=== PATIENT | female | born 1965 | race Caucasian/White ===

== ENCOUNTER 2017-04-11 18:50 | Emergency (ER) | payer MEDICARE, OTHER ==
[2017-04-11 18:59] VITALS: RESP 20
[2017-04-11] MEDS ORDERED: RX INFO: IV CONTRAST WAS GIVEN 1 EACH MISC MISCELLANE PRN (19:27)
[2017-04-11] MEDS ORDERED: SODIUM CHLORIDE 0.9% 1,000 ML IV STA ×2 (19:27)
[2017-04-11] MEDS ORDERED: KETOROLAC 30 MG/ML 1 ML VIAL IVP STA (19:27)
--- NOTE | 2017-04-11 19:35 | ED ---
Abdominal Pain HPI - General Chief Complaint: Abdominal Pain Stated Complaint: Abdominal pain Time Seen by Provider: 04/11/17 19:05 Source: family (Sister) Mode of arrival: wheelchair Limitations: physical limitation - History of Present Illness Initial Comments: Patient brought in by sister for abdominal pain and constipation. Patient has a history of Down syndrome. History is provided by sister. Sr. states patient has-been complaining of abdominal pain over the past 5 days. States she's had decreased oral intake, usually stops eating early stating that her stomach hurts. Sister states she given patient laxative pills, however patient has only had 2 bowel movements in the past 5 days. States patient normally has a bowel movement immediately after eating, has bowel movements daily. Patient points to the right side of her abdomen when asked where it hurts. Sr. denies patient has any history of abdominal surgeries. Denies any vomiting, fevers, chills, blood in stools. Sister notes patient's urination seems to be only small amounts at a time. MD Complaint: abdominal pain - Related Data Home Medications Medication Instructions Recorded Confirmed ALPRAZolam [ALPRAZolam] 0.25 mg PO TID 08/13/14 04/11/17 Cholecalciferol [Vitamin D3] 1,000 unit PO W/SUPPER 08/13/14 04/11/17 Cyanocobalamin [Vitamin B-12] 1,000 mcg PO DAILY 08/13/14 04/11/17 Levothyroxine Sodium [Synthroid] 25 mcg PO QAM 08/13/14 04/11/17 OLANZapine [Olanzapine] 5 mg PO HS 08/13/14 04/11/17 Omeprazole [Omeprazole] 20 mg PO QAM 08/13/14 04/11/17 metFORMIN HCL [Metformin HCl ER] 500 mg PO W/SUPPER 08/13/14 04/11/17 DULoxetine HCL [Cymbalta] 30 mg PO DAILY 08/20/15 04/11/17 DULoxetine HCL [Cymbalta] 60 mg PO DAILY 08/20/15 04/11/17 Nortrel-28 1 tab PO DAILY 04/11/17 04/11/17 Previous Rx's Medication Instructions Recorded Cephalexin [Keflex] 500 mg PO Q12HR 3 Days #6 cap 04/11/17 Docusate [Colace] 100 mg PO BID #30 capsule 04/11/17 Polyethylene Glycol 3350 [Miralax] 17 gm PO TID PRN #119 gm 04/11/17 Allergies Allergy/AdvReac Type Severity Reaction Status Date / Time No Known Allergies Allergy Verified 04/11/17 20:06 Review of Systems ROS Statement: Those systems with pertinent positive or pertinent negative responses have been documented in the HPI. ROS Other: All systems not noted in ROS Statement are negative. Constitutional: Denies: fever, chills, weakness, weight change ENT: Denies: throat pain, congestion Respiratory: Denies: cough Cardiovascular: Denies: chest pain Endocrine: Denies: fatigue Gastrointestinal: Reports: abdominal pain, constipation. Denies: nausea, vomiting, diarrhea, hematemesis, melena, hematochezia Genitourinary: Reports: frequency Musculoskeletal: Denies: back pain Skin: Denies: rash Neurological: Denies: headache Past Medical History Past Medical History: Diabetes Mellitus, Eye Disorder, Pneumonia, Sleep Apnea/ CPAP/BIPAP, Thyroid Disorder Additional Past Medical History / Comment(s): Down Syndrome, enlarged heart, wears O2 during night-2 liters nasal canula, left foot deformity History of Any Multi-Drug Resistant Organisms: None Reported Additional Past Surgical History / Comment(s): nasal surgery, wilberto cataract surgery Past Anesthesia/Blood Transfusion Reactions: No Reported Reaction Past Psychological History: Anxiety, Schizophrenia Smoking Status: Never smoker Past Alcohol Use History: None Reported Past Drug Use History: None Reported - Past Family History Father Family Medical History: Cancer Mother Additional Family Medical History / Comment(s): lung fibrosis Brother(s) Additional Family Medical History / Comment(s): lung fibrosis General Exam - General Exam Comments Initial Comments: Laying in bed. No acute distress. Calm, pleasant. Smiling. Does not appear in pain. Well-appearing. Limitations: physical limitation General appearance: alert, in no apparent distress Head exam: Present: atraumatic Eye exam: Present: PERRL, EOMI ENT exam: Present: normal exam, normal oropharynx, mucous membranes moist Neck exam: Present: normal inspection. Absent: tenderness Respiratory exam: Present: normal lung sounds bilaterally. Absent: respiratory distress, wheezes, rales Cardiovascular Exam: Present: regular rate, normal rhythm GI/Abdominal exam: Present: soft. Absent: distended, tenderness, guarding, rebound, rigid, hernia (No hernias or tenderness appreciated. Obese.) Extremities exam: Present: normal inspection Neurological exam: Present: alert, oriented X3 Psychiatric exam: Present: normal affect, normal mood Skin exam: Present: warm, dry, intact, normal color. Absent: rash Course Vital Signs 04/11/17 18:57 Temperature 98.2 F Pulse Rate 78 Respiratory 20 Rate Blood Pressure 145/90 O2 Sat by Pulse 99 Oximetry Medical Decision Making - Medical Decision Making IV fluids, Toradol ordered. We'll get computed tomography scan of the abdomen is patient points to right lower quadrant of her pain. No significant abnormalities on blood work. UA shows questionable infection, we'll give prescription Keflex. CT abdomen shows no acute process. Patient's sister updated without results. Sister feels comfortable taking patient home and monitoring symptoms at home. Agrees to follow [facility] physician one to 2 days. We'll trial of Colace and MiraLAX at home for possible constipation. Return to ER for new or worsening symptoms including increased abdominal pain, fevers, not tolerating oral intake. Sister understands and agrees. Was comfortable being discharged home. Patient's abdomen remains nontender. - Lab Data Result diagrams: 04/11/17 20:17 04/11/17 20:17 Lab Results 04/11/17 04/11/17 04/11/17 Range/Units 19:39 19:39 20:17 WBC 4.8 (3.8-10.6) k/uL RBC 4.01 (3.80-5.40) m/uL Hgb 13.8 (11.4-16.0) gm/dL Hct 40.8 (34.0-46.0) % MCV 101.6 H (80.0-100.0) fL MCH 34.4 (25.0-35.0) pg MCHC 33.8 (31.0-37.0) g/dL RDW 13.1 (11.5-15.5) % Plt Count 447 (150-450) k/uL Neutrophils % 63 % Lymphocytes % 28 % Monocytes % 7 % Eosinophils % 0 % Basophils % 1 % Neutrophils # 3.0 (1.3-7.7) k/uL Lymphocytes # 1.3 (1.0-4.8) k/uL Monocytes # 0.3 (0-1.0) k/uL Eosinophils # 0.0 (0-0.7) k/uL Basophils # 0.1 (0-0.2) k/uL Macrocytosis Slight Sodium (137-145) mmol/L Potassium (3.5-5.1) mmol/L Chloride (98-107) mmol/L Carbon Dioxide (22-30) mmol/L Anion Gap mmol/L BUN (7-17) mg/dL Creatinine (0.52-1.04) mg/dL Est GFR (MDRD) Af Amer (>60 ml/min/1.73 sqM) Est GFR (MDRD) Non-Af (>60 ml/min/1.73 sqM) Glucose (74-99) mg/dL Calcium (8.4-10.2) mg/dL Total Bilirubin (0.2-1.3) mg/dL AST (14-36) U/L ALT (9-52) U/L Alkaline Phosphatase (38-126) U/L Total Protein (6.3-8.2) g/dL Albumin (3.5-5.0) g/dL Lipase (23-300) U/L Urine Color Yellow Urine Appearance Cloudy H (Clear) Urine pH 5.5 (5.0-8.0) Ur Specific [place] 1.017 (1.001-1.035) Urine Protein Trace H (Negative) Urine Glucose (UA) Negative (Negative) Urine Ketones 1+ H (Negative) Urine Blood Negative (Negative) Urine Nitrite Negative (Negative) Urine Bilirubin Negative (Negative) Urine Urobilinogen <2.0 (<2.0) mg/dL Ur Leukocyte Esterase Moderate H (Negative) Urine RBC 1 (0-5) /hpf Urine WBC 8 H (0-5) /hpf Ur Squamous Epith Cells 3 (0-4) /hpf Hyaline Casts 14 H (0-2) /lpf Urine Mucus Few H (None) /hpf Urine HCG, Qual Not Detected (Not Detectd) 04/11/17 Range/Units 20:17 WBC (3.8-10.6) k/uL RBC (3.80-5.40) m/uL Hgb (11.4-16.0) gm/dL Hct (34.0-46.0) % MCV (80.0-100.0) fL MCH (25.0-35.0) pg MCHC (31.0-37.0) g/dL RDW (11.5-15.5) % Plt Count (150-450) k/uL Neutrophils % % Lymphocytes % % Monocytes % % Eosinophils % % Basophils % % Neutrophils # (1.3-7.7) k/uL Lymphocytes # (1.0-4.8) k/uL Monocytes # (0-1.0) k/uL Eosinophils # (0-0.7) k/uL Basophils # (0-0.2) k/uL Macrocytosis Sodium 140 (137-145) mmol/L Potassium 4.7 (3.5-5.1) mmol/L Chloride 103 (98-107) mmol/L Carbon Dioxide 26 (22-30) mmol/L Anion Gap 11 mmol/L BUN 12 (7-17) mg/dL Creatinine 1.00 (0.52-1.04) mg/dL Est GFR (MDRD) Af Amer >60 (>60 ml/min/1.73 sqM) Est GFR (MDRD) Non-Af 58 (>60 ml/min/1.73 sqM) Glucose 91 (74-99) mg/dL Calcium 9.1 (8.4-10.2) mg/dL Total Bilirubin 0.5 (0.2-1.3) mg/dL AST 42 H (14-36) U/L ALT 49 (9-52) U/L Alkaline Phosphatase 68 (38-126) U/L Total Protein 7.1 (6.3-8.2) g/dL Albumin 3.6 (3.5-5.0) g/dL Lipase 41 (23-300) U/L Urine Color Urine Appearance (Clear) Urine pH (5.0-8.0) Ur Specific [place] (1.001-1.035) Urine Protein (Negative) Urine Glucose (UA) (Negative) Urine Ketones (Negative) Urine Blood (Negative) Urine Nitrite (Negative) Urine Bilirubin (Negative) Urine Urobilinogen (<2.0) mg/dL Ur Leukocyte Esterase (Negative) Urine RBC (0-5) /hpf Urine WBC (0-5) /hpf Ur Squamous Epith Cells (0-4) /hpf Hyaline Casts (0-2) /lpf Urine Mucus (None) /hpf Urine HCG, Qual (Not Detectd) Disposition Clinical Impression: Abdominal pain, Constipation Disposition: HOME SELF-CARE Condition: Good Instructions: Constipation (ED), Abdominal Pain (ED) Additional Instructions: Follow-up primary care physician one to 2 days for reevaluation. Return to ER for new or worsening symptoms. Prescriptions: Cephalexin [Keflex] 500 mg PO Q12HR 3 Days #6 cap Docusate [Colace] 100 mg PO BID #30 capsule Polyethylene Glycol 3350 [Miralax] 17 gm PO TID PRN #119 gm PRN Reason: Constipation Referrals: Luis Antonio Lantigua DO [Primary Care Provider] - 1-2 days
[2017-04-11 19:59] LABS: Appearance,Urine Cloudy (Clear); Bilirubin,Urine Negative (Negative); Blood,Urine Negative (Negative); Color,Urine Yellow; Glucose,Urine (UA) Negative (Negative); Hyaline Casts,Urine 14 /lpf (0-2); Ketones,Urine 1+ (Negative); Leukocyte Esterase,Urine Moderate (Negative); Mucus,Urine Few /hpf; Nitrite,Urine Negative (Negative); PH, Urine 5.5 (5.0-8.0); Protein,Urine Trace (Negative); RBC,Urine 1 /hpf (0-5); Specific Gravity,Urine 1.017 (1.001-1.035); Squamous Epithelial Cell,Urine 3 /hpf (0-4); Urobilinogen,Urine <2.0 mg/dL (<2.0); WBC,Urine 8 /hpf (0-5)
[2017-04-11 20:34] LABS: Basophils # (A) 0.1 k/uL (0-0.2); Basophils % (A) 1 %; Eosinophils % (A) 0 %; HCT 40.8 % (34.0-46.0); HGB 13.8 gm/dL (11.4-16.0); Lymphocytes # (A) 1.3 k/uL (1.0-4.8); Lymphocytes % (A) 28 %; MCH 34.4 pg (25.0-35.0); MCHC 33.8 g/dL (31.0-37.0); MCV 101.6 fL (80.0-100.0); Macrocytosis Slight; Mean Platelet Volume 7.4; Monocytes # (A) 0.3 k/uL (0-1.0); Monocytes % (A) 7 %; Neutrophils % (A) 63 %; Platelet Count 447 k/uL (150-450); RBC 4.01 m/uL (3.80-5.40); RDW 13.1 % (11.5-15.5); WBC 4.8 k/uL (3.8-10.6)
[2017-04-11 20:46] LABS: ALT 49 U/L (9-52); AST 42 U/L (14-36); Albumin 3.6 g/dL (3.5-5.0); Alkaline Phosphatase 68 U/L (38-126); Anion Gap 11 mmol/L; Blood Urea Nitrogen 12 mg/dL (7-17); Calcium 9.1 mg/dL (8.4-10.2); Carbon Dioxide 26 mmol/L (22-30); Chloride 103 mmol/L (98-107); Glucose 91 mg/dL (74-99); Lipase 41 U/L (23-300); Potassium 4.7 mmol/L (3.5-5.1); Sodium 140 mmol/L (137-145); Total Bilirubin 0.5 mg/dL (0.2-1.3); Total Protein 7.1 g/dL (6.3-8.2)
--- NOTE | 2017-04-11 22:19 | CT ---
EXAMINATION TYPE: CT abdomen pelvis w con DATE OF EXAM: 04/11/2017 COMPARISON: NONE INDICATION: Lt side abd pain DLP: 1508.90 mGycm, Automated exposure control for dose reduction was used. CONTRAST: 80 mL of Visipaque 320. Study performed without Oral Contrast TECHNIQUE: Axial images were obtained from above the diaphragm to the pubic rami in the axial plane a t 5 mm thick sections. Reconstructed images are reviewed on the computer in the coronal plane. FINDINGS: Limited CT sections are obtained the lung bases. Minimal streak opacity may be at the lung bases.. CT ABDOMEN: Liver: Normal Spleen: Normal Pancreas: Atrophic. Adrenal glands: The adrenal glands are normal. Gallbladder: Normal Kidneys: No masses are evident. No hydronephrosis is present. No cysts are present. Delayed images were obtained through the kidneys, which remain unremarkable. Aorta: Vascular calcification is within the aorta. Inferior vena cava: Normal. CT PELVIS: Loops of bowel within the abdomen and pelvis are normal. There are loops of bowel which are incom pletely distended or lack oral contrast limiting their evaluation. Appendix: Not identified. No suspicious inflammatory changes or dilated tubular structures are eviden t. Urinary bladder: Wall thickening is not excluded. This may be related to incomplete distention. Genitourinary structures: Uterus and adnexa are normal. Osseous structures: No suspicious lytic or sclerotic lesions. Spondylolysis of L5 appears to be prese nt. There is a grade 1 spondylolisthesis of L5 anterior on S1. Sclerosis at the L1-L2 disc space. IMPRESSIONS: 1. No acute changes evident. 2. No dilated loops of bowel suggest bowel obstruction.
[2017-04-11 22:37] VITALS: BP 152/89; PULSE 88; TEMP 98.5
== END 2017-04-11 22:42 | disposition home or self-care (01) ==
LOC: EC 18:50
DX: K59.00 Constipation, unspecified (principal); R10.9 Unspecified abdominal pain; Q90.9 Down syndrome, unspecified; E11.9 Type 2 diabetes mellitus without complications; G47.30 Sleep apnea, unspecified; E07.9 Disorder of thyroid, unspecified; F41.9 Anxiety disorder, unspecified; F20.9 Schizophrenia, unspecified; Z99.89 Dependence on other enabling machines and devices; Z79.84 Long term (current) use of oral hypoglycemic drugs; Z79.899 Other long term (current) drug therapy
CPT/HCPCS: 36415; 80053; 83690; 85025; 81001; 81025; 74177; 99284; 96374; 96361 ×2; Q9967; J1885

== ENCOUNTER 2017-05-18 15:58 | Emergency (ER) | payer MEDICARE, OTHER ==
[2017-05-18] MEDS ORDERED: SODIUM CHLORIDE 0.9% 500 ML IV STA (17:09)
[2017-05-18] MEDS ORDERED: RX INFO: IV CONTRAST WAS GIVEN 1 EACH MISC MISCELLANE PRN (17:09)
[2017-05-18] MEDS ORDERED: SODIUM CHLORIDE 0.9% 1,000 ML IV STA ×2 (17:09)
[2017-05-18] MEDS ORDERED: SENNOSIDES-DOCUSATE SODIUM 1 EACH TAB PO STA (17:09)
[2017-05-18] MEDS ORDERED: MORPHINE SULFATE 4 MG/ML SYRINGE IV STA (17:09)
--- NOTE | 2017-05-18 17:14 | ED ---
General Adult HPI - General Chief complaint: Abdominal Pain Stated complaint: Abd Pain, NVD Time Seen by Provider: 05/18/17 16:44 Source: patient, family, RN notes reviewed, old records reviewed Mode of arrival: wheelchair Limitations: altered mental status, physical limitation - History of Present Illness Initial comments: This is a 52-year-old female to the ER for evaluation today. She presents today for evaluation of abdominal pain. Patient is a poor historian secondary to mental condition. Patient states this feels like she still has to continuously go to the bathroom. This is an ongoing process for this patient for 3 months. She has had both ER outpatient evaluation. Patient's been taking MiraLAX with normal bowel movements, soft. Still feels like whenever she eats or any other issue she still has a going to the bathroom. She has no fevers, patient does complain of specific abdominal pain - Related Data Home Medications Medication Instructions Recorded Confirmed ALPRAZolam [ALPRAZolam] 0.25 mg PO TID 08/13/14 05/18/17 Cholecalciferol [Vitamin D3] 1,000 unit PO AC-SUPPER 08/13/14 05/18/17 Cyanocobalamin [Vitamin B-12] 1,000 mcg PO DAILY 08/13/14 05/18/17 Levothyroxine Sodium [Synthroid] 25 mcg PO QAM 08/13/14 05/18/17 OLANZapine [Olanzapine] 5 mg PO HS 08/13/14 05/18/17 Omeprazole [Omeprazole] 20 mg PO QAM 08/13/14 05/18/17 metFORMIN HCL [Metformin HCl ER] 500 mg PO AC-SUPPER 08/13/14 05/18/17 DULoxetine HCL [Cymbalta] 30 mg PO DAILY 08/20/15 05/18/17 DULoxetine HCL [Cymbalta] 60 mg PO DAILY 08/20/15 05/18/17 Nortrel-28 1 tab PO DAILY 04/11/17 05/18/17 Allergies Allergy/AdvReac Type Severity Reaction Status Date / Time No Known Allergies Allergy Verified 05/18/17 16:55 Review of Systems ROS Statement: Those systems with pertinent positive or pertinent negative responses have been documented in the HPI. ROS Other: All systems not noted in ROS Statement are negative. Past Medical History Past Medical History: Diabetes Mellitus, Eye Disorder, Pneumonia, Sleep Apnea/ CPAP/BIPAP, Thyroid Disorder Additional Past Medical History / Comment(s): Down Syndrome, enlarged heart, wears O2 during night-2 liters nasal canula, left foot deformity History of Any Multi-Drug Resistant Organisms: None Reported Additional Past Surgical History / Comment(s): nasal surgery, wilberto cataract surgery Past Anesthesia/Blood Transfusion Reactions: No Reported Reaction Past Psychological History: Anxiety, Schizophrenia Smoking Status: Never smoker Past Alcohol Use History: None Reported Past Drug Use History: None Reported - Past Family History Father Family Medical History: Cancer Mother Additional Family Medical History / Comment(s): lung fibrosis Brother(s) Additional Family Medical History / Comment(s): lung fibrosis General Exam Limitations: altered mental status, physical limitation General appearance: alert, in no apparent distress, obese Head exam: Present: atraumatic, normocephalic, normal inspection Eye exam: Present: normal appearance, PERRL, EOMI. Absent: scleral icterus, conjunctival injection, periorbital swelling ENT exam: Present: normal exam, mucous membranes moist Neck exam: Present: normal inspection. Absent: tenderness, meningismus, lymphadenopathy Respiratory exam: Present: normal lung sounds bilaterally. Absent: respiratory distress, wheezes, rales, rhonchi, stridor Cardiovascular Exam: Present: regular rate, normal rhythm, normal heart sounds. Absent: systolic murmur, diastolic murmur, rubs, gallop, clicks GI/Abdominal exam: Present: soft, normal bowel sounds. Absent: distended, tenderness, guarding, rebound, rigid Extremities exam: Present: normal inspection, full ROM, normal capillary refill. Absent: tenderness, pedal edema, joint swelling, calf tenderness Back exam: Present: normal inspection Neurological exam: Present: alert, oriented X3, CN II-XII intact Psychiatric exam: Present: normal affect, normal mood Skin exam: Present: warm, dry, intact, normal color. Absent: rash Course Vital Signs 05/18/17 05/18/17 05/18/17 16:33 19:08 21:12 Temperature 98.3 F 97.2 F L Pulse Rate 94 85 88 Respiratory 20 16 18 Rate Blood Pressure 145/87 136/79 157/65 O2 Sat by Pulse 99 90 L 96 Oximetry - Reevaluation(s) Reevaluation #1: Patient has good successful bowel movement after enema Noted wandering cecum and CT, spoke with Dr. Talamantes who will see in the office on Medical Decision Making - Medical Decision Making 52 female the ER for evaluation of abdominal pain, feelings of needing to go to the bathroom. Patient has wandering cecum successful bowel movement here in the ER with follow-up with Dr. Bradshaw regarding CT findings - Lab Data Result diagrams: 05/18/17 17:31 05/18/17 17:31 Lab Results 05/18/17 05/18/17 05/18/17 Range/Units 17:31 17:31 17:31 WBC 5.3 (3.8-10.6) k/uL RBC 4.61 (3.80-5.40) m/uL Hgb 15.5 (11.4-16.0) gm/dL Hct 45.7 (34.0-46.0) % MCV 99.1 (80.0-100.0) fL MCH 33.5 (25.0-35.0) pg MCHC 33.8 (31.0-37.0) g/dL RDW 13.2 (11.5-15.5) % Plt Count 433 (150-450) k/uL Neutrophils % 50 % Lymphocytes % 35 % Monocytes % 10 % Eosinophils % 2 % Basophils % 2 % Neutrophils # 2.7 (1.3-7.7) k/uL Lymphocytes # 1.8 (1.0-4.8) k/uL Monocytes # 0.5 (0-1.0) k/uL Eosinophils # 0.1 (0-0.7) k/uL Basophils # 0.1 (0-0.2) k/uL Sodium 141 (137-145) mmol/L Potassium 4.5 (3.5-5.1) mmol/L Chloride 103 (98-107) mmol/L Carbon Dioxide 29 (22-30) mmol/L Anion Gap 9 mmol/L BUN 13 (7-17) mg/dL Creatinine 1.00 (0.52-1.04) mg/dL Est GFR (CKD-EPI)AfAm 76 (>60 ml/min/1.73 sqM) Est GFR (CKD-EPI)NonAf 66 (>60 ml/min/1.73 sqM) Glucose 120 H (74-99) mg/dL Plasma Lactic Acid José Miguel 1.2 (0.7-2.0) mmol/L Calcium 9.8 (8.4-10.2) mg/dL Phosphorus 4.6 H (2.5-4.5) mg/dL Magnesium 2.1 (1.6-2.3) mg/dL Total Bilirubin 0.5 (0.2-1.3) mg/dL AST 45 H (14-36) U/L ALT 58 H (9-52) U/L Alkaline Phosphatase 97 (38-126) U/L Total Protein 7.8 (6.3-8.2) g/dL Albumin 4.0 (3.5-5.0) g/dL Amylase 43 (30-110) U/L Lipase 46 (23-300) U/L Urine Color Urine Appearance (Clear) Urine pH (5.0-8.0) Ur Specific [place] (1.001-1.035) Urine Protein (Negative) Urine Glucose (UA) (Negative) Urine Ketones (Negative) Urine Blood (Negative) Urine Nitrite (Negative) Urine Bilirubin (Negative) Urine Urobilinogen (<2.0) mg/dL Ur Leukocyte Esterase (Negative) Urine RBC (0-5) /hpf Urine WBC (0-5) /hpf Urine WBC Clumps (None) /hpf Ur Squamous Epith Cells (0-4) /hpf Amorphous Sediment (None) /hpf Urine Bacteria (None) /hpf Hyaline Casts (0-2) /lpf Urine Mucus (None) /hpf 05/18/18 Range/Units 18:50 WBC (3.8-10.6) k/uL RBC (3.80-5.40) m/uL Hgb (11.4-16.0) gm/dL Hct (34.0-46.0) % MCV (80.0-100.0) fL MCH (25.0-35.0) pg MCHC (31.0-37.0) g/dL RDW (11.5-15.5) % Plt Count (150-450) k/uL Neutrophils % % Lymphocytes % % Monocytes % % Eosinophils % % Basophils % % Neutrophils # (1.3-7.7) k/uL Lymphocytes # (1.0-4.8) k/uL Monocytes # (0-1.0) k/uL Eosinophils # (0-0.7) k/uL Basophils # (0-0.2) k/uL Sodium (137-145) mmol/L Potassium (3.5-5.1) mmol/L Chloride (98-107) mmol/L Carbon Dioxide (22-30) mmol/L Anion Gap mmol/L BUN (7-17) mg/dL Creatinine (0.52-1.04) mg/dL Est GFR (CKD-EPI)AfAm (>60 ml/min/1.73 sqM) Est GFR (CKD-EPI)NonAf (>60 ml/min/1.73 sqM) Glucose (74-99) mg/dL Plasma Lactic Acid José Miguel (0.7-2.0) mmol/L Calcium (8.4-10.2) mg/dL Phosphorus (2.5-4.5) mg/dL Magnesium (1.6-2.3) mg/dL Total Bilirubin (0.2-1.3) mg/dL AST (14-36) U/L ALT (9-52) U/L Alkaline Phosphatase (38-126) U/L Total Protein (6.3-8.2) g/dL Albumin (3.5-5.0) g/dL Amylase (30-110) U/L Lipase (23-300) U/L Urine Color Yellow Urine Appearance Cloudy H (Clear) Urine pH 5.0 (5.0-8.0) Ur Specific [place] 1.022 (1.001-1.035) Urine Protein Trace H (Negative) Urine Glucose (UA) Negative (Negative) Urine Ketones Negative (Negative) Urine Blood Negative (Negative) Urine Nitrite Negative (Negative) Urine Bilirubin Negative (Negative) Urine Urobilinogen <2.0 (<2.0) mg/dL Ur Leukocyte Esterase Small H (Negative) Urine RBC 2 (0-5) /hpf Urine WBC 19 H (0-5) /hpf Urine WBC Clumps Rare H (None) /hpf Ur Squamous Epith Cells 2 (0-4) /hpf Amorphous Sediment Occasional H (None) /hpf Urine Bacteria Occasional H (None) /hpf Hyaline Casts 2 (0-2) /lpf Urine Mucus Moderate H (None) /hpf - Radiology Data Radiology results: report reviewed (CT abdomen pelvis shows wandering cecum), image reviewed Disposition Clinical Impression: Constipation, Abdominal pain Disposition: HOME SELF-CARE Condition: Good Instructions: Abdominal Pain (ED) Referrals: Leobardo Lewis MD [STAFF PHYSICIAN] - 1-2 days
[2017-05-18] MEDS ORDERED: MORPHINE SULFATE/PF 10MG/10ML VL ONE (17:20)
[2017-05-18] MEDS ORDERED: MORPHINE SULFATE/PF 10MG/10ML VL IVP STA (17:31)
[2017-05-18 17:51] LABS: Basophils # (A) 0.1 k/uL (0-0.2); Basophils % (A) 2 %; Eosinophils # (A) 0.1 k/uL (0-0.7); Eosinophils % (A) 2 %; HCT 45.7 % (34.0-46.0); HGB 15.5 gm/dL (11.4-16.0); Lymphocytes # (A) 1.8 k/uL (1.0-4.8); Lymphocytes % (A) 35 %; MCH 33.5 pg (25.0-35.0); MCHC 33.8 g/dL (31.0-37.0); MCV 99.1 fL (80.0-100.0); Mean Platelet Volume 7.6; Monocytes # (A) 0.5 k/uL (0-1.0); Monocytes % (A) 10 %; Neutrophils # (A) 2.7 k/uL (1.3-7.7); Neutrophils % (A) 50 %; Platelet Count 433 k/uL (150-450); RBC 4.61 m/uL (3.80-5.40); RDW 13.2 % (11.5-15.5); WBC 5.3 k/uL (3.8-10.6)
[2017-05-18 17:58] LABS: Calcium 9.8 mg/dL (8.4-10.2); Magnesium 2.1 mg/dL (1.6-2.3); Phosphorus 4.6 mg/dL (2.5-4.5); Potassium 4.5 mmol/L (3.5-5.1); Total Bilirubin 0.5 mg/dL (0.2-1.3); Total Protein 7.8 g/dL (6.3-8.2)
[2017-05-18] MEDS ORDERED: LORazepam 2 MG/ML INJ IV STA (18:28)
[2017-05-18] MEDS ORDERED: diphenhydrAMINE 50 MG/ML 1 ML VIAL IVP STA (18:28)
[2017-05-18 19:02] LABS: Amorphous Sediment,Urine Occasional /hpf; Appearance,Urine Cloudy (Clear); Bacteria,Urine Occasional /hpf; Bilirubin,Urine Negative (Negative); Blood,Urine Negative (Negative); Color,Urine Yellow; Glucose,Urine (UA) Negative (Negative); Hyaline Casts,Urine 2 /lpf (0-2); Ketones,Urine Negative (Negative); Leukocyte Esterase,Urine Small (Negative); Mucus,Urine Moderate /hpf; Nitrite,Urine Negative (Negative); Protein,Urine Trace (Negative); RBC,Urine 2 /hpf (0-5); Specific Gravity,Urine 1.022 (1.001-1.035); Squamous Epithelial Cell,Urine 2 /hpf (0-4); Urobilinogen,Urine <2.0 mg/dL (<2.0); WBC,Urine 19 /hpf (0-5)
[2017-05-18] MEDS ORDERED: cefTRIAXone IN SWFI 1,000 MG/10 ML SYRINGE IVP STA (19:06)
--- NOTE | 2017-05-18 19:12 | US ---
EXAMINATION TYPE: US pelvic complete DATE OF EXAM: 05/18/2017 COMPARISON: NONE CLINICAL HISTORY: Pain. Pain TECHNIQUE: Transabdominal (TA). Transabdominal sonographic images of uterus were acquired. Unable t o perform transvaginal exam to see ovaries due to patients condition. Patient has never had a pap sme ar and has Downs syndrome. EXAM MEASUREMENTS: Uterus: 7.9 x 2.1 x 3.5 cm Endometrial Stripe: 0.3 cm 1. Uterus: Anteverted wnl 2. Endometrium: wnl 3. Right Ovary: Obscured by overlying bowel gas 4. Left Ovary: Obscured by overlying bowel gas 5. Bilateral Adnexa: wnl 6. Posterior cul-de-sac: wnl IMPRESSION: Unremarkable uterus and endometrial thickness given the limitations of transabdominal exa m only and lack of urinary bladder fullness. Ovaries are obscured by bowel gas.
--- NOTE | 2017-05-18 20:12 | CT ---
EXAMINATION TYPE: CT abdomen pelvis w con DATE OF EXAM: 05/18/2017 HISTORY: Generalized pain with vomiting CT DLP: 1644mGycm Automated Exposure Control for Dose Reduction was Utilized. CONTRAST: CT scan of the abdomen and pelvis is performed with IV Contrast, patient injected with 100 mL of Isov ue 300. COMPARISON: None. FINDINGS: The patient's arms creates spray artifact and partially obscure visualization of the upper abdomen. LUNG BASES: Multifocal airspace disease is seen within the lung bases posteriorly and dependently and also within the right middle lobe.. This likely relates to multifocal atelectasis LIVER/GB: The gallbladder is elongated although there is no evidence of common bile duct dilation or right upper quadrant fat stranding. Pericholecystic fluid on CT. Liver is unremarkable in enhancement . PANCREAS: Pancreatic atrophy is moderate. No ductal dilatation. SPLEEN: Spleen is small in size but otherwise unremarkable. ADRENALS: No nodularity. KIDNEYS: No significant abnormality is seen. BOWEL: Although there is no bowel dilatation the cecum is now displaced into the midline anterior abd omen on series 3 image 62 and was previously seen within the right hemipelvis. The right hemicolon is also midline and left para midline. This is unchanged from the prior exam of 04/11/2017. UTERUS/ADNEXA: No gross abnormality seen. LYMPH NODES: No greater than 1cm abdominal or pelvic lymph nodes are appreciated. OSSEOUS STRUCTURES: Grade 1 anterolisthesis of L5 on S1 is again seen with multilevel moderate to sev ere degenerative changes of the lumbar spine. OTHER: There is diffuse thickening of the urinary bladder although it is incompletely distended.. IMPRESSION: 1. Abnormally located cecum and right hemicolon, differing in position from the recent CT of 8. Swirling of vessels is also seen within the left midline abdomen. There is no proximal obstruction to confirm internal hernia although internal hernia should be considered. Other considerations are f or wandering cecum. No secondary evidence of bowel ischemia is seen. 2. Diffuse urinary bladder wall thickening although there is incomplete distention. Correlate with ur inalysis for cystitis.
[2017-05-18 21:15] VITALS: BP 157/65; PULSE 88; RESP 18; TEMP 97.2
== END 2017-05-18 21:30 | disposition home or self-care (01) ==
LOC: EC 15:58
DX: K59.00 Constipation, unspecified (principal); R10.9 Unspecified abdominal pain; E11.9 Type 2 diabetes mellitus without complications; E07.9 Disorder of thyroid, unspecified; G47.30 Sleep apnea, unspecified; Z99.89 Dependence on other enabling machines and devices; F41.9 Anxiety disorder, unspecified; Z79.84 Long term (current) use of oral hypoglycemic drugs; Z79.899 Other long term (current) drug therapy; Z79.3 Long term (current) use of hormonal contraceptives
CPT/HCPCS: 36415; 80053; 82150; 83605; 83690; 83735; 84100; 85025; 81001; 87086; 76856; 74177; 99284; 96374; 96375 ×3; 96361 ×3; J2060; J1200; J0696; Q9967; J2270

== ENCOUNTER → 2017-05-26 | Outpatient (CLI) | payer MEDICARE, OTHER ==
--- NOTE | 2017-05-26 23:17 | NM ---
EXAMINATION TYPE: NM hepatobiliary w EF DATE OF EXAM: 05/26/2017 COMPARISON: NONE HISTORY: Abdominal pain TECHNIQUE: After the intravenous administration of 5.2 mCi Tc 99m Mebrofenin hepatobiliary scintigrap hy is performed. Immediate images post injection. FINDINGS: At 1 hour tracer is mostly in the gallbladder. There is also smaller amount tracer in the small bowel . Tracer mostly cleared from the liver after 1 hour. Dynamic images were not obtained. The poststimulation images show gallbladder ejection fraction of 91%. IMPRESSION: Normal hepatobiliary scan with normal gallbladder ejection fraction.
== END | disposition home or self-care (01) ==
LOC: RADNMMAIN 14:22
PROVIDERS: ATTEND Family Medicine
DX: R10.9 Unspecified abdominal pain (principal)
CPT/HCPCS: 78226; A9537

== ENCOUNTER 2017-05-28 08:04 | Day surgery (SDC) | payer MEDICARE, OTHER ==
[2017-05-24 15:14] VITALS: BMI 40.6
[~2017-05-28 08:04] MED LIST: LACTATED RINGERS 1,000 ML IV SCH
[2017-05-28 08:32] VITALS: RESP 16; TEMP 98.3
[2017-05-28 08:45] LABS: Glucose,Whole Blood 134 mg/dL (75-99)
[2017-05-28] MEDS ORDERED: PROPOFOL 10 MG/ML 20 ML VIAL IV ONE (09:26)
--- NOTE | 2017-05-28 09:54 | P.GSHP ---
History of Present Illness H&P Date: 05/28/17 Chief Complaint: GERD, screening colonoscopy This a 52-year-old female for from Dr. Lantigua. Patient presents today for EGD and screening colonoscopy. Past Medical History Past Medical History: Diabetes Mellitus, Pneumonia, Sleep Apnea/CPAP/BIPAP, Thyroid Disorder Additional Past Medical History / Comment(s): current tx UTI and having abd pain ,Down Syndrome, enlarged heart, wears O2 during night-2 liters nasal canula, left foot deformity History of Any Multi-Drug Resistant Organisms: None Reported Additional Past Surgical History / Comment(s): nasal surgery, wilberto cataract surgery,growth removed left ankle Past Anesthesia/Blood Transfusion Reactions: No Reported Reaction Smoking Status: Never smoker - Past Family History Father Family Medical History: Cancer Additional Family Medical History / Comment(s): skin Mother Additional Family Medical History / Comment(s): pulmonary fibrosis Brother(s) Additional Family Medical History / Comment(s): lung fibrosis Medications and Allergies Home Medications Medication Instructions Recorded Confirmed Type ALPRAZolam [ALPRAZolam] 0.25 mg PO TID 08/13/14 05/24/17 History Cholecalciferol [Vitamin D3] 1,000 unit PO AC-SUPPER 08/13/14 05/24/17 History Cyanocobalamin [Vitamin B-12] 1,000 mcg PO DAILY 08/13/14 05/24/17 History Levothyroxine Sodium [Synthroid] 25 mcg PO QAM 08/13/14 05/24/17 History OLANZapine [Olanzapine] 7.5 mg PO HS 08/13/14 05/24/17 History Omeprazole [Omeprazole] 20 mg PO QAM 08/13/14 05/24/17 History metFORMIN HCL [Metformin HCl ER] 500 mg PO AC-SUPPER 08/13/14 05/28/17 History DULoxetine HCL [Cymbalta] 30 mg PO QAM 08/20/15 05/24/17 History DULoxetine HCL [Cymbalta] 60 mg PO QAM 08/20/15 05/24/17 History Carboxymethylcellulose Sodium 1 drop LEFT EYE HS 05/24/17 05/24/17 History [Refresh Tears] Carboxymethylcellulose Sodium 1 drop RIGHT EYE 1200,2100 05/24/17 05/24/17 History [Refresh Tears] Nitrofurantoin Monohyd/M-Cryst 100 mg PO Q12HR 05/24/17 05/28/17 History [Macrobid] Olopatadine HCl [Pazeo] 1 drop BOTH EYES QAM 05/24/17 05/24/17 History Sodium Chloride 5% Ophth Soln 1 drops LEFT EYE 1200 05/24/17 05/24/17 History [Nga 128] Allergies Allergy/AdvReac Type Severity Reaction Status Date / Time latex Allergy sensitive Verified 05/28/17 08:56 skin Surgical - Exam Vital Signs Temp Pulse Resp BP Pulse Ox 98.3 F 99 16 134/88 94 L 05/28/17 08:30 05/28/17 08:30 05/28/17 08:30 05/28/17 08:30 05/28/17 08:30 - General well developed, no distress - Eyes PERRL - ENT normal pinna - Neck no masses - Respiratory normal expansion - Cardiovascular Rhythm: regular - Abdomen Abdomen: soft, non tender Results - Labs Abnormal Lab Results - Last 24 Hours (Table) 05/28/17 Range/Units 08:42 POC Glucose (mg/dL) 134 H (75-99) mg/dL Assessment and Plan Assessment: We'll perform EGD and screening colonoscopy.
--- NOTE | 2017-05-28 10:12 | P.OP ---
Date of Procedure: 05/28/17 Preoperative Diagnosis: GERD Screening colonoscopy Postoperative Diagnosis: Antral gastritis Sliding hiatal hernia Mild esophagitis Normal colon Procedure(s) Performed: EGD Colonoscopy Anesthesia: MAC Surgeon: Leobardo Lewis Pathology: other (Antrum, esophagus) Condition: stable Disposition: PACU Description of Procedure: N PROCEDURE: The patient was placed on the endoscopy table in the lateral position. Digital rectal examination was performed which revealed no abnormalities. es. Flexible colonoscope was then placed in the patient's anus and passed throughout the entire colon. The ileocecal valve was visualized. The cecum, ascending, transverse, descending and sigmoid colon were normal. The rectum was normal as well. There were no masses, polyps or diverticula noted in the entire colon. Next, the gastroscope placed oropharynx passed in the esophagus and into the stomach. The scope was then placed through the pylorus. The first and second portion of the duodenum appeared normal. Scope was then brought back the antrum and there was some minimal inflammation. A biopsies performed. Scope was unretroflexed stomach appeared normal. There was a sliding hiatal hernia. The GE junction was at 38 cm. The distal esophagus appeared mildly inflamed a biopsies performed. The proximal esophagus appeared normal. Scope was withdrawn for patient.
[2017-05-28 10:53] VITALS: BP 134/81; PULSE 85
== END 2017-05-28 11:14 | disposition home or self-care (01) ==
LOC: ORWHC2ENDO 08:04
PROVIDERS: ATTEND Surgery
DX: Z12.11 Encounter for screening for malignant neoplasm of colon (principal); K29.50 Unspecified chronic gastritis without bleeding; K21.0 Gastro-esophageal reflux disease with esophagitis; K44.9 Diaphragmatic hernia without obstruction or gangrene; Q90.9 Down syndrome, unspecified; I51.7 Cardiomegaly; E11.9 Type 2 diabetes mellitus without complications; Z79.84 Long term (current) use of oral hypoglycemic drugs; E07.9 Disorder of thyroid, unspecified; G47.33 Obstructive sleep apnea (adult) (pediatric); N39.0 Urinary tract infection, site not specified; Z79.2 Long term (current) use of antibiotics; Z99.81 Dependence on supplemental oxygen; Z79.899 Other long term (current) drug therapy; Z91.040 Latex allergy status
CPT/HCPCS: 88305; 84703; 43239; J2704; G0121

== ENCOUNTER 2017-06-03 18:13 | Observation (INO) | payer MEDICARE, OTHER ==
[2017-06-03] MEDS ORDERED: LORazepam 1 MG TAB PO STA (19:38)
[2017-06-03] MEDS ORDERED: SODIUM CHLORIDE 0.9% 1,000 ML IV STA ×2 (19:38)
[2017-06-03] MEDS ORDERED: MORPHINE SULFATE 4MG/4ML SYRG IVP STA (19:38)
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
[2017-06-03 20:32] LABS: Basophils % (A) 0 %; Eosinophils % (A) 1 %; HCT 43.4 % (34.0-46.0); Lymphocytes # (A) 1.2 k/uL (1.0-4.8); Lymphocytes % (A) 17 %; MCH 32.6 pg (25.0-35.0); MCHC 32.3 g/dL (31.0-37.0); MCV 100.9 fL (80.0-100.0); Macrocytosis Slight; Mean Platelet Volume 8.5; Monocytes # (A) 0.4 k/uL (0-1.0); Monocytes % (A) 7 %; Neutrophils # (A) 4.9 k/uL (1.3-7.7); Neutrophils % (A) 73 %; Platelet Count 499 k/uL (150-450); RDW 13.4 % (11.5-15.5); WBC 6.6 k/uL (3.8-10.6)
[2017-06-03 20:40] LABS: INR 1.1 (<1.2); Prothrombin Time 10.3 sec (9.0-12.0)
[2017-06-03 20:44] LABS: Albumin 3.6 g/dL (3.5-5.0); Calcium 9.6 mg/dL (8.4-10.2); Total Bilirubin 0.6 mg/dL (0.2-1.3); Total Protein 7.8 g/dL (6.3-8.2)
--- NOTE | 2017-06-03 21:16 | XR ---
EXAMINATION TYPE: XR KUB DATE OF EXAM: 06/03/2017 COMPARISON: NONE INDICATION: Abdominal pain TECHNIQUE: Single view abdomen upright view FINDINGS: Nonspecific bowel gas is present. Air appears to be within the splenic flexure. Psoas margins are normal. No organomegaly is present. Scoliosis present with a convexity to the left. IMPRESSION: 1. Nonspecific abdomen.
--- NOTE | 2017-06-03 21:17 | XR ---
EXAMINATION TYPE: XR chest 2V DATE OF EXAM: 06/03/2017 COMPARISON: 06/10/2010 INDICATION: Abdominal pain TECHNIQUE: Frontal and lateral views of the chest are obtained. FINDINGS: The heart size is normal. The pulmonary vasculature is normal. The lungs are clear. Scoliosis is through the thoracic spine. IMPRESSION: 1. No acute pulmonary process.
[2017-06-03] MEDS ORDERED: TOPICAL SKIN ADHESIVE 1 EACH AMP TOPICAL ONE (21:39)
[2017-06-03 23:06] LABS: Appearance,Urine Clear (Clear); Bilirubin,Urine Negative (Negative); Blood,Urine Negative (Negative); Color,Urine Colorless; Glucose,Urine (UA) Negative (Negative); Ketones,Urine Negative (Negative); Leukocyte Esterase,Urine Negative (Negative); Nitrite,Urine Negative (Negative); Protein,Urine Negative (Negative); Specific Gravity,Urine 1.001 (1.001-1.035); Urobilinogen,Urine <2.0 mg/dL (<2.0)
[2017-06-04] MEDS ORDERED: NALOXONE 0.4 MG/ML 1 ML VIAL IV PRN ×2 (00:05→16:44)
[2017-06-04] MEDS ORDERED: ONDANSETRON 4 MG/2 ML VIAL IVP PRN (00:05)
[2017-06-04] MEDS ORDERED: KETOROLAC 30 MG/ML 1 ML VIAL IVP PRN (00:05)
[2017-06-04] MEDS ORDERED: MORPHINE ORAL SOLN 10 MG/5 ML CUP PO PRN (00:05)
[2017-06-04] MEDS: SODIUM CHLORIDE 0.9% 1,000 ML IV SCH ×3 (00:59→18:11)
[2017-06-04 01:28] VITALS: BMI 36.0
[2017-06-04] MEDS ORDERED: ALPRAZolam 0.25 MG TAB PO STA (01:34)
[2017-06-04] MEDS ORDERED: OLANZapine 5 MG TAB PO ONE (01:35)
[2017-06-04] MEDS: LEVOTHYROXINE 25 MCG TAB PO SCH (06:10)
[2017-06-04 07:31] LABS: Glucose,Whole Blood 85 mg/dL (75-99)
[2017-06-04] MEDS: PANTOPRAZOLE 40 MG/10 ML VIAL IV SCH (08:29)
[2017-06-04] MEDS: ALPRAZolam 0.25 MG TAB PO SCH ×3 (08:29→20:33)
[2017-06-04] MEDS: DULoxetine HCL 60 MG CAPSULE.DR PO SCH (08:30)
[2017-06-04] MEDS: CYANOCOBALAMIN 500 MCG TAB PO SCH (08:30)
[2017-06-04] MEDS: KETOTIFEN 0.025% OPHTH DROPS 5 ML BTL BOTH EYES SCH (08:30)
[2017-06-04] MEDS ORDERED: NON-FORMULARY DRUG (Omeprazole [Omeprazole] 20 MG) PO SCH (09:00)
[2017-06-04 12:18] LABS: Albumin 2.6 g/dL (3.5-5.0); Calcium 8.7 mg/dL (8.4-10.2); Total Bilirubin 0.5 mg/dL (0.2-1.3); Total Protein 5.9 g/dL (6.3-8.2)
[2017-06-04 12:25] LABS: Potassium 5.2 mmol/L (3.5-5.1)
[2017-06-04 12:35] LABS: Glucose,Whole Blood 92 mg/dL (75-99)
[2017-06-04 12:55] LABS: Basophils # (A) 0.1 k/uL (0-0.2); Basophils % (A) 1 %; Eosinophils # (A) 0.1 k/uL (0-0.7); Eosinophils % (A) 1 %; HCT 39.3 % (34.0-46.0); HGB 12.8 gm/dL (11.4-16.0); Lymphocytes # (A) 1.2 k/uL (1.0-4.8); Lymphocytes % (A) 30 %; MCH 32.8 pg (25.0-35.0); MCHC 32.5 g/dL (31.0-37.0); MCV 100.9 fL (80.0-100.0); Macrocytosis Slight; Mean Platelet Volume 8.3; Monocytes # (A) 0.5 k/uL (0-1.0); Monocytes % (A) 11 %; Neutrophils # (A) 2.1 k/uL (1.3-7.7); Neutrophils % (A) 52 %; Platelet Count 414 k/uL (150-450); RDW 13.4 % (11.5-15.5)
--- NOTE | 2017-06-04 13:01 | P.GSCN ---
<Britt Leal - Last Filed: 06/04/17 12:39> History of Present Illness Consult date: 06/04/17 Reason for Consult: Abdominal pain History of present illness: 52-year-old patient who has Down's syndrome lives with her sister presented to the emergency room to be evaluated after family noted the patient to be experiencing episodes of being irrational and abusive which is different from baseline. Additionally the family noted that the patient was having episodes of frequent urination. Also having episodes of bloody stools. Stool for occult blood positive Health history has been obtained from reviewing computerized emergency room record and interviewing sister at bedside patient will answer yes to most questions. On May 28 patient did undergo a screening colonoscopy report indicated it was normal no acute findings. EGD done showed mild esophagitis antral gastritis and a sliding hiatal hernia.. Additionally the patient underwent a HIDA scan on May 26 reviewing the report indicated it was a normal scan with an EF of 91 % family indicates that the patient is scheduled June 17 undergo laparoscopic cholecystectomy by Past medical history sleep apnea with the use of CPAP therapy thyroid disorder, diabetes, Down's syndrome, frequent treatment for UTIs. Anxiety Surgical history growth removed from the left ankle, nasal surgery, a recent colonoscopy and EGD Review of Systems Difficult to obtain patient cannot give adequate recall Past Medical History Past Medical History: Diabetes Mellitus, Pneumonia, Sleep Apnea/CPAP/BIPAP, Thyroid Disorder Additional Past Medical History / Comment(s): current tx UTI and having abd pain ,Down Syndrome, enlarged heart, wears O2 during night-2 liters nasal canula, left foot deformity History of Any Multi-Drug Resistant Organisms: None Reported Additional Past Surgical History / Comment(s): nasal surgery, wilberto cataract surgery,growth removed left ankle Past Anesthesia/Blood Transfusion Reactions: No Reported Reaction Past Psychological History: Anxiety, Schizophrenia Smoking Status: Never smoker Past Alcohol Use History: None Reported Past Drug Use History: None Reported - Past Family History Father Family Medical History: Cancer Additional Family Medical History / Comment(s): skin Mother Additional Family Medical History / Comment(s): pulmonary fibrosis Brother(s) Additional Family Medical History / Comment(s): lung fibrosis Medications and Allergies Home Medications Medication Instructions Recorded Confirmed Type ALPRAZolam [ALPRAZolam] 0.25 mg PO TID 08/13/14 06/03/17 History Cholecalciferol [Vitamin D3] 1,000 unit PO AC-SUPPER 08/13/14 06/03/17 History Cyanocobalamin [Vitamin B-12] 1,000 mcg PO DAILY 08/13/14 06/03/17 History Levothyroxine Sodium [Synthroid] 25 mcg PO QAM 08/13/14 06/03/17 History OLANZapine [Olanzapine] 5 mg PO HS 08/13/14 06/03/17 History Omeprazole [Omeprazole] 20 mg PO QAM 08/13/14 06/03/17 History DULoxetine HCL [Cymbalta] 30 mg PO QAM 08/20/15 05/24/17 History DULoxetine HCL [Cymbalta] 60 mg PO QAM 08/20/15 06/03/17 History Olopatadine HCl [Pazeo] 1 drop BOTH EYES QAM 05/24/17 06/03/17 History Allergies Allergy/AdvReac Type Severity Reaction Status Date / Time latex Allergy sensitive Verified 06/03/17 19:56 skin Surgical - Exam Vital Signs Temp Pulse Resp BP Pulse Ox 98.5 F 114 H 18 143/79 98 06/03/17 18:25 06/03/17 18:25 06/03/17 18:25 06/03/17 18:25 06/03/17 18:25 GENERAL APPEARANCE: 52-year-old female with down syndrome is alert, awake cooperative resting in bed VITAL SIGNS: Reviewed HEENT: Head is normocephalic and atraumatic. Pupils are equal and reactive. The nares are patent. Oropharynx is clear without lesions. NECK: Supple without lymphadenopathy. Traches midline. HEART: S1, S2. Regular rate and rhythm. No murmur noted LUNGS: No crackles or wheezes are heard. On room air sats are 92% ABDOMEN: Soft, obese nontender, nondistended with good bowel sounds. No peritoneal signs. No palpable organomegaly or masses. No facial grimacing with palpitation to the abdominal wall EXTREMITIES: Normal skin color and turgor. No cyanosis, rash, ulceration, clubbing or edema. Radial pedal pulses are 2/4 bilaterally. Skin excoriation noted to the inner skin folds and Rectal area Rectum rectal exam normal rectal tone no blood noted in the rectal vault no external hemorrhoids no internal hemorrhoid palpable Results - Labs 06/03/17 20:25 06/04/17 11:15 Abnormal Lab Results - Last 24 Hours (Table) 06/03/17 06/03/17 06/03/17 Range/Units 20:25 20:25 22:49 MCV 100.9 H (80.0-100.0) fL Plt Count 499 H (150-450) k/uL Sodium (137-145) mmol/L Potassium (3.5-5.1) mmol/L Chloride (98-107) mmol/L Creatinine 1.10 H (0.52-1.04) mg/dL Glucose 113 H (74-99) mg/dL AST 48 H (14-36) U/L Total Protein (6.3-8.2) g/dL Albumin (3.5-5.0) g/dL Stool Occult Blood Positive H (Negative) 06/04/17 Range/Units 11:15 MCV (80.0-100.0) fL Plt Count (150-450) k/uL Sodium 146 H (137-145) mmol/L Potassium 5.2 H (3.5-5.1) mmol/L Chloride 111 H (98-107) mmol/L Creatinine (0.52-1.04) mg/dL Glucose 103 H (74-99) mg/dL AST (14-36) U/L Total Protein 5.9 L (6.3-8.2) g/dL Albumin 2.6 L (3.5-5.0) g/dL Stool Occult Blood (Negative) Microbiology - Last 24 Hours (Table) 06/03/17 22:49 Urine Culture - Preliminary Urine,Catheterized Diabetes panel 06/03/17 06/04/17 Range/Units 20:25 11:15 Sodium 141 146 H (137-145) mmol/L Potassium 5.0 5.2 H (3.5-5.1) mmol/L Chloride 101 111 H (98-107) mmol/L Carbon Dioxide 29 25 (22-30) mmol/L BUN 9 9 (7-17) mg/dL Creatinine 1.10 H 0.87 (0.52-1.04) mg/dL Glucose 113 H 103 H (74-99) mg/dL Calcium 9.6 8.7 (8.4-10.2) mg/dL AST 48 H 35 (14-36) U/L ALT 30 24 (9-52) U/L Alkaline Phosphatase 96 63 (38-126) U/L Total Protein 7.8 5.9 L (6.3-8.2) g/dL Albumin 3.6 2.6 L (3.5-5.0) g/dL Calcium panel 06/03/17 06/04/17 Range/Units 20:25 11:15 Calcium 9.6 8.7 (8.4-10.2) mg/dL Albumin 3.6 2.6 L (3.5-5.0) g/dL Pituitary panel 06/03/17 06/04/17 Range/Units 20:25 11:15 Sodium 141 146 H (137-145) mmol/L Potassium 5.0 5.2 H (3.5-5.1) mmol/L Chloride 101 111 H (98-107) mmol/L Carbon Dioxide 29 25 (22-30) mmol/L BUN 9 9 (7-17) mg/dL Creatinine 1.10 H 0.87 (0.52-1.04) mg/dL Glucose 113 H 103 H (74-99) mg/dL Calcium 9.6 8.7 (8.4-10.2) mg/dL Adrenal panel 06/03/17 06/04/17 Range/Units 20:25 11:15 Sodium 141 146 H (137-145) mmol/L Potassium 5.0 5.2 H (3.5-5.1) mmol/L Chloride 101 111 H (98-107) mmol/L Carbon Dioxide 29 25 (22-30) mmol/L BUN 9 9 (7-17) mg/dL Creatinine 1.10 H 0.87 (0.52-1.04) mg/dL Glucose 113 H 103 H (74-99) mg/dL Calcium 9.6 8.7 (8.4-10.2) mg/dL Total Bilirubin 0.6 0.5 (0.2-1.3) mg/dL AST 48 H 35 (14-36) U/L ALT 30 24 (9-52) U/L Alkaline Phosphatase 96 63 (38-126) U/L Total Protein 7.8 5.9 L (6.3-8.2) g/dL Albumin 3.6 2.6 L (3.5-5.0) g/dL Assessment and Plan Assessment: Impression Present on admission episode acute encephalopathy irritability altered mental status different from baseline unclear etiology possible metabolic Down syndrome cognitive impairment Present on admission stool positive for occult blood A recent colonoscopy done May 28 report reviewed normal findings no evidence of hemorrhoids A recent EGD May 28 mild gastritis Present on admission mild hyperkalemia, Present on admission acute renal insufficiency suspect due to poor oral intake with clinical dehydration HIDA scan obtained May 26 negative EF 91 Plan No Evidence of an acute surgical abdomen at this time Monitor hemoglobin Home meds appropriate Defer to the attending to address medical issues Will follow with you Surgical consultation note dictated for Dr. Melissa rounding on behalf of dr sequeira The above impression and plan of care have been discussed and directed by signing physician. Britt Leal nurse practitioner acting as scribe for signing physician. <Joleen Melissa N - Last Filed: 06/04/17 18:41> Surgical - Exam Vital Signs Temp Pulse Resp BP Pulse Ox 98.5 F 114 H 18 143/79 98 06/03/17 18:25 06/03/17 18:25 06/03/17 18:25 06/03/17 18:25 06/03/17 18:25 Results - Labs 06/04/17 12:40 06/04/17 11:15 Abnormal Lab Results - Last 24 Hours (Table) 06/03/17 06/03/17 06/03/17 Range/Units 20:25 20:25 22:49 MCV 100.9 H (80.0-100.0) fL Plt Count 499 H (150-450) k/uL Sodium (137-145) mmol/L Potassium (3.5-5.1) mmol/L Chloride (98-107) mmol/L Creatinine 1.10 H (0.52-1.04) mg/dL Glucose 113 H (74-99) mg/dL POC Glucose (mg/dL) (75-99) mg/dL AST 48 H (14-36) U/L Total Protein (6.3-8.2) g/dL Albumin (3.5-5.0) g/dL Stool Occult Blood Positive H (Negative) 06/04/17 06/04/17 06/04/17 Range/Units 11:15 12:40 17:21 MCV 100.9 H (80.0-100.0) fL Plt Count (150-450) k/uL Sodium 146 H (137-145) mmol/L Potassium 5.2 H (3.5-5.1) mmol/L Chloride 111 H (98-107) mmol/L Creatinine (0.52-1.04) mg/dL Glucose 103 H (74-99) mg/dL POC Glucose (mg/dL) 111 H (75-99) mg/dL AST (14-36) U/L Total Protein 5.9 L (6.3-8.2) g/dL Albumin 2.6 L (3.5-5.0) g/dL Stool Occult Blood (Negative) Microbiology - Last 24 Hours (Table) 06/03/17 22:49 Urine Culture - Preliminary Urine,Catheterized Diabetes panel 06/03/17 06/04/17 Range/Units 20:25 11:15 Sodium 141 146 H (137-145) mmol/L Potassium 5.0 5.2 H (3.5-5.1) mmol/L Chloride 101 111 H (98-107) mmol/L Carbon Dioxide 29 25 (22-30) mmol/L BUN 9 9 (7-17) mg/dL Creatinine 1.10 H 0.87 (0.52-1.04) mg/dL Glucose 113 H 103 H (74-99) mg/dL Calcium 9.6 8.7 (8.4-10.2) mg/dL AST 48 H 35 (14-36) U/L ALT 30 24 (9-52) U/L Alkaline Phosphatase 96 63 (38-126) U/L Total Protein 7.8 5.9 L (6.3-8.2) g/dL Albumin 3.6 2.6 L (3.5-5.0) g/dL Calcium panel 06/03/17 06/04/17 Range/Units 20:25 11:15 Calcium 9.6 8.7 (8.4-10.2) mg/dL Albumin 3.6 2.6 L (3.5-5.0) g/dL Pituitary panel 06/03/17 06/04/17 Range/Units 20:25 11:15 Sodium 141 146 H (137-145) mmol/L Potassium 5.0 5.2 H (3.5-5.1) mmol/L Chloride 101 111 H (98-107) mmol/L Carbon Dioxide 29 25 (22-30) mmol/L BUN 9 9 (7-17) mg/dL Creatinine 1.10 H 0.87 (0.52-1.04) mg/dL Glucose 113 H 103 H (74-99) mg/dL Calcium 9.6 8.7 (8.4-10.2) mg/dL Adrenal panel 06/03/17 06/04/17 Range/Units 20:25 11:15 Sodium 141 146 H (137-145) mmol/L Potassium 5.0 5.2 H (3.5-5.1) mmol/L Chloride 101 111 H (98-107) mmol/L Carbon Dioxide 29 25 (22-30) mmol/L BUN 9 9 (7-17) mg/dL Creatinine 1.10 H 0.87 (0.52-1.04) mg/dL Glucose 113 H 103 H (74-99) mg/dL Calcium 9.6 8.7 (8.4-10.2) mg/dL Total Bilirubin 0.6 0.5 (0.2-1.3) mg/dL AST 48 H 35 (14-36) U/L ALT 30 24 (9-52) U/L Alkaline Phosphatase 96 63 (38-126) U/L Total Protein 7.8 5.9 L (6.3-8.2) g/dL Albumin 3.6 2.6 L (3.5-5.0) g/dL
[2017-06-04] MEDS ORDERED: PSYLLIUM HUSK 100% 6 GM PACKET PO PRN (13:59)
--- NOTE | 2017-06-04 15:40 | P.CN ---
Psychiatric Consult - . Consult date: 06/04/17 Consult:: 06/04/17 15:33 Patient was seen for on a psych consult regarding her irritability. Apparently patient has Down syndrome and is intellectually challenged. She is on Cymbalta Xanax and Zyprexa. Apparently she was admitted because of irritability and was thought to have UTI since she gets that way whenever she has UTI. Her urinalysis is not suggestive of UTI and it is not clear why she became irritable. Patient's sister reports that patient gets irritable and agitated and sometimes violent when she has UTI, hears something she doesn't like or if she is told to do things which she does not want to do. This kind of behavior is fairly common in people with intellectual deficits. Patient's sister reported that patient is on Zyprexa 7.5 mg at bedtime but she has been getting only 5 mg here in the hospital. It was changed to 7.5 earlier after I talked with the patient and her sister. Currently patient is calm relaxed and cooperative she is not agitated or irritable. She has some dysarthria and is not able to comprehend things well. However she did say that she throws temper tantrums at times, becomes violent throws things and hits punches etc. Apparently she is quite concerned about her scheduled cholecystectomy. Suggestion: Since she will be here for a very short time, I not suggest any changes in her medication except to use Zyprexa Zaidis 5 mg every 6-8 hours as needed for agitation.
[2017-06-04] MEDS ORDERED: MELATONIN 3 MG TABLET PO PRN (16:44)
[2017-06-04] MEDS ORDERED: CALCIUM CARBONATE 500 MG CHEWABLE PO PRN (16:44)
[2017-06-04] MEDS ORDERED: CHOLECALCIFEROL 1,000 UNIT TAB PO SCH (17:30)
[2017-06-04 17:47] LABS: Glucose,Whole Blood 111 mg/dL (75-99)
--- NOTE | 2017-06-04 17:56 | HP ---
HISTORY AND PHYSICAL DATE OF ADMISSION: 06/04/2017 PRESENTING COMPLAINT: Some abdominal pain, getting upset. HISTORY OF PRESENTING COMPLAINT: This is a 52-year-old patient with Down syndrome who is here with her sister, with whom she is living right now. Patient's chronic stable medical conditions include obesity, obstructive sleep apnea, uses a CPAP machine, chronic hypoxic respiratory failure. She uses oxygen, especially at night. She is hypothyroid. The patient was brought in because sometimes the patient gets really upset. Oral intake has been okay. Patient's stool pattern has not been very consistent in terms that the patient sometimes gets a hard stool and does not go on a very regular basis. Sometimes she complains of abdominal pain but is still able to eat fairly okay. Denies any fever. No nausea or vomiting. Patient is supposed to have her gallbladder taken out by Dr. Lewis, which is scheduled in the very near future. Patient is able to get around. Most of the history is obtained from the sister. Patient really does not talk much; maybe tries to say a few words, occasional words. Currently denies any abdominal pain. REVIEW OF SYSTEMS: Difficult to obtain, as patient does not really talk much. PAST MEDICAL HISTORY: 1. Diet-controlled diabetes. 2. Obstructive sleep apnea. Uses CPAP. 3. Hypothyroid. 4. Down syndrome. 5. Oxygen at night. 6. Left foot deformity. PAST SURGICAL HISTORY: 1. Nasal surgery. 2. Bilateral cataract. 3. Growth removed from the left ankle. PSYCH HISTORY: Anxiety, schizophrenia. SOCIAL HISTORY: Lives with her sister. No smoking. No alcohol. FAMILY HISTORY: Pulmonary fibrosis. HOME MEDICATIONS: 1. Olanzapine 5 mg at bedtime. 2. Pazeo 1 drop to both eyes in the morning. 3. Omeprazole 20 mg p.o. daily. 4. Vitamin B12 1000 mcg p.o. daily. 5. Vitamin D3 1000 units with supper. 6. Synthroid 25 mcg p.o. daily. 7. Cymbalta 60 mg p.o. daily. 8. Alprazolam 0.25 mg t.i.d. ALLERGIES: LATEX. PHYSICAL EXAMINATION: VITAL SIGNS: Temperature 98.5, pulse 114, respiration 18, blood pressure 143/79, pulse ox 98% on room air. GENERAL APPEARANCE: Well built; BMI 36.1. Sitting up, comfortable. EYES: Pupils equal. Conjunctivae normal. HEENT: External appearance of nose and ears normal. Oral cavity normal. NECK: JVD unable to assess. Mass not palpable. RESPIRATORY: Effort normal. Lungs are clear. CARDIOVASCULAR: First and second sounds normal. No edema. ABDOMEN: Soft, nontender. Liver and spleen not palpable. LYMPHATIC: No lymph node palpable in neck or axillae. PSYCHIATRY: Difficult to assess, NEUROLOGICAL: Pupils equal. No facial asymmetry. Patient noted to be walking. INVESTIGATIONS: White count 6.6, hemoglobin 14, potassium 5.0, BUN 9, creatinine 1.10. Repeat sodium was 146, potassium 5.2. Urine drug screen negative. KUB: Nonspecific abdomen. ASSESSMENT: 1. Episodes of occasional agitation possibly associated with Down syndrome, for which Psychiatry was consulted. 2. Possible constipation. Maybe patient is not eating enough fiber or drinking enough fluid. Patient's sodium has actually gone up. 3. Down syndrome. 4. Chronic schizophrenia. 5. Obstructive sleep apnea; uses a CPAP machine. 6. Hypothyroid. PLAN: Psychiatry was consulted. Patient was put on IV fluids. Will add Metamucil. Dr. Lewis was consulted. I had a lengthy talk with the patient's sister. Questions were answered. Patient will get IV fluids. Will watch her for 24 hours and see how she does with Metamucil. Encourage high-fiber diet. Home medications are resumed. MMODL / IJN: [id number] /
[2017-06-04] MEDS: PSYLLIUM HUSK 100% 6 GM PACKET PO SCH (18:10)
--- NOTE | 2017-06-04 18:46 | P.PN ---
Progress Note - Text Progress Note Date: 06/04/17 Patient seen and evaluated. Family is at bedside. Results of past EGD and colon and HIDA scan reviewed with family. Patient already had colonoscopy. No additional surgical intervention. Patient cleared from a surgical standpoint.
[2017-06-04] MEDS ORDERED: OLANZapine ODT 10 MG TAB PO SCH (19:00)
[2017-06-04] MEDS ORDERED: OLANZapine 2.5 MG TAB PO SCH (21:00)
[2017-06-04] MEDS ORDERED: OLANZapine 5 MG TAB PO SCH (21:00)
[2017-06-04] MEDS ORDERED: HALOPERIDOL LACTATE 5 MG/ML 1 ML VIAL IM ONE (21:04)
[2017-06-05 00:39] VITALS: RESP 16
[2017-06-05] MEDS: SODIUM CHLORIDE 0.9% 1,000 ML IV SCH ×2 (02:45→10:12)
[2017-06-05] MEDS: LEVOTHYROXINE 25 MCG TAB PO SCH (06:32)
[2017-06-05] MEDS: PANTOPRAZOLE 40 MG/10 ML VIAL IV SCH (08:13)
[2017-06-05] MEDS: KETOTIFEN 0.025% OPHTH DROPS 5 ML BTL BOTH EYES SCH (08:14)
[2017-06-05] MEDS: CYANOCOBALAMIN 500 MCG TAB PO SCH (08:15)
[2017-06-05] MEDS: DULoxetine HCL 60 MG CAPSULE.DR PO SCH (08:15)
[2017-06-05] MEDS: ALPRAZolam 0.25 MG TAB PO SCH (08:15)
[2017-06-05] MEDS: PSYLLIUM HUSK 100% 6 GM PACKET PO SCH (08:22)
[2017-06-05 11:57] LABS: Calcium 8.7 mg/dL (8.4-10.2); Potassium 4.3 mmol/L (3.5-5.1)
--- NOTE | 2017-06-05 14:46 | P.PN ---
Subjective Progress Note Date: 06/05/17 Patient admitted secondary to altered mental status. Gen. surgery was consulted for blood in stools. She had a recent colonoscopy. Patient is tolerating regular diet for lunch. Her family is at bedside. No abdominal pain at this time. Objective - Vital Signs Vital signs: Vital Signs Temp 97.6 F 06/05/17 07:00 Pulse 83 06/05/17 08:00 Resp 16 06/05/17 08:00 BP 138/82 06/05/17 07:00 Pulse Ox 93 L 06/05/17 07:00 Intake & Output 06/04/17 06/05/17 06/05/17 18:59 06:59 18:59 Intake Total 1200 Balance 1200 Intake: Oral 1200 Other: Voiding Method Bedside Commode Bedside Commode Toilet # Voids 4 3 - Exam GENERAL: Well developed and in no acute distress. Pleasant. HEENT: No sclera icterus. Extraocular movements grossly intact. Moist buccal mucosa. Head is atraumatic, normocephalic. Hears conversational speech. No nasal drainage. NECK: No JV distention. CHEST: Non-labored respirations and equal bilateral excursions. CARDIOVASCULAR: Regular rate and rhythm. Palpable 2+ radial pulses. ABDOMEN: Soft, nontender. Nondistended. MUSCULOSKELETAL: No clubbing, cyanosis or edema. NEUROLOGIC: No focal or lateralizing signs. PSYCH: Developmental delay. Alert to person. SKIN: Good skin turgor. Well perfused. - Labs CBC & Chem 7: 06/04/17 12:40 06/05/17 11:06 Labs: Abnormal Lab Results - Last 24 Hours (Table) 06/04/17 06/05/17 Range/Units 17:21 11:06 Glucose 123 H (74-99) mg/dL POC Glucose (mg/dL) 111 H (75-99) mg/dL Microbiology - Last 24 Hours (Table) 06/03/17 22:49 Urine Culture - Final Urine,Catheterized 06/03/17 20:25 Blood Culture - Preliminary Blood No Growth after 24 hours Assessment and Plan (1) Bloody stool Current Visit: Yes Status: Acute Code(s): K92.1 - MELENA SNOMED Code(s): 436744358 (2) Down's syndrome Current Visit: Yes Status: Acute Code(s): Q90.9 - DOWN SYNDROME, UNSPECIFIED SNOMED Code(s): 90028855 (3) Abdominal pain Current Visit: No Status: Acute Code(s): R10.9 - UNSPECIFIED ABDOMINAL PAIN SNOMED Code(s): 40241708 Plan: 1. At the time of my evaluation yesterday including today, patient has no abdominal pain. Also she is tolerating her diet. 2. Patient may follow up with her primary care provider as an outpatient. 3. Gen. surgery will sign off. Follow as needed.
[2017-06-05 15:39] VITALS: BP 178/96; PULSE 100; TEMP 98.7
[2017-06-05] MEDS ORDERED: OLANZapine ODT 10 MG TAB PO SCH (19:00)
--- NOTE | 2017-06-05 19:45 | DS ---
DISCHARGE SUMMARY DATE OF ADMISSION: June 03 2017. DATE OF DISCHARGE: June 05, 2017. FINAL DIAGNOSES: 1. Episodes of acute agitation associated Down syndrome. 2. Constipation. 3. Down syndrome. 4. Chronic schizophrenia. 5. Obstructive sleep apnea uses CPAP machine. 6. Hypothyroid. HOSPITAL COURSE: Patient presented with episode of agitation at home. Seen by Psychiatry. The patient also had some nonspecific abdominal pain at home, felt to be constipation. Metamucil was added. The patient is due for a gallbladder surgery by Dr. Lewis as an outpatient. Dr. Melissa was covering for Dr. Lewis. I did talk at length to the patient's sister today that as patient-with Down syndrome and mental retardation, so the symptoms probably will get worse. They are looking for a place for the patient. There was a question about indication for gallbladder surgery and I decided to discuss this with her surgeon Dr. Lewis. [place] the patient will also be dehydrated, did well with IV fluids. I felt patient would be better off at home now with known surroundings while the sisters are looking for a place for her. The patient otherwise medically stable. Tolerating a diet. Did have a solid stool that I witnessed. CONSULTATION: Dr. Melissa, general surgery, Dr. Dunbar from Psychiatry. DISCHARGE MEDICATIONS: 1. Xanax 0.25 p.o. t.i.d. 2. Vitamin D3 1000 units p.o. with supper. 3. Vitamin B12 1000 mcg p.o. daily. 4. Synthroid 25 mcg a day. 5. Zyprexa 7.5 mg p.o. q.h.s., which is patient's home dose. 6. Omeprazole 20 mg p.o. daily. 7. Cymbalta 90 mg in the morning. 8. 1 drop both eyes in the morning. 9. Metamucil 6 g p.o. daily. FOLLOWUP: Follow up with Dr. Lantigua in 3 days, follow up with Dr. Lewis in 1 week. Follow up with Psychiatry p.r.n. On examination lungs are clear. Cardiovascular 1st and 2nd sounds normal. Abdomen soft, nontender. Copy to Dr. Lantigua. MMODL / IJN: [id number] /
== END 2017-06-05 16:43 | disposition home or self-care (01) ==
LOC: EC 18:13 → 4MS4W 06-04 00:33
PROVIDERS: ADMIT Hospitalist; ATTEND Hospitalist
DX: R45.1 Restlessness and agitation (principal); K59.00 Constipation, unspecified; Q90.9 Down syndrome, unspecified; E86.0 Dehydration; E87.5 Hyperkalemia; K92.1 Melena; R45.4 Irritability and anger; F79 Unspecified intellectual disabilities; G31.84 Mild cognitive impairment of uncertain or unknown etiology; E03.9 Hypothyroidism, unspecified; J96.11 Chronic respiratory failure with hypoxia; G47.33 Obstructive sleep apnea (adult) (pediatric); Z99.89 Dependence on other enabling machines and devices; N28.9 Disorder of kidney and ureter, unspecified; G93.40 Encephalopathy, unspecified; I51.7 Cardiomegaly; F41.9 Anxiety disorder, unspecified; F20.9 Schizophrenia, unspecified; E66.9 Obesity, unspecified; Z68.36 Body mass index [BMI] 36.0-36.9, adult; M21.962 Unspecified acquired deformity of left lower leg; S91.311A Laceration without foreign body, right foot, initial encounter; W26.8XXA Contact with other sharp object(s), not elsewhere classified, initial encounter; Z91.040 Latex allergy status; Z79.899 Other long term (current) drug therapy; Z87.19 Personal history of other diseases of the digestive system; Z87.440 Personal history of urinary (tract) infections; Z87.01 Personal history of pneumonia (recurrent); Z83.6 Family history of other diseases of the respiratory system; Z80.8 Family history of malignant neoplasm of other organs or systems
CPT/HCPCS: 96361 ×8; 51701 ×2; 96374 ×2; 99285 ×2; 96372; 96375; 36415; 97162; 80053 ×2; 80048; 82150; 83605; 83690; 85025 ×2; 85610; 85730; 82272; 81003; 87040; 87086; 71046; 74018; G0378 ×2; J1630; J1885; C9113; J2270

== ENCOUNTER 2017-06-11 07:22 | Day surgery (SDC) | payer MEDICARE, OTHER ==
[2017-06-08 09:31] VITALS: BMI 40.6
[~2017-06-11 07:22] MED LIST changes: +DEXAMETHASONE SOD PHOSPHATE 10 MG/ML 1 ML VIAL IV ONE; +HEPARIN SODIUM,PORCINE 5,000 UNIT/ML 1 ML VIAL SQ ONE; +MIDAZOLAM 2 MG/2 ML VIAL IV PRN; +ONDANSETRON 4 MG/2 ML VIAL IVP ONE; +SCOPOLAMINE 1.5MG/72HR PATCH TRANSDERM ONE; +ceFAZolin IN SWFI 2 GM/20 ML SYRINGE IVP ONE
[2017-06-11] MEDS ORDERED: LIDOCAINE 1% 20 ML VIAL (10MG/ML) FOR IV START INTRADERMA ONE (09:57)
--- NOTE | 2017-06-11 10:10 | P.GSHP ---
History of Present Illness H&P Date: 06/11/17 Chief Complaint: Right upper quadrant pain This a 52-year-old female who's had complaints of recurrent right upper quadrant pain and nausea. Patient has had a HIDA scan performed which shows abnormal elevated ejection fraction of 91% consistent with biliary hyperkinesia. Patient presents today for laparoscopic cholecystectomy. The HIDA scan was performed which showed a elevated ejection fraction of 91%. Patient abdominal pain when she was given the CCK for the ejection fraction. Past Medical History Past Medical History: Diabetes Mellitus, Pneumonia, Sleep Apnea/CPAP/BIPAP, Thyroid Disorder Additional Past Medical History / Comment(s): LG sister states "recent tx UTI and having abd pain,ulcers and gallbladder not working properly",Down Syndrome, enlarged heart, wears O2 during night-2 liters nasal canula, left foot deformity History of Any Multi-Drug Resistant Organisms: None Reported Additional Past Surgical History / Comment(s): nasal surgery, wilberto cataract surgery,growth removed left ankle Past Anesthesia/Blood Transfusion Reactions: No Reported Reaction Smoking Status: Never smoker - Past Family History Father Family Medical History: Cancer Additional Family Medical History / Comment(s): skin Mother Additional Family Medical History / Comment(s): pulmonary fibrosis Brother(s) Additional Family Medical History / Comment(s): lung fibrosis Medications and Allergies Home Medications Medication Instructions Recorded Confirmed Type ALPRAZolam 0.25 mg PO TID 08/13/14 06/11/17 History Cholecalciferol [Vitamin D3] 1,000 unit PO AC-SUPPER 08/13/14 06/07/17 History Cyanocobalamin [Vitamin B-12] 1,000 mcg PO DAILY 08/13/14 06/07/17 History Levothyroxine Sodium [Synthroid] 25 mcg PO QAM 08/13/14 06/11/17 History OLANZapine [Olanzapine] 7.5 mg PO HS 08/13/14 06/11/17 History Omeprazole 20 mg PO QAM 08/13/14 06/11/17 History DULoxetine HCL [Cymbalta] 30 mg PO QAM 08/20/15 06/11/17 History DULoxetine HCL [Cymbalta] 60 mg PO QAM 08/20/15 06/11/17 History Olopatadine HCl [Pazeo] 1 drop BOTH EYES QA 05/24/17 06/11/17 History Carboxymethylcellulose Sodium 1 drop BOTH EYES BID 06/07/17 06/11/17 History [Refresh Tears] Sodium Chloride 5% Ophth Soln 1 drops BOTH EYES 1200 06/07/17 06/07/17 History [Nga 128] Allergies Allergy/AdvReac Type Severity Reaction Status Date / Time latex Allergy sensitive Verified 06/11/17 10:06 skin Surgical - Exam Vital Signs Temp Pulse Resp BP Pulse Ox 98.4 F 75 16 208/156 96 06/11/17 09:36 06/11/17 09:36 06/11/17 09:36 06/11/17 09:36 06/11/17 09:36 - General well developed, no distress - Eyes PERRL - ENT normal pinna - Neck no masses - Respiratory normal expansion - Cardiovascular Rhythm: regular - Abdomen Abdomen: soft, non tender Assessment and Plan Assessment: Right upper quadrant pain Chronic cholecystitis Abnormal HIDA scan with elevated ejection fraction of 91%. We'll perform laparoscopic cholecystectomy
[2017-06-11] MEDS ORDERED: BUPIVACAINE (PF) 0.25% 30 ML VIAL SQ ONE ×2 (10:29→10:59)
[2017-06-11] MEDS ORDERED: PROPOFOL 10 MG/ML 20 ML VIAL IV ONE (10:34)
[2017-06-11] MEDS ORDERED: SUCCINYLCHOLINE CHLORIDE 100 MG/5 ML SYR IV ONE (10:34)
[2017-06-11] MEDS ORDERED: fentaNYL (PF) 50 MCG/ML 2 ML AMP ONE (10:34)
[2017-06-11] MEDS ORDERED: ROCURONIUM BROMIDE 10 MG/ML 10 ML VIAL IV ONE (10:34)
[2017-06-11] MEDS ORDERED: ePHEDrine SULFATE/0.9% NACL/PF 50 MG/5 ML SYRINGE IV ONE (10:34)
[2017-06-11] MEDS ORDERED: LIDOCAINE 1% INJ 10MG/ML (20 ML MDV) ONE (10:34)
[2017-06-11] MEDS ORDERED: KETOROLAC 30 MG/ML 1 ML VIAL ONE (10:34)
[2017-06-11] MEDS ORDERED: NEOSTIGMINE 1 MG/ML 10 ML VIAL ONE (10:34)
[2017-06-11] MEDS ORDERED: GLYCOPYRROLATE 0.2 MG/ML 2 ML VIAL ONE (10:34)
[2017-06-11] MEDS ORDERED: SODIUM CHLORIDE 0.9% 50 ML with ceFAZolin 2,000 MG IV ONE ×2 (11:00)
[2017-06-11 11:52] VITALS: TEMP 97.6
--- NOTE | 2017-06-11 11:55 | P.OP ---
Date of Procedure: 06/11/17 Preoperative Diagnosis: Cholecystitis Postoperative Diagnosis: Cholecystitis Procedure(s) Performed: Laparoscopic cholecystectomy Anesthesia: MAC Surgeon: Leobardo Lewis Estimated Blood Loss (ml): 5 Pathology: other (Gallbladder) Condition: stable Disposition: PACU Operative Findings: Cholecystitis Description of Procedure: The patient was placed on the operating table. The patient received a general endotracheal tube anesthesia. The patients abdomen was prepped and draped in the usual sterile fashion. Through an infraumbilical stab incision, the fascia of the anterior abdominal wall was grasped with a pair of Kochers and then the Veress needle was placed in the peritoneal cavity. Position of the Veress needle was confirmed with positive drop test. The abdomen was then insufflated. After adequate insufflation, the 10 mm trocar was placed in the peritoneal cavity. Following this the laparoscope was placed in the peritoneal cavity. The patient was placed in the head-up, right side up position and then a 5 mm trocar was placed in the right lateral and right subcostal position under direct visualization. A 8 mm trocar was placed in the epigastric position. The gallbladder was grasped in the fundus and infundibulum. Traction on the gallbladder was placed in the lateral and the cephalad positions. The triangle of Calot was visualized.. The cystic duct was bluntly dissected until the union of the cystic duct and common bile duct was seen. The cystic duct was then divided and sealed with the Harmonic scissors. A PDS Endoloop was then placed throughout the cystic duct stump. The cystic artery divided and sealed with the Harmonic scissors. The gallbladder was then removed from the liver bed using Harmonic scissors. The gallbladder was then extracted through the epigastric port site. Operative field was checked for any bleeding spots and Harmonic scissors was used to coagulate the liver bed. The abdomen was irrigated. The trocars were removed. The skin was closed using interrupted 3-0 Vicryl suture. Dermabond dressing were applied. The patient tolerated the procedure well.
[2017-06-11] MEDS: fentaNYL (PF) 50 MCG/ML 2 ML AMP IV PRN ×2 (11:59→12:07)
[2017-06-11 12:03] VITALS: RESP 16
[2017-06-11] MEDS ORDERED: HYDROcodone/APAP 7.5-325MG 1 EACH TAB PO ONE (13:04)
[2017-06-11 14:53] VITALS: BP 137/82; PULSE 65
== END 2017-06-11 14:50 | disposition home or self-care (01) ==
LOC: OR 07:22
PROVIDERS: ATTEND Surgery
DX: K81.1 Chronic cholecystitis (principal); E11.9 Type 2 diabetes mellitus without complications; E07.9 Disorder of thyroid, unspecified; F41.9 Anxiety disorder, unspecified; K21.9 Gastro-esophageal reflux disease without esophagitis; I51.7 Cardiomegaly; F20.9 Schizophrenia, unspecified; Q90.9 Down syndrome, unspecified; Z87.440 Personal history of urinary (tract) infections; Z91.040 Latex allergy status; Z79.899 Other long term (current) drug therapy; Z99.81 Dependence on supplemental oxygen; Z87.01 Personal history of pneumonia (recurrent)
CPT/HCPCS: 47562; 81025; 88304; J1644; J1100; J2710; J2405; J2001; J3010; J1885; J0690; J0330; J2704

== ENCOUNTER → 2017-10-13 | Outpatient (CLI) | payer MEDICARE, OTHER ==
--- NOTE | 2017-10-18 11:32 | MM ---
Reason for exam: screening (asymptomatic). Last mammogram was performed 2 years and 6 months ago. History: Patient is postmenopausal and is nulliparous. Took hormonal contraceptives for 3 years. Physical Findings: A clinical breast exam by your physician is recommended on an annual basis and results should be correlated with mammographic findings. MG Screening Mammo w CAD Bilateral CC and MLO view(s) were taken. XCCL view(s) were taken of the right breast. Prior study comparison: April 16, 2015, bilateral MG screening mammo w CAD. February 20, 2014, bilateral MG screening mammo w CAD. There are scattered fibroglandular densities. No suspicious abnormality. No significant changes when compared with prior studies. ASSESSMENT: Negative, BI-RAD 1 RECOMMENDATION: Routine screening mammogram of both breasts in 1 year.
== END | disposition home or self-care (01) ==
LOC: RADMAMWWP 09:50
PROVIDERS: ATTEND Family Medicine
DX: Z12.31 Encounter for screening mammogram for malignant neoplasm of breast (principal)
CPT/HCPCS: 77067

== ENCOUNTER 2018-01-08 07:51 | Inpatient (IN) | payer MEDICARE, OTHER ==
[2018-01-08] MEDS ORDERED: ACETAMINOPHEN IV (For NPO) 1,000 MG in EMPTY BAG 1 BAG IVPB ONE (08:01)
[2018-01-08] MEDS ORDERED: DEXAMETHASONE SOD PHOSPHATE 10 MG/ML 1 ML VIAL IV STA (08:01)
[2018-01-08] MEDS ORDERED: IPRATROPIUM-ALBUTEROL 3 ML NEB INHALATION STA (08:01)
[2018-01-08] MEDS ORDERED: ALBUTEROL NEBULIZED 2.5 MG/3 ML INHALATION PRN (08:01)
[2018-01-08] MEDS ORDERED: SODIUM CHLORIDE 0.9% 1,000 ML IV ONE (08:01)
[2018-01-08] MEDS ORDERED: AZITHROMYCIN 500 MG in SODIUM CHLORIDE 0.9% 250 ML IVPB STA (08:01)
--- NOTE | 2018-01-08 08:04 | ED ---
General Adult HPI - General Stated complaint: BART, RECENT Hx PNEUMO Time Seen by Provider: 01/08/18 07:53 Source: EMS, RN notes reviewed Limitations: physical limitation - History of Present Illness Initial comments: History obtained from EMS. 52-year-old female from assisted living facility with worsening dyspnea and hypoxia. Patient has history of Down syndrome, she is unable to contribute to the history at this time. EMS reports that there was diagnosis of pneumonia made as an outpatient. Uncertain if this patient was started on antibiotics. Uncertain of past medical history at the time of initial evaluation. Further history will attempt to be obtained from patient's family member or guardian. EMS did report hypoxia in the 70s at the time of initial evaluation. - Related Data Home Medications Medication Instructions Recorded Confirmed ALPRAZolam 0.25 mg PO TID 08/13/14 06/11/17 Cholecalciferol [Vitamin D3] 1,000 unit PO AC-SUPPER 08/13/14 06/07/17 Cyanocobalamin [Vitamin B-12] 1,000 mcg PO DAILY 08/13/14 06/07/17 Levothyroxine Sodium [Synthroid] 25 mcg PO QAM 08/13/14 06/11/17 OLANZapine [Olanzapine] 7.5 mg PO HS 08/13/14 06/11/17 Omeprazole 20 mg PO QAM 08/13/14 06/11/17 DULoxetine HCL [Cymbalta] 30 mg PO QAM 08/20/15 06/11/17 DULoxetine HCL [Cymbalta] 60 mg PO QAM 08/20/15 06/11/17 Olopatadine HCl [Pazeo] 1 drop BOTH EYES QAM 05/24/17 06/11/17 Carboxymethylcellulose Sodium 1 drop BOTH EYES BID 06/07/17 06/11/17 [Refresh Tears] Sodium Chloride 5% Ophth Soln 1 drops BOTH EYES 1200 06/07/17 06/07/17 [Nag 128] Previous Rx's Medication Instructions Recorded Docusate [Colace] 100 mg PO BID #20 capsule 06/11/17 HYDROcodone/APAP 7.5-325MG [[place] 1 each PO Q4H PRN #30 tab 06/11/17 7.5] Allergies Allergy/AdvReac Type Severity Reaction Status Date / Time latex Allergy sensitive Verified 06/11/17 10:06 skin Review of Systems ROS Statement: Those systems with pertinent positive or pertinent negative responses have been documented in the HPI. ROS Other: All systems not noted in ROS Statement are negative. Limitations: ROS unobtainable due to patients medical condition Past Medical History Past Medical History: Diabetes Mellitus, Pneumonia, Sleep Apnea/CPAP/BIPAP, Thyroid Disorder Additional Past Medical History / Comment(s): LG sister states "recent tx UTI and having abd pain,ulcers and gallbladder not working properly",Down Syndrome, enlarged heart, wears O2 during night-2 liters nasal canula, left foot deformity History of Any Multi-Drug Resistant Organisms: None Reported Additional Past Surgical History / Comment(s): nasal surgery, wilberto cataract surgery,growth removed left ankle Past Anesthesia/Blood Transfusion Reactions: No Reported Reaction Smoking Status: Never smoker - Past Family History Father Family Medical History: Cancer Additional Family Medical History / Comment(s): skin Mother Additional Family Medical History / Comment(s): pulmonary fibrosis Brother(s) Additional Family Medical History / Comment(s): lung fibrosis General Exam General appearance: alert, in distress Head exam: Present: atraumatic, normocephalic Eye exam: Present: normal appearance, PERRL ENT exam: Present: normal exam Neck exam: Present: normal inspection. Absent: tenderness, meningismus Respiratory exam: Present: respiratory distress, wheezes, rhonchi, accessory muscle use Cardiovascular Exam: Present: normal rhythm, tachycardia GI/Abdominal exam: Present: soft. Absent: distended, tenderness Extremities exam: Present: normal inspection, normal capillary refill. Absent: pedal edema, calf tenderness Neurological exam: Present: alert, oriented X3, CN II-XII intact. Absent: motor sensory deficit Psychiatric exam: Present: normal affect, normal mood Skin exam: Present: warm, dry, intact. Absent: cyanosis, diaphoretic Course Vital Signs 01/08/18 01/08/18 01/08/18 08:01 08:25 08:31 Temperature 100.6 F H Pulse Rate 72 133 H 129 H Respiratory 24 Rate Blood Pressure 143/98 O2 Sat by Pulse 93 L Oximetry 01/08/18 08:52 Temperature 102.7 F H Pulse Rate Respiratory Rate Blood Pressure O2 Sat by Pulse Oximetry EKG Findings - EKG Comments: EKG Findings:: EKG: Sinus tachycardia, rate of 132, MT interval 140, QRS duration 78, QTC 441, no ST segment elevation Medical Decision Making - Medical Decision Making 52-year-old female with outpatient diagnosis of pneumonia. Patient has failed to improve with oral antibiotics and Ventolin inhaler. She presents with tachycardia, tachypnea, hypoxia and fever. X-ray shows bilateral pneumonia in the lower lung barrera. Patient is a elevated white count 15.1, lactic acidosis 2.2. She is given IV steroids, IV antibiotics, albuterol and IV fluids in the emergency department. She will be admitted for further treatment of community- acquired pneumonia. Case discussed with admitting physician Dr. Shaw. - Lab Data Result diagrams: 01/08/18 08:45 01/08/18 08:45 Lab Results 01/08/18 01/08/18 01/08/18 Range/Units 08:45 08:45 08:45 WBC 15.1 H (3.8-10.6) k/uL RBC 3.94 (3.80-5.40) m/uL Hgb 12.6 (11.4-16.0) gm/dL Hct 39.7 (34.0-46.0) % MCV 100.6 H (80.0-100.0) fL MCH 31.9 (25.0-35.0) pg MCHC 31.7 (31.0-37.0) g/dL RDW 13.4 (11.5-15.5) % Plt Count 502 H (150-450) k/uL Neutrophils % 86 % Lymphocytes % 7 % Monocytes % 5 % Eosinophils % 0 % Basophils % 1 % Neutrophils # 12.9 H (1.3-7.7) k/uL Lymphocytes # 1.0 (1.0-4.8) k/uL Monocytes # 0.8 (0-1.0) k/uL Eosinophils # 0.1 (0-0.7) k/uL Basophils # 0.1 (0-0.2) k/uL PT (9.0-12.0) sec INR (<1.2) APTT (22.0-30.0) sec Sodium 139 (137-145) mmol/L Potassium 4.4 (3.5-5.1) mmol/L Chloride 101 (98-107) mmol/L Carbon Dioxide 30 (22-30) mmol/L Anion Gap 8 mmol/L BUN 15 (7-17) mg/dL Creatinine 0.82 (0.52-1.04) mg/dL Est GFR (CKD-EPI)AfAm >90 (>60 ml/min/1.73 sqM) Est GFR (CKD-EPI)NonAf 83 (>60 ml/min/1.73 sqM) Glucose 112 H (74-99) mg/dL Plasma Lactic Acid José Miguel (0.7-2.0) mmol/L Calcium 8.8 (8.4-10.2) mg/dL Magnesium 1.9 (1.6-2.3) mg/dL Total Bilirubin 0.4 (0.2-1.3) mg/dL AST 29 (14-36) U/L ALT 28 (9-52) U/L Alkaline Phosphatase 112 (38-126) U/L Total Creatine Kinase 43 (30-135) U/L CK-MB (CK-2) 0.3 (0.0-2.4) ng/mL CK-MB (CK-2) Rel Index 0.7 Troponin I 0.027 (0.000-0.034) ng/mL NT-Pro-B Natriuret Pep pg/mL Total Protein 7.5 (6.3-8.2) g/dL Albumin 3.3 L (3.5-5.0) g/dL 01/08/18 01/08/18 01/08/18 Range/Units 08:45 08:45 08:45 WBC (3.8-10.6) k/uL RBC (3.80-5.40) m/uL Hgb (11.4-16.0) gm/dL Hct (34.0-46.0) % MCV (80.0-100.0) fL MCH (25.0-35.0) pg MCHC (31.0-37.0) g/dL RDW (11.5-15.5) % Plt Count (150-450) k/uL Neutrophils % % Lymphocytes % % Monocytes % % Eosinophils % % Basophils % % Neutrophils # (1.3-7.7) k/uL Lymphocytes # (1.0-4.8) k/uL Monocytes # (0-1.0) k/uL Eosinophils # (0-0.7) k/uL Basophils # (0-0.2) k/uL PT 11.1 (9.0-12.0) sec INR 1.2 H (<1.2) APTT 24.7 (22.0-30.0) sec Sodium (137-145) mmol/L Potassium (3.5-5.1) mmol/L Chloride (98-107) mmol/L Carbon Dioxide (22-30) mmol/L Anion Gap mmol/L BUN (7-17) mg/dL Creatinine (0.52-1.04) mg/dL Est GFR (CKD-EPI)AfAm (>60 ml/min/1.73 sqM) Est GFR (CKD-EPI)NonAf (>60 ml/min/1.73 sqM) Glucose (74-99) mg/dL Plasma Lactic Acid José Miguel 2.2 H* (0.7-2.0) mmol/L Calcium (8.4-10.2) mg/dL Magnesium (1.6-2.3) mg/dL Total Bilirubin (0.2-1.3) mg/dL AST (14-36) U/L ALT (9-52) U/L Alkaline Phosphatase (38-126) U/L Total Creatine Kinase (30-135) U/L CK-MB (CK-2) (0.0-2.4) ng/mL CK-MB (CK-2) Rel Index Troponin I (0.000-0.034) ng/mL NT-Pro-B Natriuret Pep 328 pg/mL Total Protein (6.3-8.2) g/dL Albumin (3.5-5.0) g/dL Critical Care Time Critical Care Time: Yes Total Critical Care Time: 35 Disposition Clinical Impression: Community acquired pneumonia Disposition: ADMITTED IP TO THIS [facility] Condition: Stable Is patient prescribed a controlled substance at d/c from ED?: No Referrals: Luis Antonio Lantigua DO [Primary Care Provider] - 1-2 days Decision to Admit Reason: Admit from EC Decision Date: 01/08/18 Decision Time: 09:43
[2018-01-08 09:05] LABS: Basophils # (A) 0.1 k/uL (0-0.2); Basophils % (A) 1 %; Eosinophils # (A) 0.1 k/uL (0-0.7); Eosinophils % (A) 0 %; HCT 39.7 % (34.0-46.0); HGB 12.6 gm/dL (11.4-16.0); Lymphocytes % (A) 7 %; MCH 31.9 pg (25.0-35.0); MCHC 31.7 g/dL (31.0-37.0); MCV 100.6 fL (80.0-100.0); Mean Platelet Volume 7.7; Monocytes # (A) 0.8 k/uL (0-1.0); Monocytes % (A) 5 %; Neutrophils # (A) 12.9 k/uL (1.3-7.7); Neutrophils % (A) 86 %; Platelet Count 502 k/uL (150-450); RBC 3.94 m/uL (3.80-5.40); RDW 13.4 % (11.5-15.5); WBC 15.1 k/uL (3.8-10.6)
[2018-01-08 09:13] LABS: INR 1.2 (<1.2); Partial Thromboplastin Time 24.7 sec (22.0-30.0); Prothrombin Time 11.1 sec (9.0-12.0)
[2018-01-08 09:14] LABS: ALT 28 U/L (9-52); AST 29 U/L (14-36); Albumin 3.3 g/dL (3.5-5.0); Alkaline Phosphatase 112 U/L (38-126); Anion Gap 8 mmol/L; Blood Urea Nitrogen 15 mg/dL (7-17); Calcium 8.8 mg/dL (8.4-10.2); Carbon Dioxide 30 mmol/L (22-30); Chloride 101 mmol/L (98-107); Glucose 112 mg/dL (74-99); Magnesium 1.9 mg/dL (1.6-2.3); Potassium 4.4 mmol/L (3.5-5.1); Sodium 139 mmol/L (137-145); Total Bilirubin 0.4 mg/dL (0.2-1.3); Total Protein 7.5 g/dL (6.3-8.2)
--- NOTE | 2018-01-08 09:32 | XR ---
EXAMINATION TYPE: XR chest 1V portable DATE OF EXAM: 01/08/2018 HISTORY: fever. REFERENCE: Previous study dated 06/03/2017. FINDINGS: There is bibasilar airspace disease. Heart size is obscured. The left CP angle is obscured and I could not exclude a left-sided effusion. IMPRESSION: 1. BIBASILAR AIRSPACE DISEASE. 2. I COULD NOT EXCLUDE A SMALL, LEFT EFFUSION.
[2018-01-08 09:39] LABS: Creatine Kinase MB 0.3 ng/mL (0.0-2.4); Troponin I 0.027 ng/mL (0.000-0.034)
[2018-01-08] MEDS ORDERED: ASPIRIN 325 MG TAB PO STA ×2 (09:41→10:14)
[2018-01-08] MEDS ORDERED: ACETAMINOPHEN TAB 325 MG TAB PO PRN (09:44)
[2018-01-08] MEDS: SODIUM CHLORIDE 0.9% 1,000 ML IV SCH (09:54)
[2018-01-08 10:54] LABS: Glucose,Whole Blood 109 mg/dL (75-99)
[2018-01-08] MEDS ORDERED: OLANZapine ODT 5 MG TAB PO PRN (12:45)
[2018-01-08] MEDS: IPRATROPIUM-ALBUTEROL 3 ML NEB INHALATION SCH ×3 (14:19→21:29)
[2018-01-08] MEDS: BENZOCAINE/MENTHOL LOZENG 1 EACH LOZENGE MUCOUS MEM PRN (14:30)
[2018-01-08] MEDS ORDERED: ALBUTEROL NEBULIZED 2.5 MG/3 ML INHALATION SCH (16:00)
[2018-01-08] MEDS: DULoxetine HCL 60 MG CAPSULE.DR PO SCH (16:51)
[2018-01-08 17:28] LABS: Glucose,Whole Blood 150 mg/dL (75-99)
--- NOTE | 2018-01-08 17:32 | P.HPIM ---
History of Present Illness This is a pleasant 52 years old female with past medical history of diabetes mellitus, sleep apnea, hypothyroidism,. Presents because of dyspnea, she went to see her pcp who diagnosed her with respiratory tract infection and started her on antibiotic she felt well initially but then got worse and she decided to come to the hospital . pt lives in a snf and few people were complaining from common cold. pt denies from chest pain , on in the tracheal pain in the middle when she coughs only, she coughs but produces only scant sputum. pt is confused to time ,place and person. she might have some elements of dementia as she has down syndrome and information was taken from sister at bed side, who states she is a co-guardian and that her other sister is the guardian too. On admission her WBC was elevated at 15.1, hemoglobin is stable and platelets at 502. BMP was unremarkable. And high lactic acid at 2.2 came down to 1.6. Which is within normal limits. LFT was unremarkable as well. Influenza is negative area chest x-ray shows bilateral airspace disease with possible small left pleural effusion. Patient was admitted to the general medical floor, she is in the ICU for overflow. And started on antibiotics ceftriaxone and Zithromax and IV fluids. on reviewing her home medication she was only on doxycycline Review of Systems CONSTITUTIONAL: No fever, no malaise, no fatigue. HEENT: No recent visual problems or hearing problems. Denied any sore throat. CARDIOVASCULAR: No orthopnea, PND, no palpitations, no syncope. PULMONARY: No shortness of breath, no cough, no hemoptysis. GASTROINTESTINAL: No diarrhea, no nausea, no vomiting, no abdominal pain. Normoactive bowel sounds. NEUROLOGICAL: No headaches, no weakness, no numbness. HEMATOLOGICAL: Denies any bleeding or petechiae. GENITOURINARY: Denies any burning micturition, frequency, or urgency. MUSCULOSKELETAL/RHEUMATOLOGICAL: Denies any joint pain, swelling, or any muscle pain. ENDOCRINE: Denies any polyuria or polydipsia. Past Medical History Past Medical History: Diabetes Mellitus, Pneumonia, Sleep Apnea/CPAP/BIPAP, Thyroid Disorder Additional Past Medical History / Comment(s): LG sister states "recent tx UTI and having abd pain,ulcers and gallbladder not working properly",Down Syndrome, enlarged heart, wears O2 during night-2 liters nasal canula, left foot deformity History of Any Multi-Drug Resistant Organisms: None Reported Additional Past Surgical History / Comment(s): nasal surgery, wilberto cataract surgery,growth removed left ankle Past Anesthesia/Blood Transfusion Reactions: No Reported Reaction Past Psychological History: Anxiety, Schizophrenia Additional Psychological History / Comment(s): downs sydrome Smoking Status: Never smoker Past Alcohol Use History: None Reported Past Drug Use History: None Reported - Past Family History Father Family Medical History: Cancer Additional Family Medical History / Comment(s): skin Mother Additional Family Medical History / Comment(s): pulmonary fibrosis Brother(s) Additional Family Medical History / Comment(s): lung fibrosis Medications and Allergies Home Medications Medication Instructions Recorded Confirmed Type ALPRAZolam 0.25 mg PO BID@0800,2100 08/13/14 01/08/18 History Cyanocobalamin [Vitamin B-12] 1,000 mcg PO DAILY@0800 08/13/14 01/08/18 History Levothyroxine Sodium [Synthroid] 25 mcg PO DAILY@0800 08/13/14 01/08/18 History Omeprazole 20 mg PO DAILY@0800 08/13/14 01/08/18 History DULoxetine HCL [Cymbalta] 60 mg PO BID@0800,1600 08/20/15 01/08/18 History Olopatadine HCl [Pazeo] 1 drop BOTH EYES DAILY@1600 05/24/17 01/08/18 History Carboxymethylcellulose Sodium 1 drop BOTH EYES TID@0800,1200,2100 06/07/1701/08 History [Refresh Tears] Sodium Chloride 5% Ophth Soln 1 drops LEFT EYE BID@0815,2115 06/07/17 01/08/18 History [Nga 128] Albuterol Inhaler [Ventolin Hfa 2 puff INHALATION RT-QID 01/08/18 01/08/18 History Inhaler] Nmjrz-W-Qlnmieqwqtqyp [Beano] 300 unit PO BID@0800,1600 01/08/18 01/08/18 History Cholecalciferol [Vitamin D3] 400 unit PO AC-SUPPER 01/08/18 01/08/18 History Doxycycline Monohydrate [Monodox] 100 mg PO BID@0800,2100 01/08/18 01/08/18 History Ketoconazole [Ketoconazole 2%] 1 applic TOPICAL DAILY@0800 01/08/18 01/08/18 History OLANZapine ODT [ZyPREXA ZYDIS] 5 mg PO DAILY PRN 01/08/18 01/08/18 History OLANZapine [ZyPREXA] 7.5 mg PO HS@2100 01/08/18 01/08/18 History Allergies Allergy/AdvReac Type Severity Reaction Status Date / Time latex Allergy sensitive Verified 01/08/18 10:07 skin Physical Exam Vitals: Vital Signs Temp Pulse Pulse Resp BP BP Pulse Ox 01/08/18 12:00 99.1 F 116 H 22 109/72 93 L 01/08/18 10:21 98.9 F 114 H 22 119/75 92 L 01/08/18 10:07 100.0 F H 01/08/18 10:00 21 128/71 94 L 01/08/18 09:30 20 125/80 90 L 01/08/18 08:52 102.7 F H 01/08/18 08:31 129 H 01/08/18 08:25 133 H 01/08/18 08:01 100.6 F H 72 24 143/98 93 L Intake and Output 01/07/18 01/08/18 01/08/18 22:59 06:59 14:59 Other: Voiding Method Diaper # Voids 1 Weight 75 kg GENERAL: The patient is alert and oriented x3, not in any acute distress. Well developed, well nourished. HEENT: Pupils are round and equally reacting to light. EOMI. No scleral icterus. No conjunctival pallor. Normocephalic, atraumatic. No pharyngeal erythema. No thyromegaly. CARDIOVASCULAR: S1 and S2 present. No murmurs, rubs, or gallops. PULMONARY: Chest is clear to auscultation, no wheezing or crackles. ABDOMEN: Soft, nontender, nondistended, normoactive bowel sounds. No palpable organomegaly. MUSCULOSKELETAL: No joint swelling or deformity. EXTREMITIES: No cyanosis, clubbing, or pedal edema. NEUROLOGICAL: Gross neurological examination did not reveal any focal deficits. SKIN: No rashes. Results CBC & Chem 7: 01/08/18 08:45 01/08/18 08:45 Labs: Abnormal Lab Results - Last 24 Hours (Table) 01/08/18 01/08/18 01/08/18 Range/Units 08:45 08:45 08:45 WBC 15.1 H (3.8-10.6) k/uL MCV 100.6 H (80.0-100.0) fL Plt Count 502 H (150-450) k/uL Neutrophils # 12.9 H (1.3-7.7) k/uL INR (<1.2) Glucose 112 H (74-99) mg/dL POC Glucose (mg/dL) (75-99) mg/dL Plasma Lactic Acid José Miguel 2.2 H* (0.7-2.0) mmol/L Albumin 3.3 L (3.5-5.0) g/dL 01/08/18 01/08/18 Range/Units 08:45 10:50 WBC (3.8-10.6) k/uL MCV (80.0-100.0) fL Plt Count (150-450) k/uL Neutrophils # (1.3-7.7) k/uL INR 1.2 H (<1.2) Glucose (74-99) mg/dL POC Glucose (mg/dL) 109 H (75-99) mg/dL Plasma Lactic Acid José Miguel (0.7-2.0) mmol/L Albumin (3.5-5.0) g/dL Thrombosis Risk Factor Assmnt - Choose All That Apply Any of the Below Risk Factors Present?: Yes Each Factor Represents 1 point: Obesity (BMI >25) Thrombosis Risk Factor Assessment Total Risk Factor Score: 1 Thrombosis Risk Factor Assessment Level: Low Risk Assessment and Plan Assessment: Committee a quite pneumonia Diabetes mellitus Sleep apnea History of anxiety and schizophrenia. down syndrome possible dementia Plan: This is a pleasant 52 years old female who presents with bibasilar pneumonia. Continue with the same antibiotics of ceftriaxone and Zithromax. Follow-up culture results. Monitor vitals.Labs and medication were reviewed.. Continue same treatment. Continue with symptomatic treatment. Resume home medication. Monitor lytes and vitals. DVT and GI prophylaxis. Further recommendations of the clinical course of the patient DVT prophylaxis: Subcutaneous heparin GI Prophylaxis: Pepcid PT/OT: Pending Prognosis is guarded as per sister she states pt was full code before , she is not sure now and she is going to ask her other sister about her code status , she understands she will be full code.
[2018-01-08] MEDS: CHOLECALCIFEROL 400 UNIT TAB PO SCH (17:39)
[2018-01-08] MEDS: INSULIN ASPART 100 UNIT/ML 1 ML 10 ML VIAL SQ SCH ×2 (17:39→21:23)
[2018-01-08] MEDS: guaiFENesin 600 MG TABLET.ER PO SCH (19:53)
[2018-01-08] MEDS: ALPRAZolam 0.25 MG TAB PO SCH (19:53)
[2018-01-08] MEDS: HEPARIN SODIUM,PORCINE 5,000 UNIT/ML 1 ML VIAL SQ SCH (19:54)
[2018-01-08] MEDS: ARTIFICIAL TEARS-HYPROMELLOSE DROPS 15 ML BTL BOTH EYES SCH (19:54)
[2018-01-08] MEDS: FAMOTIDINE 20 MG/2 ML VIAL IV SCH (19:55)
[2018-01-08] MEDS: OLANZapine 2.5 MG TAB PO SCH (20:04)
[2018-01-08] MEDS: KETOTIFEN 0.025% OPHTH DROPS 5 ML BTL BOTH EYES SCH (20:18)
[2018-01-08 20:41] LABS: Glucose,Whole Blood 158 mg/dL (75-99)
[2018-01-08] MEDS: SODIUM CHLORIDE 5% OPHTH DROPS 15 ML BTL LEFT EYE SCH (21:22)
[2018-01-09] MEDS: SODIUM CHLORIDE 0.9% 1,000 ML IV SCH ×2 (04:45→16:02)
[2018-01-09 05:41] LABS: Basophils % (A) 0 %; Eosinophils # (A) 0.1 k/uL (0-0.7); Eosinophils % (A) 1 %; HCT 36.9 % (34.0-46.0); HGB 12.1 gm/dL (11.4-16.0); Lymphocytes # (A) 1.3 k/uL (1.0-4.8); Lymphocytes % (A) 7 %; MCH 32.5 pg (25.0-35.0); MCHC 32.8 g/dL (31.0-37.0); MCV 99.1 fL (80.0-100.0); Mean Platelet Volume 9.1; Monocytes # (A) 0.5 k/uL (0-1.0); Monocytes % (A) 2 %; Neutrophils # (A) 18.4 k/uL (1.3-7.7); Neutrophils % (A) 90 %; Platelet Count 350 k/uL (150-450); RBC 3.72 m/uL (3.80-5.40); RDW 13.5 % (11.5-15.5); WBC 20.5 k/uL (3.8-10.6)
[2018-01-09 06:13] LABS: Anion Gap 5 mmol/L; Blood Urea Nitrogen 16 mg/dL (7-17); Calcium 8.7 mg/dL (8.4-10.2); Carbon Dioxide 28 mmol/L (22-30); Chloride 111 mmol/L (98-107); Glucose 100 mg/dL (74-99); Sodium 144 mmol/L (137-145)
[2018-01-09 06:23] LABS: Potassium 6.8 mmol/L (3.5-5.1)
[2018-01-09 07:04] LABS: Glucose,Whole Blood 82 mg/dL (75-99)
[2018-01-09] MEDS: INSULIN ASPART 100 UNIT/ML 1 ML 10 ML VIAL SQ SCH ×4 (07:27→19:56)
[2018-01-09] MEDS: ALPRAZolam 0.25 MG TAB PO SCH ×2 (07:40→20:05)
[2018-01-09] MEDS: PANTOPRAZOLE 40 MG TABLET PO SCH (07:40)
[2018-01-09] MEDS: FAMOTIDINE 20 MG/2 ML VIAL IV SCH ×2 (07:40→20:06)
[2018-01-09] MEDS: LEVOTHYROXINE 25 MCG TAB PO SCH (07:43)
[2018-01-09] MEDS: CYANOCOBALAMIN 500 MCG TAB PO SCH (07:43)
[2018-01-09] MEDS: CLOTRIMAZOLE 1% CREAM 15 GM TUBE TOPICAL SCH (07:44)
[2018-01-09] MEDS: DULoxetine HCL 60 MG CAPSULE.DR PO SCH ×2 (07:45→15:59)
[2018-01-09] MEDS: ARTIFICIAL TEARS-HYPROMELLOSE DROPS 15 ML BTL BOTH EYES SCH ×3 (07:52→20:05)
[2018-01-09] MEDS: guaiFENesin 600 MG TABLET.ER PO SCH ×2 (07:55→20:05)
[2018-01-09] MEDS: HEPARIN SODIUM,PORCINE 5,000 UNIT/ML 1 ML VIAL SQ SCH ×2 (08:04→20:06)
[2018-01-09] MEDS: SODIUM CHLORIDE 5% OPHTH DROPS 15 ML BTL LEFT EYE SCH ×2 (08:06→21:30)
[2018-01-09] MEDS: IPRATROPIUM-ALBUTEROL 3 ML NEB INHALATION SCH ×4 (08:27→19:49)
[2018-01-09] MEDS: KETOTIFEN 0.025% OPHTH DROPS 5 ML BTL BOTH EYES SCH ×2 (09:01→20:05)
[2018-01-09] MEDS: AZITHROMYCIN 500 MG in SODIUM CHLORIDE 0.9% 250 ML IVPB SCH (09:02)
[2018-01-09] MEDS ORDERED: SODIUM POLYSTYRENE SULFONATE 15 GM/60 ML BOTTLE PO STA (09:09)
[2018-01-09] MEDS: BENZOCAINE/MENTHOL LOZENG 1 EACH LOZENGE MUCOUS MEM PRN ×2 (11:29→20:05)
--- NOTE | 2018-01-09 11:35 | CONS ---
CONSULTATION DATE OF SERVICE: 01/08/2018. REASON FOR CONSULTATION: Pneumonia. HISTORY OF PRESENT ILLNESS: The patient is a 52-year-old female with a past medical history significant for Down syndrome. The patient has been brought into the ER by the family with chief complaints of increasing shortness of breath and hypoxemia. Apparently the symptom has been going on for about a week and she has been evaluated in the outpatient setting. Apparently she did receive 2 different antibiotics into her gluteal area intramuscularly and subsequently patient started on oral doxycycline. However, the patient continued to have worsening of symptoms, especially a congested cough. However, she is unable to bring any sputum up. The family provided the history. Did mention there is no history of any nausea or vomiting, or choking on the food. No significant URI symptoms. On arrival of the EMS, the patient was noticed to be hypoxic with O2 sats of 70%. Subsequently evaluated by the ER physician where the patient's x- ray did show bibasilar airspace disease, small left effusion. Patient, on arrival to the ER, did have fever 102.7 degrees Fahrenheit. She was tachycardic. Her white count was elevated to 15.1. Influenza serology was negative. The patient has been admitted to hospital. Infectious Disease was consulted for further recommendation regarding antibiotic therapy. REVIEW OF SYSTEMS: Positive points have been mentioned in HPI. The rest of the review of systems has been negative. PAST MEDICAL HISTORY: Significant for Down syndrome, diabetes mellitus, pneumonia, sleep apnea, hypothyroidism, UTI. PAST SURGICAL HISTORY: Bariatric surgery, growth removed from the left ankle, nasal surgery. SOCIAL HISTORY: No history of smoking, drinking or drug use. FAMILY HISTORY: Father history of skin cancer. Mother with history of pulmonary fibrosis. ALLERGIES: LATEX. MEDICATIONS: The patient is currently on Tylenol, Ventolin, DuoNeb, , ceftriaxone, vitamin D3, clotrimazole, Cymbalta, Pepcid, Mucinex, heparin, NovoLog, Synthroid, Zyprexa. EXAMINATION: Blood pressure 125/70 with a pulse of 83, temperature of 98.1 degrees F. She is 93% on 6 L nasal cannula. GENERAL DESCRIPTION: A middle-aged female, lying in bed in no distress. No tachypnea or accessory muscle of respiration use. HEENT: Shows no pallor or scleral icterus. Oral mucosa is dry. No pharyngeal erythema or thrush. NECK: Trachea central, no thyromegaly. LUNGS: Unlabored breathing. Coarse breath sounds bilaterally. Occasional wheeze. HEART: S1, S2. Regular rate and rhythm. ABDOMEN: Soft, no tenderness. No rigidity or rigidity. EXTREMITIES: No edema of the feet. SKIN: No rashes or mass palpable. NEUROLOGIC: The patient is awake, alert. Orientation could not be determined. LABS: Hemoglobin is 12.5, white count 15.1, BUN of 15, creatinine 0.82, lactic acid 2.2. Electrolytes have been normal. Liver enzymes are normal. Influenza serology has been negative. Chest report as mentioned above. DIAGNOSTIC IMPRESSION AND PLAN: Patient admitted to the hospital with sepsis in a patient who did have a fever of 100, tachycardia, elevated white count. Consistent with criteria for SIRS/sepsis, source is pneumonia, likely community acquired that has failed outpatient doxycycline therapy. PLAN: 1. We will try to obtain sputum for Gram stain culture and sensitivity. 2. Rocephin 1 g daily and Zithromax. Will provide adequate coverage for pneumonia of community acquired origin. 3. IV fluids. 4. We will follow up on clinical condition and culture to further adjust medication if needed. Thank you for this consultation. Will follow this patient along with you. MMODL / IJN: [id number] /
[2018-01-09 11:58] LABS: Glucose,Whole Blood 86 mg/dL (75-99)
--- NOTE | 2018-01-09 13:33 | P.PN ---
Subjective This is a pleasant 52 years old female with past medical history of diabetes mellitus, sleep apnea, hypothyroidism,. Presents because of dyspnea, she went to see her pcp who diagnosed her with respiratory tract infection and started her on antibiotic she felt well initially but then got worse and she decided to come to the hospital . pt lives in a half-way and few people were complaining from common cold. pt denies from chest pain , on in the tracheal pain in the middle when she coughs only, she coughs but produces only scant sputum. pt is confused to time ,place and person. she might have some elements of dementia as she has down syndrome and information was taken from sister at bed side, who states she is a co-guardian and that her other sister is the guardian too. On admission her WBC was elevated at 15.1, hemoglobin is stable and platelets at 502. BMP was unremarkable. And high lactic acid at 2.2 came down to 1.6. Which is within normal limits. LFT was unremarkable as well. Influenza is negative area chest x-ray shows bilateral airspace disease with possible small left pleural effusion. Patient was admitted to the general medical floor, she is in the ICU for overflow. And started on antibiotics ceftriaxone and Zithromax and IV fluids. on reviewing her home medication she was only on doxycycline 01/09/2018 Patient seen and examined by me at bedside in the ICU. Patient is more awake and alert today, however she still have tachypnea and some respiratory distress. Patient potassium today was 5.8 and 6.8, Kayexalate is given going to monitor her potassium. Infectious disease consult is appreciated continue with same treatment. Follow-up culture results. WBC is worsening today from 15 to 20.1K. Influenza is negative. Patient does not have fever in the last 24 hours. As per staff patient is no code when they talked to the guardian Mrs. Moni Loya CONSTITUTIONAL: No fever, no malaise, no fatigue. HEENT: No recent visual problems or hearing problems. Denied any sore throat. CARDIOVASCULAR: No orthopnea, PND, no palpitations, no syncope. PULMONARY: No shortness of breath, no cough, no hemoptysis. GASTROINTESTINAL: No diarrhea, no nausea, no vomiting, no abdominal pain. Normoactive bowel sounds. NEUROLOGICAL: No headaches, no weakness, no numbness. HEMATOLOGICAL: Denies any bleeding or petechiae. GENITOURINARY: Denies any burning micturition, frequency, or urgency. MUSCULOSKELETAL/RHEUMATOLOGICAL: Denies any joint pain, swelling, or any muscle pain. ENDOCRINE: Denies any polyuria or polydipsia. Medications reviewed and include: Protonix, Zyprexa, Synthroid, ketotifen, Mucinex, Pepcid, Cymbalta, vitamin B12, clotrimazole, vitamin D, ceftriaxone, Zithromax, Xanax, ipratropium, albuterol, Tylenol. Objective - Vital Signs Vital signs: Vital Signs Temp 97.8 F 01/09/18 08:00 Pulse 80 01/09/18 08:45 Resp 20 01/09/18 08:00 BP 155/97 01/09/18 08:00 Pulse Ox 96 01/09/18 08:28 Intake & Output 01/08/18 01/09/18 01/09/18 18:59 06:59 18:59 Intake Total 150 Output Total 1050 650 0 Balance -1050 -500 0 Weight 75 kg 81.6 kg Intake: IV 150 Sodium Chloride 0.9% 1, 150 000 ml @ 75 mls/hr IV . [id number] [facility] Rx#:[id number] Output: Urine 1050 650 0 Other: Voiding Method Diaper Bedpan Incontinent Incontinent # Voids 1 1 1 - Exam GENERAL: The patient is alert and oriented x3, not in any acute distress. Well developed, well nourished. HEENT: Pupils are round and equally reacting to light. EOMI. No scleral icterus. No conjunctival pallor. Normocephalic, atraumatic. No pharyngeal erythema. No thyromegaly. CARDIOVASCULAR: S1 and S2 present. No murmurs, rubs, or gallops. PULMONARY: Chest is clear to auscultation, no wheezing or crackles. ABDOMEN: Soft, nontender, nondistended, normoactive bowel sounds. No palpable organomegaly. MUSCULOSKELETAL: No joint swelling or deformity. EXTREMITIES: No cyanosis, clubbing, or pedal edema. NEUROLOGICAL: Gross neurological examination did not reveal any focal deficits. SKIN: No rashes. - Labs CBC & Chem 7: 01/09/18 04:58 01/09/18 07:26 Labs: Abnormal Lab Results - Last 24 Hours (Table) 01/08/18 01/08/18 01/09/18 Range/Units 17:15 20:37 04:58 WBC 20.5 H (3.8-10.6) k/uL RBC 3.72 L (3.80-5.40) m/uL Neutrophils # 18.4 H (1.3-7.7) k/uL Potassium (3.5-5.1) mmol/L Chloride (98-107) mmol/L Glucose (74-99) mg/dL POC Glucose (mg/dL) 150 H 158 H (75-99) mg/dL 01/09/18 01/09/18 Range/Units 04:58 07:26 WBC (3.8-10.6) k/uL RBC (3.80-5.40) m/uL Neutrophils # (1.3-7.7) k/uL Potassium 6.8 H* 5.8 H (3.5-5.1) mmol/L Chloride 111 H (98-107) mmol/L Glucose 100 H (74-99) mg/dL POC Glucose (mg/dL) (75-99) mg/dL Microbiology - Last 24 Hours (Table) 01/08/18 08:45 Blood Culture - Preliminary Blood No Growth after 24 hours Assessment and Plan Assessment: Committee a quite pneumonia Diabetes mellitus Sleep apnea History of anxiety and schizophrenia. down syndrome possible dementia Plan: This is a pleasant 52 years old female who presents with bibasilar pneumonia. Continue with the same antibiotics of ceftriaxone and Zithromax. Follow-up culture results. Monitor vitals.Labs and medication were reviewed.. Continue same treatment. Continue with symptomatic treatment. Resume home medication. Monitor lytes and vitals. DVT and GI prophylaxis. Further recommendations of the clinical course of the patient DVT prophylaxis: Subcutaneous heparin GI Prophylaxis: Pepcid PT/OT: Pending Prognosis is guarded No code, as per her guardian Mrs. mcnair
[2018-01-09 16:29] LABS: Glucose,Whole Blood 126 mg/dL (75-99)
[2018-01-09] MEDS: CHOLECALCIFEROL 400 UNIT TAB PO SCH (17:35)
[2018-01-09 19:55] LABS: Glucose,Whole Blood 117 mg/dL (75-99)
[2018-01-09] MEDS: OLANZapine 2.5 MG TAB PO SCH (20:06)
--- NOTE | 2018-01-10 01:02 | PN ---
PROGRESS NOTE DATE OF SERVICE: 01/09/2018. REASON FOR FOLLOWUP: Community-acquired pneumonia. INTERVAL HISTORY: The patient overall breathing pattern has improved. She has been breathing more comfortably. She continued to have some cough but not bringing up any sputum. No nausea, vomiting, or any choking on food has been noted. No abdominal pain and no diarrhea. EXAMINATION: Blood pressure 142/85 with a pulse of 95, temperature 97.4. She is 93% on 3 L nasal cannula. GENERAL DESCRIPTION: An elderly female lying in bed in no distress. RESPIRATORY SYSTEM: Unlabored breathing. Decreased breath sounds in the base. HEART: S1, S2. Regular rate and rhythm. ABDOMEN: Soft. EXTREMITIES: No edema of the feet. LABS: Hemoglobin is 12.1, white count 20.5, BUN of 416, creatinine 0.72. DIAGNOSTIC IMPRESSION AND PLAN: Patient admitted to the hospital with congested cough and fever. The patient was diagnosed with pneumonia, failing outpatient doxycycline therapy, more likely community- acquired pneumonia. The patient seemed to be responding to the Rocephin and it will be continued. White count slightly elevated, monitor closely. Continue supportive care. MMODL / IJN: [id number] /
[2018-01-10 05:59] LABS: Basophils # (A) 0.1 k/uL (0-0.2); Basophils % (A) 1 %; Eosinophils % (A) 0 %; HCT 36.7 % (34.0-46.0); HGB 11.4 gm/dL (11.4-16.0); Hypochromasia Slight; Lymphocytes # (A) 2.2 k/uL (1.0-4.8); Lymphocytes % (A) 19 %; MCH 32.1 pg (25.0-35.0); MCHC 31.1 g/dL (31.0-37.0); MCV 103.2 fL (80.0-100.0); Macrocytosis Slight; Mean Platelet Volume 8.3; Monocytes # (A) 0.7 k/uL (0-1.0); Monocytes % (A) 6 %; Neutrophils % (A) 72 %; Platelet Count 423 k/uL (150-450); RBC 3.56 m/uL (3.80-5.40); RDW 13.8 % (11.5-15.5); WBC 11.2 k/uL (3.8-10.6)
[2018-01-10] MEDS: SODIUM CHLORIDE 0.9% 1,000 ML IV SCH (06:05)
[2018-01-10 06:14] LABS: Anion Gap 7 mmol/L; Carbon Dioxide 26 mmol/L (22-30); Chloride 108 mmol/L (98-107); Glucose 77 mg/dL (74-99); Sodium 141 mmol/L (137-145)
[2018-01-10] MEDS: PANTOPRAZOLE 40 MG TABLET PO SCH (06:19)
[2018-01-10 06:20] LABS: Blood Urea Nitrogen 15 mg/dL (7-17); Potassium 5.5 mmol/L (3.5-5.1)
[2018-01-10 06:25] LABS: Glucose,Whole Blood 71 mg/dL (75-99)
[2018-01-10] MEDS: INSULIN ASPART 100 UNIT/ML 1 ML 10 ML VIAL SQ SCH ×4 (06:47→20:57)
[2018-01-10] MEDS: IPRATROPIUM-ALBUTEROL 3 ML NEB INHALATION SCH (08:14)
[2018-01-10] MEDS: guaiFENesin 600 MG TABLET.ER PO SCH ×2 (08:59→20:48)
[2018-01-10] MEDS: ALPRAZolam 0.25 MG TAB PO SCH ×2 (08:59→20:48)
[2018-01-10] MEDS: CYANOCOBALAMIN 500 MCG TAB PO SCH (08:59)
[2018-01-10] MEDS: LEVOTHYROXINE 25 MCG TAB PO SCH (09:00)
[2018-01-10] MEDS: DULoxetine HCL 60 MG CAPSULE.DR PO SCH ×2 (09:00→17:42)
[2018-01-10] MEDS: SODIUM CHLORIDE 5% OPHTH DROPS 15 ML BTL LEFT EYE SCH ×2 (09:00→20:49)
[2018-01-10] MEDS: HEPARIN SODIUM,PORCINE 5,000 UNIT/ML 1 ML VIAL SQ SCH ×2 (09:00→20:48)
[2018-01-10] MEDS: ARTIFICIAL TEARS-HYPROMELLOSE DROPS 15 ML BTL BOTH EYES SCH ×3 (09:00→20:48)
[2018-01-10] MEDS: FAMOTIDINE 20 MG/2 ML VIAL IV SCH (09:00)
[2018-01-10] MEDS: CLOTRIMAZOLE 1% CREAM 15 GM TUBE TOPICAL SCH (09:00)
[2018-01-10] MEDS: KETOTIFEN 0.025% OPHTH DROPS 5 ML BTL BOTH EYES SCH ×2 (09:01→20:48)
[2018-01-10] MEDS ORDERED: SODIUM POLYSTYRENE SULFONATE 15 GM/60 ML BOTTLE PO STA (10:03)
[2018-01-10] MEDS: AZITHROMYCIN 500 MG in SODIUM CHLORIDE 0.9% 250 ML IVPB SCH (11:10)
[2018-01-10] MEDS: methylPREDNISolone SOD SUCCI 40 MG/ML 1 ML VIAL IV SCH ×2 (11:10→17:42)
[2018-01-10] MEDS: ALBUTEROL NEBULIZED 2.5 MG/3 ML INHALATION SCH ×4 (11:51→23:57)
[2018-01-10 12:03] LABS: Glucose,Whole Blood 126 mg/dL (75-99)
[2018-01-10 13:59] LABS: Hemoglobin A1C 5.8 % (4.0-6.0)
--- NOTE | 2018-01-10 14:12 | XR ---
EXAMINATION TYPE: XR chest 2V DATE OF EXAM: 01/10/2018 COMPARISON: Prior chest x-ray 01/08/2018 HISTORY: Pneumonia TECHNIQUE: Frontal and lateral views of the chest are obtained. FINDINGS: There is some improvement in aeration at the lung bases. Patient is rotated. No evident pn eumothorax or sizable effusion. There are overlying cardiac leads. Cardiomediastinal silhouette, pulm onary vascularity and annette are stable. IMPRESSION: There is some improvement in aeration, follow-up chest x-ray is recommended.
[2018-01-10] MEDS: BENZOCAINE/MENTHOL LOZENG 1 EACH LOZENGE MUCOUS MEM PRN (15:59)
[2018-01-10 17:00] LABS: Glucose,Whole Blood 160 mg/dL (75-99)
[2018-01-10] MEDS: CHOLECALCIFEROL 400 UNIT TAB PO SCH (17:42)
--- NOTE | 2018-01-10 20:14 | PN ---
PROGRESS NOTE DATE OF SERVICE: 01/10/2018. PRESENTING COMPLAINT: Short of breath. Wheezing. INTERVAL HISTORY: Patient admitted with sepsis, pneumonia. This morning, the nurse called me as patient is more tachypneic. Wheezing. Sister at the bedside. The patient has known underlying Down syndrome, admitted for pneumonia. On IV antibiotics. When I walked in, patient was quite a bit wheezing more with expiratory wheezing. The patient has been eating small amounts, weak, tired, run down. Has got a cough, congested. Not bringing up much sputum. I ordered a chest x-ray right away. REVIEW OF SYSTEMS: Done for constitutional, cardiovascular, GI, pulmonary and relevant findings as above. A lot of the history is obtained with the sister at the bedside. CURRENT MEDICATIONS: Reviewed that include IV Ventolin, p.o. Zithromax, IV ceftriaxone. EXAMINATION: VITAL SIGNS: Afebrile, pulse 108. Respiration 20, blood pressure 109/72, pulse ox 98% on 3 L. GENERAL APPEARANCE: Well built, BMI 35.7. Lying in bed, short of breath, awake at rest. EYES: Pupils equal. Conjunctivae normal. HEENT: External appearance of nose and ears normal. Oral cavity normal. NECK: JVD unable to assess. Mass not palpable. RESPIRATORY: Effort increased. Accessory muscles at work. Cannot speak in full sentences. LUNGS: Diminished breath sounds. Expiratory crackles. Prolonged expiration, wheezing. CARDIOVASCULAR: First and second sounds normal. No edema. ABDOMEN: Soft, nontender. Liver and spleen not palpable. PSYCHIATRY: Answering simple questions. INVESTIGATIONS: White count 11.2, hemoglobin 11.4, potassium 5.5, BUN 15, creatinine 0.69. Chest x-ray ordered by me shows infiltrates especially on the left side. ASSESSMENT: 1. Acute pneumonia, suspect gram-negative organism causing sepsis on presentation, slow to respond. 2. Acute bronchospasm. 3. Down syndrome. 4. Chronic schizophrenia. 5. Obstructive sleep apnea. Patient does not use a CPAP machine. PLAN: I added albuterol q.4 hours. Started the patient on IV Solu-Medrol. Also added inhaled steroids. The patient is already on Mucinex. I told the patient to be sat up. Keep the patient on gentle hydration. Came back to check later in the day. The patient is responding to the same. Did talk to the patient's sister at the bedside repeat labs in the morning. Follow. MMODL / IJN: [id number] /
[2018-01-10] MEDS: BUDESONIDE 1 MG/2 ML NEBU INHALATION SCH (20:32)
[2018-01-10 20:47] LABS: Glucose,Whole Blood 155 mg/dL (75-99)
[2018-01-10] MEDS: OLANZapine 2.5 MG TAB PO SCH (21:38)
--- NOTE | 2018-01-10 23:06 | PN ---
PROGRESS NOTE DATE OF SERVICE: 01/10/2018. REASON FOR FOLLOWUP VISIT: Pneumonia. INTERVAL HISTORY: The patient is afebrile. She was evaluated earlier this afternoon. Apparently the patient did have more wheezing today, where the patient was doing from much better yesterday. No clear history of choking on the food. No nausea, no vomiting, no diarrhea. EXAMINATION: Blood pressure is 121/75 with a pulse of 96, temperature is 10.2, she is 94% on 3 L nasal cannula. GENERAL DESCRIPTION: A middle-aged female lying in bed in no distress. RESPIRATORY SYSTEM: Unlabored breathing. Coarse breath sounds bilaterally. Occasional wheeze. HEART: S1, S2. Regular rate and rhythm. ABDOMEN: Soft, no tenderness. LABS: Hemoglobin is 11.4, 11.2, BUN of 15, creatinine 0.69. Blood cultures have been negative. No sputum was collected. DIAGNOSTIC IMPRESSION AND PLAN: Patient admitted to the hospital with pneumonia, failing outpatient oral doxycycline therapy. Chest x-ray did show some improvement. She was having some wheezing. We will recheck a swallow evaluation and make sure the patient is not currently aspirating. Keep the patient on the Rocephin and Levaquin at this point. White count showed improvement. Continue supportive care. MMODL / IJN: [id number] /
[2018-01-10 23:38] LABS: Glucose,Whole Blood 152 mg/dL (75-99)
[2018-01-11] MEDS: ALBUTEROL NEBULIZED 2.5 MG/3 ML INHALATION SCH ×6 (03:37→23:39)
[2018-01-11] MEDS: SODIUM CHLORIDE 0.9% 1,000 ML IV SCH ×2 (04:08→17:32)
[2018-01-11 06:19] LABS: Glucose,Whole Blood 140 mg/dL (75-99)
[2018-01-11 06:27] LABS: Basophils % (A) 0 %; Eosinophils % (A) 0 %; HCT 36.8 % (34.0-46.0); HGB 11.8 gm/dL (11.4-16.0); Lymphocytes # (A) 0.9 k/uL (1.0-4.8); Lymphocytes % (A) 10 %; MCH 32.4 pg (25.0-35.0); MCHC 32.2 g/dL (31.0-37.0); MCV 100.6 fL (80.0-100.0); Macrocytosis Slight; Mean Platelet Volume 8.6; Monocytes # (A) 0.2 k/uL (0-1.0); Monocytes % (A) 2 %; Neutrophils # (A) 7.3 k/uL (1.3-7.7); Neutrophils % (A) 86 %; Platelet Count 429 k/uL (150-450); RBC 3.65 m/uL (3.80-5.40); RDW 13.9 % (11.5-15.5); WBC 8.6 k/uL (3.8-10.6)
[2018-01-11] MEDS: INSULIN ASPART 100 UNIT/ML 1 ML 10 ML VIAL SQ SCH ×4 (06:34→20:52)
[2018-01-11] MEDS: BUDESONIDE 1 MG/2 ML NEBU INHALATION SCH ×2 (08:32→20:39)
[2018-01-11] MEDS ORDERED: AZITHROMYCIN 500 MG TAB PO SCH (09:00)
[2018-01-11] MEDS: PANTOPRAZOLE 40 MG TABLET PO SCH (10:18)
[2018-01-11] MEDS: ALPRAZolam 0.25 MG TAB PO SCH ×2 (10:18→20:46)
[2018-01-11] MEDS: ARTIFICIAL TEARS-HYPROMELLOSE DROPS 15 ML BTL BOTH EYES SCH ×3 (10:19→20:47)
[2018-01-11] MEDS: methylPREDNISolone SOD SUCCI 40 MG/ML 1 ML VIAL IV SCH ×4 (10:19→23:31)
[2018-01-11] MEDS: DULoxetine HCL 60 MG CAPSULE.DR PO SCH ×2 (10:19→17:31)
[2018-01-11] MEDS: CYANOCOBALAMIN 500 MCG TAB PO SCH (10:19)
[2018-01-11] MEDS: SODIUM CHLORIDE 5% OPHTH DROPS 15 ML BTL LEFT EYE SCH ×2 (10:20→20:46)
[2018-01-11] MEDS: LEVOTHYROXINE 25 MCG TAB PO SCH (10:20)
[2018-01-11] MEDS: guaiFENesin 600 MG TABLET.ER PO SCH ×2 (10:21→20:46)
[2018-01-11] MEDS: KETOTIFEN 0.025% OPHTH DROPS 5 ML BTL BOTH EYES SCH ×2 (10:21→20:47)
[2018-01-11] MEDS: HEPARIN SODIUM,PORCINE 5,000 UNIT/ML 1 ML VIAL SQ SCH ×2 (10:21→20:46)
[2018-01-11 11:38] LABS: Glucose,Whole Blood 186 mg/dL (75-99)
[2018-01-11] MEDS: CLOTRIMAZOLE 1% CREAM 15 GM TUBE TOPICAL SCH (11:49)
[2018-01-11 16:54] LABS: Glucose,Whole Blood 256 mg/dL (75-99)
[2018-01-11] MEDS: CHOLECALCIFEROL 400 UNIT TAB PO SCH (17:32)
--- NOTE | 2018-01-11 18:37 | PN ---
PROGRESS NOTE DATE OF SERVICE: January 11, 2018 PRESENTING COMPLAINT: Short of breath. INTERVAL HISTORY: The patient admitted with sepsis, pneumonia, doing a bit better today, less tachypnea. Less wheezing. Did tolerate some diet. On bronchodilators and steroids. Sister at the bedside. The patient greeted me when I walked in the room. Some wheezing is still present. A bit congested in the chest, not able to really expectorate much. REVIEW OF SYSTEMS: Done for constitutional, cardiovascular, GI, pulmonary; relevant findings as above. CURRENT MEDICATIONS: Reviewed that include p.o. Zithromax, IV ceftriaxone, IV Solu-Medrol. EXAMINATION: Afebrile, pulse 93, respiratory 20, blood pressure 130/79, pulse ox 95 percent on 3 L. GENERAL APPEARANCE: Propped up, short of breath at rest though better than yesterday, less audible wheezing. EYES: Pupils equal. Conjunctivae normal. HEENT: External appearance of nose and ears normal. Oral cavity dry. NECK: JVD unable to assess. Mass not palpable. RESPIRATORY: Effort increased. LUNGS: Decreased breath sounds. Prolonged expiration. Less wheezing. CARDIOVASCULAR: First and second sounds normal. No edema. ABDOMEN: Soft. Nontender. Liver and spleen not palpable. PSYCHIATRY: Patient is able answer simple questions. Looks more rested today. INVESTIGATIONS: White count 8.6, hemoglobin 11.8. Accu-Cheks are noted. ASSESSMENT: 1. Acute pneumonia, suspect gram-negative organism causing sepsis on presentation, slow to respond. 2. Acute bronchospasm due to above. 3. Down syndrome. 4. Chronic schizophrenia. 5. Obstructive sleep apnea. Patient does not use CPAP machine. PLAN: Patient started to respond somewhat. Continue current medication and treatment plan. Care was discussed with the sister at the bedside. The patient will be in the hospital at least for another 24-48 hours. The patient does not have any more fever or white count. MMODL / IJN: [id number] /
[2018-01-11] MEDS: OLANZapine 2.5 MG TAB PO SCH (20:46)
[2018-01-11 20:53] LABS: Glucose,Whole Blood 121 mg/dL (75-99)
[2018-01-11] MEDS: CLINDAMYCIN 600 MG in DEXTROSE 5% IN WATER 50 ML IVPB SCH ×2 (23:32)
[2018-01-12] MEDS: ALBUTEROL NEBULIZED 2.5 MG/3 ML INHALATION SCH ×6 (03:53→23:21)
[2018-01-12 06:06] LABS: Glucose,Whole Blood 123 mg/dL (75-99)
[2018-01-12] MEDS: INSULIN ASPART 100 UNIT/ML 1 ML 10 ML VIAL SQ SCH ×4 (06:43→21:00)
--- NOTE | 2018-01-12 06:47 | PN ---
PROGRESS NOTE DATE OF SERVICE: 01/11/2018 REASON FOR FOLLOWUP: Pneumonia and a question of possible aspiration. INTERVAL HISTORY: The patient is afebrile. She is breathing comfortably. Did have some rhonchi and congestion. Cough has decreased in intensity and remains to be as the patient unable to provide any sputum. No nausea, no vomiting. No abdominal pain and no diarrhea. PHYSICAL EXAMINATION: On examination, blood pressure is 143/74 with a pulse of 79, temperature 97. She is 94% 2 L nasal cannula. General description is a middle-aged female up in the bed in no distress. RESPIRATORY SYSTEM: Unlabored breathing, coarse breath sounds bilaterally. Occasional wheeze. HEART: S1, S2. Regular rate and rhythm. ABDOMEN: Soft, no tenderness. LABS: Hemoglobin 11.8, white count 8.6. DIAGNOSTIC IMPRESSION AND PLAN: Patient admitted to the hospital with fever and pneumonia, failing outpatient doxycycline therapy and has been treated with Rocephin and Zithromax, concern for possible aspiration pneumonitis. Antibiotic will be switched to Rocephin and clindamycin. A barium swallow has been ordered for tomorrow that will be followed. Sister was present at bedside. Questions were answered. MMODL / IJN: [id number] /
[2018-01-12 06:56] LABS: Basophils % (A) 0 %; Eosinophils % (A) 0 %; HCT 34.5 % (34.0-46.0); HGB 10.9 gm/dL (11.4-16.0); Lymphocytes % (A) 10 %; MCH 31.8 pg (25.0-35.0); MCHC 31.7 g/dL (31.0-37.0); MCV 100.4 fL (80.0-100.0); Macrocytosis Slight; Monocytes # (A) 0.2 k/uL (0-1.0); Monocytes % (A) 2 %; Neutrophils # (A) 7.9 k/uL (1.3-7.7); Neutrophils % (A) 85 %; Platelet Count 426 k/uL (150-450); RBC 3.44 m/uL (3.80-5.40); RDW 13.9 % (11.5-15.5); WBC 9.2 k/uL (3.8-10.6)
[2018-01-12 07:23] LABS: Anion Gap 4 mmol/L; Blood Urea Nitrogen 19 mg/dL (7-17); Carbon Dioxide 33 mmol/L (22-30); Chloride 102 mmol/L (98-107); Glucose 127 mg/dL (74-99); Potassium 4.1 mmol/L (3.5-5.1); Sodium 139 mmol/L (137-145)
[2018-01-12] MEDS: BUDESONIDE 1 MG/2 ML NEBU INHALATION SCH ×2 (08:36→19:59)
[2018-01-12] MEDS: ARTIFICIAL TEARS-HYPROMELLOSE DROPS 15 ML BTL BOTH EYES SCH ×3 (10:17→21:08)
[2018-01-12] MEDS: CYANOCOBALAMIN 500 MCG TAB PO SCH (10:17)
[2018-01-12] MEDS: CLOTRIMAZOLE 1% CREAM 15 GM TUBE TOPICAL SCH (10:17)
[2018-01-12] MEDS: ALPRAZolam 0.25 MG TAB PO SCH ×2 (10:17→21:07)
[2018-01-12] MEDS: PANTOPRAZOLE 40 MG TABLET PO SCH (10:17)
[2018-01-12] MEDS: LEVOTHYROXINE 25 MCG TAB PO SCH (10:18)
[2018-01-12] MEDS: SODIUM CHLORIDE 5% OPHTH DROPS 15 ML BTL LEFT EYE SCH ×2 (10:18→21:08)
[2018-01-12] MEDS: guaiFENesin 600 MG TABLET.ER PO SCH ×2 (10:18→21:07)
[2018-01-12] MEDS: methylPREDNISolone SOD SUCCI 40 MG/ML 1 ML VIAL IV SCH ×3 (10:18→23:22)
[2018-01-12] MEDS: DULoxetine HCL 60 MG CAPSULE.DR PO SCH ×2 (10:18→17:16)
[2018-01-12] MEDS: HEPARIN SODIUM,PORCINE 5,000 UNIT/ML 1 ML VIAL SQ SCH ×2 (10:19→21:08)
[2018-01-12] MEDS: KETOTIFEN 0.025% OPHTH DROPS 5 ML BTL BOTH EYES SCH ×2 (10:19→21:08)
[2018-01-12] MEDS: CLINDAMYCIN 600 MG in DEXTROSE 5% IN WATER 50 ML IVPB SCH ×6 (12:00→23:22)
[2018-01-12 12:05] LABS: Glucose,Whole Blood 101 mg/dL (75-99)
[2018-01-12] MEDS: SODIUM CHLORIDE 0.9% 1,000 ML IV SCH (12:53)
[2018-01-12] MEDS: CHOLECALCIFEROL 400 UNIT TAB PO SCH (17:16)
[2018-01-12 17:30] LABS: Glucose,Whole Blood 101 mg/dL (75-99)
--- NOTE | 2018-01-12 19:26 | PN ---
PROGRESS NOTE DATE OF SERVICE: 01/12/18. PRESENTING COMPLAINT: Cough. INTERVAL HISTORY: Patient presented with sepsis and pneumonia. Doing much better today. Far less wheezing if any. Eating well. Sister at the bedside. Speaking better. No trouble with swallowing. REVIEW OF SYSTEMS: Done for constitutional, cardiovascular, GI, pulmonary; relevant findings as above. CURRENT MEDICATIONS: Reviewed that include IV ceftriaxone, clindamycin, IV Solu-Medrol, IV fluids. EXAMINATION: Afebrile, pulse 84, respiration 16, blood pressure 149/83, pulse ox 88 percent on 4 L. GENERAL APPEARANCE: Sitting up, more comfortable. EYES: Pupils equal. Conjunctivae normal. HEENT: External appearance of nose and ears normal. Oral cavity normal. NECK: JVD unable to assess. Mass not palpable. RESPIRATORY: Effort increased. Lungs, some expiratory crackles. Wheezing greatly improved. CARDIOVASCULAR: First and second sounds, no edema. ABDOMEN: Soft, nontender. Liver and spleen not palpable. PSYCHIATRY: Awake, does say a few words. INVESTIGATIONS: White count 9.2, potassium 4.1. ASSESSMENT: 1. Acute pneumonia, suspect gram-negative organism causing sepsis on presentation with clinical response. 2. Acute bronchospasm due to above responding better. 3. Down syndrome. 4. Chronic schizophrenia. 5. Obstructive sleep apnea. The patient does not use CPAP machine. 6. Possible pulmonary edema from IV fluids. PLAN: We will DC the IV fluids. Oral intake has been good. Give a dose of Lasix. MMODL / IJN: [id number] /
[2018-01-12 20:32] LABS: Glucose,Whole Blood 130 mg/dL (75-99)
[2018-01-12] MEDS: FUROSEMIDE 10 MG/ML 4 ML VIAL IV SCH (21:07)
[2018-01-12] MEDS: OLANZapine 2.5 MG TAB PO SCH (21:08)
--- NOTE | 2018-01-13 01:20 | PN ---
PROGRESS NOTE DATE OF SERVICE: 01/12/2018. REASON FOR FOLLOWUP VISIT: Pneumonia, possible aspiration. INTERVAL HISTORY: The patient is afebrile. He is breathing comfortably. Did have some wheezing. No choking has been noticed by family member. No nausea, vomiting. No abdominal pain or any diarrhea. EXAMINATION: Blood pressure 128/49, respirations 18, pulse of 96, temperature 98. She is 94% on room air. General description is a middle-aged female lying in bed in no distress. RESPIRATORY SYSTEM: Unlabored breathing with decreased breath sounds at the bases. HEART: S1, S2, regular rate. ABDOMEN: Soft, no tenderness. LABS: Hemoglobin is 10.8, white count 9.2 with a BUN of 19, creatinine 0.75. DIAGNOSTIC IMPRESSION AND PLAN: Patient with pneumonia, likely aspiration etiology. Currently on Rocephin and clindamycin. Plan to finish therapy with oral Avelox 400 daily. Swallow evaluation was requested, however the patient has been refusing it. Continue supportive care. MMODL / IJN: [id number] /
[2018-01-13] MEDS: ALBUTEROL NEBULIZED 2.5 MG/3 ML INHALATION SCH ×5 (03:34→20:03)
[2018-01-13] MEDS: INSULIN ASPART 100 UNIT/ML 1 ML 10 ML VIAL SQ SCH ×4 (05:51→22:21)
[2018-01-13 05:52] LABS: Glucose,Whole Blood 121 mg/dL (75-99)
[2018-01-13] MEDS: PANTOPRAZOLE 40 MG TABLET PO SCH (06:22)
[2018-01-13 07:45] LABS: Basophils % (A) 0 %; Eosinophils % (A) 0 %; HCT 39.2 % (34.0-46.0); HGB 12.2 gm/dL (11.4-16.0); Lymphocytes # (A) 0.9 k/uL (1.0-4.8); Lymphocytes % (A) 12 %; MCH 31.3 pg (25.0-35.0); MCHC 31.1 g/dL (31.0-37.0); MCV 100.4 fL (80.0-100.0); Macrocytosis Slight; Mean Platelet Volume 8.1; Monocytes # (A) 0.3 k/uL (0-1.0); Monocytes % (A) 3 %; Neutrophils # (A) 6.2 k/uL (1.3-7.7); Neutrophils % (A) 82 %; Platelet Count 460 k/uL (150-450); RDW 14.3 % (11.5-15.5); WBC 7.6 k/uL (3.8-10.6)
[2018-01-13 07:52] LABS: Anion Gap 6 mmol/L; Blood Urea Nitrogen 22 mg/dL (7-17); Calcium 7.9 mg/dL (8.4-10.2); Carbon Dioxide 35 mmol/L (22-30); Chloride 99 mmol/L (98-107); Glucose 116 mg/dL (74-99); Potassium 4.3 mmol/L (3.5-5.1); Sodium 140 mmol/L (137-145)
[2018-01-13] MEDS: BUDESONIDE 1 MG/2 ML NEBU INHALATION SCH ×2 (08:00→20:03)
[2018-01-13] MEDS: ALPRAZolam 0.25 MG TAB PO SCH ×2 (09:49→22:13)
[2018-01-13] MEDS: DULoxetine HCL 60 MG CAPSULE.DR PO SCH ×2 (09:49→18:08)
[2018-01-13] MEDS: LEVOTHYROXINE 25 MCG TAB PO SCH (09:49)
[2018-01-13] MEDS: guaiFENesin 600 MG TABLET.ER PO SCH ×2 (09:49→22:15)
[2018-01-13] MEDS: CYANOCOBALAMIN 500 MCG TAB PO SCH (09:49)
[2018-01-13] MEDS: HEPARIN SODIUM,PORCINE 5,000 UNIT/ML 1 ML VIAL SQ SCH ×2 (09:50→22:21)
[2018-01-13] MEDS: FUROSEMIDE 10 MG/ML 4 ML VIAL IV SCH ×2 (09:50→19:20)
[2018-01-13] MEDS: methylPREDNISolone SOD SUCCI 40 MG/ML 1 ML VIAL IV SCH ×3 (09:50→23:30)
[2018-01-13] MEDS: CLINDAMYCIN 600 MG in DEXTROSE 5% IN WATER 50 ML IVPB SCH ×8 (09:51→23:30)
[2018-01-13] MEDS: ARTIFICIAL TEARS-HYPROMELLOSE DROPS 15 ML BTL BOTH EYES SCH ×3 (09:59→22:25)
[2018-01-13] MEDS: SODIUM CHLORIDE 5% OPHTH DROPS 15 ML BTL LEFT EYE SCH ×2 (09:59→22:28)
[2018-01-13] MEDS: CLOTRIMAZOLE 1% CREAM 15 GM TUBE TOPICAL SCH (10:00)
[2018-01-13] MEDS: KETOTIFEN 0.025% OPHTH DROPS 5 ML BTL BOTH EYES SCH ×2 (10:00→22:27)
[2018-01-13 11:49] LABS: Glucose,Whole Blood 132 mg/dL (75-99)
[2018-01-13 16:50] LABS: Glucose,Whole Blood 132 mg/dL (75-99)
--- NOTE | 2018-01-13 17:49 | XR ---
EXAMINATION TYPE: XR chest 1V portable DATE OF EXAM: 01/13/2018 COMPARISON: 01/10/2018 HISTORY: Short of breath TECHNIQUE: Single frontal view of the chest is obtained. FINDINGS: There is some patchy infiltrate in the mid and lower lung barrera. There is mild pulmonary congestion. There is very poor inspiration. There are chest leads. Bony thorax appears intact. IMPRESSION: There is increasing infiltrate and atelectasis in the lung bases compared to last exam. No overt heart failure.
[2018-01-13] MEDS: CHOLECALCIFEROL 400 UNIT TAB PO SCH (18:07)
[2018-01-13] MEDS: GLYCOPYRROLATE 1 MG TAB PO SCH ×2 (19:20→22:17)
[2018-01-13 20:40] LABS: Glucose,Whole Blood 159 mg/dL (75-99)
--- NOTE | 2018-01-13 21:27 | PN ---
PROGRESS NOTE DATE OF SERVICE: 01/13/18. PRESENTING COMPLAINT: Cough. INTERVAL HISTORY: This patient presented with sepsis and pneumonia. Continues to do better. Tolerating a diet. The patient does have still some chest congestion. Did get some Lasix yesterday. Feeling much better on oxygen. The patient refusing to go down for a PA lateral chest x-ray to get a better view. REVIEW OF SYSTEMS: Done for constitutional, cardiovascular, GI, pulmonary; relevant findings as above. CURRENT MEDICATIONS: Reviewed that include Ventolin, Pulmicort, IV ceftriaxone, IV clindamycin, IV Solu- Medrol. EXAMINATION: Temperature 98.3, pulse 86, respirations 20, blood pressure 120/70, pulse ox 94 percent on 4 L. GENERAL APPEARANCE: Sitting up, more comfortable on nasal cannula. EYES: Pupils equal. Conjunctivae normal. HEENT: External appearance of nose and ears normal. Oral cavity normal. NECK: JVD unable to assess. Mass not palpable. RESPIRATORY: Effort increased, some expiratory crackles. Breathing much improved. CARDIOVASCULAR: 1st and 2nd sounds, no edema. ABDOMEN: Soft, nontender. Liver and spleen not palpable. PSYCHIATRY: Patient is awake, does answer simple questions. INVESTIGATIONS: White count 7.6, hemoglobin 12.2, potassium 4.3, BUN 22, creatinine 0.71. Chest x-ray, which is portable, questionable prominence. ASSESSMENT: 1. Acute pneumonia, suspect gram-negative organism causing sepsis on presentation with clinical response. 2. Acute bronchospasm due to above, responding better. 3. Acute fluid overload probably from IV fluids. 4. Down syndrome. 5. Chronic schizophrenia. 6. Obstructive sleep apnea. Patient does not use CPAP machine. PLAN: For increased secretions and fluids will give another 2 doses of Lasix 40 mg q.12 for 2 doses. We will also try some Robinul to cut back on secretions. Overall patient doing better, eating rather well. Will see how she does. MMODL / IJN: [id number] /
[2018-01-13] MEDS: OLANZapine 2.5 MG TAB PO SCH (22:17)
[2018-01-14] MEDS: ALBUTEROL NEBULIZED 2.5 MG/3 ML INHALATION SCH ×7 (00:15→23:58)
--- NOTE | 2018-01-14 00:47 | PN ---
PROGRESS NOTE DATE OF SERVICE: 01/13/2018 REASON FOR FOLLOWUP: Possible aspiration pneumonia. INTERVAL HISTORY: The patient is afebrile. She is seen did have been breathing comfortably. Occasional wheeze. No nausea or vomiting has been noticed. No abdominal pain or any diarrhea. EXAMINATION: Blood pressure 122/72 with a pulse of 80, temperature 98.4. She is 92% 4 L nasal cannula./ General description is a middle-aged female up in the bed in no distress. Respiratory system unlabored breathing. Occasional rhonchi. HEART: S1, S2. Regular rate and rhythm no tenderness. LABS: Hemoglobin is 12.2, white count 7.6, BUN of 22, creatinine 0.71. Blood culture has been negative. No sputum was collected. DIAGNOSTIC IMPRESSION AND PLAN: Patient admitted to the hospital with fever and pneumonia failing outpatient doxycycline therapy. Patient seemed to have shown clinical improvement on Rocephin, Clinda, plan to finish therapy with oral Avelox 400 or 5 days. Family present at bedside. Their questions were answered. MMODL / IJN: [id number] /
[2018-01-14 05:49] LABS: Glucose,Whole Blood 141 mg/dL (75-99)
[2018-01-14] MEDS: FUROSEMIDE 10 MG/ML 4 ML VIAL IV SCH (06:09)
[2018-01-14] MEDS: INSULIN ASPART 100 UNIT/ML 1 ML 10 ML VIAL SQ SCH ×4 (06:09→21:42)
[2018-01-14] MEDS: PANTOPRAZOLE 40 MG TABLET PO SCH (06:10)
[2018-01-14 07:20] LABS: Basophils % (A) 0 %; Eosinophils % (A) 0 %; HCT 40.8 % (34.0-46.0); HGB 13.4 gm/dL (11.4-16.0); Lymphocytes # (A) 1.1 k/uL (1.0-4.8); Lymphocytes % (A) 11 %; MCH 32.4 pg (25.0-35.0); MCHC 32.9 g/dL (31.0-37.0); MCV 98.6 fL (80.0-100.0); Mean Platelet Volume 8.1; Monocytes # (A) 0.4 k/uL (0-1.0); Monocytes % (A) 4 %; Neutrophils # (A) 8.2 k/uL (1.3-7.7); Neutrophils % (A) 82 %; Platelet Count 499 k/uL (150-450); RBC 4.14 m/uL (3.80-5.40); RDW 14.1 % (11.5-15.5)
[2018-01-14 07:35] LABS: Anion Gap 8 mmol/L; Blood Urea Nitrogen 23 mg/dL (7-17); Calcium 7.8 mg/dL (8.4-10.2); Carbon Dioxide 36 mmol/L (22-30); Chloride 93 mmol/L (98-107); Glucose 124 mg/dL (74-99); Potassium 4.3 mmol/L (3.5-5.1); Sodium 137 mmol/L (137-145)
[2018-01-14] MEDS: BUDESONIDE 1 MG/2 ML NEBU INHALATION SCH ×2 (08:58→20:24)
[2018-01-14] MEDS: methylPREDNISolone SOD SUCCI 40 MG/ML 1 ML VIAL IV SCH ×2 (10:09→17:21)
[2018-01-14] MEDS: ALPRAZolam 0.25 MG TAB PO SCH ×2 (10:10→20:02)
[2018-01-14] MEDS: LEVOTHYROXINE 25 MCG TAB PO SCH (10:10)
[2018-01-14] MEDS: CYANOCOBALAMIN 500 MCG TAB PO SCH (10:10)
[2018-01-14] MEDS: GLYCOPYRROLATE 1 MG TAB PO SCH ×4 (10:10→20:39)
[2018-01-14] MEDS: DULoxetine HCL 60 MG CAPSULE.DR PO SCH ×2 (10:10→17:20)
[2018-01-14] MEDS: HEPARIN SODIUM,PORCINE 5,000 UNIT/ML 1 ML VIAL SQ SCH ×2 (10:10→20:07)
[2018-01-14] MEDS: CLINDAMYCIN 600 MG in DEXTROSE 5% IN WATER 50 ML IVPB SCH ×4 (10:11→17:19)
[2018-01-14] MEDS: SODIUM CHLORIDE 5% OPHTH DROPS 15 ML BTL LEFT EYE SCH ×2 (10:11→20:41)
[2018-01-14] MEDS: KETOTIFEN 0.025% OPHTH DROPS 5 ML BTL BOTH EYES SCH ×2 (10:12→19:56)
[2018-01-14] MEDS: ARTIFICIAL TEARS-HYPROMELLOSE DROPS 15 ML BTL BOTH EYES SCH ×3 (10:13→20:03)
[2018-01-14] MEDS: CLOTRIMAZOLE 1% CREAM 15 GM TUBE TOPICAL SCH (10:14)
[2018-01-14 11:18] LABS: Glucose,Whole Blood 109 mg/dL (75-99)
[2018-01-14 12:08] VITALS: BMI 37.1
--- NOTE | 2018-01-14 12:25 | CDI ---
Last Revision, January 2017 Documentation Clarification Form Date: 01/14/2018 12:07:30 PM From: Annabel Smith RN, CCDS Admit Date: 01/08/2018 9:39:00 AM Patient Name: Sandy Cortez Visit Number: [id number] Discharge Date: ATTENTION: The Clinical Documentation Specialists (CDI) and [facility] Coding Staff appreciate your assistance in clarifying documentation. Please respond to the clarification below the line at the bottom and electronically sign. The CDI & [facility] Coding staff will review the response and follow-up if needed. Please note: Queries are made part of the Legal Health Record. If you have any questions, please contact the author of this message via ITS. Geovanny Waldron MD The patient presented with the following respiratory symptoms: Worsening dyspnea and hypoxia, tachycardia, tachypnea Documentation and location in medical record included: EMS reports hypoxia in the 70's at the time of initial evaluation. History/Risk Factors: Down syndrome, Diabetes Mellitus, Pneumonia, Sleep Apnea/ CPAP/BIPAP, wears O2 during night @ 2/L NC Home oxygen: 2/L at HS Clinical Indicators: Present with respiratory distress, wheezes, rhonchi, accessory muscle use, Labored. She is under current treatment for Pneumonia and Sepsis. Vital signs on admission 143/98 72 24 100.6 93 % 5/L NC Pulse oximetry: 90 % RA, 92 6/L NC, Treatment: Breathing tx Duoneb's Ventolin and Pulmicort Solu-Medrol IV (taper) Lasix IV x2 Monitor O2 Sat's (Titrate) O2 4/L NC In your professional opinion, can you please clarify if these findings signify one of the following conditions? Acuity: Acute Chronic Acute on Chronic Specificity: Respiratory Failure, further specify (if known): With hypercapnia? With hypoxia? Respiratory Distress Other Diagnosis, please specify Unable to determine Please continue to document in your progress notes and discharge summary in order to capture severity of illness and risk of mortality. Include clinical findings that support your diagnosis. no change in documentation . see dc summary MTDD
[2018-01-14 16:22] LABS: Glucose,Whole Blood 120 mg/dL (75-99)
--- NOTE | 2018-01-14 16:33 | PN ---
PROGRESS NOTE DATE OF SERVICE: 01/14/2018 REASON FOR FOLLOWUP: Possible aspiration pneumonia. INTERVAL HISTORY: The patient is currently afebrile. She seems to be breathing more comfortably. She did have some congested cough but was not bringing up any sputum. No choking has been noticed on the food. No nausea, no vomiting. No abdominal pain and no diarrhea. PHYSICAL EXAMINATION: Blood pressure 123/68 with a pulse of 68, temperature 98.9. She is 92% on 4 L nasal cannula. General description is a middle-aged female up in the bed in no distress. RESPIRATORY SYSTEM: Unlabored breathing with occasional wheeze. HEART: S1, S2. Regular rate and rhythm. ABDOMEN: Soft. No tenderness. LABS: Hemoglobin 13.4, white count of 10 with a BUN of 23, creatinine 0.71. DIAGNOSTIC IMPRESSION AND PLAN: Patient with admission to hospital with a fever and pneumonia, failing outpatient doxycycline therapy, likely concern for possible aspiration pneumonia. The patient at this time is to continue with Rocephin and clindamycin with a plan to finish therapy with a short course of oral Avelox. Plan of care was discussed with the admitting physician. Continue with supportive care. MMODL / IJN: [id number] /
[2018-01-14] MEDS: CHOLECALCIFEROL 400 UNIT TAB PO SCH (17:19)
[2018-01-14] MEDS: OLANZapine 2.5 MG TAB PO SCH (20:06)
[2018-01-14 20:46] LABS: Glucose,Whole Blood 151 mg/dL (75-99)
[2018-01-14] MEDS ORDERED: FUROSEMIDE 10 MG/ML 4 ML VIAL IV STA (22:56)
--- NOTE | 2018-01-15 02:03 | PN ---
PROGRESS NOTE DATE OF SERVICE: January 14, 2018. PRESENTING COMPLAINT: Cough. INTERVAL HISTORY: The patient presented with sepsis pneumonia. Continues to do better. Patient did receive Lasix, rattling in the chest, much improved. Oxygen is being tapered down. Tolerating a diet. The patient did refuse to go for a chest x-ray. REVIEW OF SYSTEMS: Done for constitutional, cardiovascular, GI, pulmonary, relevant findings as above. CURRENT MEDICATIONS: Reviewed that include IV ceftriaxone, clindamycin, IV Solu-Medrol. EXAMINATION: VITAL SIGNS: Temp 98.2, pulse 91, respiratory rate 17, blood pressure 157/98, pulse ox 97% on 4 L. GENERAL APPEARANCE: Sitting up, more comfortable. EYES: Pupils are equal. Conjunctivae normal. HEENT: External appearance of nose and ears normal. Oral cavity normal. NECK: JVD not raised. Mass not palpable. RESPIRATORY: Effort increased. LUNGS: Crackles greatly improved. Improved air entry. CARDIOVASCULAR: 1st and 2nd sounds normal. No edema. ABDOMEN: Soft, nontender. Liver and spleen not palpable. PSYCHIATRY: Awake. Does answer simple questions. INVESTIGATIONS: White count 10, potassium 4.3, BUN 23, creatinine 0.71. Accu-Cheks are noted. ASSESSMENT: 1. Acute pneumonia, suspect gram-negative organism causing sepsis on presentation with good clinical response. 2. Acute bronchospasm due to above, responding better. 3. Acute fluid overload probably from IV fluids, doing better. 4. Down syndrome. 5. Chronic schizophrenia. 6. Obstructive sleep apnea. The patient does not use CPAP machine. 7. Acute hypoxic respiratory failure from underlying pneumonia getting better. PLAN: Care was discussed with Dr. Mccormack. Able to switch to oral antibiotic by tomorrow. We will taper down the oxygen. Also switch to p.o. prednisone. MMODL / IJN: [id number] /
[2018-01-15] MEDS: ALBUTEROL NEBULIZED 2.5 MG/3 ML INHALATION SCH ×3 (04:17→11:28)
[2018-01-15] MEDS: BUDESONIDE 1 MG/2 ML NEBU INHALATION SCH (07:46)
[2018-01-15 08:01] LABS: Glucose,Whole Blood 85 mg/dL (75-99)
[2018-01-15] MEDS ORDERED: predniSONE 20 MG TAB PO SCH (09:00)
[2018-01-15] MEDS ORDERED: LEVOFLOXACIN 500 MG TAB PO SCH (09:00)
[2018-01-15] MEDS: INSULIN ASPART 100 UNIT/ML 1 ML 10 ML VIAL SQ SCH ×2 (10:05→13:43)
[2018-01-15] MEDS: CLOTRIMAZOLE 1% CREAM 15 GM TUBE TOPICAL SCH (10:14)
[2018-01-15] MEDS: SODIUM CHLORIDE 5% OPHTH DROPS 15 ML BTL LEFT EYE SCH (10:15)
[2018-01-15] MEDS: KETOTIFEN 0.025% OPHTH DROPS 5 ML BTL BOTH EYES SCH (10:15)
[2018-01-15] MEDS: ARTIFICIAL TEARS-HYPROMELLOSE DROPS 15 ML BTL BOTH EYES SCH (10:15)
[2018-01-15 10:48] LABS: Anion Gap 7 mmol/L; Blood Urea Nitrogen 30 mg/dL (7-17); Calcium 8.4 mg/dL (8.4-10.2); Carbon Dioxide 38 mmol/L (22-30); Chloride 93 mmol/L (98-107); Glucose 93 mg/dL (74-99); Potassium 4.6 mmol/L (3.5-5.1); Sodium 138 mmol/L (137-145)
[2018-01-15] MEDS: ALPRAZolam 0.25 MG TAB PO SCH (10:59)
[2018-01-15 11:16] LABS: Basophils # (A) 0.1 k/uL (0-0.2); Basophils % (A) 1 %; Eosinophils % (A) 0 %; HCT 43.3 % (34.0-46.0); HGB 14.3 gm/dL (11.4-16.0); Lymphocytes # (A) 2.5 k/uL (1.0-4.8); Lymphocytes % (A) 20 %; MCH 32.5 pg (25.0-35.0); MCV 98.4 fL (80.0-100.0); Mean Platelet Volume 9.2; Monocytes # (A) 1.1 k/uL (0-1.0); Monocytes % (A) 9 %; Neutrophils # (A) 8.4 k/uL (1.3-7.7); Neutrophils % (A) 67 %; Platelet Count 445 k/uL (150-450); RDW 14.9 % (11.5-15.5); WBC 12.6 k/uL (3.8-10.6)
[2018-01-15 12:57] LABS: Glucose,Whole Blood 107 mg/dL (75-99)
[2018-01-15 15:27] VITALS: BP 128/85; PULSE 91; RESP 16; TEMP 97.2
--- NOTE | 2018-01-16 08:26 | DS ---
DISCHARGE SUMMARY DATE OF ADMISSION: 01/08/18 DATE OF DISCHARGE: 01/15/18. FINAL DIAGNOSES: 1. Acute pneumonia, suspect gram-negative organism causing sepsis on presentation. 2. Acute hypoxic respiratory failure from pneumonia, present on admission. 3. Acute bronchospasm due to above. 4. Acute fluid overload from IV fluids. Doing better. 5. Down syndrome. 6. Chronic schizophrenia. 7. Obstructive sleep apnea. Patient does not use a CPAP machine. HOSPITAL COURSE: This patient with Down syndrome, presented with pneumonia, acute hypoxia, treated with antibiotics in the form of IV ceftriaxone, clindamycin and IV Solu-Medrol. Doing much better by the time of discharge. The patient's pulse ox on room air was down 93%. The patient at the baseline uses oxygen at home at night, does not use a CPAP machine. The patient's sister was involved in the care. The patient has a legal guardian. Care was discussed in detail with the sisters on day of discharge. Questions were answered. On examination pulse 91, respirations 16, blood pressure 120/65, pulse ox 93 percent on room air. Lungs: Fair entry, greatly improved expiratory crackles. The patient tolerating a diet. INVESTIGATIONS: White count 12.8, hemoglobin 14.3 potassium 4.6. DISCHARGE MEDICATIONS: 1. Xanax 0.25 p.o. b.i.d. 2. Vitamin B12 1000 mcg p.o. daily. 3. Synthroid 25 mcg a day. 4. Omeprazole 20 mg a day. 5. Cymbalta 60 mg b.i.d. 6. 1 drop to both eyes daily at 4:00 pm. 7. Refresh Tears 1 drop both eyes t.i.d. 8. Nga 120, 1 drop to left eye b.i.d. 9. Ventolin HFA 2 puffs q.i.d. p.r.n. 10.Beano 300 units p.o. b.i.d. 11.Vitamin D3 4000 units with supper. 12.Ketoconazole 2% topical daily. 13.Zyprexa 5 mg p.o. daily p.r.n. 14.Zyprexa 7.5 p.o. at bedtime. 15.Tylenol 650 mg q.6h p.r.n. 16.Claritin-D 12 hour 1 tablet q.12; 10 tablets. 17.Avelox 400 mg p.o. daily for 5 tablets. 18.Prednisone taper. FOLLOW UP: Follow with Dr. Lantigua in [address] Mccormack in 1 week. Home oxygen to continue as before. DISPOSITION: [facility]. Nursing was calling the patient's legal guardian at time of discharge. Discussion and discharge planning more than 35 minutes. MMODL / IJN: [id number] /
== END 2018-01-15 17:25 | disposition home or self-care (01) | DRG 871 ==
LOC: EC 07:51 → 2SICU 09:39 → 3SCARD 01-09 16:39 → 4MS4W 01-14 22:55
PROVIDERS: ADMIT Hospitalist; ATTEND Hospitalist
PROC: 3E03329 Introduction of Other Anti-infective into Peripheral Vein, Percutaneous Approach (ICD-10-PCS; 2018-01-13)
PROC: 05HD33Z Insertion of Infusion Device into Right Cephalic Vein, Percutaneous Approach (ICD-10-PCS; principal; 2018-01-13 14:00)
PROC: B54MZZA Ultrasonography of Right Upper Extremity Veins, Guidance (ICD-10-PCS; 2018-01-13 14:00)
DX: A41.50 Gram-negative sepsis, unspecified (principal); J96.01 Acute respiratory failure with hypoxia; E03.9 Hypothyroidism, unspecified; E11.9 Type 2 diabetes mellitus without complications; E87.70 Fluid overload, unspecified; F20.9 Schizophrenia, unspecified; F41.9 Anxiety disorder, unspecified; G47.33 Obstructive sleep apnea (adult) (pediatric); J98.01 Acute bronchospasm; Q90.9 Down syndrome, unspecified; M21.962 Unspecified acquired deformity of left lower leg; F03.90 Unspecified dementia, unspecified severity, without behavioral disturbance, psychotic disturbance, mood disturbance, and anxiety; R32 Unspecified urinary incontinence; Z79.890 Hormone replacement therapy; Z79.899 Other long term (current) drug therapy; Z91.040 Latex allergy status; Z87.01 Personal history of pneumonia (recurrent); Z87.440 Personal history of urinary (tract) infections; Z87.11 Personal history of peptic ulcer disease; Z80.8 Family history of malignant neoplasm of other organs or systems; Z83.6 Family history of other diseases of the respiratory system
CPT/HCPCS: 36415; 36569; 71045; 71046; 76937; 80048; 80053; 82550; 82553; 83036; 83605; 83735; 83880; 84132; 84484; 85025; 85610; 85730; 87040; 87502; 93005; 94640; 94760; 96365; 96368; 96375; 99291

== ENCOUNTER 2018-06-28 09:49 | Emergency (ER) | payer MEDICARE, OTHER ==
[2018-06-28 09:57] VITALS: TEMP 98.3
[2018-06-28] MEDS ORDERED: ONDANSETRON 4 MG/2 ML VIAL IVP STA (10:08)
[2018-06-28] MEDS ORDERED: SODIUM CHLORIDE 0.9% 1,000 ML IV STA (10:08)
--- NOTE | 2018-06-28 10:32 | ED ---
General Adult HPI - General Chief complaint: Nausea/Vomiting/Diarrhea Stated complaint: NVD Time Seen by Provider: 06/28/18 10:01 Source: patient, family, RN notes reviewed, old records reviewed Mode of arrival: wheelchair Limitations: no limitations - History of Present Illness Initial comments: 53-year-old female patient past medical history of Down syndrome presents to ED with 1 day of nausea vomiting diarrhea. History is primarily obtained by sister patient as well as caregiver. States that patient began experiencing nausea vomiting and diarrhea last night. Reports that patient has had approximately 4 episodes of nausea vomiting. Patient also complained of some mild periumbilical abdominal pain and cramping. No coughing, no complaint of chest pain or shortness of breath at home. Denies other complaints. Pt reportedly wears home 02 due to sleep apnea as well as low baseline pulse ox. Systemic: Pt denies fatigue, myalgia, fever/chills, rash. Pt denies weakness, night sweats, weight loss. Neuro: Pt denies headache, visual disturbances, syncope or pre-syncope. HEENT: Pt denies ocular discharge or irritation, otalgia, rhinorrhea, ph aryngitis or notable lymphadenopathy. Cardiopulmonary: Pt denies chest pain, SOB, heart palpitations, dyspnea on exertion. Abdominal/GI: Pt denies abdominal pain, n/v/d. : Pt denies dysuria, burning w/ urination, frequency/urgency. Denies new onset urinary or bowel incontinence. MSK: Pt denies myalgia, loss of strength or function in extremities. Neuro: Pt denies new onset weakness, paresthesias. - Related Data Home Medications Medication Instructions Recorded Confirmed ALPRAZolam 0.25 mg PO BID@0800,2100 08/13/14 06/28/18 Cyanocobalamin [Vitamin B-12] 1,000 mcg PO DAILY@0800 08/13/14 06/28/18 Levothyroxine Sodium [Synthroid] 25 mcg PO DAILY@0800 08/13/14 06/28/18 Omeprazole 20 mg PO DAILY@0808/13/14 06/28/18 DULoxetine HCL [Cymbalta] 60 mg PO BID@0800,1600 08/20/15 06/28/18 Olopatadine HCl [Pazeo] 1 drop BOTH EYES DAILY@1600 05/24/17 06/28/18 Carboxymethylcellulose Sodium 1 drop BOTH EYES TID@0800,1200,2100 06/07/17 06/28/18 [Refresh Tears] Sodium Chloride 5% Ophth Soln 1 drops LEFT EYE BID@0815,2115 06/07/17 06/28/18 [Nga 128] Albuterol Inhaler [Ventolin Hfa 2 puff INHALATION RT-QID 01/08/18 06/28/18 Inhaler] Azwxq-Y-Exmzmamkvqszs [Beano] 300 unit PO BID@0800,1600 01/08/18 06/28/18 Cholecalciferol [Vitamin D3] 400 unit PO AC-SUPPER 01/08/18 06/28/18 Ketoconazole [Ketoconazole 2%] 1 applic TOPICAL DAILY@0800 01/08/18 06/28/18 OLANZapine ODT [ZyPREXA Zydis] 5 mg PO DAILY PRN 01/08/18 06/28/18 OLANZapine [ZyPREXA] 7.5 mg PO HS@2100 01/08/18 06/28/18 Memantine [Namenda] 10 mg PO DAILY 06/28/18 06/28/18 Previous Rx's Medication Instructions Recorded Nitrofurantoin Monohyd/M-Cryst 100 mg PO Q12HR #14 cap 06/28/18 [Macrobid] Allergies Allergy/AdvReac Type Severity Reaction Status Date / Time latex Allergy sensitive Verified 06/28/18 10:04 skin Review of Systems ROS Statement: Those systems with pertinent positive or pertinent negative responses have been documented in the HPI. ROS Other: All systems not noted in ROS Statement are negative. Past Medical History Past Medical History: Diabetes Mellitus, Pneumonia, Sleep Apnea/CPAP/BIPAP, Thyroid Disorder Additional Past Medical History / Comment(s): LG sister states "recent tx UTI and having abd pain,ulcers and gallbladder not working properly",Down Syndrome, enlarged heart, wears O2 during night-2 liters nasal canula, left foot deformity History of Any Multi-Drug Resistant Organisms: None Reported Additional Past Surgical History / Comment(s): nasal surgery, wilberto cataract surgery,growth removed left ankle Past Anesthesia/Blood Transfusion Reactions: No Reported Reaction Past Psychological History: Anxiety, Schizophrenia Smoking Status: Never smoker Past Alcohol Use History: None Reported Past Drug Use History: None Reported - Past Family History Father Family Medical History: Cancer Additional Family Medical History / Comment(s): skin Mother Additional Family Medical History / Comment(s): pulmonary fibrosis Brother(s) Additional Family Medical History / Comment(s): lung fibrosis General Exam - General Exam Comments Initial Comments: Constitutional: NAD, AOX3, Pt has pleasant affect. HEENT: NC/AT, trachea midline, neck supple, no lymphadenopathy. Posterior pharynx non erythematous, without exudates. External ears appear normal, without discharge. Mucous membranes moist. Eyes PERRLA, EOM intact. There is no scleral icterus. No pallor noted. Cardiopulmonary: RRR, no murmurs, rubs or gallops, no JVD noted. Lungs CTAB in anterior and posterior barrera. No peripheral edema. Abdominal exam: Abdomen soft and non-distended. Abdomen non-tender to palpation in all 4 quadrants. No guarding no rigidity no ecchymosis. Bowel sounds active in LLQ. No hepatosplenomegaly. No ecchymosis Neuro: CN II-XII grossly intact. No nuchal rigidity. MSK: No posterior calf tenderness bilaterally, homans sign negative bilaterally. Posterior tibialis and radial pulse +2 bilaterally. Sensation intact in upper and lower extremities. Full active ROM in upper and lower extremities, 5/5 stregnth. Limitations: no limitations Course Vital Signs 06/28/18 06/28/18 09:50 11:51 Temperature 98.3 F Pulse Rate 105 H 99 Respiratory 18 16 Rate Blood Pressure 130/101 127/65 O2 Sat by Pulse 91 L 92 L Oximetry Medical Decision Making - Medical Decision Making 53-year-old female patient past medical history of Down syndrome presents to ED with 1 day of nausea vomiting diarrhea. History is primarily obtained by sister patient as well as caregiver. States that patient began experiencing nausea vomiting and diarrhea last night. Reports that patient has had approximately 4 episodes of nausea vomiting. Patient also complained of some mild periumbilical abdominal pain and cramping. No coughing, no complaint of chest pain or s hortness of breath at home. Denies other complaints. Pt reportedly wears home 02 due to sleep apnea as well as low baseline pulse ox. Patient vital signs stable, afebrile. Physical exam displayed: Abdomen soft and non-distended. Abdomen non-tender to palpation in all 4 quadrants. No guarding no rigidity no ecchymosis. Bowel sounds active in LLQ. Laboratory investigations revealed noncompressive CBC, CMP. Troponin negative. EKG not concerning for acute ischemia. UA displayed mild urinary tract infection, influenza negative. CT abdomen and pelvis with contrast displayed likely enteritis, bladder wall thickening. Patient likely has viral gastroenteritis-like syndrome causing nausea vomiting diarrhea. Patient will be discharged, will be treated with outpatient antibiotics for urinary tract infection. Patient to follow up with primary care provider in 1-2 days. Patient return to ER if condition worsens in any way. Case discussed with Dr. Rosas. - Lab Data Result diagrams: 06/28/18 10:30 06/28/18 10:30 Lab Results 06/28/18 06/28/18 06/28/18 Range/Units 10:30 10:30 10:30 WBC 3.9 (3.8-10.6) k/uL RBC 4.37 (3.80-5.40) m/uL Hgb 14.1 (11.4-16.0) gm/dL Hct 43.4 (34.0-46.0) % MCV 99.2 (80.0-100.0) fL MCH 32.2 (25.0-35.0) pg MCHC 32.5 (31.0-37.0) g/dL RDW 14.5 (11.5-15.5) % Plt Count 410 (150-450) k/uL Neutrophils % 78 % Lymphocytes % 14 % Monocytes % 5 % Eosinophils % 0 % Basophils % 1 % Neutrophils # 3.1 (1.3-7.7) k/uL Lymphocytes # 0.5 L (1.0-4.8) k/uL Monocytes # 0.2 (0-1.0) k/uL Eosinophils # 0.0 (0-0.7) k/uL Basophils # 0.0 (0-0.2) k/uL Sodium 140 (137-145) mmol/L Potassium 4.0 (3.5-5.1) mmol/L Chloride 101 (98-107) mmol/L Carbon Dioxide 32 H (22-30) mmol/L Anion Gap 7 mmol/L BUN 18 H (7-17) mg/dL Creatinine 0.86 (0.52-1.04) mg/dL Est GFR (CKD-EPI)AfAm >90 (>60 ml/min/1.73 sqM) Est GFR (CKD-EPI)NonAf 79 (>60 ml/min/1.73 sqM) Glucose 106 H (74-99) mg/dL Plasma Lactic Acid José Miguel 1.1 (0.7-2.0) mmol/L Calcium 9.1 (8.4-10.2) mg/dL Total Bilirubin 0.8 (0.2-1.3) mg/dL AST 26 (14-36) U/L ALT 28 (9-52) U/L Alkaline Phosphatase 89 (38-126) U/L Troponin I (0.000-0.034) ng/mL Total Protein 7.1 (6.3-8.2) g/dL Albumin 3.9 (3.5-5.0) g/dL Lipase 16 L (23-300) U/L Urine Color Urine Appearance (Clear) Urine pH (5.0-8.0) Ur Specific [place] (1.001-1.035) Urine Protein (Negative) Urine Glucose (UA) (Negative) Urine Ketones (Negative) Urine Blood (Negative) Urine Nitrite (Negative) Urine Bilirubin (Negative) Urine Urobilinogen (<2.0) mg/dL Ur Leukocyte Esterase (Negative) Urine RBC (0-5) /hpf Urine WBC (0-5) /hpf Ur Squamous Epith Cells (0-4) /hpf Urine Mucus (None) /hpf Urine HCG, Qual (Not Detectd) Influenza Type A RNA (Not Detectd) Influenza Type B (PCR) (Not Detectd) 06/28/18 06/28/18 06/28/18 Range/Units 10:30 10:30 10:30 WBC (3.8-10.6) k/uL RBC (3.80-5.40) m/uL Hgb (11.4-16.0) gm/dL Hct (34.0-46.0) % MCV (80.0-100.0) fL MCH (25.0-35.0) pg MCHC (31.0-37.0) g/dL RDW (11.5-15.5) % Plt Count (150-450) k/uL Neutrophils % % Lymphocytes % % Monocytes % % Eosinophils % % Basophils % % Neutrophils # (1.3-7.7) k/uL Lymphocytes # (1.0-4.8) k/uL Monocytes # (0-1.0) k/uL Eosinophils # (0-0.7) k/uL Basophils # (0-0.2) k/uL Sodium (137-145) mmol/L Potassium (3.5-5.1) mmol/L Chloride (98-107) mmol/L Carbon Dioxide (22-30) mmol/L Anion Gap mmol/L BUN (7-17) mg/dL Creatinine (0.52-1.04) mg/dL Est GFR (CKD-EPI)AfAm (>60 ml/min/1.73 sqM) Est GFR (CKD-EPI)NonAf (>60 ml/min/1.73 sqM) Glucose (74-99) mg/dL Plasma Lactic Acid José Miguel (0.7-2.0) mmol/L Calcium (8.4-10.2) mg/dL Total Bilirubin (0.2-1.3) mg/dL AST (14-36) U/L ALT (9-52) U/L Alkaline Phosphatase (38-126) U/L Troponin I <0.012 (0.000-0.034) ng/mL Total Protein (6.3-8.2) g/dL Albumin (3.5-5.0) g/dL Lipase (23-300) U/L Urine Color Yellow Urine Appearance Clear (Clear) Urine pH 5.0 (5.0-8.0) Ur Specific [place] 1.034 (1.001-1.035) Urine Protein Trace H (Negative) Urine Glucose (UA) Negative (Negative) Urine Ketones Negative (Negative) Urine Blood Negative (Negative) Urine Nitrite Negative (Negative) Urine Bilirubin Negative (Negative) Urine Urobilinogen <2.0 (<2.0) mg/dL Ur Leukocyte Esterase Small H (Negative) Urine RBC 2 (0-5) /hpf Urine WBC 25 H (0-5) /hpf Ur Squamous Epith Cells 1 (0-4) /hpf Urine Mucus Occasional H (None) /hpf Urine HCG, Qual (Not Detectd) Influenza Type A RNA Not Detected (Not Detectd) Influenza Type B (PCR) Not Detected (Not Detectd) 06/28/18 Range/Units 10:30 WBC (3.8-10.6) k/uL RBC (3.80-5.40) m/uL Hgb (11.4-16.0) gm/dL Hct (34.0-46.0) % MCV (80.0-100.0) fL MCH (25.0-35.0) pg MCHC (31.0-37.0) g/dL RDW (11.5-15.5) % Plt Count (150-450) k/uL Neutrophils % % Lymphocytes % % Monocytes % % Eosinophils % % Basophils % % Neutrophils # (1.3-7.7) k/uL Lymphocytes # (1.0-4.8) k/uL Monocytes # (0-1.0) k/uL Eosinophils # (0-0.7) k/uL Basophils # (0-0.2) k/uL Sodium (137-145) mmol/L Potassium (3.5-5.1) mmol/L Chloride (98-107) mmol/L Carbon Dioxide (22-30) mmol/L Anion Gap mmol/L BUN (7-17) mg/dL Creatinine (0.52-1.04) mg/dL Est GFR (CKD-EPI)AfAm (>60 ml/min/1.73 sqM) Est GFR (CKD-EPI)NonAf (>60 ml/min/1.73 sqM) Glucose (74-99) mg/dL Plasma Lactic Acid José Miguel (0.7-2.0) mmol/L Calcium (8.4-10.2) mg/dL Total Bilirubin (0.2-1.3) mg/dL AST (14-36) U/L ALT (9-52) U/L Alkaline Phosphatase (38-126) U/L Troponin I (0.000-0.034) ng/mL Total Protein (6.3-8.2) g/dL Albumin (3.5-5.0) g/dL Lipase (23-300) U/L Urine Color Urine Appearance (Clear) Urine pH (5.0-8.0) Ur Specific [place] (1.001-1.035) Urine Protein (Negative) Urine Glucose (UA) (Negative) Urine Ketones (Negative) Urine Blood (Negative) Urine Nitrite (Negative) Urine Bilirubin (Negative) Urine Urobilinogen (<2.0) mg/dL Ur Leukocyte Esterase (Negative) Urine RBC (0-5) /hpf Urine WBC (0-5) /hpf Ur Squamous Epith Cells (0-4) /hpf Urine Mucus (None) /hpf Urine HCG, Qual Not Detected (Not Detectd) Influenza Type A RNA (Not Detectd) Influenza Type B (PCR) (Not Detectd) - EKG Data -: EKG Interpreted by Me (and dr rosas) EKG Comments: Ventricular rate 97, TX interval 142, QRS 78, QT/QTC 336/452. Normal sinus rhythm, normal EKG, no concern for acute ischemia. Disposition Clinical Impression: UTI (urinary tract infection), Viral syndrome Disposition: HOME SELF-CARE Condition: Stable Instructions (If sedation given, give patient instructions): Acute Diarrhea (ED), Urinary Tract Infection in Women (ED), Nutrition Tips for Relief of Diarrhea (ED) Additional Instructions: Patient to adhere to previously discussed treatment plan and will take medic ation(s) as directed. Patient to follow up with PCP in 1-2 days. Patient to return to ED if symptoms do not improve. Take antibiotics as prescribed. Encourage lots of fluid intake. Follow up with primary care provider in 1-2 days. Return to ER if condition worsens. Prescriptions: Nitrofurantoin Monohyd/M-Cryst [Macrobid] 100 mg PO Q12HR #14 cap Is patient prescribed a controlled substance at d/c from ED?: No Referrals: Luis Antonio Lantigua DO [Primary Care Provider] - 1-2 days
[2018-06-28 10:55] LABS: Basophils % (A) 1 %; Eosinophils % (A) 0 %; HCT 43.4 % (34.0-46.0); HGB 14.1 gm/dL (11.4-16.0); Lymphocytes # (A) 0.5 k/uL (1.0-4.8); Lymphocytes % (A) 14 %; MCH 32.2 pg (25.0-35.0); MCHC 32.5 g/dL (31.0-37.0); MCV 99.2 fL (80.0-100.0); Mean Platelet Volume 7.2; Monocytes # (A) 0.2 k/uL (0-1.0); Monocytes % (A) 5 %; Neutrophils # (A) 3.1 k/uL (1.3-7.7); Neutrophils % (A) 78 %; Platelet Count 410 k/uL (150-450); RBC 4.37 m/uL (3.80-5.40); RDW 14.5 % (11.5-15.5); WBC 3.9 k/uL (3.8-10.6)
[2018-06-28 11:12] LABS: ALT 28 U/L (9-52); AST 26 U/L (14-36); Albumin 3.9 g/dL (3.5-5.0); Alkaline Phosphatase 89 U/L (38-126); Anion Gap 7 mmol/L; Blood Urea Nitrogen 18 mg/dL (7-17); Calcium 9.1 mg/dL (8.4-10.2); Carbon Dioxide 32 mmol/L (22-30); Chloride 101 mmol/L (98-107); Glucose 106 mg/dL (74-99); Lipase 16 U/L (23-300); Sodium 140 mmol/L (137-145); Total Bilirubin 0.8 mg/dL (0.2-1.3); Total Protein 7.1 g/dL (6.3-8.2)
[2018-06-28 11:26] LABS: Appearance,Urine Clear (Clear); Bilirubin,Urine Negative (Negative); Blood,Urine Negative (Negative); Color,Urine Yellow; Glucose,Urine (UA) Negative (Negative); Ketones,Urine Negative (Negative); Leukocyte Esterase,Urine Small (Negative); Mucus,Urine Occasional /hpf; Nitrite,Urine Negative (Negative); Protein,Urine Trace (Negative); RBC,Urine 2 /hpf (0-5); Specific Gravity,Urine 1.034 (1.001-1.035); Squamous Epithelial Cell,Urine 1 /hpf (0-4); Urobilinogen,Urine <2.0 mg/dL (<2.0); WBC,Urine 25 /hpf (0-5)
[2018-06-28 11:51] VITALS: BP 127/65; PULSE 99; RESP 16
--- NOTE | 2018-06-28 12:09 | CT ---
EXAMINATION TYPE: CT abdomen pelvis w con DATE OF EXAM: 06/28/2018 COMPARISON: 05/18/2017 HISTORY: 53-year-old female abdominal pain, nausea, vomiting, diarrhea TECHNIQUE: Contiguous axial scanning of the abdomen and pelvis following administration of 100 ml Iso serina 300 IV contrast. Delayed images through the kidneys and coronal/sagittal reconstructions perform ed. CT DLP: 1053.4 mGycm Automated exposure control for dose reduction was used. FINDINGS: The heart is upper limits of normal in size with small pericardial. Similar patchy bibasilar opacitie s along the bronchovascular bundles likely chronic changes. No pleural effusion. No focal liver lesion or biliary ductal dilatation. Portal venous system is patent. Cholecystectomy c lips. Adrenal glands, kidneys, spleen, pancreas show no gross abnormality. Prominent fluid within stomach and throughout multiple small bowel loops as well as within the right side of the colon. No dilated small bowel, free fluid, or free air is seen. Graft prominent 1.1 cm po rtacaval lymph node The normal location of the ligament of Treitz clearly demonstrated. Small bowel loops primarily concentrated in the right side of the abdomen similar to prior. Cecum is somewhat high in the right side of the abdomen. Moderate circumferential bladder wall thickening. Uterus is visualized. No adnexal mass. Multiple pel sierra phlebolith. No abnormal fluid collection the pelvis or pelvic lymphadenopathy. Bones: Mild degenerative changes of the hips. Degenerative changes at the SI joints. Degenerative sofi nges throughout the lumbar spine. Grade 2 anterolisthesis at L5-S1 secondary to bilateral pars defect s at L5. IMPRESSION: 1. PROMINENT FLUID-FILLED SMALL BOWEL LOOPS THROUGHOUT AND LIQUID STOOL IN THE RIGHT SIDE OF THE COLO N. NO ABNORMAL BOWEL DILATATION. FINDINGS SUSPECTED TO REPRESENT ENTERITIS. 2. THE NORMAL LOCATION OF THE LIGAMENT OF TREITZ IS NOT DEMONSTRATED. 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 3. MODERATE CIRCUMFERENTIAL BLADDER WALL THICKENING COULD REPRESENT CHRONIC BLADDER WALL HYPERTROPHY, NEUROGENIC BLADDER, OR CYSTITIS. CLINICALLY CORRELATE. 4. GRADE 2 ANTEROLISTHESIS AT L5-S1 SECONDARY TO BILATERAL L5 PARS DEFECTS.
== END 2018-06-28 13:11 | disposition home or self-care (01) ==
LOC: EC 09:49
DX: N39.0 Urinary tract infection, site not specified (principal); B34.9 Viral infection, unspecified; E07.9 Disorder of thyroid, unspecified; F41.9 Anxiety disorder, unspecified; F20.9 Schizophrenia, unspecified; G47.30 Sleep apnea, unspecified; Z99.89 Dependence on other enabling machines and devices; Z79.890 Hormone replacement therapy; Z79.899 Other long term (current) drug therapy; Z91.040 Latex allergy status
CPT/HCPCS: 99285 ×2; 96365 ×2; 96375 ×2; 36415; 93005; 80053; 83605; 83690; 84484; 85025; 81001; 81025; 87502; 74177; J2405; J0696; Q9967

== ENCOUNTER → 2018-11-21 | Outpatient (CLI) | payer MEDICARE, OTHER ==
--- NOTE | 2018-11-22 13:44 | MM ---
Reason for exam: screening (asymptomatic). Last mammogram was performed 1 year and 1 month ago. History: Patient is postmenopausal and is nulliparous. Took hormonal contraceptives for 3 years. Physical Findings: A clinical breast exam by your physician is recommended on an annual basis and results should be correlated with mammographic findings. MG 3D Screening Mammo W/Cad Bilateral CC and MLO view(s) were taken. Prior study comparison: October 13, 2017, bilateral MG screening mammo w CAD. April 16, 2015, bilateral MG screening mammo w CAD. There are scattered fibroglandular densities. No significant changes when compared with prior studies. ASSESSMENT: Negative, BI-RAD 1 RECOMMENDATION: Routine screening mammogram of both breasts in 1 year.
== END | disposition home or self-care (01) ==
LOC: RADMAMWWP 14:39
PROVIDERS: ATTEND Family Medicine
DX: Z12.31 Encounter for screening mammogram for malignant neoplasm of breast (principal)
CPT/HCPCS: 77063; 77067

== ENCOUNTER 2019-04-02 07:31 | Inpatient (IN) | payer MEDICARE, OTHER ==
[2019-04-02] MEDS ORDERED: methylPREDNISolone SOD SUCCI 125 MG/2 ML VIAL IV STA (07:37)
--- NOTE | 2019-04-02 07:42 | ED ---
SOB HPI - General Stated Complaint: SOB Time Seen by Provider: 04/02/19 07:31 Source: EMS, RN notes reviewed Mode of arrival: EMS - History of Present Illness Initial Comments: This is a 53-year-old female history of Down syndrome and depression who was brought in by EMS because of shortness of breath currently to have a cough with history of 4 days and this morning was found to be very short of breath she has saturation at home of 72% and room air. No other history available patient is a poor historian due to her conditions. No other modifying factors is her mother she is hypothyroid by history MD Complaint: shortness of breath, cough - Related Data Home Medications Medication Instructions Recorded Confirmed ALPRAZolam 0.25 mg PO BID@0800,209908/13/14 04/02/19 Levothyroxine Sodium [Synthroid] 25 mcg PO DAILY@0700 08/13/14 04/02/19 Omeprazole 20 mg PO DAILY@0700 08/13/14 04/02/19 DULoxetine HCL [Cymbalta] 60 mg PO BID@0700,159908/20/15 04/02/19 Olopatadine HCl [Pazeo] 1 drop BOTH EYES DAILY@159905/24/17 04/02/19 Carboxymethylcellulose Sodium 1 drop BOTH EYES TID@0700,1200,209906/07/17 04/02/19 [Refresh Tears] Sodium Chloride 5% Ophth Soln 1 drops LEFT EYE BID@0700,209906/07/17 04/02/19 [Nga 128] Cxymg-L-Yepsllcnbnmpb [Beano] 300 unit PO BID@0700,1600 01/08/18 04/02/19 Cholecalciferol [Vitamin D3] 400 unit PO DAILY@159901/08/18 04/02/19 Ketoconazole [Ketoconazole 2%] 1 applic TOPICAL DAILY@0800 01/08/18 04/02/19 OLANZapine ODT [ZyPREXA Zydis] 5 mg PO DAILY PRN 01/08/18 04/02/19 OLANZapine [ZyPREXA] 7.5 mg PO HS@209901/08/18 04/02/19 Memantine [Namenda] 10 mg PO BID@0700,209906/28/18 04/02/19 Cyanocobalamin (Vitamin B-12) 1,000 mcg PO DAILY@0700 04/02/19 04/02/19 [Vitamin B-12] Simethicone 125mg Chew 125 mg PO DAILY PRN 04/02/19 04/02/19 Allergies Allergy/AdvReac Type Severity Reaction Status Date / Time latex Allergy sensitive Verified 04/02/19 07:43 skin Review of Systems ROS Statement: Those systems with pertinent positive or pertinent negative responses have been documented in the HPI. ROS Other: All systems not noted in ROS Statement are negative. Past Medical History Past Medical History: Diabetes Mellitus, Pneumonia, Sleep Apnea/CPAP/BIPAP, Thyroid Disorder Additional Past Medical History / Comment(s): LG sister states "recent tx UTI and having abd pain,ulcers and gallbladder not working properly",Down Syndrome, enlarged heart, wears O2 during night-2 liters nasal canula, left foot deformity History of Any Multi-Drug Resistant Organisms: None Reported Additional Past Surgical History / Comment(s): nasal surgery, wilberto cataract surgery,growth removed left ankle Past Anesthesia/Blood Transfusion Reactions: No Reported Reaction Past Psychological History: Anxiety, Schizophrenia Smoking Status: Never smoker Past Alcohol Use History: None Reported Past Drug Use History: None Reported - Past Family History Father Family Medical History: Cancer Additional Family Medical History / Comment(s): skin Mother Additional Family Medical History / Comment(s): pulmonary fibrosis Brother(s) Additional Family Medical History / Comment(s): lung fibrosis General Exam - General Exam Comments Initial Comments: This a well-developed obese female who does demonstrate stigmata of Down syndrome she is receiving a nebulizer treatment and does demonstrate diminished breath sounds with rhonchi scattered. General appearance: alert, anxious, in distress Head exam: Present: atraumatic, normocephalic, normal inspection Eye exam: Present: normal appearance, PERRL, EOMI. Absent: scleral icterus, conjunctival injection, periorbital swelling ENT exam: Present: mucous membranes dry Neck exam: Present: normal inspection, full ROM, other. Absent: tenderness, meningismus, lymphadenopathy Respiratory exam: Present: normal lung sounds bilaterally, rhonchi (Discharge or bruits), accessory muscle use, decreased breath sounds. Absent: respiratory dis tress, wheezes, rales, stridor Cardiovascular Exam: Present: normal rhythm, tachycardia, normal heart sounds. Absent: systolic murmur, diastolic murmur, rubs, gallop, clicks GI/Abdominal exam: Present: soft, normal bowel sounds. Absent: distended, tenderness, guarding, rebound, rigid Extremities exam: Present: normal inspection, normal capillary refill. Absent: full ROM (Decreased range of motion of the right upper extremity no tenderness palpation at this time questionable humeral head subluxation), tenderness, pedal edema, joint swelling, calf tenderness Back exam: Present: normal inspection Neurological exam: Present: alert, oriented X3, CN II-XII intact Psychiatric exam: Present: normal affect, normal mood Skin exam: Present: warm, dry, intact, normal color. Absent: rash Course Vital Signs 04/02/19 04/02/19 04/02/19 07:36 07:51 08:00 Temperature 98.7 F Pulse Rate 120 H 116 H Respiratory 35 H 21 Rate Blood Pressure 147/71 147/71 O2 Sat by Pulse 86 L 95 94 L Oximetry 04/02/19 04/02/19 04/02/19 08:30 09:00 09:30 Temperature Pulse Rate 115 H 106 H Respiratory 20 22 14 Rate Blood Pressure 100/82 111/63 110/65 O2 Sat by Pulse 95 94 L Oximetry 04/02/19 09:58 Temperature 98.2 F Pulse Rate Respiratory Rate Blood Pressure O2 Sat by Pulse Oximetry - Reevaluation(s) Reevaluation #1: 04/02/19 07:51 Further information regarding the patient from a caregiver that just arrived her saturations home was 71% today she's been using oxygen at home at night but for last 2 days they've been given into her more often during the day. Also r ecently she did develop dementia in the last year. Also she frequently gets pneumonia at least once a year. She does have an appointment to see her primary care physician tomorrow but the family felt that she could not wait. Additionally stated that they've been propping her up to help her breathe better this was not working this morning very well. Reevaluation #2: 04/02/19 08:51 Reevaluation patient reveals she is somewhat improved her saturation is improved the low 90s with oxygen. She still demonstrates some scattered rhonchi especially right lower lobe Medical Decision Making - Medical Decision Making I did discuss the findings the patient and family members. He does have right lower lobe pneumonia as well as influenza type B and dyspnea right shoulder subluxation. - Lab Data Result diagrams: 04/02/19 07:50 04/02/19 07:50 Lab Results 04/02/19 04/02/19 04/02/19 Range/Units 07:50 07:50 07:50 WBC 9.2 (3.8-10.6) k/uL RBC 4.55 (3.80-5.40) m/uL Hgb 14.7 (11.4-16.0) gm/dL Hct 46.5 H (34.0-46.0) % MCV 102.4 H (80.0-100.0) fL MCH 32.3 (25.0-35.0) pg MCHC 31.6 (31.0-37.0) g/dL RDW 13.2 (11.5-15.5) % Plt Count 246 (150-450) k/uL Neutrophils % 89 % Lymphocytes % 6 % Monocytes % 3 % Eosinophils % 0 % Basophils % 1 % Neutrophils # 8.1 H (1.3-7.7) k/uL Lymphocytes # 0.6 L (1.0-4.8) k/uL Monocytes # 0.3 (0-1.0) k/uL Eosinophils # 0.0 (0-0.7) k/uL Basophils # 0.1 (0-0.2) k/uL Macrocytosis Slight PT (9.0-12.0) sec INR (<1.2) APTT (22.0-30.0) sec Sodium 141 (137-145) mmol/L Potassium 4.4 (3.5-5.1) mmol/L Chloride 104 (98-107) mmol/L Carbon Dioxide 32 H (22-30) mmol/L Anion Gap 5 mmol/L BUN 18 H (7-17) mg/dL Creatinine 0.80 (0.52-1.04) mg/dL Est GFR (CKD-EPI)AfAm >90 (>60 ml/min/1.73 sqM) Est GFR (CKD-EPI)NonAf 85 (>60 ml/min/1.73 sqM) Glucose 125 H (74-99) mg/dL Plasma Lactic Acid José Miguel 1.9 (0.7-2.0) mmol/L Calcium 8.4 (8.4-10.2) mg/dL Magnesium 2.0 (1.6-2.3) mg/dL Total Bilirubin 0.6 (0.2-1.3) mg/dL AST 37 H (14-36) U/L ALT 23 (4-34) U/L Alkaline Phosphatase 121 (38-126) U/L Creatine Kinase 60 (30-135) U/L Troponin I (0.000-0.034) ng/mL NT-Pro-B Natriuret Pep pg/mL Total Protein 7.5 (6.3-8.2) g/dL Albumin 3.7 (3.5-5.0) g/dL Influenza Type A RNA (Not Detectd) Influenza Type B (PCR) (Not Detectd) 04/02/19 04/02/19 04/02/19 Range/Units 07:50 07:50 07:50 WBC (3.8-10.6) k/uL RBC (3.80-5.40) m/uL Hgb (11.4-16.0) gm/dL Hct (34.0-46.0) % MCV (80.0-100.0) fL MCH (25.0-35.0) pg MCHC (31.0-37.0) g/dL RDW (11.5-15.5) % Plt Count (150-450) k/uL Neutrophils % % Lymphocytes % % Monocytes % % Eosinophils % % Basophils % % Neutrophils # (1.3-7.7) k/uL Lymphocytes # (1.0-4.8) k/uL Monocytes # (0-1.0) k/uL Eosinophils # (0-0.7) k/uL Basophils # (0-0.2) k/uL Macrocytosis PT 9.8 (9.0-12.0) sec INR 0.9 (<1.2) APTT 25.7 (22.0-30.0) sec Sodium (137-145) mmol/L Potassium (3.5-5.1) mmol/L Chloride (98-107) mmol/L Carbon Dioxide (22-30) mmol/L Anion Gap mmol/L BUN (7-17) mg/dL Creatinine (0.52-1.04) mg/dL Est GFR (CKD-EPI)AfAm (>60 ml/min/1.73 sqM) Est GFR (CKD-EPI)NonAf (>60 ml/min/1.73 sqM) Glucose (74-99) mg/dL Plasma Lactic Acid José Miguel (0.7-2.0) mmol/L Calcium (8.4-10.2) mg/dL Magnesium (1.6-2.3) mg/dL Total Bilirubin (0.2-1.3) mg/dL AST (14-36) U/L ALT (4-34) U/L Alkaline Phosphatase (38-126) U/L Creatine Kinase (30-135) U/L Troponin I <0.012 (0.000-0.034) ng/mL NT-Pro-B Natriuret Pep 161 pg/mL Total Protein (6.3-8.2) g/dL Albumin (3.5-5.0) g/dL Influenza Type A RNA (Not Detectd) Influenza Type B (PCR) (Not Detectd) 04/02/19 Range/Units 08:06 WBC (3.8-10.6) k/uL RBC (3.80-5.40) m/uL Hgb (11.4-16.0) gm/dL Hct (34.0-46.0) % MCV (80.0-100.0) fL MCH (25.0-35.0) pg MCHC (31.0-37.0) g/dL RDW (11.5-15.5) % Plt Count (150-450) k/uL Neutrophils % % Lymphocytes % % Monocytes % % Eosinophils % % Basophils % % Neutrophils # (1.3-7.7) k/uL Lymphocytes # (1.0-4.8) k/uL Monocytes # (0-1.0) k/uL Eosinophils # (0-0.7) k/uL Basophils # (0-0.2) k/uL Macrocytosis PT (9.0-12.0) sec INR (<1.2) APTT (22.0-30.0) sec Sodium (137-145) mmol/L Potassium (3.5-5.1) mmol/L Chloride (98-107) mmol/L Carbon Dioxide (22-30) mmol/L Anion Gap mmol/L BUN (7-17) mg/dL Creatinine (0.52-1.04) mg/dL Est GFR (CKD-EPI)AfAm (>60 ml/min/1.73 sqM) Est GFR (CKD-EPI)NonAf (>60 ml/min/1.73 sqM) Glucose (74-99) mg/dL Plasma Lactic Acid José Miguel (0.7-2.0) mmol/L Calcium (8.4-10.2) mg/dL Magnesium (1.6-2.3) mg/dL Total Bilirubin (0.2-1.3) mg/dL AST (14-36) U/L ALT (4-34) U/L Alkaline Phosphatase (38-126) U/L Creatine Kinase (30-135) U/L Troponin I (0.000-0.034) ng/mL NT-Pro-B Natriuret Pep pg/mL Total Protein (6.3-8.2) g/dL Albumin (3.5-5.0) g/dL Influenza Type A RNA Not Detected (Not Detectd) Influenza Type B (PCR) Detected H (Not Detectd) - EKG Data -: EKG Interpreted by Me EKG shows normal: sinus rhythm EKG Comments: Sinus tachycardia rate 119. Interval 128 QRS duration 76 QT since QTC 326/[address]-T wave changes - Radiology Data Radiology results: report reviewed (Review the imaging and report is evidence of right lower lobe infiltrate there is evidence of right shoulder subluxation.), image reviewed Disposition Clinical Impression: Influenzal bronchiolitis, Right lower lobe pneumonia, Bronchospasm, acute, Shoulder subluxation, right Disposition: ADMITTED IP TO THIS HOSP Condition: Fair
[2019-04-02 08:11] LABS: Basophils # (A) 0.1 k/uL (0-0.2); Basophils % (A) 1 %; Eosinophils % (A) 0 %; HCT 46.5 % (34.0-46.0); HGB 14.7 gm/dL (11.4-16.0); Lymphocytes # (A) 0.6 k/uL (1.0-4.8); Lymphocytes % (A) 6 %; MCH 32.3 pg (25.0-35.0); MCHC 31.6 g/dL (31.0-37.0); MCV 102.4 fL (80.0-100.0); Macrocytosis Slight; Mean Platelet Volume 8.3; Monocytes # (A) 0.3 k/uL (0-1.0); Monocytes % (A) 3 %; Neutrophils # (A) 8.1 k/uL (1.3-7.7); Neutrophils % (A) 89 %; Platelet Count 246 k/uL (150-450); RBC 4.55 m/uL (3.80-5.40); RDW 13.2 % (11.5-15.5); WBC 9.2 k/uL (3.8-10.6)
--- NOTE | 2019-04-02 08:18 | XR ---
EXAMINATION TYPE: XR chest 2V DATE OF EXAM: 04/02/2019 HISTORY: difficulty breathing. REFERENCE: Previous study dated 01/13/2018. FINDINGS: The right lower lobe infiltrate. Heart size upper limits of normal. There is blunting of andre th CP angles. I could not exclude small effusions. There is subluxation of the right glenohumeral joint. IMPRESSION: 1. RIGHT LOWER LOBE PNEUMONIA. 2. SUBLUXATION OF THE RIGHT GLENOHUMERAL JOINT.
[2019-04-02 08:20] LABS: ALT 23 U/L (4-34); AST 37 U/L (14-36); African American GFR (CKD) >90 (>60 ml/min/1.73 sqM); Albumin 3.7 g/dL (3.5-5.0); Alkaline Phosphatase 121 U/L (38-126); Anion Gap 5 mmol/L; Blood Urea Nitrogen 18 mg/dL (7-17); Calcium 8.4 mg/dL (8.4-10.2); Carbon Dioxide 32 mmol/L (22-30); Chloride 104 mmol/L (98-107); Creatine Kinase 60 U/L (30-135); Glucose 125 mg/dL (74-99); Non-African American GFR(CKD) 85 (>60 ml/min/1.73 sqM); Potassium 4.4 mmol/L (3.5-5.1); Sodium 141 mmol/L (137-145); Total Bilirubin 0.6 mg/dL (0.2-1.3); Total Protein 7.5 g/dL (6.3-8.2)
[2019-04-02 08:24] LABS: INR 0.9 (<1.2); Partial Thromboplastin Time 25.7 sec (22.0-30.0); Prothrombin Time 9.8 sec (9.0-12.0)
[2019-04-02] MEDS ORDERED: OSELTAMIVIR 75 MG CAP PO STA (08:43)
[2019-04-02] MEDS ORDERED: cefTRIAXone IN SWFI 1,000 MG/10 ML SYRINGE IVP STA (08:51)
[2019-04-02] MEDS ORDERED: AZITHROMYCIN 500 MG in SODIUM CHLORIDE 0.9% 250 ML IVPB STA (09:19)
[2019-04-02] MEDS ORDERED: PNEUMONIA PROTOCOL UTILIZED 1 EACH MISC PO PRN (09:19)
--- NOTE | 2019-04-02 09:21 | XR ---
EXAMINATION TYPE: XR humerus RT , 2 VIEWS DATE OF EXAM ORDERED: 04/02/2019 HISTORY: Subluxation. COMPARISON: None. FINDINGS: The study is compromised by the patient's body habitus. 2 AP view has not been obtained. N o long bone fracture is seen. There is apparent degenerative change in the right elbow. IMPRESSION: LIMITED STUDY. DEDICATED VIEWS OF THE SHOULDER WOULD BE SUGGESTED.
[2019-04-02] MEDS ORDERED: OLANZapine ODT 5 MG TAB PO PRN (09:22)
[2019-04-02] MEDS: SODIUM CHLORIDE 0.9% 1,000 ML IV SCH ×2 (09:47→21:33)
--- NOTE | 2019-04-02 10:12 | XR ---
EXAMINATION TYPE: XR shoulder complete RT , 3 VIEWS DATE OF EXAM ORDERED: 04/02/2019 HISTORY: Suspected subluxation. COMPARISON: None. FINDINGS: There is subluxation of the right glenohumeral joint without linda dislocation. IMPRESSION: LOCATION OF THE RIGHT GLENOHUMERAL JOINT WITHOUT LINDA DISLOCATION.
[2019-04-02] MEDS ORDERED: ALBUTEROL NEBULIZED 2.5 MG/3 ML INHALATION SCH (12:00)
[2019-04-02] MEDS: ARTIFICIAL TEARS-HYPROMELLOSE DROPS 15 ML BTL BOTH EYES SCH ×2 (13:14→21:17)
[2019-04-02] MEDS ORDERED: SIMETHICONE 80 MG CHEWABLE PO PRN (13:36)
[2019-04-02] MEDS: IPRATROPIUM-ALBUTEROL 3 ML NEB INHALATION SCH ×3 (15:20→19:09)
[2019-04-02] MEDS: ENOXAPARIN 40 MG/0.4 ML SYRINGE SQ SCH (15:46)
[2019-04-02] MEDS: DULoxetine HCL 60 MG CAPSULE.DR PO SCH (15:48)
[2019-04-02] MEDS ORDERED: ALPHA D GALACTOSIDASE 300 UNIT PO SCH (16:00)
[2019-04-02] MEDS: CHOLECALCIFEROL 400 UNIT TAB PO SCH (17:05)
[2019-04-02] MEDS ORDERED: NITROFURANTOIN MONOHYD/M-CRYST 100 MG CAP PO SCH (21:00)
[2019-04-02] MEDS: KETOTIFEN 0.025% OPHTH DROPS 5 ML BTL BOTH EYES SCH (21:09)
[2019-04-02] MEDS: OLANZapine 5 MG TAB PO SCH (21:22)
[2019-04-02] MEDS: ALPRAZolam 0.25 MG TAB PO SCH (21:23)
[2019-04-02] MEDS: OSELTAMIVIR 75 MG CAP PO SCH (21:23)
[2019-04-02] MEDS: SODIUM CHLORIDE 5% OPHTH DROPS 15 ML BTL LEFT EYE SCH (21:27)
--- NOTE | 2019-04-02 21:29 | P.HPIM ---
History of Present Illness H&P Date: 04/02/19 Chief Complaint: Short of breath History of presenting complaint: This is a pleasant 53-year-old patient of Dr. Diamond Lantigua. Chronic stable medical conditions include Down syndrome, depression, schizophrenia, on home oxygen 2 L,(s) sleep apnea does not use CPAP machine. [facility] lives [facility] a [facility]. With regard to his assisted. Most of the history is obtained by the brother at the bedside. Normally patient uses a walker to get about. For 3 days patient is becoming increasingly short of breath. Also had a cough. Saturation is a [facility] was down to 72% on room air. Patient herself is a very poor historian. Patient is found to have a fever and tachycardia. Continue to be positive for influenza B. Admitted for the same. Appetite had gone down. Right shoulder was found to be subluxed in the ER. Review of systems: GEN.: Tired EYES: None HEENT: None NECK: None RESPIRATORY: None CARDIOVASCULAR: None GASTROINTESTINAL: None GENITOURINARY: None MUSCULOSKELETAL: Left foot deformed LYMPHATICS: None HEMATOLOGICAL: None PSYCHIATRY: Mental retardation NEUROLOGICAL: None Past medical history to include: Down syndrome, schizophrenia,(s) sleep apnea, hypothyroid, left foot deformity Social history: Does not smoke or drink alcohol. Lives in a [facility]. Patient's sister is a legal guardian Physical examination: VITAL SIGNS: T-max 100.1, 120, 35, 140 [birth year]1970, 86% room air GENERAL: BMI 42, laying in bed a bit tired appearing. EYES: Pupils equal. Conjunctiva normal. HEENT: External appearance of nose and ears normal, oral cavity grossly normal. NECK: JVD not raised; masses not palpable. HEART: First and second heart sounds are normal; no edema. LUNGS:[ Respiratory rate increased, decreased breaths on some coarse breath sounds. ABDOMEN: Soft, nontender, liver spleen not palpable, no masses palpable. PSYCH: Awake, and answering any questionsl. NEUROLOGICAL: Cranial nerves grossly intact; no facial asymmetry, power and sensation grossly intact. LYMPHATICS: No lymph nodes palpable in the axilla and neck INVESTIGATIONS, reviewed in the clinical context: White count 9.2 hemoglobin 14.7 potassium 4.4 creatinine 0.80 Influenza type B detected EKG tracing personally reviewed by me-normal sinus rhythm, sinus tachycardia Chest x-ray film personally reviewed by me-infiltrates and more than 1 lobe especially the right side Right shoulder v-yrb-onccgpxrglr of the right glenohumeral joint Assessment: -Acute influenza B pneumonitis, cannot rule out secondary bacterial infection, causing sepsis, POA -Down syndrome -Intellectual disability due to Down syndrome -Chronic schizophrenia -Obstructive sleep apnea does not use a CPAP machine -Chronic hypoxic respiratory failure. 2 L oxygen at home -Acute hypoxic respiratory failure, POA -Right shoulder subluxation -Sister-legal guardian -DO NOT RESUSCITATE Plan: Patient started and IV ceftriaxone, Tamiflu, IV fluids. Home medications resumed. Lovenox for DVT prophylaxis. Orthopedics is being consulted for the right shoulder. Care was discussed with the brother the bedside. Questions answered. Past Medical History Past Medical History: Diabetes Mellitus, Pneumonia, Sleep Apnea/CPAP/BIPAP, Thyroid Disorder Additional Past Medical History / Comment(s): LG sister states "recent tx UTI and having abd pain,ulcers and gallbladder not working properly",Down Syndrome, enlarged heart, wears O2 during night-2 liters nasal canula, left foot deformity History of Any Multi-Drug Resistant Organisms: None Reported Past Surgical History: Cholecystectomy Additional Past Surgical History / Comment(s): nasal surgery, wilberto cataract surgery,growth removed left ankle Past Anesthesia/Blood Transfusion Reactions: No Reported Reaction Past Psychological History: Anxiety, Schizophrenia Smoking Status: Never smoker Past Alcohol Use History: None Reported Past Drug Use History: None Reported - Past Family History Father Family Medical History: Cancer Additional Family Medical History / Comment(s): skin Mother Additional Family Medical History / Comment(s): pulmonary fibrosis Brother(s) Additional Family Medical History / Comment(s): lung fibrosis Medications and Allergies Home Medications Medication Instructions Recorded Confirmed Type ALPRAZolam 0.25 mg PO BID@0800,2100 08/13/14 04/02/19 History Levothyroxine Sodium [Synthroid] 25 mcg PO DAILY@0700 08/13/14 04/02/19 History Omeprazole 20 mg PO DAILY@0700 08/13/14 04/02/19 History DULoxetine HCL [Cymbalta] 60 mg PO BID@0700,1600 08/20/15 04/02/19 History Olopatadine HCl [Pazeo] 1 drop BOTH EYES DAILY@1600 05/24/17 04/02/19 History Carboxymethylcellulose Sodium 1 drop BOTH EYES TID@0700,1200,209906/07/17 04/02/19 History [Refresh Tears] Sodium Chloride 5% Ophth Soln 1 drops LEFT EYE BID@0700,209906/07/17 04/02/19 History [Nga 128] Wjtkt-X-Zvarsmjsbzfzo [Beano] 300 unit PO BID@0700,1600 01/08/18 04/02/19 History Cholecalciferol [Vitamin D3] 400 unit PO DAILY@159901/08/18 04/02/19 History Ketoconazole [Ketoconazole 2%] 1 applic TOPICAL DAILY@0800 01/08/18 04/02/19 History OLANZapine ODT [ZyPREXA Zydis] 5 mg PO DAILY PRN 01/08/18 04/02/19 History OLANZapine [ZyPREXA] 7.5 mg PO HS@209901/08/18 04/02/19 History Memantine [Namenda] 10 mg PO BID@0700,209906/28/18 04/02/19 History Cyanocobalamin (Vitamin B-12) 1,000 mcg PO DAILY@0700 04/02/19 04/02/19 History [Vitamin B-12] Simethicone 125mg Chew 125 mg PO DAILY PRN 04/02/19 04/02/19 History Allergies Allergy/AdvReac Type Severity Reaction Status Date / Time latex Allergy sensitive Verified 04/02/19 07:43 skin Physical Exam Vitals: Vital Signs Temp Pulse Resp BP Pulse Ox 04/02/19 10:30 107 H 13 115/53 95 04/02/19 09:58 98.2 F 04/02/19 09:30 106 H 14 110/65 94 L 04/02/19 09:00 22 111/63 04/02/19 08:30 115 H 20 100/82 95 04/02/19 08:00 116 H 21 147/71 94 L 04/02/19 07:51 95 04/02/19 07:36 98.7 F 120 H 35 H 147/71 86 L Intake and Output 04/01/19 04/02/19 04/02/19 22:59 06:59 14:59 Other: Weight 81.919 kg Results CBC & Chem 7: 04/02/19 07:50 04/02/19 07:50 Labs: Abnormal Lab Results - Last 24 Hours (Table) 04/02/19 04/02/19 04/02/19 Range/Units 07:50 07:50 08:06 Hct 46.5 H (34.0-46.0) % MCV 102.4 H (80.0-100.0) fL Neutrophils # 8.1 H (1.3-7.7) k/uL Lymphocytes # 0.6 L (1.0-4.8) k/uL Carbon Dioxide 32 H (22-30) mmol/L BUN 18 H (7-17) mg/dL Glucose 125 H (74-99) mg/dL AST 37 H (14-36) U/L Influenza Type B (PCR) Detected H (Not Detectd) Thrombosis Risk Factor Assmnt - Choose All That Apply Any of the Below Risk Factors Present?: Yes Each Factor Represents 1 point: Age 41-60 years, Obesity (BMI >25) Other Risk Factors: No Other congenital or acquired thrombophilia - If yes, enter type in comment: Yes Thrombosis Risk Factor Assessment Total Risk Factor Score: 2 Thrombosis Risk Factor Assessment Level: Low Risk
[2019-04-03] MEDS: SODIUM CHLORIDE 0.9% 1,000 ML IV SCH ×2 (04:32→17:03)
[2019-04-03 07:57] LABS: African American GFR (CKD) >90 (>60 ml/min/1.73 sqM); Anion Gap 7 mmol/L; Blood Urea Nitrogen 18 mg/dL (7-17); Carbon Dioxide 29 mmol/L (22-30); Chloride 105 mmol/L (98-107); Glucose 111 mg/dL (74-99); Non-African American GFR(CKD) >90 (>60 ml/min/1.73 sqM); Sodium 141 mmol/L (137-145)
[2019-04-03] MEDS: CYANOCOBALAMIN 500 MCG TAB PO SCH ×2 (08:19→08:32)
[2019-04-03] MEDS: ARTIFICIAL TEARS-HYPROMELLOSE DROPS 15 ML BTL BOTH EYES SCH ×3 (08:26→20:10)
[2019-04-03] MEDS: AZITHROMYCIN 500 MG TAB PO SCH (08:26)
[2019-04-03] MEDS: OSELTAMIVIR 75 MG CAP PO SCH ×2 (08:26→20:09)
[2019-04-03] MEDS: PANTOPRAZOLE 40 MG TABLET PO SCH (08:26)
[2019-04-03] MEDS: KETOTIFEN 0.025% OPHTH DROPS 5 ML BTL BOTH EYES SCH ×2 (08:26→20:10)
[2019-04-03] MEDS: LEVOTHYROXINE 25 MCG TAB PO SCH (08:26)
[2019-04-03] MEDS: SODIUM CHLORIDE 5% OPHTH DROPS 15 ML BTL LEFT EYE SCH ×2 (08:26→20:10)
[2019-04-03] MEDS: DULoxetine HCL 60 MG CAPSULE.DR PO SCH ×2 (08:26→17:03)
[2019-04-03] MEDS: ENOXAPARIN 40 MG/0.4 ML SYRINGE SQ SCH (08:27)
[2019-04-03] MEDS: MEMANTINE 10 MG TAB PO SCH (08:27)
[2019-04-03] MEDS: ALPRAZolam 0.25 MG TAB PO SCH ×2 (08:32→20:08)
[2019-04-03] MEDS: CLOTRIMAZOLE 1% CREAM 15 GM TUBE TOPICAL SCH (08:32)
[2019-04-03] MEDS: IPRATROPIUM-ALBUTEROL 3 ML NEB INHALATION SCH ×4 (09:32→20:13)
--- NOTE | 2019-04-03 12:08 | XR ---
EXAMINATION TYPE: XR chest 1V portable DATE OF EXAM: 04/03/2019 COMPARISON: 04/02/2019 HISTORY: Pneumonia and shortness of breath TECHNIQUE: Single frontal view of the chest is obtained. FINDINGS: There are low lung volumes accentuating the pulmonary vasculature and exaggerating the bib asilar opacities. Findings appear similar to the prior of 04/02/2019. Cardiomediastinal silhouette is e nlarged. Dextroscoliosis of the thoracic spine is seen. IMPRESSION: Stable exam from the prior of 04/02/2019 with hypoventilatory lungs and bibasilar airspace disease.
[2019-04-03 14:09] LABS: HCT 38.6 % (34.0-46.0); HGB 12.3 gm/dL (11.4-16.0); MCH 32.2 pg (25.0-35.0); MCHC 31.7 g/dL (31.0-37.0); MCV 101.4 fL (80.0-100.0); Macrocytosis Slight; Platelet Count 248 k/uL (150-450); RBC 3.81 m/uL (3.80-5.40); RDW 13.3 % (11.5-15.5); WBC 12.2 k/uL (3.8-10.6)
[2019-04-03] MEDS: CHOLECALCIFEROL 400 UNIT TAB PO SCH (17:02)
--- NOTE | 2019-04-03 19:58 | P.PN ---
Progress Note - Text Progress Note Date: 04/03/19 Presenting complaint: Short of breath History of presenting complaint: This is a pleasant 53-year-old patient of Dr. Diamond Lantigua. Chronic stable medical conditions include Down syndrome, depression, schizophrenia, on home oxygen 2 L,(s) sleep apnea does not use CPAP machine. [facility] With regard to his assisted. Most of the history is obtained by the brother at the bedside. Normally patient uses a walker to get about. For 3 days patient is becoming increasingly short of breath. Also had a cough. Saturation in the penitentiary was down to 72% on room air. Patient herself is a very poor historian. Patient is found to have a fever and tachycardia. Continu e to be positive for influenza B. Admitted for the same. Appetite had gone down. Right shoulder was found to be subluxed in the ER. Admitted with-acute influenza B pneumonitis, acute hypoxia, subluxed right shoulder Today-looking better. Brother the bedside. Eating better. More tender. Saying a few words. Review of systems: Was done for constitutional, cardiovascular, GI, pulmonary. relevant finding as above Active Medications Albuterol/Ipratropium (Duoneb 0.5 Mg-3 Mg/3 Ml Soln) 3 ml INHALATION RT-QID [facility] Last Admin: 04/03/19 16:12 Dose: 3 ml Documented by: Alprazolam (Xanax) 0.25 mg PO BID@0800,2100 [facility] Last Admin: 04/03/19 08:32 Dose: 0.25 mg Documented by: Artificial Tears (Artificial Tear Drops) 1 drops BOTH EYES TID@0800,1200,2100 [facility] Last Admin: 04/03/19 12:43 Dose: Not Given Documented by: Azithromycin (Zithromax) 500 mg PO DAILY [facility] Last Admin: 04/03/19 08:26 Dose: 500 mg Documented by: Cholecalciferol (Vitamin D3) 400 unit PO AC-SUPPER [facility] Last Admin: 04/03/19 17:02 Dose: 400 unit Documented by: Clotrimazole (Lotrimin Cream) 1 applic TOPICAL DAILY@0800 [facility] Last Admin: 04/03/19 08:32 Dose: 1 applic Documented by: Cyanocobalamin (Vitamin B-12) 1,000 mcg PO DAILY@0800 [facility] Last Admin: 04/03/19 08:19 Dose: Not Given Documented by: Cyanocobalamin (Vitamin B-12) 1,000 mcg PO DAILY@0700 [facility] Last Admin: 04/03/19 08:32 Dose: 1,000 mcg Documented by: Duloxetine HCl (Cymbalta) 60 mg PO BID@0800,1600 [facility] Last Admin: 04/03/19 17:03 Dose: 60 mg Documented by: Enoxaparin Sodium (Lovenox) 40 mg SQ DAILY [facility] Last Admin: 04/03/19 08:27 Dose: 40 mg Documented by: Sodium Chloride (Saline 0.9%) 1,000 mls @ 100 mls/hr IV .Q10H [facility] Last Admin: 04/03/19 17:03 Dose: 100 mls/hr Documented by: Ceftriaxone Sodium 1 gm/ (Sodium Chloride) 50 mls @ 100 mls/hr IVPB Q24HR [facility] Stop: 04/06/19 09:01 Last Admin: 04/03/19 08:25 Dose: 100 mls/hr Documented by: Ketotifen Fumarate (Zaditor) 1 drops BOTH EYES BID [facility] Last Admin: 04/03/19 08:26 Dose: 1 drops Documented by: Levothyroxine Sodium (Synthroid) 25 mcg PO DAILY@0800 [facility] Last Admin: 04/03/19 08:26 Dose: 25 mcg Documented by: Memantine (Namenda) 10 mg PO DAILY [facility] Last Admin: 04/03/19 08:27 Dose: 10 mg Documented by: Miscellaneous Information (Pneumonia Protocol Utilized) 1 each PO ONCE PRN PRN Reason: Per Protocol Olanzapine (Zyprexa Zydis) 5 mg PO DAILY PRN PRN Reason: ESCALATING BEHAVIOR Olanzapine (Zyprexa) 7.5 mg PO HS@2100 [facility] Last Admin: 04/02/19 21:22 Dose: 7.5 mg Documented by: Oseltamivir Phosphate (Tamiflu) 75 mg PO Q12HR [facility] Stop: 04/06/19 21:01 Last Admin: 04/03/19 08:26 Dose: 75 mg Documented by: Pantoprazole Sodium (Protonix) 40 mg PO DAILY@0800 [facility] Last Admin: 04/03/19 08:26 Dose: 40 mg Documented by: Simethicone (Mylicon Chew) 120 mg PO DAILY PRN PRN Reason: GAS Sodium Chloride (Nga 128) 1 drops LEFT EYE BID@0815,2115 [facility] Last Admin: 04/03/19 08:26 Dose: 1 drops Documented by: Physical examination: VITAL SIGNS: 96.3, 74, 16, 129/85, 100% on 4 L GENERAL: Sitting up in bed more awake today looking more comfortable EYES: Pupils equal. Conjunctiva normal. HEENT: External appearance of nose and ears normal, oral cavity grossly normal. NECK: JVD not raised; masses not palpable. HEART: First and second heart sounds are normal; no edema. LUNGS:[ Respiratory rate increased, decreased breaths, some improved air entry ABDOMEN: Soft, nontender, liver spleen not palpable, no masses palpable. PSYCH: Awake, and answering any questionsl. INVESTIGATIONS, reviewed in the clinical context: White count 12.2 hemoglobin 12.3 creatinine 0.65 Pro calcitonin 0.91 Previous testing White count 9.2 hemoglobin 14.7 potassium 4.4 creatinine 0.80 Influenza type B detected EKG tracing personally reviewed by me-normal sinus rhythm, sinus tachycardia Chest x-ray film personally reviewed by me-infiltrates and more than 1 lobe especially the right side Right shoulder [id number] of the right glenohumeral joint Assessment: -Acute influenza B pneumonitis, cannot rule out secondary bacterial infection, causing sepsis, POA, improving -Down syndrome -Intellectual disability due to Down syndrome -Chronic schizophrenia -Obstructive sleep apnea does not use a CPAP machine -Chronic hypoxic respiratory failure. 2 L oxygen at home -Acute hypoxic respiratory failure, POA -Right shoulder subluxation -Sister-legal guardian -DO NOT RESUSCITATE Plan: Continue with IV ceftriaxone, Tamiflu, IV fluids. Discussed with daughter the bedside.
[2019-04-03] MEDS: OLANZapine 5 MG TAB PO SCH (20:08)
[2019-04-04] MEDS: IPRATROPIUM-ALBUTEROL 3 ML NEB INHALATION SCH ×4 (07:00→21:40)
[2019-04-04] MEDS: CYANOCOBALAMIN 500 MCG TAB PO SCH ×2 (08:35→08:38)
[2019-04-04] MEDS: OSELTAMIVIR 75 MG CAP PO SCH ×2 (08:37→21:33)
[2019-04-04] MEDS: ALPRAZolam 0.25 MG TAB PO SCH ×2 (08:37→21:33)
[2019-04-04] MEDS: PANTOPRAZOLE 40 MG TABLET PO SCH (08:37)
[2019-04-04] MEDS: MEMANTINE 10 MG TAB PO SCH (08:37)
[2019-04-04] MEDS: ENOXAPARIN 40 MG/0.4 ML SYRINGE SQ SCH (08:37)
[2019-04-04] MEDS: LEVOTHYROXINE 25 MCG TAB PO SCH (08:37)
[2019-04-04] MEDS: DULoxetine HCL 60 MG CAPSULE.DR PO SCH ×2 (08:37→16:43)
[2019-04-04] MEDS: KETOTIFEN 0.025% OPHTH DROPS 5 ML BTL BOTH EYES SCH ×2 (08:38→21:33)
[2019-04-04] MEDS: AZITHROMYCIN 500 MG TAB PO SCH (08:38)
[2019-04-04] MEDS: CLOTRIMAZOLE 1% CREAM 15 GM TUBE TOPICAL SCH (08:39)
[2019-04-04] MEDS: SODIUM CHLORIDE 5% OPHTH DROPS 15 ML BTL LEFT EYE SCH ×2 (08:39→21:34)
[2019-04-04] MEDS: ARTIFICIAL TEARS-HYPROMELLOSE DROPS 15 ML BTL BOTH EYES SCH ×3 (08:39→21:33)
[2019-04-04] MEDS: CHOLECALCIFEROL 400 UNIT TAB PO SCH (16:43)
[2019-04-04] MEDS: OLANZapine 5 MG TAB PO SCH (21:33)
[2019-04-04] MEDS: guaiFENesin 600 MG TABLET.ER PO SCH (21:41)
--- NOTE | 2019-04-04 22:39 | P.PN ---
Progress Note - Text Progress Note Date: 04/04/19 Presenting complaint: Short of breath History of presenting complaint: This is a pleasant 53-year-old patient of Dr. Diamond Lantigua. Chronic stable medical conditions include Down syndrome, depression, schizophrenia, on home oxygen 2 L,(s) sleep apnea does not use CPAP machine. Patient [facility] a [facility]. With regard to his assisted. Most of the history is obtained by the brother at the bedside. Normally patient uses a walker to get about. For 3 days patient is becoming increasingly short of breath. Also had a cough. Saturation in the half-way was down to 72% on room air. Patient herself is a very poor historian. Patient is found to have a fever and tachycardia. Contin ue to be positive for influenza B. Admitted for the same. Appetite had gone down. Right shoulder was found to be subluxed in the ER. Admitted with-acute influenza B pneumonitis, acute hypoxia, subluxed right shoulder Today-l continues to look better. Eating well. Some loose cough. Unable to expectorate. Sitting up out of bed. Smiling greeted me. Review of systems: Was done for constitutional, cardiovascular, GI, pulmonary. relevant finding as above Active Medications Albuterol/Ipratropium (Duoneb 0.5 Mg-3 Mg/3 Ml Soln) 3 ml INHALATION RT-QID [facility] Last Admin: 04/04/19 21:40 Dose: 3 ml Documented by: Alprazolam (Xanax) 0.25 mg PO BID@0800,2100 [facility] Last Admin: 04/04/19 21:33 Dose: 0.25 mg Documented by: Artificial Tears (Artificial Tear Drops) 1 drops BOTH EYES TID@0800,1200,2100 [facility] Last Admin: 04/04/19 21:33 Dose: 1 drops Documented by: Azithromycin (Zithromax) 500 mg PO DAILY [facility] Last Admin: 04/04/19 08:38 Dose: 500 mg Documented by: Cholecalciferol (Vitamin D3) 400 unit PO AC-SUPPER [facility] Last Admin: 04/04/19 16:43 Dose: 400 unit Documented by: Clotrimazole (Lotrimin Cream) 1 applic TOPICAL DAILY@0800 [facility] Last Admin: 04/04/19 08:39 Dose: 1 applic Documented by: Cyanocobalamin (Vitamin B-12) 1,000 mcg PO DAILY@0800 [facility] Last Admin: 04/04/19 08:35 Dose: Not Given Documented by: Cyanocobalamin (Vitamin B-12) 1,000 mcg PO DAILY@0700 [facility] Last Admin: 04/04/19 08:38 Dose: 1,000 mcg Documented by: Duloxetine HCl (Cymbalta) 60 mg PO BID@0800,1600 [facility] Last Admin: 04/04/19 16:43 Dose: 60 mg Documented by: Enoxaparin Sodium (Lovenox) 40 mg SQ DAILY [facility] Last Admin: 04/04/19 08:37 Dose: 40 mg Documented by: Guaifenesin (Mucinex) 1,200 mg PO Q12HR [facility] Last Admin: 04/04/19 21:41 Dose: 1,200 mg Documented by: Ceftriaxone Sodium 1 gm/ (Sodium Chloride) 50 mls @ 100 mls/hr IVPB Q24HR [facility] Stop: 04/06/19 09:01 Last Admin: 04/04/19 08:38 Dose: 100 mls/hr Documented by: Ketotifen Fumarate (Zaditor) 1 drops BOTH EYES BID [facility] Last Admin: 04/04/19 21:33 Dose: 1 drops Documented by: Levothyroxine Sodium (Synthroid) 25 mcg PO DAILY@0800 [facility] Last Admin: 04/04/19 08:37 Dose: 25 mcg Documented by: Memantine (Namenda) 10 mg PO DAILY [facility] Last Admin: 04/04/19 08:37 Dose: 10 mg Documented by: Miscellaneous Information (Pneumonia Protocol Utilized) 1 each PO ONCE PRN PRN Reason: Per Protocol Olanzapine (Zyprexa Zydis) 5 mg PO DAILY PRN PRN Reason: ESCALATING BEHAVIOR Olanzapine (Zyprexa) 7.5 mg PO HS@2100 [facility] Last Admin: 04/04/19 21:33 Dose: 7.5 mg Documented by: Oseltamivir Phosphate (Tamiflu) 75 mg PO Q12HR [facility] Stop: 04/06/19 21:01 Last Admin: 04/04/19 21:33 Dose: 75 mg Documented by: Pantoprazole Sodium (Protonix) 40 mg PO DAILY@0800 [facility] Last Admin: 04/04/19 08:37 Dose: 40 mg Documented by: Simethicone (Mylicon Chew) 120 mg PO DAILY PRN PRN Reason: GAS Sodium Chloride (Nga 128) 1 drops LEFT EYE BID@0815,2115 [facility] Last Admin: 04/04/19 21:34 Dose: 1 drops Documented by: Physical examination: VITAL SIGNS: 97.8-90 -16-132/82-98% on 4 L GENERAL: Sitting up in bed, comfortable EYES: Pupils equal. Conjunctiva normal. HEENT: External appearance of nose and ears normal, oral cavity grossly normal. NECK: JVD not raised; masses not palpable. HEART: First and second heart sounds are normal; no edema. LUNGS:[ Respiratory rate increased, decreased breaths, some improved air entry, some crackles ABDOMEN: Soft, nontender, liver spleen not palpable, no masses palpable. PSYCH: Awake, and answering any questionsl. INVESTIGATIONS, reviewed in the clinical context: White count 12.2 hemoglobin 12.3 creatinine 0.65 Pro calcitonin 0.91 Previous testing White count 9.2 hemoglobin 14.7 potassium 4.4 creatinine 0.80 Influenza type B detected EKG tracing personally reviewed by me-normal sinus rhythm, sinus tachycardia Chest x-ray film personally reviewed by me-infiltrates and more than 1 lobe especially the right side Right shoulder v-fke-[id number] of the right glenohumeral joint Assessment: -Acute influenza B pneumonitis, cannot rule out secondary bacterial infection, causing sepsis, POA, improving -Down syndrome -Intellectual disability due to Down syndrome -Chronic schizophrenia -Obstructive sleep apnea does not use a CPAP machine -Chronic hypoxic respiratory failure. 2 L oxygen at home -Acute hypoxic respiratory failure, POA -Right shoulder subluxation -Sister-legal guardian -DO NOT RESUSCITATE Plan: Continue with IV ceftriaxone, Tamiflu,. Add Mucinex.. Discussed with the brother the bedside. Overall much improved. Hopefully home in 24 hours..
[2019-04-05 07:36] LABS: HGB 12.6 gm/dL (11.4-16.0); MCH 33.3 pg (25.0-35.0); MCHC 32.2 g/dL (31.0-37.0); MCV 103.3 fL (80.0-100.0); Macrocytosis Slight; Mean Platelet Volume 8.4; Platelet Count 255 k/uL (150-450); RBC 3.77 m/uL (3.80-5.40); RDW 13.3 % (11.5-15.5); WBC 6.3 k/uL (3.8-10.6)
[2019-04-05 07:39] VITALS: BP 150/94; RESP 17; TEMP 99
[2019-04-05 07:58] LABS: African American GFR (CKD) >90 (>60 ml/min/1.73 sqM); Anion Gap 5 mmol/L; Blood Urea Nitrogen 15 mg/dL (7-17); Carbon Dioxide 33 mmol/L (22-30); Chloride 102 mmol/L (98-107); Glucose 78 mg/dL (74-99); Non-African American GFR(CKD) >90 (>60 ml/min/1.73 sqM); Potassium 4.3 mmol/L (3.5-5.1); Sodium 140 mmol/L (137-145)
[2019-04-05] MEDS: IPRATROPIUM-ALBUTEROL 3 ML NEB INHALATION SCH ×2 (08:06→11:18)
[2019-04-05] MEDS: ENOXAPARIN 40 MG/0.4 ML SYRINGE SQ SCH (08:47)
[2019-04-05] MEDS: CYANOCOBALAMIN 500 MCG TAB PO SCH ×2 (08:47→08:48)
[2019-04-05] MEDS: LEVOTHYROXINE 25 MCG TAB PO SCH (08:48)
[2019-04-05] MEDS: OSELTAMIVIR 75 MG CAP PO SCH (08:48)
[2019-04-05] MEDS: DULoxetine HCL 60 MG CAPSULE.DR PO SCH (08:48)
[2019-04-05] MEDS: AZITHROMYCIN 500 MG TAB PO SCH (08:48)
[2019-04-05] MEDS: guaiFENesin 600 MG TABLET.ER PO SCH (08:48)
[2019-04-05] MEDS: MEMANTINE 10 MG TAB PO SCH (08:48)
[2019-04-05] MEDS: PANTOPRAZOLE 40 MG TABLET PO SCH (08:48)
[2019-04-05] MEDS: ALPRAZolam 0.25 MG TAB PO SCH (08:48)
[2019-04-05] MEDS: CLOTRIMAZOLE 1% CREAM 15 GM TUBE TOPICAL SCH (08:49)
[2019-04-05] MEDS: ARTIFICIAL TEARS-HYPROMELLOSE DROPS 15 ML BTL BOTH EYES SCH ×2 (08:58→13:04)
[2019-04-05] MEDS: KETOTIFEN 0.025% OPHTH DROPS 5 ML BTL BOTH EYES SCH (08:58)
[2019-04-05] MEDS: SODIUM CHLORIDE 5% OPHTH DROPS 15 ML BTL LEFT EYE SCH (08:58)
[2019-04-05 11:35] VITALS: PULSE 104
--- NOTE | 2019-04-09 23:32 | P.DS ---
Providers Date of admission: 04/02/19 09:20 Expected date of discharge: 04/05/19 Attending physician: Geovanny Gant Primary care physician: Luis Antonio Lantigua [facility] Course: Presenting complaint: Short of breath History of presenting complaint: This is a pleasant 53-year-old patient of Dr. Diamond Lantigua. Chronic stable medical conditions include Down syndrome, depression, schizophrenia, on home oxygen 2 L,(s) sleep apnea does not use CPAP machine. Patient lives at a long term. With regard to his assisted. Most of the history is obtained by the brother at the bedside. Normally patient uses a walker to get about. For 3 days patient is becoming increasingly short of breath. Also had a cough. Saturation in the long term was down to 72% on room air. Patient herself is a very poor historian. Patient is found to have a fever and tachycardia. Continue to be positive for influenza B. Admitted for the same. Appetite had gone down. Right shoulder was found to be subluxed in the ER. Admitted with-acute influenza B pneumonitis, acute hypoxia, subluxed right shoulder. Shoulder was replaced. Responded well to Tamiflu oxygen bronchodilators. Today-doing much better. Eating all abuse. Slight chest congestion. Discussed with the family that expect some lingering respiratory symptoms for a few days. Otherwise oxygen requirement is back to baseline. Doing really well. Cheerful Physical examination: VITAL SIGNS: Afebrile, 100, 17, 150/94, 99% on 2 L GENERAL: Sitting up in bed, comfortable EYES: Pupils equal. Conjunctiva normal. HEENT: External appearance of nose and ears normal, oral cavity grossly normal. NECK: JVD not raised; masses not palpable. HEART: First and second heart sounds are normal; no edema. LUNGS:[ Respiratory rate normal, occasional crackles ABDOMEN: Soft, nontender, liver spleen not palpable, no masses palpable. PSYCH: Awake, and answering any questionsl. INVESTIGATIONS, reviewed in the clinical context: White count 6.3 hemoglobin 12.6 creatinine 0.7 to Previous testing White count 9.2 hemoglobin 14.7 potassium 4.4 creatinine 0.80 Influenza type B detected EKG tracing personally reviewed by me-normal sinus rhythm, sinus tachycardia Chest x-ray film personally reviewed by me-infiltrates and more than 1 lobe especially the right side Right shoulder a-agr-jxxqpewoilo of the right glenohumeral joint Pro calcitonin 0.91 Assessment: -Acute influenza B pneumonitis, possible secondary bacterial infection, causing sepsis, POA, -Down syndrome -Intellectual disability due to Down syndrome -Chronic schizophrenia -Obstructive sleep apnea does not use a CPAP machine -Chronic hypoxic respiratory failure. 2 L oxygen at home -Acute hypoxic respiratory failure, POA -Right shoulder subluxation -Sister-legal guardian -DO NOT RESUSCITATE Disposition: Home Patient Condition at Discharge: Fair Plan - Discharge Summary New Discharge Prescriptions: New guaiFENesin [Mucinex] 1,200 mg PO Q12H #30 tab.er.12h Continue ALPRAZolam 0.25 mg PO BID@0800,2100 Omeprazole 20 mg PO DAILY@0700 Levothyroxine Sodium [Synthroid] 25 mcg PO DAILY@0700 DULoxetine HCL [Cymbalta] 60 mg PO BID@0700,1600 Olopatadine HCl [Pazeo] 1 drop BOTH EYES DAILY@1600 Carboxymethylcellulose Sodium [Refresh Tears] 1 drop BOTH EYES TID@0700,1200,2100 Sodium Chloride 5% Ophth Soln [Nga 128] 1 drops LEFT EYE BID@0700,2100 OLANZapine ODT [ZyPREXA Zydis] 5 mg PO DAILY PRN PRN Reason: ESCALATING BEHAVIOR OLANZapine [ZyPREXA] 7.5 mg PO HS@2100 Amhxv-B-Ysaajexbxmckw [Beano] 300 unit PO BID@0700,1600 Ketoconazole [Ketoconazole 2%] 1 applic TOPICAL DAILY@0700 Cholecalciferol [Vitamin D3] 400 unit PO DAILY@1600 Memantine [Namenda] 10 mg PO BID@0700,2100 Simethicone 125mg Chew 125 mg PO DAILY PRN PRN Reason: GAS Cyanocobalamin (Vitamin B-12) [Vitamin B-12] 1,000 mcg PO DAILY@0700 Discharge Medication List ALPRAZolam 0.25 mg PO BID@0800,2100 08/13/14 [History] Levothyroxine Sodium [Synthroid] 25 mcg PO DAILY@0700 08/13/14 [History] Omeprazole 20 mg PO DAILY@0700 08/13/14 [History] DULoxetine HCL [Cymbalta] 60 mg PO BID@0700,1600 08/20/15 [History] Olopatadine HCl [Pazeo] 1 drop BOTH EYES DAILY@1600 05/24/17 [History] Carboxymethylcellulose Sodium [Refresh Tears] 1 drop BOTH EYES TID@0700,1200,209906/07/17 [History] Sodium Chloride 5% Ophth Soln [Nga 128] 1 drops LEFT EYE BID@0700,2100 06/07/17 [History] Obswz-W-Ekqshhxoszhhi [Beano] 300 unit PO BID@0700,1600 01/08/18 [History] Cholecalciferol [Vitamin D3] 400 unit PO DAILY@1600 01/08/18 [History] Ketoconazole [Ketoconazole 2%] 1 applic TOPICAL DAILY@0700 01/08/18 [History] OLANZapine ODT [ZyPREXA Zydis] 5 mg PO DAILY PRN 01/08/18 [History] OLANZapine [ZyPREXA] 7.5 mg PO HS@209901/08/18 [History] Memantine [Namenda] 10 mg PO BID@0700,209906/28/18 [History] Cyanocobalamin (Vitamin B-12) [Vitamin B-12] 1,000 mcg PO DAILY@0700 04/02/19 [History] Simethicone 125mg Chew 125 mg PO DAILY PRN 04/02/19 [History] guaiFENesin [Mucinex] 1,200 mg PO Q12H #30 tab.er.12h 04/05/19 [Rx] Follow up Appointment(s)/Referral(s): [facility], [NON-STAFF] - Luis Antonio Lantigua DO [Primary Care Provider] - 04/11/19 1:15 pm Patient Instructions/Handouts: Influenza (DC), Pneumonia (DC) Discharge Disposition: HOME WITH HOME HEALTH SERVICES
== END 2019-04-05 13:52 | disposition home health service (06) | DRG 871 ==
LOC: EC 07:31 → 4SSUR 09:20
PROVIDERS: ADMIT Hospitalist; ATTEND Hospitalist
DX: A41.89 Other specified sepsis (principal); J96.21 Acute and chronic respiratory failure with hypoxia; J10.08 Influenza due to other identified influenza virus with other specified pneumonia; J15.9 Unspecified bacterial pneumonia; J21.9 Acute bronchiolitis, unspecified; E11.9 Type 2 diabetes mellitus without complications; F20.9 Schizophrenia, unspecified; F32.9 Major depressive disorder, single episode, unspecified; F41.9 Anxiety disorder, unspecified; F79 Unspecified intellectual disabilities; Z66 Do not resuscitate; G47.33 Obstructive sleep apnea (adult) (pediatric); Q90.9 Down syndrome, unspecified; Z79.890 Hormone replacement therapy; Z79.899 Other long term (current) drug therapy; Z99.81 Dependence on supplemental oxygen; Z80.8 Family history of malignant neoplasm of other organs or systems; Z83.6 Family history of other diseases of the respiratory system
CPT/HCPCS: 36415; 71045; 71046; 80048; 80053; 82550; 83605; 83735; 83880; 84145; 84484; 85025; 85027; 85610; 85730; 87040; 87502; 93005; 94640; 94760; 96365; 96375; 99285

== ENCOUNTER 2019-04-06 12:01 | Inpatient (IN) | payer MEDICARE, OTHER ==
[2019-04-06] MEDS ORDERED: DIPHENOX-ATROP 2.5-0.025 MG 1 EACH TAB PO STA (12:15)
[2019-04-06] MEDS ORDERED: SODIUM CHLORIDE 0.9% 1,000 ML IV ONE (12:15)
--- NOTE | 2019-04-06 12:20 | ED ---
General Adult HPI - General Chief complaint: Nausea/Vomiting/Diarrhea Stated complaint: Dehydration Time Seen by Provider: 04/06/19 12:10 Source: family, EMS, RN notes reviewed, old records reviewed Mode of arrival: EMS Limitations: altered mental status - History of Present Illness Initial comments: This is a 54-year-old female who has Down syndrome. Patient was recently in the hospital with influenza B and pneumonia according to her sister. Patient is unable to give any history. Patient went home yesterday and woke up this morning had profuse diarrhea so they brought her back in. According to the sister there was no vomiting. Patient does not look in any distress according to the daughter this but no difficulty breathing or cough though she still has a little rattling sound occasionally according to the sister. They brought her in because they're worried she might get dehydrated even though she only started having diarrhea this morning. - Related Data Home Medications Medication Instructions Recorded Confirmed ALPRAZolam 0.25 mg PO BID@0800,2100 08/13/14 04/06/19 Levothyroxine Sodium [Synthroid] 25 mcg PO DAILY@0700 08/13/14 04/06/19 Omeprazole 20 mg PO DAILY@0700 08/13/14 04/06/19 DULoxetine HCL [Cymbalta] 60 mg PO BID@0700,1600 08/20/15 04/06/19 Olopatadine HCl [Pazeo] 1 drop BOTH EYES DAILY@1600 05/24/17 04/06/19 Carboxymethylcellulose Sodium 1 drop BOTH EYES TID@0700,1200,2100 06/07/17 04/06/19 [Refresh Tears] Sodium Chloride 5% Ophth Soln 1 drops LEFT EYE BID@0700,2100 06/07/17 04/06/19 [Nga 128] Lutjs-E-Miszwrcoubanl [Beano] 300 unit PO BID@0700,1600 01/08/18 04/06/19 Cholecalciferol [Vitamin D3] 400 unit PO DAILY@1600 01/08/18 04/06/19 Ketoconazole [Ketoconazole 2%] 1 applic TOPICAL DAILY@0700 01/08/18 04/06/19 OLANZapine ODT [ZyPREXA Zydis] 5 mg PO DAILY PRN 01/08/18 04/06/19 OLANZapine [ZyPREXA] 7.5 mg PO HS@2100 01/08/18 04/06/19 Memantine [Namenda] 10 mg PO BID@0700,2100 06/28/18 04/06/19 Cyanocobalamin (Vitamin B-12) 1,000 mcg PO DAILY@0700 04/02/19 04/06/19 [Vitamin B-12] Simethicone 125mg Chew 125 mg PO DAILY PRN 04/02/19 04/06/19 Azithromycin [Zithromax] See Taper PO DAILY 04/06/19 04/06/19 Oseltamivir [Tamiflu] See Taper PO Q12HR 04/06/19 04/06/19 Previous Rx's Medication Instructions Recorded guaiFENesin [Mucinex] 1,200 mg PO Q12H #30 tab.er.12h 04/05/19 Allergies Allergy/AdvReac Type Severity Reaction Status Date / Time latex AdvReac sensitive Verified 04/06/19 13:19 skin Review of Systems ROS Statement: Those systems with pertinent positive or pertinent negative responses have been documented in the HPI. ROS Other: All systems not noted in ROS Statement are negative. Past Medical History Past Medical History: Diabetes Mellitus, Pneumonia, Sleep Apnea/CPAP/BIPAP, Thyroid Disorder Additional Past Medical History / Comment(s): LG sister states "recent tx UTI and having abd pain,ulcers and gallbladder not working properly",Down Syndrome, enlarged heart, wears O2 during night-2 liters nasal canula, left foot deformity History of Any Multi-Drug Resistant Organisms: None Reported Past Surgical History: Cholecystectomy Additional Past Surgical History / Comment(s): nasal surgery, wilberto cataract surgery,growth removed left ankle Past Anesthesia/Blood Transfusion Reactions: No Reported Reaction Past Psychological History: Anxiety, Schizophrenia Smoking Status: Never smoker Past Alcohol Use History: None Reported Past Drug Use History: None Reported - Past Family History Father Family Medical History: Cancer Additional Family Medical History / Comment(s): skin Mother Additional Family Medical History / Comment(s): pulmonary fibrosis Brother(s) Additional Family Medical History / Comment(s): lung fibrosis General Exam - General Exam Comments Initial Comments: GENERAL: Patient is well-developed and well-nourished. Patient is nontoxic and well- hydrated and is in no acute distress. ENT: Neck is soft and supple. No significant lymphadenopathy is noted. Oropharynx is clear. Moist mucous membranes. Neck has full range of motion without eliciting any pain. EYES: The sclera were anicteric and conjunctiva were pink and moist. Extraocular movements were intact and pupils were equal round and reactive to light. Eyelids were unremarkable. PULMONARY: Unlabored respirations. Good breath sounds bilaterally. No audible rales rhonchi or wheezing was noted. CARDIOVASCULAR: There is a regular rate and rhythm without any murmurs gallops or rubs. ABDOMEN: Soft and nontender with normal bowel sounds. SKIN: Skin is clear with no lesions or rashes and otherwise unremarkable. NEUROLOGIC: Patient is alert and oriented to her baseline according to the sister. Cranial nerves II through XII are grossly intact. Motor and sensory are also intact. Normal speech, volume and content. Symmetrical smile. MUSCULOSKELETAL: Normal extremities with adequate strength and full range of motion. No lower extremity swelling or edema. No calf tenderness. LYMPHATICS: No significant lymphadenopathy is noted Limitations: altered mental status Course Vital Signs 04/06/19 04/06/19 12:08 12:14 Temperature 98.8 F Pulse Rate 94 Respiratory 20 20 Rate Blood Pressure 126/83 O2 Sat by Pulse 99 Oximetry Medical Decision Making - Medical Decision Making I spoke with Dr. Gant agreed to admit the patient. - Lab Data Result diagrams: 04/06/19 12:23 04/06/19 12:23 Lab Results 04/06/19 04/06/19 04/06/19 Range/Units 12:23 12:23 12:23 WBC 5.3 (3.8-10.6) k/uL RBC 4.25 (3.80-5.40) m/uL Hgb 13.7 (11.4-16.0) gm/dL Hct 43.4 (34.0-46.0) % MCV 102.0 H (80.0-100.0) fL MCH 32.1 (25.0-35.0) pg MCHC 31.5 (31.0-37.0) g/dL RDW 13.1 (11.5-15.5) % Plt Count 318 (150-450) k/uL Neutrophils % 66 % Lymphocytes % 20 % Monocytes % 9 % Eosinophils % 1 % Basophils % 3 % Neutrophils # 3.5 (1.3-7.7) k/uL Lymphocytes # 1.0 (1.0-4.8) k/uL Monocytes # 0.5 (0-1.0) k/uL Eosinophils # 0.1 (0-0.7) k/uL Basophils # 0.2 (0-0.2) k/uL Macrocytosis Slight Sodium 137 (137-145) mmol/L Potassium 4.0 (3.5-5.1) mmol/L Chloride 96 L (98-107) mmol/L Carbon Dioxide 35 H (22-30) mmol/L Anion Gap 6 mmol/L BUN 14 (7-17) mg/dL Creatinine 0.76 (0.52-1.04) mg/dL Est GFR (CKD-EPI)AfAm >90 (>60 ml/min/1.73 sqM) Est GFR (CKD-EPI)NonAf >90 (>60 ml/min/1.73 sqM) Glucose 134 H (74-99) mg/dL Calcium 8.5 (8.4-10.2) mg/dL Total Bilirubin 0.6 (0.2-1.3) mg/dL AST 35 (14-36) U/L ALT 26 (4-34) U/L Alkaline Phosphatase 87 (38-126) U/L NT-Pro-B Natriuret Pep 345 pg/mL Total Protein 7.0 (6.3-8.2) g/dL Albumin 3.3 L (3.5-5.0) g/dL Disposition Clinical Impression: Acute diarrhea, Influenza, Pneumonia Disposition: ADMITTED IP TO THIS HOSP Referrals: Luis Antonio Lantigua DO [Primary Care Provider] - 1-2 days Time of Disposition: 15:46
[2019-04-06 12:36] LABS: Basophils # (A) 0.2 k/uL (0-0.2); Basophils % (A) 3 %; Eosinophils # (A) 0.1 k/uL (0-0.7); Eosinophils % (A) 1 %; HCT 43.4 % (34.0-46.0); HGB 13.7 gm/dL (11.4-16.0); Lymphocytes % (A) 20 %; MCH 32.1 pg (25.0-35.0); MCHC 31.5 g/dL (31.0-37.0); Macrocytosis Slight; Mean Platelet Volume 8.5; Monocytes # (A) 0.5 k/uL (0-1.0); Monocytes % (A) 9 %; Neutrophils # (A) 3.5 k/uL (1.3-7.7); Neutrophils % (A) 66 %; Platelet Count 318 k/uL (150-450); RBC 4.25 m/uL (3.80-5.40); RDW 13.1 % (11.5-15.5); WBC 5.3 k/uL (3.8-10.6)
[2019-04-06 12:56] LABS: ALT 26 U/L (4-34); AST 35 U/L (14-36); African American GFR (CKD) >90 (>60 ml/min/1.73 sqM); Albumin 3.3 g/dL (3.5-5.0); Alkaline Phosphatase 87 U/L (38-126); Anion Gap 6 mmol/L; Blood Urea Nitrogen 14 mg/dL (7-17); Calcium 8.5 mg/dL (8.4-10.2); Carbon Dioxide 35 mmol/L (22-30); Chloride 96 mmol/L (98-107); Glucose 134 mg/dL (74-99); Non-African American GFR(CKD) >90 (>60 ml/min/1.73 sqM); Sodium 137 mmol/L (137-145); Total Bilirubin 0.6 mg/dL (0.2-1.3)
--- NOTE | 2019-04-06 12:56 | XR ---
EXAMINATION TYPE: XR chest 2V DATE OF EXAM: 04/06/2019 COMPARISON: Prior chest x-ray 04/03/2019 HISTORY: Difficulty breathing TECHNIQUE: Frontal and lateral views of the chest are obtained. FINDINGS: Findings are similar to prior exam. Patient is rotated, technique is expiratory. Technique is limited likely due to patient body habitus, there are overlying artifacts. Heart size is likely s table. No evident pneumothorax or pleural effusion. Question perihilar airspace disease, bone mineral ization is stable. Some questionable prominence of interstitium. IMPRESSION: Expiratory rotated exam, difficult to exclude pneumonia, possible cardiomegaly, possible pulmonary venous hypertension and early interstitial edema.
[2019-04-06] MEDS ORDERED: PNEUMONIA PROTOCOL UTILIZED 1 EACH MISC PO PRN (15:46)
[2019-04-06] MEDS ORDERED: DIPHENOX-ATROP 2.5-0.025 MG 1 EACH TAB PO PRN (16:03)
[2019-04-06 17:06] LABS: Glucose,Whole Blood 109 mg/dL (75-99)
[2019-04-06] MEDS: SODIUM CHLORIDE 0.9% 1,000 ML IV SCH (19:25)
[2019-04-06 19:58] LABS: Glucose,Whole Blood 131 mg/dL (75-99)
[2019-04-06] MEDS ORDERED: OLANZapine ODT 5 MG TAB PO PRN (20:02)
[2019-04-06] MEDS ORDERED: SIMETHICONE 80 MG CHEWABLE PO PRN (20:02)
[2019-04-06] MEDS: ALPRAZolam 0.25 MG TAB PO SCH (22:32)
[2019-04-06] MEDS: OLANZapine 2.5 MG TAB PO SCH (22:32)
[2019-04-06] MEDS: guaiFENesin 600 MG TABLET.ER PO SCH (22:32)
[2019-04-06] MEDS: MEMANTINE 10 MG TAB PO SCH (22:32)
[2019-04-06] MEDS: ARTIFICIAL TEARS-HYPROMELLOSE DROPS 15 ML BTL BOTH EYES SCH (22:33)
[2019-04-06] MEDS: SODIUM CHLORIDE 5% OPHTH DROPS 15 ML BTL LEFT EYE SCH (22:33)
[2019-04-06] MEDS: OSELTAMIVIR 75 MG CAP PO SCH (22:33)
[2019-04-07] MEDS: SODIUM CHLORIDE 0.9% 1,000 ML IV SCH ×2 (03:25→14:44)
[2019-04-07] MEDS: LEVOTHYROXINE 25 MCG TAB PO SCH (05:04)
[2019-04-07] MEDS ORDERED: ALPHA D GALACTOSIDASE 300 UNIT PO SCH (07:00)
[2019-04-07 07:16] LABS: Glucose,Whole Blood 88 mg/dL (75-99)
[2019-04-07] MEDS: AZITHROMYCIN 500 MG TAB PO SCH (08:31)
[2019-04-07] MEDS: ARTIFICIAL TEARS-HYPROMELLOSE DROPS 15 ML BTL BOTH EYES SCH ×3 (08:32→21:16)
[2019-04-07] MEDS: DULoxetine HCL 60 MG CAPSULE.DR PO SCH ×2 (08:32→16:37)
[2019-04-07] MEDS: KETOTIFEN 0.025% OPHTH DROPS 5 ML BTL BOTH EYES SCH ×2 (08:32→21:16)
[2019-04-07] MEDS: ALPRAZolam 0.25 MG TAB PO SCH ×2 (08:32→21:15)
[2019-04-07] MEDS: MEMANTINE 10 MG TAB PO SCH ×2 (08:32→21:17)
[2019-04-07] MEDS: PANTOPRAZOLE 40 MG TABLET PO SCH (08:32)
[2019-04-07] MEDS: SODIUM CHLORIDE 5% OPHTH DROPS 15 ML BTL LEFT EYE SCH ×2 (08:32→21:17)
[2019-04-07] MEDS: OSELTAMIVIR 75 MG CAP PO SCH ×2 (08:32→21:17)
[2019-04-07] MEDS: guaiFENesin 600 MG TABLET.ER PO SCH ×2 (08:32→21:16)
[2019-04-07] MEDS: CYANOCOBALAMIN 500 MCG TAB PO SCH (08:32)
[2019-04-07] MEDS: CLOTRIMAZOLE 1% CREAM 15 GM TUBE TOPICAL SCH (11:05)
[2019-04-07 12:00] LABS: Glucose,Whole Blood 86 mg/dL (75-99)
--- NOTE | 2019-04-07 12:25 | XR ---
EXAMINATION TYPE: XR chest 2V DATE OF EXAM: 04/07/2019 COMPARISON: 04/06/2019 INDICATION: Pneumonia TECHNIQUE: Frontal and lateral views of the chest are obtained. FINDINGS: The heart size is normal. The pulmonary vasculature is normal. Mild bibasilar infiltrates are present. Correlate for subsegmental atelectasis or pneumonia.. Lateral views essentially nondiagnostic IMPRESSION: 1. Mild by basilar infiltrates. Correlate for atelectasis versus pneumonia
[2019-04-07] MEDS: CHOLECALCIFEROL 400 UNIT TAB PO SCH (16:37)
[2019-04-07 17:15] LABS: Glucose,Whole Blood 88 mg/dL (75-99)
--- NOTE | 2019-04-07 19:42 | P.HPIM ---
History of Present Illness H&P Date: 04/07/19 Presenting complaint: Short of breath History of presenting complaint: This is a pleasant 54-year-old patient of Dr. Diamond Lantigua. Chronic stable medical conditions include Down syndrome, depression, schizophrenia, on home oxygen 2 L,(s) sleep apnea does not use CPAP machine. Patient's sister is the legal guardian. Patient was just discharged from hospital 2 days ago with the diagnosis of acute influenza B pneumonitis with possible secondary bacterial infection causing sepsis. Patient is doing well with the time of discharge. Was treated with IV ceftriaxone and Tamiflu. I discussed in detail with patient's brother that'll be a central chest congestion that could linger for a few days especially given the viral nature of the initial infection. Patient had been eating all her meals. Oxygen requirement did come down to baseline. Patient will also simple questions at baseline. Patient was sent in because staff at the half-way was concerned about congestion in the chest. Patient had been tolerating diet. No fever no chills. Patient had a very large bowel movement. They were concerned about patient getting worse. I did explain this to the ER physician who did convey this to the family. But they were concerned about the same as patient be admitted. Review of systems: GEN.: None EYES: None HEENT: None NECK: None RESPIRATORY: Chest congestion CARDIOVASCULAR: None GASTROINTESTINAL: None GENITOURINARY: None MUSCULOSKELETAL: Left foot deformed LYMPHATICS: None HEMATOLOGICAL: None PSYCHIATRY: Mental retardation NEUROLOGICAL: None Past medical history to include: Down syndrome, schizophrenia,(s) sleep apnea, hypothyroid, left foot deformity Social history: Does not smoke or drink alcohol. Lives in a [facility]. Patient's sister is a legal guardian Physical examination: VITAL SIGNS: 98.8-94-20-126/83-99% on 3 L GENERAL: BMI 39.2, sitting up in bed,. EYES: Pupils equal. Conjunctiva normal. HEENT: External appearance of nose and ears normal, oral cavity grossly normal. NECK: JVD not raised; masses not palpable. HEART: First and second heart sounds are normal; no edema. LUNGS:[ Respiratory rate increased, decreased breaths on some, occasional breath sounds. ABDOMEN: Soft, nontender, liver spleen not palpable, no masses palpable. PSYCH: Awake, and answering occasional questionsl. NEUROLOGICAL: Cranial nerves grossly intact; no facial asymmetry, power and sensation grossly intact. LYMPHATICS: No lymph nodes palpable in the axilla and neck INVESTIGATIONS, reviewed in the clinical context: White count 5.3 hemoglobin 13.7 platelets 318 potassium 4 creatinine 0.76 Assessment: -Acute influenza B pneumonitis,, with residual chest congestion symptoms -Down syndrome -Intellectual disability due to Down syndrome -Chronic schizophrenia -Obstructive sleep apnea does not use a CPAP machine -Chronic hypoxic respiratory failure. 2 L oxygen at home -Right shoulder subluxation -Sister-legal guardian -DO NOT RESUSCITATE Plan: Patient is put on Zithromax in the ER. IV fluids. Home medications resumed. We'll also add Mucinex. Care was discussed in length with the patient's sister and the brother at the bedside. They're really concerned about patient going back to the half-way and felt to be an operative taken to the patient. The concern about the patient relapsing. I did explain that the patient's eating rather well breathing is not 100% improved but better than before. At this point we'll give Zithromax to cover any atypical organisms. Add Mucinex. Other home medications to continue. Past Medical History Past Medical History: Diabetes Mellitus, Pneumonia, Sleep Apnea/CPAP/BIPAP, Thyroid Disorder Additional Past Medical History / Comment(s): LG sister states "recent tx UTI and having abd pain,ulcers and gallbladder not working properly",Down Syndrome, enlarged heart, wears O2 during night-2 liters nasal canula, left foot deformity History of Any Multi-Drug Resistant Organisms: None Reported Past Surgical History: Cholecystectomy Additional Past Surgical History / Comment(s): nasal surgery, wilberto cataract surgery,growth removed left ankle Past Anesthesia/Blood Transfusion Reactions: No Reported Reaction Past Psychological History: Anxiety, Schizophrenia Additional Psychological History / Comment(s): downs sydrome, intellectual disability Smoking Status: Never smoker Past Alcohol Use History: None Reported Past Drug Use History: None Reported - Past Family History Father Family Medical History: Cancer Additional Family Medical History / Comment(s): skin Mother Additional Family Medical History / Comment(s): pulmonary fibrosis Brother(s) Additional Family Medical History / Comment(s): lung fibrosis Medications and Allergies Home Medications Medication Instructions Recorded Confirmed Type ALPRAZolam 0.25 mg PO BID@0800,2100 08/13/14 04/06/19 History Levothyroxine Sodium [Synthroid] 25 mcg PO DAILY@0700 08/13/14 04/06/19 History Omeprazole 20 mg PO DAILY@0700 08/13/14 04/06/19 History DULoxetine HCL [Cymbalta] 60 mg PO BID@0700,1600 08/20/15 04/06/19 History Olopatadine HCl [Pazeo] 1 drop BOTH EYES DAILY@1600 05/24/17 04/06/19 History Carboxymethylcellulose Sodium 1 drop BOTH EYES TID@0700,1200,209906/07/17 04/06/19 History [Refresh Tears] Sodium Chloride 5% Ophth Soln 1 drops LEFT EYE BID@0700,209906/07/17 04/06/19 History [Nga 128] Rwnue-J-Pnvvsohezqfxa [Beano] 300 unit PO BID@0700,1600 01/08/18 04/06/19 History Cholecalciferol [Vitamin D3] 400 unit PO DAILY@1600 01/08/18 04/06/19 History Ketoconazole [Ketoconazole 2%] 1 applic TOPICAL DAILY@0700 01/08/18 04/06/19 History OLANZapine ODT [ZyPREXA Zydis] 5 mg PO DAILY PRN 01/08/18 04/06/19 History OLANZapine [ZyPREXA] 7.5 mg PO HS@209901/08/18 04/06/19 History Memantine [Namenda] 10 mg PO BID@0700,2100 06/28/18 04/06/19 History Cyanocobalamin (Vitamin B-12) 1,000 mcg PO DAILY@0700 04/02/19 04/06/19 History [Vitamin B-12] Simethicone 125mg Chew 125 mg PO DAILY PRN 04/02/19 04/06/19 History guaiFENesin [Mucinex] 1,200 mg PO Q12H #30 tab.er.12h 04/05/19 04/06/19 Rx Azithromycin [Zithromax] See Taper PO DAILY 04/06/19 04/06/19 History Oseltamivir [Tamiflu] See Taper PO Q12HR 04/06/19 04/06/19 History Allergies Allergy/AdvReac Type Severity Reaction Status Date / Time latex AdvReac sensitive Verified 04/06/19 13:19 skin Physical Exam Vitals: Vital Signs Temp Pulse Pulse Resp BP BP Pulse Ox 04/07/19 04:30 97.9 F 92 18 133/75 96 04/06/19 22:37 97.8 F 55 L 20 112/68 100 04/06/19 17:33 97.9 F 102 H 19 104/67 94 L 04/06/19 16:31 20 04/06/19 16:00 20 100 04/06/19 15:00 18 99 04/06/19 14:14 82 18 123/85 99 04/06/19 13:14 88 18 122/80 99 04/06/19 12:14 20 04/06/19 12:08 98.8 F 94 20 126/83 99 Intake and Output 04/06/19 04/07/19 04/07/19 22:59 06:59 14:59 Intake Total 100 800 Balance 100 800 Intake: Intake, IV Titration 100 800 Amount Sodium Chloride 0.9% 1, 100 800 000 ml @ 100 mls/hr IV . Q10H [facility] Rx#:[id number] Other: Voiding Method Toilet Diaper Incontinent # Voids 1 1 # Bowel Movements 1 1 Weight 79.379 kg Results CBC & Chem 7: 04/06/19 12:23 04/06/19 12:23 Labs: Abnormal Lab Results - Last 24 Hours (Table) 04/06/19 04/06/19 04/06/19 Range/Units 12:23 12:23 17:05 MCV 102.0 H (80.0-100.0) fL Chloride 96 L (98-107) mmol/L Carbon Dioxide 35 H (22-30) mmol/L Glucose 134 H (74-99) mg/dL POC Glucose (mg/dL) 109 H (75-99) mg/dL Albumin 3.3 L (3.5-5.0) g/dL 04/06/19 Range/Units 19:57 MCV (80.0-100.0) fL Chloride (98-107) mmol/L Carbon Dioxide (22-30) mmol/L Glucose (74-99) mg/dL POC Glucose (mg/dL) 131 H (75-99) mg/dL Albumin (3.5-5.0) g/dL
[2019-04-07 20:20] LABS: Glucose,Whole Blood 112 mg/dL (75-99)
[2019-04-07] MEDS: ENOXAPARIN 40 MG/0.4 ML SYRINGE SQ SCH (21:15)
[2019-04-07] MEDS: OLANZapine 2.5 MG TAB PO SCH (21:17)
[2019-04-07] MEDS: FUROSEMIDE 10 MG/ML 2 ML VIAL IV SCH (21:29)
[2019-04-08] MEDS: LEVOTHYROXINE 25 MCG TAB PO SCH (06:18)
[2019-04-08 07:05] LABS: Glucose,Whole Blood 90 mg/dL (75-99)
[2019-04-08] MEDS: AZITHROMYCIN 500 MG TAB PO SCH (09:15)
[2019-04-08] MEDS: DULoxetine HCL 60 MG CAPSULE.DR PO SCH ×2 (09:16→17:34)
[2019-04-08] MEDS: CYANOCOBALAMIN 500 MCG TAB PO SCH (09:16)
[2019-04-08] MEDS: OSELTAMIVIR 75 MG CAP PO SCH ×2 (09:16→21:05)
[2019-04-08] MEDS: ALPRAZolam 0.25 MG TAB PO SCH ×2 (09:16→21:05)
[2019-04-08] MEDS: PANTOPRAZOLE 40 MG TABLET PO SCH (09:16)
[2019-04-08] MEDS: FUROSEMIDE 10 MG/ML 2 ML VIAL IV SCH (09:16)
[2019-04-08] MEDS: MEMANTINE 10 MG TAB PO SCH (09:16)
[2019-04-08] MEDS: guaiFENesin 600 MG TABLET.ER PO SCH ×2 (09:16→21:05)
[2019-04-08] MEDS: ENOXAPARIN 40 MG/0.4 ML SYRINGE SQ SCH (09:17)
[2019-04-08] MEDS: CLOTRIMAZOLE 1% CREAM 15 GM TUBE TOPICAL SCH (09:17)
[2019-04-08] MEDS: KETOTIFEN 0.025% OPHTH DROPS 5 ML BTL BOTH EYES SCH ×2 (09:18→20:56)
[2019-04-08] MEDS: ARTIFICIAL TEARS-HYPROMELLOSE DROPS 15 ML BTL BOTH EYES SCH ×3 (09:18→20:56)
[2019-04-08] MEDS: SODIUM CHLORIDE 5% OPHTH DROPS 15 ML BTL LEFT EYE SCH ×2 (09:18→20:56)
[2019-04-08 11:21] LABS: Glucose,Whole Blood 100 mg/dL (75-99)
[2019-04-08 17:18] LABS: Glucose,Whole Blood 117 mg/dL (75-99)
[2019-04-08] MEDS: CHOLECALCIFEROL 400 UNIT TAB PO SCH (17:34)
[2019-04-08 20:12] LABS: Glucose,Whole Blood 116 mg/dL (75-99)
[2019-04-08] MEDS: OLANZapine 2.5 MG TAB PO SCH (21:05)
--- NOTE | 2019-04-08 22:24 | P.PN ---
Progress Note - Text Progress Note Date: 04/08/19 Presenting complaint: Short of breath History of presenting complaint: This is a pleasant 54-year-old patient of Dr. Diamond Lantigua. Chronic stable medical conditions include Down syndrome, depression, schizophrenia, on home oxygen 2 L,(s) sleep apnea does not use CPAP machine. Patient's sister is the legal guardian. Patient was just discharged from hospital 2 days ago with the diagnosis of acute influenza B pneumonitis with possible secondary bacterial infection causing sepsis. Patient is doing well with the time of discharge. Was treated with IV ceftriaxone and Tamiflu. I discussed in detail with patient's brother that'll be a central chest congestion that could linger for a few days especially given the viral nature of the initial infection. Patient had been eating all her meals. Oxygen requirement did come down to baseline. Patient will also simple questions at baseline. Patient was sent in because staff at the skilled nursing was concerned about congestion in the chest. Patient had been tolerating diet. No fever no chills. Patient had a very large bowel movement. They were concerned about patient getting worse. I did explain this to the ER physician who did convey this to the family. But they were concerned about the same as patient be admitted. Today-sitting up. Did tolerate her diet. Had a bowel movement. Review of systems: Was done for constitutional, cardiovascular, GI, pulmonary. relevant finding as above Active Medications Alprazolam (Xanax) 0.25 mg PO BID@0800,2100 [facility] Last Admin: 04/08/19 21:05 Dose: 0.25 mg Documented by: Artificial Tears (Artificial Tear Drops) 1 drops BOTH EYES TID@0700,1200,2100 [facility] Last Admin: 04/08/19 20:56 Dose: 1 drops Documented by: Azithromycin (Zithromax) 500 mg PO DAILY [facility] Last Admin: 04/08/19 09:15 Dose: 500 mg Documented by: Cholecalciferol (Vitamin D3) 400 unit PO DAILY@1600 [facility] Last Admin: 04/08/19 17:34 Dose: 400 unit Documented by: Clotrimazole (Lotrimin Cream) 1 applic TOPICAL DAILY@0700 [facility] Last Admin: 04/08/19 09:17 Dose: 1 applic Documented by: Cyanocobalamin (Vitamin B-12) 1,000 mcg PO DAILY@0700 [facility] Last Admin: 04/08/19 09:16 Dose: 1,000 mcg Documented by: Diphenoxylate HCl/Atropine (Lomotil) 1 each PO Q6HR PRN PRN Reason: Diarrhea Duloxetine HCl (Cymbalta) 60 mg PO BID@0700,1600 [facility] Last Admin: 04/08/19 17:34 Dose: 60 mg Documented by: Enoxaparin Sodium (Lovenox) 40 mg SQ DAILY [facility] Last Admin: 04/08/19 09:17 Dose: 40 mg Documented by: Guaifenesin (Mucinex) 1,200 mg PO Q12HR [facility] Last Admin: 04/08/19 21:05 Dose: 1,200 mg Documented by: Ketotifen Fumarate (Zaditor) 1 drops BOTH EYES BID [facility] Last Admin: 04/08/19 20:56 Dose: 1 drops Documented by: Levothyroxine Sodium (Synthroid) 25 mcg PO DAILY@0630 [facility] Last Admin: 04/08/19 06:18 Dose: 25 mcg Documented by: Memantine (Namenda) 10 mg PO BID@0700,2100 [facility] Last Admin: 04/08/19 09:16 Dose: 10 mg Documented by: Miscellaneous Information (Pneumonia Protocol Utilized) 1 each PO ONCE PRN PRN Reason: Per Protocol Olanzapine (Zyprexa) 7.5 mg PO HS@2100 [facility] Last Admin: 04/08/19 21:05 Dose: 7.5 mg Documented by: Olanzapine (Zyprexa Zydis) 5 mg PO DAILY PRN PRN Reason: ESCALATING BEHAVIOR Oseltamivir Phosphate (Tamiflu) 75 mg PO Q12HR [facility] Stop: 04/10/19 09:01 Last Admin: 04/08/19 21:05 Dose: 75 mg Documented by: Pantoprazole Sodium (Protonix) 40 mg PO AC-BRKFST [facility] Last Admin: 04/08/19 09:16 Dose: 40 mg Documented by: Simethicone (Mylicon Chew) 120 mg PO DAILY PRN PRN Reason: GAS Sodium Chloride (Nga 128) 1 drops LEFT EYE BID@0700,2100 [facility] Last Admin: 04/08/19 20:56 Dose: 1 drops Documented by: Physical examination: VITAL SIGNS: 98.1-83-17-136/67-97% on 2 L GENERAL: Sitting up, comfortable,. EYES: Pupils equal. Conjunctiva normal. HEENT: External appearance of nose and ears normal, oral cavity grossly normal. NECK: JVD not raised; masses not palpable. HEART: First and second heart sounds are normal; no edema. LUNGS:[ Respiratory rate increased, decreased breaths on some, . ABDOMEN: Soft, nontender, liver spleen not palpable, no masses palpable. PSYCH: Awake, and answering occasional questionsl. INVESTIGATIONS, reviewed in the clinical context: White count 5.3 hemoglobin 13.7 platelets 318 potassium 4 creatinine 0.76 Assessment: -Acute influenza B pneumonitis,, with residual chest congestion symptoms -Down syndrome -Intellectual disability due to Down syndrome -Chronic schizophrenia -Obstructive sleep apnea does not use a CPAP machine -Chronic hypoxic respiratory failure. 2 L oxygen at home -Right shoulder subluxation -Sister-legal guardian -DO NOT RESUSCITATE Plan: Continue current medication treatment plan. Doing better. We'll DC Tamiflu.
[2019-04-09] MEDS: LEVOTHYROXINE 25 MCG TAB PO SCH (05:37)
[2019-04-09 07:23] LABS: Glucose,Whole Blood 98 mg/dL (75-99)
[2019-04-09] MEDS: ALPRAZolam 0.25 MG TAB PO SCH (08:47)
[2019-04-09] MEDS: MEMANTINE 10 MG TAB PO SCH (08:47)
[2019-04-09] MEDS: ENOXAPARIN 40 MG/0.4 ML SYRINGE SQ SCH (08:47)
[2019-04-09] MEDS: CYANOCOBALAMIN 500 MCG TAB PO SCH (08:47)
[2019-04-09] MEDS: DULoxetine HCL 60 MG CAPSULE.DR PO SCH (08:47)
[2019-04-09] MEDS: guaiFENesin 600 MG TABLET.ER PO SCH (08:47)
[2019-04-09] MEDS: AZITHROMYCIN 500 MG TAB PO SCH (08:47)
[2019-04-09] MEDS: SODIUM CHLORIDE 5% OPHTH DROPS 15 ML BTL LEFT EYE SCH (08:48)
[2019-04-09] MEDS: ARTIFICIAL TEARS-HYPROMELLOSE DROPS 15 ML BTL BOTH EYES SCH (08:48)
[2019-04-09] MEDS: KETOTIFEN 0.025% OPHTH DROPS 5 ML BTL BOTH EYES SCH (08:48)
[2019-04-09] MEDS: PANTOPRAZOLE 40 MG TABLET PO SCH (08:48)
[2019-04-09] MEDS: CLOTRIMAZOLE 1% CREAM 15 GM TUBE TOPICAL SCH (08:49)
[2019-04-09 09:21] LABS: HCT 40.6 % (34.0-46.0); HGB 13.4 gm/dL (11.4-16.0); MCHC 33.1 g/dL (31.0-37.0); MCV 99.7 fL (80.0-100.0); Mean Platelet Volume 8.8; Platelet Count 368 k/uL (150-450); RBC 4.07 m/uL (3.80-5.40); RDW 13.6 % (11.5-15.5); WBC 5.1 k/uL (3.8-10.6)
[2019-04-09 09:29] LABS: African American GFR (CKD) >90 (>60 ml/min/1.73 sqM); Anion Gap 6 mmol/L; Blood Urea Nitrogen 15 mg/dL (7-17); Calcium 8.9 mg/dL (8.4-10.2); Carbon Dioxide 32 mmol/L (22-30); Chloride 100 mmol/L (98-107); Glucose 101 mg/dL (74-99); Non-African American GFR(CKD) 87 (>60 ml/min/1.73 sqM); Sodium 138 mmol/L (137-145)
[2019-04-09 09:37] LABS: Potassium 4.5 mmol/L (3.5-5.1)
[2019-04-09 11:44] LABS: Glucose,Whole Blood 118 mg/dL (75-99)
[2019-04-09 12:55] VITALS: BP 130/77; PULSE 97; RESP 18; TEMP 98.1
--- NOTE | 2019-04-09 22:35 | P.DS ---
Providers Date of admission: 04/08/19 09:01 Expected date of discharge: 04/09/19 Attending physician: Geovanny Gant Primary care physician: Luis Antonio Lantigua [facility] Course: Presenting complaint: Short of breath Hospital course: This is a pleasant 54-year-old patient of Dr. Diamond Lantigua. Chronic stable medical conditions include Down syndrome, depression, schizophrenia, on home oxygen 2 L,(s) sleep apnea does not use CPAP machine. Patient's sister is the legal guardian. Patient was just discharged from hospital 2 days ago with the diagnosis of acute influenza B pneumonitis with possible secondary bacterial infection causing sepsis. Patient is doing well with the time of discharge. Was treated with IV ceftriaxone and Tamiflu. I discussed in detail with patient's brother that'll be a central chest congestion that could linger for a few days especially given the viral nature of the initial infection. Patient had been eating all her meals. Oxygen requirement did come down to baseline. Patient will also simple questions at baseline. Patient [facility] was concerned about congestion in the chest. Patient had been tolerating diet. No fever no chills. Patient had a very large bowel movement. They were concerned about patient getting worse. I did explain this to the ER physician who did convey this to the family. But they were concerned about the same as patient be admitted. Patient was treated with Zithromax and Tamiflu. Did well. Course of both anti- infective agents have been completed. Had some diarrhea that resolved felt to be from antibiotic. Today-doing well. Laying bit comfortable cheerful. Family the bedside. Physical examination: VITAL SIGNS: 98.1-97-18-130/77-94% on room air GENERAL: Sitting up, comfortable,. EYES: Pupils equal. Conjunctiva normal. HEENT: External appearance of nose and ears normal, oral cavity grossly normal. NECK: JVD not raised; masses not palpable. HEART: First and second heart sounds are normal; no edema. LUNGS:[ Respiratory rate normal improved air entry. ABDOMEN: Soft, nontender, liver spleen not palpable, no masses palpable. PSYCH: Awake, and answering occasional questionsl. INVESTIGATIONS, reviewed in the clinical context: White count 5.1 hemoglobin 13.4 creatinine 0.79 Previous testing White count 5.3 hemoglobin 13.7 platelets 318 potassium 4 creatinine 0.76 Assessment: -Acute influenza B pneumonitis,, with residual chest congestion symptoms-much improved -Antibiotic associated diarrhea -Down syndrome -Intellectual disability due to Down syndrome -Chronic schizophrenia -Obstructive sleep apnea does not use a CPAP machine -Chronic hypoxic respiratory failure. 2 L oxygen at home -Right shoulder subluxation -Sister-legal guardian -DO NOT RESUSCITATE Disposition: [facility] Plan - Discharge Summary New Discharge Prescriptions: Continue ALPRAZolam 0.25 mg PO BID@0800,2100 Omeprazole 20 mg PO DAILY@0700 Levothyroxine Sodium [Synthroid] 25 mcg PO DAILY@0700 DULoxetine HCL [Cymbalta] 60 mg PO BID@0700,1600 Olopatadine HCl [Pazeo] 1 drop BOTH EYES DAILY@1600 Carboxymethylcellulose Sodium [Refresh Tears] 1 drop BOTH EYES TID@0700,1200,2100 Sodium Chloride 5% Ophth Soln [Nga 128] 1 drops LEFT EYE BID@0700,2100 OLANZapine ODT [ZyPREXA Zydis] 5 mg PO DAILY PRN PRN Reason: ESCALATING BEHAVIOR OLANZapine [ZyPREXA] 7.5 mg PO HS@2100 Rnhqm-P-Hmiaqmmksqdxm [Beano] 300 unit PO BID@0700,1600 Ketoconazole [Ketoconazole 2%] 1 applic TOPICAL DAILY@0700 Cholecalciferol [Vitamin D3] 400 unit PO DAILY@1600 Memantine [Namenda] 10 mg PO BID@0700,2100 Simethicone 125mg Chew 125 mg PO DAILY PRN PRN Reason: GAS Cyanocobalamin (Vitamin B-12) [Vitamin B-12] 1,000 mcg PO DAILY@0700 guaiFENesin [Mucinex] 1,200 mg PO Q12H #30 tab.er.12h Discontinued Azithromycin [Zithromax] See Taper PO DAILY Oseltamivir [Tamiflu] See Taper PO Q12HR Discharge Medication List ALPRAZolam 0.25 mg PO BID@0800,2100 08/13/14 [History] Levothyroxine Sodium [Synthroid] 25 mcg PO DAILY@0700 08/13/14 [History] Omeprazole 20 mg PO DAILY@0700 08/13/14 [History] DULoxetine HCL [Cymbalta] 60 mg PO BID@0700,1600 08/20/15 [History] Olopatadine HCl [Pazeo] 1 drop BOTH EYES DAILY@1600 05/24/17 [History] Carboxymethylcellulose Sodium [Refresh Tears] 1 drop BOTH EYES TID@0700,12 00,209906/07/17 [History] Sodium Chloride 5% Ophth Soln [Nga 128] 1 drops LEFT EYE BID@0700,209906/07/17 [History] Ccsmd-P-Ufgeayefmatmf [Beano] 300 unit PO BID@0700,1600 01/08/18 [History] Cholecalciferol [Vitamin D3] 400 unit PO DAILY@159901/08/18 [History] Ketoconazole [Ketoconazole 2%] 1 applic TOPICAL DAILY@0700 01/08/18 [History] OLANZapine ODT [ZyPREXA Zydis] 5 mg PO DAILY PRN 01/08/18 [History] OLANZapine [ZyPREXA] 7.5 mg PO HS@209901/08/18 [History] Memantine [Namenda] 10 mg PO BID@0700,209906/28/18 [History] Cyanocobalamin (Vitamin B-12) [Vitamin B-12] 1,000 mcg PO DAILY@0700 04/02/19 [History] Simethicone 125mg Chew 125 mg PO DAILY PRN 04/02/19 [History] guaiFENesin [Mucinex] 1,200 mg PO Q12H #30 tab.er.12h 04/05/19 [Rx] Follow up Appointment(s)/Referral(s): [facility] [NON-STAFF] - 1 Week Luis Antonio Lantigua DO [Primary Care Provider] - 1-2 days Patient Instructions/Handouts: Influenza (DC), Acute Diarrhea (GEN), Pneumonia (DC) Discharge Disposition: HOME SELF-CARE
== END 2019-04-09 16:00 | disposition home or self-care (01) | DRG 194 ==
LOC: EC 12:01 → 5NMEDONC 15:54 → OBSVTOIN 04-08 09:01
PROVIDERS: ADMIT Hospitalist; ATTEND Hospitalist
DX: J10.01 Influenza due to other identified influenza virus with the same other identified influenza virus pneumonia (principal); K52.1 Toxic gastroenteritis and colitis; J96.11 Chronic respiratory failure with hypoxia; T36.95XA Adverse effect of unspecified systemic antibiotic, initial encounter; E11.9 Type 2 diabetes mellitus without complications; F20.9 Schizophrenia, unspecified; F32.9 Major depressive disorder, single episode, unspecified; F41.9 Anxiety disorder, unspecified; F79 Unspecified intellectual disabilities; G47.33 Obstructive sleep apnea (adult) (pediatric); Q90.9 Down syndrome, unspecified; M21.962 Unspecified acquired deformity of left lower leg; E03.9 Hypothyroidism, unspecified; S43.001A Unspecified subluxation of right shoulder joint, initial encounter; Z66 Do not resuscitate; Z79.890 Hormone replacement therapy; Z79.899 Other long term (current) drug therapy; Z99.81 Dependence on supplemental oxygen; Z91.040 Latex allergy status; Z87.01 Personal history of pneumonia (recurrent); Z90.49 Acquired absence of other specified parts of digestive tract; Z98.42 Cataract extraction status, left eye; Z98.41 Cataract extraction status, right eye; Z96.1 Presence of intraocular lens; Z87.440 Personal history of urinary (tract) infections; Z87.11 Personal history of peptic ulcer disease; Z80.1 Family history of malignant neoplasm of trachea, bronchus and lung; Z83.6 Family history of other diseases of the respiratory system
CPT/HCPCS: 36415; 71046; 80048; 80053; 83880; 84145; 85025; 85027; 87040; 96360; 96361; 99285

== ENCOUNTER → 2019-10-19 | Outpatient (CLI) | payer MEDICARE, OTHER ==
--- NOTE | 2019-10-19 17:30 | FL ---
EXAMINATION TYPE: FL barium swallow w video DATE OF EXAM: 10/19/2019 CLINICAL HISTORY: 54-year-old female R13.10, dysphagia, trouble swallowing solids, history of Down sy ndrome. TECHNIQUE: Deglutition study is performed utilizing thin liquid barium, honey and nectar thick liqui d barium, barium thick applesauce, and barium coated cracker. Total fluoroscopy time: 1 minute 18 seconds. Total images: None. Real-time fluoroscopy support was provided to speech pathology. COMPARISON: None. FINDINGS: The oral and pharyngeal phases show satisfactory initiation and propagation with all modalities teste d. There is mild transient penetration noted with thin liquid challenge utilizing a straw. No other p enetration seen. Intermittently, there is premature bolus loss of pureed consistency. No significant residuals. No other penetration or aspiration seen. IMPRESSION: Thin liquid challenge utilizing a straw demonstrated mild transient penetration. No other penetration or aspiration. Please refer to speech therapist notes for further details if necessary.
== END | disposition home or self-care (01) ==
LOC: RADFLMAIN 10:57
PROVIDERS: ATTEND Family Medicine
DX: R13.10 Dysphagia, unspecified (principal)
CPT/HCPCS: 74230

== ENCOUNTER 2020-05-31 08:49 | Inpatient (IN) | payer MEDICARE, OTHER ==
[2020-05-31] MEDS ORDERED: IBUPROFEN 600 MG TAB PO STA (09:14)
[2020-05-31] MEDS ORDERED: ACETAMINOPHEN TAB 500 MG TAB PO STA (09:14)
[2020-05-31] MEDS: SODIUM CHLORIDE 0.9% 500 ML 500 ML IV SCH ×2 (09:39→12:42)
[2020-05-31 09:48] LABS: INR 0.9 (<1.2); Partial Thromboplastin Time 27.5 sec (22.0-30.0); Prothrombin Time 10.1 sec (9.0-12.0)
[2020-05-31 09:49] LABS: Basophils % (A) 1 %; Eosinophils % (A) 1 %; HCT 38.6 % (34.0-46.0); HGB 13.2 gm/dL (11.4-16.0); Lymphocytes # (A) 0.7 k/uL (1.0-4.8); Lymphocytes % (A) 46 %; MCH 34.2 pg (25.0-35.0); MCHC 34.2 g/dL (31.0-37.0); Mean Platelet Volume 8.3; Monocytes # (A) 0.1 k/uL (0-1.0); Monocytes % (A) 7 %; Neutrophils # (A) 0.7 k/uL (1.3-7.7); Neutrophils % (A) 44 %; Platelet Count 125 k/uL (150-450); RBC 3.86 m/uL (3.80-5.40); RDW 12.7 % (11.5-15.5); WBC 1.5 k/uL (3.8-10.6)
[2020-05-31 10:02] LABS: ALT 40 U/L (4-34); AST 134 U/L (14-36); African American GFR (CKD) >90 (>60 ml/min/1.73 sqM); Albumin 3.1 g/dL (3.5-5.0); Alkaline Phosphatase 77 U/L (38-126); Anion Gap 5 mmol/L; Blood Urea Nitrogen 9 mg/dL (7-17); Calcium 7.5 mg/dL (8.4-10.2); Carbon Dioxide 33 mmol/L (22-30); Chloride 94 mmol/L (98-107); Glucose 104 mg/dL (74-99); Non-African American GFR(CKD) >90 (>60 ml/min/1.73 sqM); Potassium 4.2 mmol/L (3.5-5.1); Sodium 132 mmol/L (137-145); Total Bilirubin 0.4 mg/dL (0.2-1.3); Total Protein 6.2 g/dL (6.3-8.2)
--- NOTE | 2020-05-31 10:09 | ED ---
General Adult HPI - General Chief complaint: Shortness of Breath Stated complaint: BART Time Seen by Provider: 05/31/20 08:55 Source: patient, EMS, RN notes reviewed, old records reviewed Mode of arrival: EMS Limitations: language barrier, altered mental status, physical limitation - History of Present Illness Initial comments: This a 55-year-old female who has Down syndrome. Patient was sent in because the patient was having a fever and some difficulty breathing. Patient is unable give any history no one came with the patient. The report we received was that she was at another Hospital for these symptoms on the and was discharged yesterday. At this time no further history is available - Related Data Home Medications Medication Instructions Recorded Confirmed Levothyroxine Sodium [Synthroid] 25 mcg PO DAILY@0800 08/13/14 05/31/20 Omeprazole 20 mg PO DAILY@79908/13/14 05/31/20 DULoxetine HCL [Cymbalta] 60 mg PO BID@0800,1600 08/20/15 05/31/20 Olopatadine HCl [Pazeo] 1 drop BOTH EYES DAILY@159905/24/17 05/31/20 Sodium Chloride 5% Ophth Soln 1 drops LEFT EYE BID@0800,209906/07/17 05/31/20 [Nga 128] Xhcui-K-Gqvzzwzwjprjo [Beano] 300 unit PO BID@0800,1600 01/08/18 05/31/20 OLANZapine ODT [ZyPREXA Zydis] 5 mg PO DAILY PRN 01/08/18 05/31/20 OLANZapine [ZyPREXA] 7.5 mg PO HS@209901/08/18 05/31/20 Memantine [Namenda] 10 mg PO BID@0800,2100 06/28/18 05/31/20 Cyanocobalamin (Vitamin B-12) 1,000 mcg PO DAILY@0800 04/02/19 05/31/20 [Vitamin B-12] Simethicone 125mg Chew 125 mg PO DAILY PRN 04/02/19 05/31/20 Albuterol Nebulized [Ventolin 2.5 mg INHALATION RT-Q6H PRN 05/31/20 05/31/20 Nebulized] Carboxymethylcellulose Sodium 1 drop RIGHT EYE TID 05/31/20 05/31/20 [Refresh Tears] Cefuroxime Axetil [Ceftin] 500 mg PO BID 05/31/20 05/31/20 Cholecalciferol [Vitamin D3 (10 10 mcg PO DAILY@1600 05/31/20 05/31/20 Mcg = 400 Iu)] Clotrimazole/Betameth Cream 1 applic TOPICAL HS 05/31/20 05/31/20 [Lotrisone] Ketoconazole 2% Shampoo [Nizoral] 1 applic TOPICAL HS 05/31/20 05/31/20 LORazepam [Ativan] 0.5 mg PO BID@0800,2100 05/31/20 05/31/20 Mupirocin 2% Oint [Bactroban 2% 1 applic TOPICAL TID PRN 05/31/20 05/31/20 Oint] Allergies Allergy/AdvReac Type Severity Reaction Status Date / Time latex AdvReac sensitive Verified 05/31/20 09:29 skin Review of Systems ROS Statement: Those systems with pertinent positive or pertinent negative responses have been documented in the HPI. ROS Other: All systems not noted in ROS Statement are negative. Past Medical History Past Medical History: Diabetes Mellitus, Pneumonia, Sleep Apnea/CPAP/BIPAP, Thyroid Disorder Additional Past Medical History / Comment(s): UTI,ulcers and gallbladder not working properly",Down Syndrome, enlarged heart, wears O2 during night-2 liters nasal canula, left foot deformity History of Any Multi-Drug Resistant Organisms: None Reported Past Surgical History: Cholecystectomy Additional Past Surgical History / Comment(s): nasal surgery, wilberto cataract surgery,growth removed left ankle Past Anesthesia/Blood Transfusion Reactions: No Reported Reaction Past Psychological History: Anxiety, Schizophrenia Smoking Status: Unknown if ever smoked Past Alcohol Use History: None Reported Past Drug Use History: None Reported - Past Family History Father Family Medical History: Cancer Additional Family Medical History / Comment(s): skin Mother Additional Family Medical History / Comment(s): pulmonary fibrosis Brother(s) Additional Family Medical History / Comment(s): lung fibrosis General Exam - General Exam Comments Initial Comments: GENERAL: Patient is well-developed and well-nourished. Patient is nontoxic and well- hydrated and is in mild distress. ENT: Neck is soft and supple. No significant lymphadenopathy is noted. Oropharynx is clear. Moist mucous membranes. Neck has full range of motion without eliciting any pain. EYES: The sclera were anicteric and conjunctiva were pink and moist. Extraocular movements were intact and pupils were equal round and reactive to light. Eyelids were unremarkable. PULMONARY: Unlabored respirations. Good breath sounds bilaterally. No audible rales rhonchi or wheezing was noted. CARDIOVASCULAR: There is a regular rate and rhythm without any murmurs gallops or rubs. ABDOMEN: Soft and nontender with normal bowel sounds. SKIN: Skin is clear with no lesions or rashes and otherwise unremarkable. NEUROLOGIC: Patient is alert and oriented 1 this is believed to be her baseline.. Cranial nerves II through XII are grossly intact. MUSCULOSKELETAL: Unable to assess strength of her extremities this patient does not follow directions LYMPHATICS: No significant lymphadenopathy is noted PSYCHIATRIC: Normal psychiatric evaluation. Limitations: language barrier, altered mental status, physical limitation Course Vital Signs 05/31/20 05/31/20 05/31/20 08:56 09:13 10:47 Temperature 102.8 F H 98.9 F Pulse Rate 107 H 108 H 93 Respiratory 20 22 20 Rate Blood Pressure 122/74 106/64 109/61 O2 Sat by Pulse 95 92 L 95 Oximetry 05/31/20 05/31/20 10:48 11:30 Temperature Pulse Rate 93 Respiratory 22 20 Rate Blood Pressure 62/49 O2 Sat by Pulse 92 L Oximetry Medical Decision Making - Medical Decision Making EKG shows sinus tachycardia at 104 bpm [place] interval is 136 dresses 74 QT interval 332 QTC is 436 per patient's EKG shows no ST segment elevation or depression. halfway stated that they were unable to take care of her because she was so weak and wasn't eating. It was at this time we decided to treat her with monoclonal antibodies and admitted her [address] I spoke with Dr[address] Saldana agreed to admit the patient admitted the patient wrote admitting orders. X-ray shows COVID pneumonia bilaterally - Lab Data Result diagrams: 05/31/20 09:16 05/31/20 09:16 Lab Results 05/31/20 05/31/20 05/31/20 Range/Units 09:16 09:16 09:16 WBC 1.5 L (3.8-10.6) k/uL RBC 3.86 (3.80-5.40) m/uL Hgb 13.2 (11.4-16.0) gm/dL Hct 38.6 (34.0-46.0) % MCV 100.0 (80.0-100.0) fL MCH 34.2 (25.0-35.0) pg MCHC 34.2 (31.0-37.0) g/dL RDW 12.7 (11.5-15.5) % Plt Count 125 L (150-450) k/uL MPV 8.3 Neutrophils % 44 % Lymphocytes % 46 % Monocytes % 7 % Eosinophils % 1 % Basophils % 1 % Neutrophils # 0.7 L (1.3-7.7) k/uL Lymphocytes # 0.7 L (1.0-4.8) k/uL Monocytes # 0.1 (0-1.0) k/uL Eosinophils # 0.0 (0-0.7) k/uL Basophils # 0.0 (0-0.2) k/uL PT 10.1 (9.0-12.0) sec INR 0.9 (<1.2) APTT 27.5 (22.0-30.0) sec Sodium (137-145) mmol/L Potassium (3.5-5.1) mmol/L Chloride (98-107) mmol/L Carbon Dioxide (22-30) mmol/L Anion Gap mmol/L BUN (7-17) mg/dL Creatinine (0.52-1.04) mg/dL Est GFR (CKD-EPI)AfAm (>60 ml/min/1.73 sqM) Est GFR (CKD-EPI)NonAf (>60 ml/min/1.73 sqM) Glucose (74-99) mg/dL Plasma Lactic Acid José Miguel (0.7-2.0) mmol/L Calcium (8.4-10.2) mg/dL Total Bilirubin (0.2-1.3) mg/dL AST (14-36) U/L ALT (4-34) U/L Alkaline Phosphatase (38-126) U/L Total Protein (6.3-8.2) g/dL Albumin (3.5-5.0) g/dL Urine Color Urine Appearance (Clear) Urine pH (5.0-8.0) Ur Specific [place] (1.001-1.035) Urine Protein (Negative) Urine Glucose (UA) (Negative) Urine Ketones (Negative) Urine Blood (Negative) Urine Nitrite (Negative) Urine Bilirubin (Negative) Urine Urobilinogen (<2.0) mg/dL Ur Leukocyte Esterase (Negative) Coronavirus (PCR) Detected A (Not Detectd) 05/31/20 05/31/20 05/31/20 Range/Units 09:16 09:16 09:16 WBC (3.8-10.6) k/uL RBC (3.80-5.40) m/uL Hgb (11.4-16.0) gm/dL Hct (34.0-46.0) % MCV (80.0-100.0) fL MCH (25.0-35.0) pg MCHC (31.0-37.0) g/dL RDW (11.5-15.5) % Plt Count (150-450) k/uL MPV Neutrophils % % Lymphocytes % % Monocytes % % Eosinophils % % Basophils % % Neutrophils # (1.3-7.7) k/uL Lymphocytes # (1.0-4.8) k/uL Monocytes # (0-1.0) k/uL Eosinophils # (0-0.7) k/uL Basophils # (0-0.2) k/uL PT (9.0-12.0) sec INR (<1.2) APTT (22.0-30.0) sec Sodium 132 L (137-145) mmol/L Potassium 4.2 (3.5-5.1) mmol/L Chloride 94 L (98-107) mmol/L Carbon Dioxide 33 H (22-30) mmol/L Anion Gap 5 mmol/L BUN 9 (7-17) mg/dL Creatinine 0.74 (0.52-1.04) mg/dL Est GFR (CKD-EPI)AfAm >90 (>60 ml/min/1.73 sqM) Est GFR (CKD-EPI)NonAf >90 (>60 ml/min/1.73 sqM) Glucose 104 H (74-99) mg/dL Plasma Lactic Acid José Miguel 1.4 (0.7-2.0) mmol/L Calcium 7.5 L (8.4-10.2) mg/dL Total Bilirubin 0.4 (0.2-1.3) mg/dL AST 134 H (14-36) U/L ALT 40 H (4-34) U/L Alkaline Phosphatase 77 (38-126) U/L Total Protein 6.2 L (6.3-8.2) g/dL Albumin 3.1 L (3.5-5.0) g/dL Urine Color Yellow Urine Appearance Clear (Clear) Urine pH 5.5 (5.0-8.0) Ur Specific [place] 1.018 (1.001-1.035) Urine Protein Trace H (Negative) Urine Glucose (UA) Negative (Negative) Urine Ketones Negative (Negative) Urine Blood Negative (Negative) Urine Nitrite Negative (Negative) Urine Bilirubin Negative (Negative) Urine Urobilinogen <2.0 (<2.0) mg/dL Ur Leukocyte Esterase Negative (Negative) Coronavirus (PCR) (Not Detectd) Critical Care Time Critical Care Time: Yes Total Critical Care Time: 35 Disposition Clinical Impression: Pneumonia due to COVID-19 virus Disposition: ADMITTED IP TO THIS [facility] Referrals: Luis Antonio Lantigua DO [Primary Care Provider] - 1-2 days Time of Disposition: 11:59
[2020-05-31 10:40] LABS: Appearance,Urine Clear (Clear); Bilirubin,Urine Negative (Negative); Blood,Urine Negative (Negative); Color,Urine Yellow; Glucose,Urine (UA) Negative (Negative); Ketones,Urine Negative (Negative); Leukocyte Esterase,Urine Negative (Negative); Nitrite,Urine Negative (Negative); PH, Urine 5.5 (5.0-8.0); Protein,Urine Trace (Negative); Specific Gravity,Urine 1.018 (1.001-1.035); Urobilinogen,Urine <2.0 mg/dL (<2.0)
--- NOTE | 2020-05-31 11:31 | XR ---
EXAMINATION TYPE: XR chest 1V portable DATE OF EXAM: 05/31/2020 Comparison: 04/07/2019 Clinical History: 55-year-old female COVID Findings: Low lung volumes. Heart size is accentuated, likely upper limits of normal. Increasing bibasilar opac ities. No pneumothorax seen. Impression: Hypoventilatory changes with increasing bibasilar consolidation.
[2020-05-31] MEDS ORDERED: SODIUM CHLORIDE 0.9% 1,000 ML IV ONE (11:59)
[2020-05-31] MEDS ORDERED: BAMLANIVIMAB (EUA) 700 MG, ETESEVIMAB (EUA) 1,400 MG in SODIUM CHLORIDE 0.9% 50 ML IVPB ONE (12:30)
[2020-05-31] MEDS ORDERED: ALBUTEROL NEBULIZED 2.5 MG/3 ML INHALATION PRN (14:18)
[2020-05-31] MEDS ORDERED: MUPIROCIN 2% OINT 22 GM TUBE TOPICAL PRN (14:18)
[2020-05-31] MEDS ORDERED: OLANZapine ODT 5 MG TAB PO PRN (14:18)
[2020-05-31] MEDS ORDERED: SIMETHICONE 80 MG CHEWABLE PO PRN (14:18)
--- NOTE | 2020-05-31 14:33 | P.HPIM ---
History of Present Illness 55-year-old pleasant female with known history of Down syndrome was brought in here has a patient was having some shortness of breath but presently not hypoxic saturating well on room air. Patient does have infiltrate in the left lower lung barrera. Patient had multiple bowel movements and the correction is unable to handle the patient because of which patient was brought to ER. Patient was seen to 3 days ago at [facility]. I was asked to admit the patient. But patient's family that his sister wanted to take her back to correction as she doesn't do well with hospitalization because of that reason considering that she had an infiltrate in the left lower lung barrera patient was discharged on Ceftin. There was no evidence of cord at that time patient was mainly complaining of left hip pain imaging was within normal limits. Patient denied any sustained. Kind of pain at this time patient is being given a monoclonal an tibody infusion patient will be monitored overnight. Patient was having these bowel movements most probably because of the antibiotic because of which I'll hold antibiotic, if patient is clinically doing well after evaluation with physical therapy and occupational therapy patient will be discharged tomorrow. Review of Systems Unable to obtain but denied any complaints. Past Medical History Past Medical History: Diabetes Mellitus, Pneumonia, Sleep Apnea/CPAP/BIPAP, Thyroid Disorder Additional Past Medical History / Comment(s): UTI,ulcers and gallbladder not working properly",Down Syndrome, enlarged heart, wears O2 during night-2 liters nasal canula, left foot deformity History of Any Multi-Drug Resistant Organisms: None Reported Past Surgical History: Cholecystectomy Additional Past Surgical History / Comment(s): nasal surgery, wilberto cataract surgery,growth removed left ankle Past Anesthesia/Blood Transfusion Reactions: No Reported Reaction Past Psychological History: Anxiety, Schizophrenia Smoking Status: Unknown if ever smoked Past Alcohol Use History: None Reported Past Drug Use History: None Reported - Past Family History Father Family Medical History: Cancer Additional Family Medical History / Comment(s): skin Mother Additional Family Medical History / Comment(s): pulmonary fibrosis Brother(s) Additional Family Medical History / Comment(s): lung fibrosis Medications and Allergies Home Medications Medication Instructions Recorded Confirmed Type Levothyroxine Sodium [Synthroid] 25 mcg PO DAILY@0800 08/13/14 05/31/20 History Omeprazole 20 mg PO DAILY@79908/13/14 05/31/20 History DULoxetine HCL [Cymbalta] 60 mg PO BID@0800,1600 08/19/05/31/20 History Olopatadine HCl [Pazeo] 1 drop BOTH EYES DAILY@159905/24/17 05/31/20 History Sodium Chloride 5% Ophth Soln 1 drops LEFT EYE BID@0800,2100 06/07/17 05/31/20 History [Nga 128] Wokio-C-Jxbodvdvkzkut [Beano] 300 unit PO BID@0800,1600 01/08/18 05/31/20 History OLANZapine ODT [ZyPREXA Zydis] 5 mg PO DAILY PRN 01/08/18 05/31/20 History OLANZapine [ZyPREXA] 7.5 mg PO HS@209901/08/18 05/31/20 History Memantine [Namenda] 10 mg PO BID@0800,2100 06/28/18 05/31/20 History Cyanocobalamin (Vitamin B-12) 1,000 mcg PO DAILY@0800 04/02/19 05/31/20 History [Vitamin B-12] Simethicone 125mg Chew 125 mg PO DAILY PRN 04/02/19 05/31/20 History Albuterol Nebulized [Ventolin 2.5 mg INHALATION RT-Q6H PRN 05/31/20 05/31/20 History Nebulized] Carboxymethylcellulose Sodium 1 drop RIGHT EYE TID 05/31/20 05/31/20 History [Refresh Tears] Cefuroxime Axetil [Ceftin] 500 mg PO BID 05/31/20 05/31/20 History Cholecalciferol [Vitamin D3 (10 10 mcg PO DAILY@159905/31/20 05/31/20 History Mcg = 400 Iu)] Clotrimazole/Betameth Cream 1 applic TOPICAL HS 05/31/20 05/31/20 History [Lotrisone] Ketoconazole 2% Shampoo [Nizoral] 1 applic TOPICAL HS 05/31/20 05/31/20 History LORazepam [Ativan] 0.5 mg PO BID@0800,2100 05/31/20 05/31/20 History Mupirocin 2% Oint [Bactroban 2% 1 applic TOPICAL TID PRN 05/31/20 05/31/20 History Oint] Allergies Allergy/AdvReac Type Severity Reaction Status Date / Time latex AdvReac sensitive Verified 05/31/20 09:29 skin Physical Exam Vitals: Vital Signs Temp Pulse Resp BP Pulse Ox 05/31/20 12:33 90 20 103/55 92 L 05/31/20 11:30 93 20 62/49 92 L 05/31/20 10:48 22 05/31/20 10:47 98.9 F 93 20 109/61 95 05/31/20 09:13 108 H 22 106/64 92 L 05/31/20 08:56 102.8 F H 107 H 20 122/74 95 Intake and Output 05/30/20 05/31/20 05/31/20 22:59 06:59 14:59 Other: Weight 81.647 kg PHYSICAL EXAMINATION: GENERAL: The patient is alert and nonverbal, not in any acute distress. Obese , webbed neck and typical features of Down syndrome, short stricture HEENT: Pupils are round and equally reacting to light. EOMI. No scleral icterus. No conjunctival pallor. Normocephalic, atraumatic. No pharyngeal erythema. No thyromegaly. CARDIOVASCULAR: S1 and S2 present. No murmurs, rubs, or gallops. PULMONARY: Chest is clear to auscultation, no wheezing or crackles. ABDOMEN: Soft, nontender, nondistended, normoactive bowel sounds. No palpable organomegaly. MUSCULOSKELETAL: No joint swelling or deformity. EXTREMITIES: No cyanosis, clubbing, or pedal edema. NEUROLOGICAL: Unable to assess SKIN: No rashes. Results CBC & Chem 7: 05/31/20 09:16 05/31/20 09:16 Labs: Abnormal Lab Results - Last 24 Hours (Table) 05/31/20 05/31/20 05/31/20 Range/Units 09:16 09:16 09:16 WBC 1.5 L (3.8-10.6) k/uL Plt Count 125 L (150-450) k/uL Neutrophils # 0.7 L (1.3-7.7) k/uL Lymphocytes # 0.7 L (1.0-4.8) k/uL Sodium (137-145) mmol/L Chloride (98-107) mmol/L Carbon Dioxide (22-30) mmol/L Glucose (74-99) mg/dL Calcium (8.4-10.2) mg/dL AST (14-36) U/L ALT (4-34) U/L Total Protein (6.3-8.2) g/dL Albumin (3.5-5.0) g/dL Urine Protein Trace H (Negative) Coronavirus (PCR) Detected A (Not Detectd) 05/31/20 Range/Units 09:16 WBC (3.8-10.6) k/uL Plt Count (150-450) k/uL Neutrophils # (1.3-7.7) k/uL Lymphocytes # (1.0-4.8) k/uL Sodium 132 L (137-145) mmol/L Chloride 94 L (98-107) mmol/L Carbon Dioxide 33 H (22-30) mmol/L Glucose 104 H (74-99) mg/dL Calcium 7.5 L (8.4-10.2) mg/dL AST 134 H (14-36) U/L ALT 40 H (4-34) U/L Total Protein 6.2 L (6.3-8.2) g/dL Albumin 3.1 L (3.5-5.0) g/dL Urine Protein (Negative) Coronavirus (PCR) (Not Detectd) Assessment and Plan Plan: Covid 19 pneumonia with left lower lobe infiltrate: Patient will be given monoclonal antibody infusion patient was started on multivitamins for Covid. -Fecal incontinence: Most probably secondary to antibiotics these will be discontinued. Patient doesn't have any fever or leukocytosis. -Generalized deconditioning: Physical and occupational therapy evaluation -Type 2 diabetes mellitus -Sleep apnea -Hypothyroidism -Schizophrenia -Down syndrome -DVT prophylaxis with Lovenox
[2020-05-31] MEDS ORDERED: ALPHA D GALACTOSIDASE 300 UNIT PO SCH (16:00)
[2020-05-31] MEDS: LORazepam 0.5 MG TAB PO SCH (22:17)
[2020-05-31] MEDS: DULoxetine HCL 60 MG CAPSULE.DR PO SCH (22:19)
[2020-05-31] MEDS: CHOLECALCIFEROL 10 MCG (400 IU) TABLET PO SCH (22:19)
[2020-05-31] MEDS: CLOTRIMAZOLE/BETAMETH 1-0.05% CREAM 45 GM TUBE TOPICAL SCH (22:20)
[2020-05-31] MEDS: KETOCONAZOLE 2% SHAMPOO 1 APPLIC/ML TOPICAL SCH (22:20)
[2020-05-31] MEDS: MEMANTINE 10 MG TAB PO SCH (22:21)
[2020-05-31] MEDS: OLANZapine 7.5 MG TAB PO SCH (22:21)
[2020-06-01] MEDS: KETOTIFEN 0.025% OPHTH DROPS 5 ML BTL BOTH EYES SCH ×3 (00:11→22:29)
[2020-06-01] MEDS: ARTIFICIAL TEARS-HYPROMELLOSE DROPS 15 ML BTL RIGHT EYE SCH ×4 (00:11→21:34)
[2020-06-01] MEDS: SODIUM CHLORIDE 5% OPHTH DROPS 15 ML BTL LEFT EYE SCH ×3 (00:11→22:29)
[2020-06-01 01:34] LABS: Glucose,Whole Blood 71 mg/dL (75-99)
[2020-06-01 04:12] LABS: Glucose,Whole Blood 207 mg/dL (75-99)
[2020-06-01] MEDS: LORazepam 0.5 MG TAB PO SCH ×2 (09:20→21:35)
[2020-06-01] MEDS: DULoxetine HCL 60 MG CAPSULE.DR PO SCH ×2 (09:20→18:18)
[2020-06-01] MEDS: CYANOCOBALAMIN 500 MCG TAB PO SCH (09:20)
[2020-06-01] MEDS: LEVOTHYROXINE 25 MCG TAB PO SCH (09:20)
[2020-06-01] MEDS: PANTOPRAZOLE 40 MG TABLET PO SCH (09:20)
[2020-06-01] MEDS ORDERED: REMDESIVIR 200 MG in SODIUM CHLORIDE 0.9% 250 ML IVPB ONE (11:00)
[2020-06-01] MEDS ORDERED: ACETAMINOPHEN TAB 325 MG TAB PO PRN (11:24)
[2020-06-01] MEDS: DEXAMETHASONE SOD PHOSPHATE 10 MG/ML 1 ML VIAL IV SCH (11:26)
[2020-06-01] MEDS: ASPIRIN 81 MG PO SCH (11:27)
[2020-06-01] MEDS: ENOXAPARIN 40 MG/0.4 ML SYRINGE SQ SCH (11:27)
[2020-06-01] MEDS: MEMANTINE 10 MG TAB PO SCH (11:27)
[2020-06-01 11:40] LABS: Glucose,Whole Blood 81 mg/dL (75-99)
[2020-06-01] MEDS: SODIUM CHLORIDE 0.9% 1,000 ML IV SCH ×2 (11:48→16:30)
[2020-06-01 13:22] LABS: C Reactive Protein 141.4 mg/L (<10.0)
--- NOTE | 2020-06-01 14:46 | P.CNPUL ---
History of Present Illness Consult date: 06/01/20 Requesting physician: Tamika Shaw Reason for consult: pneumonia Chief complaint: Shortness of breath History of present illness: 55-year-old female with history of Down syndrome, admitted yesterday with mostly a few days' history of fever, shortness of breath. And abnormal chest x-ray sh owing a left lower lobe infiltrate. The patient herself is a very poor historian, she lives at a fdc. And based on the clinical information from the chart, she was seen [address] [facility], and she was specifically seen by the admitting physician/Dr. Shaw,, and he treated the patient with Ceftin for abnormal chest x-ray showing infiltrate in the left lower lobe. I am not certain whether the patient was truly diagnosed with covid 19 infection at the time or not, but supposedly she had a EC done and she was discharged before the results came back. This time the patient was apparently sicker and feeling worse, her [place] virus screening was positive, chest x-ray showed mostly low lung volumes and hypoventilatory changes with increasing bibasilar atelectasis opacities. Patient was admitted and this consult was initiated. Not much information could be obtained from the patient herself. Patient was started at this time on REM. And she is now on the Covid 19 co cktail. Review of Systems ROS unobtainable: due to mental status Past Medical History Past Medical History: Dementia, Diabetes Mellitus, Pneumonia, Sleep Apnea/CPAP/BIPAP, Thyroid Disorder Additional Past Medical History / Comment(s): UTI,ulcers and gallbladder not working properly",Down Syndrome, enlarged heart, wears O2 during night-2 liters nasal canula for sleep apnea, left foot deformity with special shoes, urinary tract infection History of Any Multi-Drug Resistant Organisms: None Reported Past Surgical History: Cholecystectomy Additional Past Surgical History / Comment(s): nasal surgery, wilberto cataract surge ry,growth removed left ankle Past Anesthesia/Blood Transfusion Reactions: No Reported Reaction Past Psychological History: Anxiety, Schizophrenia Additional Psychological History / Comment(s): downs sydrome, intellectual disa bility patient lives in [place] [facility], recent fall few days ago has been wheelchair bound Smoking Status: Unknown if ever smoked Past Alcohol Use History: None Reported Past Drug Use History: None Reported - Past Family History Father Family Medical History: Cancer Additional Family Medical History / Comment(s): skin Mother Additional Family Medical History / Comment(s): pulmonary fibrosis Brother(s) Additional Family Medical History / Comment(s): lung fibrosis Medications and Allergies Home Medications Medication Instructions Recorded Confirmed Type Levothyroxine Sodium [Synthroid] 25 mcg PO DAILY@0800 08/13/14 05/31/20 History Omeprazole 20 mg PO DAILY@0800 08/13/14 05/31/20 History DULoxetine HCL [Cymbalta] 60 mg PO BID@0800,1600 08/19/05/31/20 History Olopatadine HCl [Pazeo] 1 drop BOTH EYES DAILY@1600 05/24/17 05/31/20 History Sodium Chloride 5% Ophth Soln 1 drops LEFT EYE BID@0800,2100 06/07/17 05/31/20 History [Nga 128] Saudd-I-Ymjdhvqzslhwz [Beano] 300 unit PO BID@0800,1600 01/08/18 05/31/20 History OLANZapine ODT [ZyPREXA Zydis] 5 mg PO DAILY PRN 01/08/18 05/31/20 History OLANZapine [ZyPREXA] 7.5 mg PO HS@209901/08/18 05/31/20 History Memantine [Namenda] 10 mg PO BID@0800,2100 06/28/18 05/31/20 History Cyanocobalamin (Vitamin B-12) 1,000 mcg PO DAILY@0800 04/02/19 05/31/20 History [Vitamin B-12] Simethicone 125mg Chew 125 mg PO DAILY PRN 04/02/19 05/31/20 History Albuterol Nebulized [Ventolin 2.5 mg INHALATION RT-Q6H PRN 05/31/20 05/31/20 History Nebulized] Carboxymethylcellulose Sodium 1 drop RIGHT EYE TID 05/31/20 05/31/20 History [Refresh Tears] Cefuroxime Axetil [Ceftin] 500 mg PO BID 05/31/20 05/31/20 History Cholecalciferol [Vitamin D3 (10 10 mcg PO DAILY@1600 05/31/20 05/31/20 History Mcg = 400 Iu)] Clotrimazole/Betameth Cream 1 applic TOPICAL HS 05/31/20 05/31/20 History [Lotrisone] Ketoconazole 2% Shampoo [Nizoral] 1 applic TOPICAL HS 05/31/20 05/31/20 History LORazepam [Ativan] 0.5 mg PO BID@0800,2100 05/31/20 05/31/20 History Mupirocin 2% Oint [Bactroban 2% 1 applic TOPICAL TID PRN 05/31/20 05/31/20 History Oint] Allergies Allergy/AdvReac Type Severity Reaction Status Date / Time latex AdvReac sensitive Verified 05/31/20 09:29 skin Physical Exam Vitals: Vital Signs Temp Pulse Resp BP BP Pulse Ox 06/01/20 14:33 98.9 F 104 H 16 123/74 92 L 06/01/20 10:29 100.0 F H 114 H 16 121/65 95 06/01/20 04:15 98.1 F 91 16 123/82 97 06/01/20 00:56 97.4 F L 72 16 102/67 96 05/31/20 22:23 97.4 F L 86 15 109/75 91 L 05/31/20 22:00 125/73 Intake and Output 05/31/20 06/01/20 06/01/20 22:59 06:59 14:59 Other: Voiding Method Diaper Diaper Incontinent # Voids 1 # Bowel Movements 1 Weight 81.647 kg Physical Exam: Revealed 55-year-old female, with mental delay and Down syndrome. She has typical features of Down syndrome. Nonverbal. Head: Atraumatic, normocephalic. She does have what the neck and short stature HEENT:[Neck is supple.] [No neck masses.] [No thyromegaly.] [No JVD.] Chest: Metrical chest expansion, crackles at the bases especially at the left base. Cardiac Exam: [Normal S1 and S2, no S3 gallop, no murmur.] Abdomen: [Soft, nontender, no megaly, no rebound, no guarding, normal bowel sounds.] Extremities: [No clubbing, no edema, no cyanosis.] Neurological Exam: Awake, unable to assess the neurological status. Patient has Down syndrome. Skin: No rashes. Results - Laboratory Findings CBC and BMP: 05/31/20 09:16 05/31/20 09:16 PT/INR, D-dimer PT 10.1 sec (9.0-12.0) 05/31/20 09:16 INR 0.9 (<1.2) 05/31/20 09:16 D-Dimer 1.08 mg/L FEU (<0.60) H 06/01/20 12:02 Abnormal lab findings: Abnormal Labs 05/31/20 05/31/20 05/31/20 09:16 09:16 09:16 WBC 1.5 L Plt Count 125 L Neutrophils # 0.7 L Lymphocytes # 0.7 L D-Dimer Sodium Chloride Carbon Dioxide Glucose POC Glucose (mg/dL) Calcium AST ALT Lactate Dehydrogenase C-Reactive Protein Total Protein Albumin Urine Protein Trace H Coronavirus (PCR) Detected A 05/31/20 06/01/20 06/01/20 09:16 01:32 04:10 WBC Plt Count Neutrophils # Lymphocytes # D-Dimer Sodium 132 L Chloride 94 L Carbon Dioxide 33 H Glucose 104 H POC Glucose (mg/dL) 71 L 207 H Calcium 7.5 L AST 134 H ALT 40 H Lactate Dehydrogenase C-Reactive Protein Total Protein 6.2 L Albumin 3.1 L Urine Protein Coronavirus (PCR) 06/01/20 06/01/20 12:02 12:02 WBC Plt Count Neutrophils # Lymphocytes # D-Dimer 1.08 H Sodium Chloride Carbon Dioxide Glucose POC Glucose (mg/dL) Calcium AST ALT Lactate Dehydrogenase 1460 H C-Reactive Protein 141.4 H Total Protein Albumin Urine Protein Coronavirus (PCR) - Diagnostic Findings Chest x-ray: image reviewed (Bibasilar infiltrates, consistent with the diagnosis of covid19 infection/pneumonitis.) Assessment and Plan Assessment: Impression: Acute hypoxic respiratory failure secondary to acute covid 19 pneumonia. Patient is presently on 6 L nasal cannula, and O2 saturation is only 92%. History of Down syndrome. Type 2 diabetes. Hypothyroidism. History of schizophrenia. Recommendation: Continue present supportive care measures. Continue oxygen. And titrate accordingly. Continue the Covid 19 cocktail. Continue REM. Continue Decadron. Continue Lovenox. Continue vitamin D. Continue aspirin. We will continue to follow. Time with Patient: Greater than 30
--- NOTE | 2020-06-01 16:19 | P.PN ---
Subjective 55-year-old pleasant female with known history of Down syndrome was brought in here has a patient was having some shortness of breath but presently not hypoxic saturating well on room air. Patient does have infiltrate in the left lower lung barrera. Patient had multiple bowel movements and the fdc is unable to handle the patient because of which patient was brought to ER. Patient was seen to 3 days ago at [facility]. I was asked to admit the patient. But patient's family that his sister wanted to take her back to fdc as she doesn't do well with hospitalization because of that reason considering that she had an infiltrate in the left lower lung barrera patient was discharged on Ceftin. There was no evidence of cord at that time patient was mainly complaining of left hip pain imaging was within normal limits. Patient denied any sustained. Kind of pain at this time patient is being given a monoclonal antibody infusion patient will be monitored overnight. Patient was having these bowel movements most probably because of the antibiotic because of which I'll hold antibiotic, if patient is clinically doing well after evaluation with physical therapy and occupational therapy patient will be discharged tomorrow. 06/01/2020 Patient's is pretty status is worse and is requiring oxygen patient is presently in 6 L of oxygen because of which patient was started on Remdesivir, patient was started on steroids. Review of systems: Unable to obtain due to her clinical condition All inpatient medications were reviewed and appropriate changes in these medications as dictated in the interval history and assessment and plan. Objective - Vital Signs Vital signs: Vital Signs Temp 98.9 F 06/01/20 14:33 Pulse 104 H 06/01/20 14:33 Resp 16 06/01/20 14:33 BP 123/74 06/01/20 14:33 Pulse Ox 92 L 06/01/20 14:33 Intake & Output 05/31/20 06/01/20 06/01/20 18:59 06:59 18:59 Weight 81.647 kg 81.647 kg Other: Voiding Method Diaper Diaper Incontinent # Voids 1 # Bowel Movements 1 - Exam PHYSICAL EXAMINATION: GENERAL: The patient is alert and nonverbal, not in any acute distress. Obese , webbed neck and typical features of Down syndrome, short stricture HEENT: Pupils are round and equally reacting to light. EOMI. No scleral icterus. No conjunctival pallor. Normocephalic, atraumatic. No pharyngeal erythema. No thyromegaly. CARDIOVASCULAR: S1 and S2 present. No murmurs, rubs, or gallops. PULMONARY: Chest is clear to auscultation, no wheezing or crackles. ABDOMEN: Soft, nontender, nondistended, normoactive bowel sounds. No palpable organomegaly. MUSCULOSKELETAL: No joint swelling or deformity. EXTREMITIES: No cyanosis, clubbing, or pedal edema. NEUROLOGICAL: Unable to assess SKIN: No rashes. - Labs CBC & Chem 7: 05/31/20 09:16 05/31/20 09:16 Labs: Abnormal Lab Results - Last 24 Hours (Table) 06/01/20 06/01/20 06/01/20 Range/Units 01:32 04:10 12:02 D-Dimer 1.08 H (<0.60) mg/L FEU POC Glucose (mg/dL) 71 L 207 H (75-99) mg/dL Lactate Dehydrogenase (313-618) U/L C-Reactive Protein (<10.0) mg/L 06/01/20 Range/Units 12:02 D-Dimer (<0.60) mg/L FEU POC Glucose (mg/dL) (75-99) mg/dL Lactate Dehydrogenase 1460 H (313-618) U/L C-Reactive Protein 141.4 H (<10.0) mg/L Microbiology - Last 24 Hours (Table) 05/31/20 09:28 Blood Culture - Preliminary Blood No Growth after 24 hours 05/31/20 09:28 Blood Culture - Preliminary Blood No Growth after 24 hours Assessment and Plan Plan: Acute respiratory failure secondary to Covid 19 pneumonia with left lower lobe infiltrate: Patient is presently requiring 6 L of oxygen was started on Remdesivir, Decadron. -Fecal incontinence: Most probably secondary to antibiotics these will be discontinued. Patient doesn't have any fever or leukocytosis. -Generalized deconditioning: Physical and occupational therapy evaluation -Type 2 diabetes mellitus -Sleep apnea -Hypothyroidism -Schizophrenia -Down syndrome -DVT prophylaxis with Lovenox
[2020-06-01 17:01] LABS: Glucose,Whole Blood 112 mg/dL (75-99)
[2020-06-01 19:47] LABS: Glucose,Whole Blood 154 mg/dL (75-99)
[2020-06-01] MEDS: ALBUTEROL HFA INHALER INHALATION PRN (21:03)
[2020-06-01] MEDS: OLANZapine 7.5 MG TAB PO SCH (21:35)
[2020-06-01] MEDS: CHOLECALCIFEROL 10 MCG (400 IU) TABLET PO SCH (21:35)
[2020-06-01] MEDS: CLOTRIMAZOLE/BETAMETH 1-0.05% CREAM 45 GM TUBE TOPICAL SCH (22:28)
[2020-06-01] MEDS: KETOCONAZOLE 2% SHAMPOO 1 APPLIC/ML TOPICAL SCH (22:29)
[2020-06-02] MEDS: MEMANTINE 10 MG TAB PO SCH ×3 (01:02→22:02)
[2020-06-02 08:00] LABS: Glucose,Whole Blood 160 mg/dL (75-99)
[2020-06-02] MEDS: CYANOCOBALAMIN 500 MCG TAB PO SCH (08:50)
[2020-06-02] MEDS: LEVOTHYROXINE 25 MCG TAB PO SCH (08:50)
[2020-06-02] MEDS: ENOXAPARIN 40 MG/0.4 ML SYRINGE SQ SCH (08:50)
[2020-06-02] MEDS: DEXAMETHASONE SOD PHOSPHATE 10 MG/ML 1 ML VIAL IV SCH (08:50)
[2020-06-02] MEDS: PANTOPRAZOLE 40 MG TABLET PO SCH (08:51)
[2020-06-02] MEDS: ASPIRIN 81 MG PO SCH (08:51)
[2020-06-02] MEDS: LORazepam 0.5 MG TAB PO SCH ×2 (08:51→22:15)
[2020-06-02] MEDS: DULoxetine HCL 60 MG CAPSULE.DR PO SCH ×2 (08:51→16:58)
[2020-06-02] MEDS: ARTIFICIAL TEARS-HYPROMELLOSE DROPS 15 ML BTL RIGHT EYE SCH ×3 (08:52→22:03)
[2020-06-02] MEDS: SODIUM CHLORIDE 5% OPHTH DROPS 15 ML BTL LEFT EYE SCH ×2 (08:53→22:03)
[2020-06-02] MEDS: SODIUM CHLORIDE 0.9% 1,000 ML IV SCH ×2 (08:54→22:15)
[2020-06-02] MEDS: KETOTIFEN 0.025% OPHTH DROPS 5 ML BTL BOTH EYES SCH ×2 (08:54→22:02)
[2020-06-02 10:24] LABS: African American GFR (CKD) 119.8 (60.0-200.0); BUN/Creat Ratio 18.33 Ratio (12.00-20.00); Calcium 7.9 mg/dL (8.7-10.3); Non-African American GFR(CKD) 103.3 (60.0-200.0); Potassium 4.3 mmol/L (3.5-5.5)
[2020-06-02 10:42] LABS: Anion Gap 8.5 mmol/L (4.00-12.00); Carbon Dioxide 28.5 mmol/L (21.6-31.8)
--- NOTE | 2020-06-02 11:48 | P.PN ---
Subjective 55-year-old pleasant female with known history of Down syndrome was brought in here has a patient was having some shortness of breath but presently not hypoxic saturating well on room air. Patient does have infiltrate in the left lower lung barrera. Patient had multiple bowel movements and the [facility] is unable to handle the patient because of which patient was brought to ER. Patient was seen to 3 days ago at [facility]. I was asked to admit the patient. But patient's family that his sister wanted to take her back to [facility] as she doesn't do well with hospitalization because of that reason considering that she had an infiltrate in the left lower lung barrera patient was discharged on Ceftin. There was no evidence of cord at that time patient was mainly complaining of left hip pain imaging was within normal limits. Patient denied any sustained. Kind of pain at this time patient is being given a monoclonal antibody infusion patient will be monitored overnight. Patient was having these bowel movements most probably because of the antibiotic because of which I'll hold antibiotic, if patient is clinically doing well after evaluation with physical therapy and occupational therapy patient will be discharged tomorrow. 06/01/2020 Patient's is pretty status is worse and is requiring oxygen patient is presently in 6 L of oxygen because of which patient was started on Remdesivir, patient was started on steroids. 06/02/2020 Patient is still having some stool and bowel incontinence. Patient respiratory status is bit better her stable at this time Review of systems: Unable to obtain due to her clinical condition All inpatient medications were reviewed and appropriate changes in these medications as dictated in the interval history and assessment and plan. Objective - Vital Signs Vital signs: Vital Signs Temp 97.7 F 06/02/20 07:22 Pulse 74 06/02/20 07:22 Resp 20 06/02/20 07:22 BP 115/71 06/02/20 07:22 Pulse Ox 95 06/02/20 07:22 Intake & Output 06/01/20 06/02/20 06/02/20 18:59 06:59 18:59 Intake Total 200 Balance 200 Intake: IV 150 Sodium Chloride 0.9% 1, 150 000 ml @ 75 mls/hr IV . [id number] [facility] Rx#:[id number] Oral 50 Other: Voiding Method Diaper Diaper Incontinent Incontinent # Voids 1 - Exam PHYSICAL EXAMINATION: GENERAL: The patient is alert and nonverbal, not in any acute distress. Obese , webbed neck and typical features of Down syndrome, short stricture HEENT: Pupils are round and equally reacting to light. EOMI. No scleral icterus. No conjunctival pallor. Normocephalic, atraumatic. No pharyngeal erythema. No thyromegaly. CARDIOVASCULAR: S1 and S2 present. No murmurs, rubs, or gallops. PULMONARY: Chest is clear to auscultation, no wheezing or crackles. ABDOMEN: Soft, nontender, nondistended, normoactive bowel sounds. No palpable organomegaly. MUSCULOSKELETAL: No joint swelling or deformity. EXTREMITIES: No cyanosis, clubbing, or pedal edema. NEUROLOGICAL: Unable to assess SKIN: No rashes. - Labs CBC & Chem 7: 05/31/20 09:16 06/02/20 05:50 Labs: Abnormal Lab Results - Last 24 Hours (Table) 06/01/20 06/01/20 06/01/20 Range/Units 12:02 12:02 17:00 D-Dimer 1.08 H (<0.60) mg/L FEU Glucose (70-110) mg/dL POC Glucose (mg/dL) 112 H (75-99) mg/dL Calcium (8.7-10.3) mg/dL Lactate Dehydrogenase 1460 H (313-618) U/L C-Reactive Protein 141.4 H (<10.0) mg/L 06/01/20 06/02/20 06/02/20 Range/Units 19:45 05:50 07:59 D-Dimer (<0.60) mg/L FEU Glucose 112 H (70-110) mg/dL POC Glucose (mg/dL) 154 H 160 H (75-99) mg/dL Calcium 7.9 L (8.7-10.3) mg/dL Lactate Dehydrogenase (313-618) U/L C-Reactive Protein (<10.0) mg/L Microbiology - Last 24 Hours (Table) 05/31/20 09:28 Blood Culture - Preliminary Blood No Growth after 48 hours 05/31/20 09:28 Blood Culture - Preliminary Blood No Growth after 48 hours Assessment and Plan Plan: Acute respiratory failure secondary to Covid 19 pneumonia with left lower lobe infiltrate: Patient is presently requiring 6 L of oxygen was started on Remdesivir, Decadron. -Fecal incontinence: Supportive care -Generalized deconditioning: Physical and occupational therapy evaluation -Type 2 diabetes mellitus -Sleep apnea -Hypothyroidism -Schizophrenia -Down syndrome -DVT prophylaxis with Lovenox
[2020-06-02 12:14] LABS: Glucose,Whole Blood 123 mg/dL (75-99)
[2020-06-02] MEDS: REMDESIVIR 100 MG in SODIUM CHLORIDE 0.9% 250 ML IVPB SCH (13:43)
--- NOTE | 2020-06-02 13:46 | P.PN ---
Subjective Progress Note Date: 06/02/20 Principal diagnosis: Shortness of breath. 55-year-old female with history of Down syndrome, admitted yesterday with mostly a few days' history of fever, shortness of breath. And abnormal chest x-ray showing a left lower lobe infiltrate. The patient herself is a very poor histo chinmay, she lives at a assisted. And based on the clinical information from the chart, she was seen 3 days ago at [facility], and she was specifically seen by the admitting physician/Dr. Shaw,, and he treated the patient with Ceftin for abnormal chest x-ray showing infiltrate in the left lower lobe. I am not certain whether the patient was truly diagnosed with covid 19 infection at t he time or not, but supposedly she had a EC done and she was discharged before the results came back. This time the patient was apparently sicker and feeling worse, her [place] virus screening was positive, chest x-ray showed mostly low lung volumes and hypoventilatory changes with increasing bibasilar atelectasis opacities. Patient was admitted and this consult was initiated. Not much information could be obtained from the patient herself. Patient was started at this time on REM. And she is now on the Covid 19 cocktail. Progress note dated 06/02/2020. 55-year-old female with history of Down's syndrome. She apparently was admitted with a diagnosis of fever, shortness of breath, and COVID 19 pneumonia. She was seen by my partner yesterday. Chest x-ray was abnormal. She apparently was seen 3 days prior to the admission here, at [facility]. Currently, the patient is on saline at 75 mL an hour, and nasal cannula at 6 L. Her saturations are 95%. She does not appear to be in any distress. The patient was started on REM. In addition, the patient received a normal vitamins. In addition, the patient is receiving Decadron and Lovenox. Sodium 140, potassium 4.3, chlorides 103, CO2 29, anion gap 9, BUN 11, creatinine 0.6. Chest x-ray from May 31 is reviewed. Objective - Vital Signs Vital signs: Vital Signs Temp 97.7 F 06/02/20 07:22 Pulse 74 06/02/20 07:22 Resp 20 04/04/21 07:22 BP 115/71 06/02/20 07:22 Pulse Ox 95 06/02/20 07:22 Intake & Output 06/01/20 06/02/20 06/02/20 18:59 06:59 18:59 Intake Total 200 Balance 200 Intake: IV 150 Sodium Chloride 0.9% 1, 150 000 ml @ 75 mls/hr IV . [id number] [facility] Rx#:[id number] Oral 50 Other: Voiding Method Diaper Diaper Incontinent Incontinent # Voids 1 - Exam No acute distress, nonverbal Currently on 6 L nasal cannula. Saturations 95%. HEENT examination is grossly unremarkable. Mucous membranes are moist. No oral lesions. Neck supple. Full range of motion. No adenopathy thyromegaly or neck vein distention. Cardiovascular examination reveals regular rhythm rate. S1-S2 normal. No S3 or S4. No discernible murmur noted. Heart rate 74 bpm. Lungs reveal bibasilar crackles. No rhonchi or wheezes. She does not take deep breaths. Abdomen soft bowel sounds are heard. No masses or tenderness. Extremities are intact. No cyanosis clubbing or edema. Skin is without rash or lesion. Neurologic examination is very difficult to assess because of her Down's syndrome. - Labs CBC & Chem 7: 05/31/20 09:16 06/02/20 05:50 Labs: Abnormal Lab Results - Last 24 Hours (Table) 06/01/20 06/01/20 06/02/20 Range/Units 17:00 19:45 05:50 Glucose 112 H (70-110) mg/dL POC Glucose (mg/dL) 112 H 154 H (75-99) mg/dL Calcium 7.9 L (8.7-10.3) mg/dL 06/02/20 06/02/20 Range/Units 07:59 12:12 Glucose (70-110) mg/dL POC Glucose (mg/dL) 160 H 123 H (75-99) mg/dL Calcium (8.7-10.3) mg/dL Microbiology - Last 24 Hours (Table) 05/31/20 09:28 Blood Culture - Preliminary Blood No Growth after 48 hours 05/31/20 09:28 Blood Culture - Preliminary Blood No Growth after 48 hours Assessment and Plan Assessment: Acute hypoxemic respiratory failure secondary to COVID 19 pneumonia/pneumonitis. History of Down syndrome. Type 2 diabetes mellitus. History of hypothyroidism. History of schizophrenia. Nocturnal hypoxemia. History of urinary tract infection. Plan: Plan dated 06/02/2020. The patient remains on appropriate medications. We will continue to follow. The patient is on in addition, the patient is receiving Lovenox, and Decadron. I may, she was started on REM yesterday. The patient is nonverbal. Difficult to know how she's doing. We will continue to follow and make appropriate recommendations where appropriate. Time with Patient: Less than 30
[2020-06-02] MEDS: CHOLECALCIFEROL 10 MCG (400 IU) TABLET PO SCH (16:58)
[2020-06-02 18:00] LABS: Glucose,Whole Blood 139 mg/dL (75-99)
[2020-06-02 19:41] LABS: Glucose,Whole Blood 208 mg/dL (75-99)
[2020-06-02] MEDS: OLANZapine 7.5 MG TAB PO SCH (22:02)
[2020-06-02] MEDS: CLOTRIMAZOLE/BETAMETH 1-0.05% CREAM 45 GM TUBE TOPICAL SCH (22:03)
[2020-06-02] MEDS: KETOCONAZOLE 2% SHAMPOO 1 APPLIC/ML TOPICAL SCH (22:04)
[2020-06-03 07:12] LABS: Glucose,Whole Blood 99 mg/dL (75-99)
[2020-06-03] MEDS: ALBUTEROL HFA INHALER INHALATION PRN ×3 (08:21→21:42)
[2020-06-03] MEDS: ENOXAPARIN 40 MG/0.4 ML SYRINGE SQ SCH (08:24)
[2020-06-03] MEDS: DULoxetine HCL 60 MG CAPSULE.DR PO SCH ×2 (08:25→15:42)
[2020-06-03] MEDS: ASPIRIN 81 MG PO SCH (08:25)
[2020-06-03] MEDS: CYANOCOBALAMIN 500 MCG TAB PO SCH (08:25)
[2020-06-03] MEDS: LEVOTHYROXINE 25 MCG TAB PO SCH (08:25)
[2020-06-03] MEDS: PANTOPRAZOLE 40 MG TABLET PO SCH (08:25)
[2020-06-03] MEDS: LORazepam 0.5 MG TAB PO SCH ×2 (08:25→20:08)
[2020-06-03] MEDS: DEXAMETHASONE SOD PHOSPHATE 10 MG/ML 1 ML VIAL IV SCH (08:25)
[2020-06-03] MEDS: MEMANTINE 10 MG TAB PO SCH ×2 (08:26→21:21)
[2020-06-03] MEDS: SODIUM CHLORIDE 5% OPHTH DROPS 15 ML BTL LEFT EYE SCH ×2 (08:27→20:07)
[2020-06-03] MEDS: ARTIFICIAL TEARS-HYPROMELLOSE DROPS 15 ML BTL RIGHT EYE SCH ×3 (08:27→20:06)
[2020-06-03] MEDS: KETOTIFEN 0.025% OPHTH DROPS 5 ML BTL BOTH EYES SCH ×2 (08:27→20:07)
[2020-06-03] MEDS: REMDESIVIR 100 MG in SODIUM CHLORIDE 0.9% 250 ML IVPB SCH (11:06)
[2020-06-03 11:21] LABS: Glucose,Whole Blood 161 mg/dL (75-99)
--- NOTE | 2020-06-03 14:06 | P.PN ---
Subjective Progress Note Date: 06/03/20 Principal diagnosis: Acute hypoxic respiratory failure secondary to acute covid 19 pneumonia. 55-year-old female with history of Down syndrome, admitted yesterday with mostly a few days' history of fever, shortness of breath. And abnormal chest x-ray showing a left lower lobe infiltrate. The patient herself is a very poor historian, she lives at a longterm. And based on the clinical information from the chart, she was seen 3 days ago at [facility], and she was s pecifically seen by the admitting physician/Dr. Shaw,, and he treated the patient with Ceftin for abnormal chest x-ray showing infiltrate in the left lower lobe. I am not certain whether the patient was truly diagnosed with covid 19 infection at the time or not, but supposedly she had a EC done and she was discharged before the results came back. This time the patient was apparently sicker and feeling worse, her montgomery virus screening was positive, chest x-ray showed mostly low lung volumes and hypoventilatory changes with increasing bibasilar atelectasis opacities. Patient was admitted and this consult was initiated. Not much information could be obtained from the patient herself. P atient was started at this time on REM. And she is now on the Covid 19 cocktail. Progress note dated 06/02/2020. 55-year-old female with history of Down's syndrome. She apparently was admitted with a diagnosis of fever, shortness of breath, and COVID 19 pneumonia. She was seen by my partner yesterday. Chest x-ray was abnormal. She apparently was seen 3 days prior to the admission here, at [facility]. Currently, the patient is on saline at 75 mL an hour, and nasal cannula at 6 L. Her saturations are 95%. She does not appear to be in any distress. The patient was started on REM. In addition, the patient received a normal vitamins. In addition, the patient is receiving Decadron and Lovenox. Sodium 140, potassium 4.3, chlorides 103, CO2 29, anion gap 9, BUN 11, creatinine 0.6. Chest x-ray from May 31 is reviewed. Reevaluated today on 06/03/2020, patient remains on 5 L nasal cannula, O2 saturations 94%. Patient has Down syndrome, she is not a great historian, but she seems to be quite comfortable, and not in distress. No labs were drawn today. But looking at her previous inflammatory markers, her LDH was 1460 and her C-reactive protein was 141. Chest x-ray on admission showed bibasilar consolidations/bibasilar opacities. Patient has been receiving Decadron and Lovenox. And she also received REM. Along with vitamins. Objective - Vital Signs Vital signs: Vital Signs Temp 97.6 F 06/03/20 08:53 Pulse 93 06/03/20 08:53 Resp 16 06/03/20 08:53 BP 158/81 06/03/20 08:53 Pulse Ox 94 L 06/03/20 08:53 Intake & Output 06/02/20 06/03/20 06/03/20 18:59 06:59 18:59 Output Total 800 900 Balance -800 -900 Output: Urine 800 900 Other: Voiding Method Diaper Diaper Diaper Incontinent Incontinent Incontinent - Exam Physical Exam: Revealed 55-year-old female, with mental delay and Down syndrome. She has typical features of Down syndrome. Nonverbal. Head: Atraumatic, normocephalic. She does have what the neck and short stature HEENT:[Neck is supple.] [No neck masses.] [No thyromegaly.] [No JVD.] Chest: Metrical chest expansion, crackles at the bases especially at the left base. Cardiac Exam: [Normal S1 and S2, no S3 gallop, no murmur.] Abdomen: [Soft, nontender, no megaly, no rebound, no guarding, normal bowel sounds.] Extremities: [No clubbing, no edema, no cyanosis.] Neurological Exam: Awake, unable to assess the neurological status. Patient has Down syndrome. Skin: No rashes. - Labs CBC & Chem 7: 05/31/20 09:16 06/02/20 05:50 Labs: Abnormal Lab Results - Last 24 Hours (Table) 06/02/20 06/02/20 06/03/20 Range/Units 17:54 19:39 11:20 POC Glucose (mg/dL) 139 H 208 H 161 H (75-99) mg/dL Microbiology - Last 24 Hours (Table) 05/31/20 09:28 Blood Culture - Preliminary Blood No Growth after 72 hours 05/31/20 09:28 Blood Culture - Preliminary Blood No Growth after 72 hours Assessment and Plan Assessment: Impression: Acute hypoxic respiratory failure secondary to acute covid 19 pneumonia. Patient is presently on 5 L nasal cannula, History of Down syndrome. Type 2 diabetes. Hypothyroidism. History of schizophrenia. Recommendation: Continue present supportive care measures. Continue oxygen. And titrate accordingly. Continue the Covid 19 cocktail. Continue REM. Continue Decadron. Continue Lovenox. Continue vitamin D. Continue aspirin. We will continue to follow. Time with Patient: Less than 30
[2020-06-03] MEDS: CHOLECALCIFEROL 10 MCG (400 IU) TABLET PO SCH (15:42)
[2020-06-03 17:16] LABS: Glucose,Whole Blood 153 mg/dL (75-99)
[2020-06-03] MEDS: SODIUM CHLORIDE 0.9% 1,000 ML IV SCH (17:36)
[2020-06-03] MEDS: CLOTRIMAZOLE/BETAMETH 1-0.05% CREAM 45 GM TUBE TOPICAL SCH (20:07)
[2020-06-03] MEDS: KETOCONAZOLE 2% SHAMPOO 1 APPLIC/ML TOPICAL SCH (20:07)
[2020-06-03 20:22] LABS: Glucose,Whole Blood 156 mg/dL (75-99)
[2020-06-03] MEDS: OLANZapine 7.5 MG TAB PO SCH (21:21)
[2020-06-04] MEDS: SODIUM CHLORIDE 0.9% 1,000 ML IV SCH ×2 (05:14→20:43)
[2020-06-04 07:28] LABS: Glucose,Whole Blood 110 mg/dL (75-99)
[2020-06-04] MEDS: ALBUTEROL HFA INHALER INHALATION PRN ×2 (08:05→11:29)
[2020-06-04] MEDS: ENOXAPARIN 40 MG/0.4 ML SYRINGE SQ SCH (08:44)
[2020-06-04] MEDS: ARTIFICIAL TEARS-HYPROMELLOSE DROPS 15 ML BTL RIGHT EYE SCH ×3 (08:44→20:44)
[2020-06-04] MEDS: ASPIRIN 81 MG PO SCH (08:44)
[2020-06-04] MEDS: SODIUM CHLORIDE 5% OPHTH DROPS 15 ML BTL LEFT EYE SCH ×2 (08:44→20:44)
[2020-06-04] MEDS: KETOTIFEN 0.025% OPHTH DROPS 5 ML BTL BOTH EYES SCH ×2 (08:44→20:45)
[2020-06-04] MEDS: LEVOTHYROXINE 25 MCG TAB PO SCH (08:44)
[2020-06-04] MEDS: LORazepam 0.5 MG TAB PO SCH ×2 (08:45→20:43)
[2020-06-04] MEDS: CYANOCOBALAMIN 500 MCG TAB PO SCH (08:45)
[2020-06-04] MEDS: MEMANTINE 10 MG TAB PO SCH ×2 (08:45→20:43)
[2020-06-04] MEDS: PANTOPRAZOLE 40 MG TABLET PO SCH (08:45)
[2020-06-04] MEDS: DULoxetine HCL 60 MG CAPSULE.DR PO SCH ×2 (08:45→15:42)
--- NOTE | 2020-06-04 11:00 | P.PN ---
Subjective Progress Note Date: 06/04/20 Principal diagnosis: Acute hypoxic respiratory failure secondary to acute covid 19 pneumonia. 55-year-old female with history of Down syndrome, admitted yesterday with mostly a few days' history of fever, shortness of breath. And abnormal chest x-ray showing a left lower lobe infiltrate. The patient herself is a very poor historian, [facility]. And based on the clinical information from the chart, she was seen 3 days ago at [facility], and she was s pecifically seen by the admitting physician/Dr. Shaw,, and he treated the patient with Ceftin for abnormal chest x-ray showing infiltrate in the left lower lobe. I am not certain whether the patient was truly diagnosed with covid 19 infection at the time or not, but supposedly she had a EC done and she was discharged before the results came back. This time the patient was apparently sicker and feeling worse, her montgomery virus screening was positive, chest x-ray showed mostly low lung volumes and hypoventilatory changes with increasing bibasilar atelectasis opacities. Patient was admitted and this consult was initiated. Not much information could be obtained from the patient herself. P atient was started at this time on REM. And she is now on the Covid 19 cocktail. Progress note dated 06/02/2020. 55-year-old female with history of Down's syndrome. She apparently was admitted with a diagnosis of fever, shortness of breath, and COVID 19 pneumonia. She was seen by my partner yesterday. Chest x-ray was abnormal. She apparently was seen 3 days prior to the admission here, at [facility]. Currently, the patient is on saline at 75 mL an hour, and nasal cannula at 6 L. Her saturations are 95%. She does not appear to be in any distress. The patient was started on REM. In addition, the patient received a normal vitamins. In addition, the patient is receiving Decadron and Lovenox. Sodium 140, potassium 4.3, chlorides 103, CO2 29, anion gap 9, BUN 11, creatinine 0.6. Chest x-ray from May 31 is reviewed. Reevaluated today on 06/03/2020, patient remains on 5 L nasal cannula, O2 saturations 94%. Patient has Down syndrome, she is not a great historian, but she seems to be quite comfortable, and not in distress. No labs were drawn today. But looking at her previous inflammatory markers, her LDH was 1460 and her C-reactive protein was 141. Chest x-ray on admission showed bibasilar consolidations/bibasilar opacities. Patient has been receiving Decadron and Lovenox. And she also received REM. Along with vitamins. Patient was reevaluated today on 06/04/2020, remains on 5 L nasal cannula, O2 saturation is 93%, patient seems to be very comfortable, and in no distress. No labs were drawn today. Objective - Vital Signs Vital signs: Vital Signs Temp 97.2 F L 06/04/20 08:00 Pulse 85 06/04/20 08:00 Resp 16 06/04/20 08:00 BP 142/87 06/04/20 08:00 Pulse Ox 93 L 06/04/20 08:00 Intake & Output 06/03/20 06/04/20 06/04/20 18:59 06:59 18:59 Output Total 500 Balance -500 Weight 79.5 kg Output: Urine 500 Other: Voiding Method Diaper Diaper Diaper Incontinent Incontinent Incontinent # Voids 600 2 - Exam Physical Exam: Revealed 55-year-old female, with mental delay and Down syndrome. On 5 L nasal cannula. In no distress. Head: Atraumatic, normocephalic. She does have what the neck and short stature HEENT:[Neck is supple.] [No neck masses.] [No thyromegaly.] [No JVD.] Chest: Metrical chest expansion, crackles at the bases Cardiac Exam: [Normal S1 and S2, no S3 gallop, no murmur.] Abdomen: [Soft, nontender, no megaly, no rebound, no guarding, normal bowel sounds.] Extremities: [No clubbing, no edema, no cyanosis.] Neurological Exam: Awake, unable to assess the neurological status. Patient has Down syndrome. Skin: No rashes. - Labs CBC & Chem 7: 05/31/20 09:16 06/02/20 05:50 Labs: Abnormal Lab Results - Last 24 Hours (Table) 06/03/20 06/03/20 06/03/20 Range/Units 11:20 17:14 20:21 POC Glucose (mg/dL) 161 H 153 H 156 H (75-99) mg/dL 06/04/20 Range/Units 07:26 POC Glucose (mg/dL) 110 H (75-99) mg/dL Microbiology - Last 24 Hours (Table) 05/31/20 09:28 Blood Culture - Preliminary Blood No Growth after 72 hours 05/31/20 09:28 Blood Culture - Preliminary Blood No Growth after 72 hours Assessment and Plan Assessment: Impression: Acute hypoxic respiratory failure secondary to acute covid 19 pneumonia. History of Down syndrome. Type 2 diabetes. Hypothyroidism. History of schizophrenia. Recommendation: Continue present supportive care measures. Continue oxygen. And titrate accordingly. Continue the Covid 19 cocktail. Continue REM. Continue Decadron. Continue Lovenox. Continue vitamin D. Continue aspirin. We will continue to follow. Time with Patient: Less than 30
[2020-06-04 11:30] LABS: Glucose,Whole Blood 108 mg/dL (75-99)
[2020-06-04] MEDS: REMDESIVIR 100 MG in SODIUM CHLORIDE 0.9% 250 ML IVPB SCH (12:49)
[2020-06-04] MEDS: DEXAMETHASONE SOD PHOSPHATE 10 MG/ML 1 ML VIAL IV SCH (12:49)
[2020-06-04] MEDS: CHOLECALCIFEROL 10 MCG (400 IU) TABLET PO SCH (15:42)
[2020-06-04 17:12] LABS: Glucose,Whole Blood 125 mg/dL (75-99)
[2020-06-04 20:08] LABS: Glucose,Whole Blood 136 mg/dL (75-99)
[2020-06-04] MEDS: OLANZapine 7.5 MG TAB PO SCH (20:43)
[2020-06-04] MEDS: KETOCONAZOLE 2% SHAMPOO 1 APPLIC/ML TOPICAL SCH (20:45)
[2020-06-04] MEDS: CLOTRIMAZOLE/BETAMETH 1-0.05% CREAM 45 GM TUBE TOPICAL SCH (20:45)
--- NOTE | 2020-06-04 22:21 | P.PN ---
Progress Note - Text Progress Note Date: 06/03/20 History of presenting complaint 55-year-old pleasant female with known history of Down syndrome was brought in here has a patient was having some shortness of breath but presently not hypoxic saturating well on room air. Patient does have infiltrate in the left lower lung barrera. Patient had multiple bowel movements and the half-way is unable to handle the patient because of which patient was brought to ER. Patient was seen to 3 days ago at [facility]. I was asked to admit the patient. But patient's family that his sister wanted to take her back to half-way as she doesn't do well with hospitalization because of that reason considering that she had an infiltrate in the left lower lung barrera patient was discharged on Ceftin. There was no evidence of cord at that time patient was mainly complaining of left hip pain imaging was within normal limits. Patient denied any sustained. Kind of pain at this time patient is being given a monoclonal antibody infusion patient will be monitored overnight. Patient was having these bowel movements most probably because of the antibiotic because of which I'll hold antibiotic, if patient is clinically doing well after evaluation with physical therapy and occupational therapy patient Today: Laying in bed. Hypoxic. On 5 L of nasal cannula. Not in distress. Oral intake variable Review of systems: Was done for constitutional, cardiovascular, GI, pulmonary. relevant finding as above Current medications reviewed in today's electronic records On examination: VITAL SIGNS: 97.6, 93, 18, 158/81, 94% on 5 L GENERAL APPEARANCE: Laying in bed, awake HEENT: Normal external appearance of nose and ear. Oral cavity normal EYES: Pupils equal. Conjunctiva normal. NECK: JVD not raised. Mass not palpable. RESPIRATORY: Respiratory effort increased, decreased breath sounds. CARDIOVASCULAR: First and second sounds normal. No edema. ABDOMEN: Soft. Liver and spleen not palpable. No tenderness. No mass palpable. PSYCHIATRY: Awake answering questions INVESTIGATIONS, reviewed in the clinical context: Accu-Cheks noted Assessment and plan: Acute Covid 19 pneumonia . Patient on Ventolin, vitamin D3, IV Decadron, subcu Lovenox, IV Remdesivir Acute hypoxic respiratory failure secondary to pneumonia, slow to respond Currently on 5 L us FiO2 -Fecal incontinence: Supportive care -Acute medical debility Generalized deconditioning: Physical and occupational therapy evaluation -Sleep apnea -Hypothyroidism Continue with Synthroid -Schizophrenia Continue with Zyprexa, Ativan, Cymbalta -Down syndrome -DVT prophylaxis with Lovenox Continue with current medication treatment plan. Follow with pulmonary
--- NOTE | 2020-06-04 22:23 | P.PN ---
Progress Note - Text Progress Note Date: 06/04/20 55-year-old pleasant female with known history of Down syndrome was brought in here has a patient was having some shortness of breath but presently not hypoxic saturating well on room air. Patient does have infiltrate in the left lower lung barrera. Patient had multiple bowel movements and the senior living is unable to handle the patient because of which patient was brought to ER. Patient was seen to 3 days ago at [facility]. I was asked to admit the patient. But patient's family that his sister wanted to take her back to senior living as she doesn't do well with hospitalization because of that reason considering that she had an infiltrate in the left lower lung barrera patient was discharged on Ceftin. There was no evidence of cord at that time patient was mainly complaining of left hip pain imaging was within normal limits. Patient denied any sustained. Kind of pain at this time patient is being given a monoclonal antibody infusion patient will be monitored overnight. Patient was having these bowel movements most probably because of the antibiotic because of which I'll hold antibiotic, if patient is clinically doing well after evaluation with physical therapy and occupational therapy patient Today: Hypoxic. On 5 L of nasal cannula. Eating fair amount. Review of systems: Was done for constitutional, cardiovascular, GI, pulmonary. relevant finding as above Active Medications Acetaminophen (Acetaminophen Tab 325 Mg Tab) 650 mg PO Q4HR PRN PRN Reason: Fever and/ or Pain Last Admin: 06/01/20 11:33 Dose: 650 mg Documented by: Albuterol Sulfate (Albuterol Hfa Inhaler) 2 puff INHALATION RT-Q6H PRN PRN Reason: Shortness Of Breath Last Admin: 06/04/20 11:29 Dose: 2 puff Documented by: Artificial Tears (Artificial Tears-Hypromellose Drops 15 Ml Btl) 1 drops RIGHT EYE TID [facility] Last Admin: 06/04/20 20:44 Dose: 1 drops Documented by: Aspirin (Aspirin 81 Mg) 81 mg PO DAILY [facility] Last Admin: 06/04/20 08:44 Dose: 81 mg Documented by: Betamethasone/Clotrimazole (Clotrimazole/Betameth 1-0.05% Cream 45 Gm Tube) 1 applic TOPICAL HS [facility] Last Admin: 06/04/20 20:45 Dose: 1 applic Documented by: Cholecalciferol (Cholecalciferol 10 Mcg (400 Iu) Tablet) 10 mcg PO DAILY@1600 [facility] Last Admin: 06/04/20 15:42 Dose: 10 mcg Documented by: Cyanocobalamin (Cyanocobalamin 500 Mcg Tab) 1,000 mcg PO DAILY@0800 [facility] Last Admin: 06/04/20 08:45 Dose: 1,000 mcg Documented by: Dexamethasone Sodium Phosphate (Dexamethasone Sod Phosphate 10 Mg/Ml 1 Ml Vial) 6 mg IV DAILY [facility] Last Admin: 06/04/20 12:49 Dose: 6 mg Documented by: Duloxetine HCl (Duloxetine Hcl 60 Mg Capsule.Dr) 60 mg PO BID@0800,1600 [facility] Last Admin: 06/04/20 15:42 Dose: 60 mg Documented by: Enoxaparin Sodium (Enoxaparin 40 Mg/0.4 Ml Syringe) 40 mg SQ DAILY [facility] Last Admin: 06/04/20 08:44 Dose: 40 mg Documented by: Remdesivir 100 mg/ Sodium (Chloride) 250 mls @ 250 mls/hr IVPB DAILY@1100 [facility] Stop: 06/05/20 11:59 Last Admin: 06/04/20 12:49 Dose: 250 mls/hr Documented by: Sodium Chloride (Saline 0.9%) 1,000 mls @ 75 mls/hr IV .[id number] [facility] Last Admin: 06/04/20 20:43 Dose: 75 mls/hr Documented by: Ketoconazole (Ketoconazole 2% Shampoo 1 Applic/Ml) 1 applic TOPICAL HS [facility] Last Admin: 06/04/20 20:45 Dose: 1 applic Documented by: Ketotifen Fumarate (Ketotifen 0.025% Ophth Drops 5 Ml Btl) 1 drops BOTH EYES BID [facility] Last Admin: 06/04/20 20:45 Dose: 1 drops Documented by: Levothyroxine Sodium (Levothyroxine 25 Mcg Tab) 25 mcg PO DAILY@0800 [facility] Last Admin: 06/04/20 08:44 Dose: 25 mcg Documented by: Lorazepam (Lorazepam 0.5 Mg Tab) 0.5 mg PO BID@0800,2100 [facility] Last Admin: 06/04/20 20:43 Dose: 0.5 mg Documented by: Memantine (Memantine 10 Mg Tab) 10 mg PO BID@0800,2100 [facility] Last Admin: 06/04/20 20:43 Dose: 10 mg Documented by: Mupirocin (Mupirocin 2% Oint 22 Gm Tube) 1 applic TOPICAL TID PRN PRN Reason: Rash Olanzapine (Olanzapine 7.5 Mg Tab) 7.5 mg PO HS@2100 [facility] Last Admin: 06/04/20 20:43 Dose: 7.5 mg Documented by: Olanzapine (Olanzapine Odt 5 Mg Tab) 5 mg PO DAILY PRN PRN Reason: ESCALATING BEHAVIOR Pantoprazole Sodium (Pantoprazole 40 Mg Tablet) 40 mg PO DAILY@0800 [facility] Last Admin: 06/04/20 08:45 Dose: 40 mg Documented by: Simethicone (Simethicone 80 Mg Chewable) 120 mg PO DAILY PRN PRN Reason: GAS Sodium Chloride (Sodium Chloride 5% Ophth Drops 15 Ml Btl) 1 drops LEFT EYE BID@0800,2100 [facility] Last Admin: 06/04/20 20:44 Dose: 1 drops Documented by: On examination: VITAL SIGNS: 97.5, 77, 20, 118/35, 92% on 5 L GENERAL APPEARANCE: Laying in bed, awake HEENT: Normal external appearance of nose and ear. Oral cavity normal EYES: Pupils equal. Conjunctiva normal. NECK: JVD not raised. Mass not palpable. RESPIRATORY: Respiratory effort increased, decreased breath sounds. CARDIOVASCULAR: First and second sounds normal. No edema. ABDOMEN: Soft. Liver and spleen not palpable. No tenderness. No mass palpable. PSYCHIATRY: Awake answering questions INVESTIGATIONS, reviewed in the clinical context: Accu-Cheks noted Assessment and plan: Acute Covid 19 pneumonia . Patient on Ventolin, vitamin D3, IV Decadron, subcu Lovenox, IV Remdesivir Acute hypoxic respiratory failure secondary to pneumonia, slow to respond Currently on 5 L us FiO2 -Fecal incontinence: Supportive care -Acute medical debility Generalized deconditioning: Physical and occupational therapy evaluation -Sleep apnea -Hypothyroidism Continue with Synthroid -Schizophrenia Continue with Zyprexa, Ativan, Cymbalta -Down syndrome -DVT prophylaxis with Lovenox Continue with current medication treatment plan. Follow with pulmonary
[2020-06-05 07:03] LABS: Glucose,Whole Blood 114 mg/dL (75-99)
[2020-06-05] MEDS: ALBUTEROL HFA INHALER INHALATION PRN ×2 (08:14→20:23)
[2020-06-05] MEDS: MEMANTINE 10 MG TAB PO SCH ×2 (08:57→20:53)
[2020-06-05] MEDS: CYANOCOBALAMIN 500 MCG TAB PO SCH (08:57)
[2020-06-05] MEDS: PANTOPRAZOLE 40 MG TABLET PO SCH (08:57)
[2020-06-05] MEDS: LEVOTHYROXINE 25 MCG TAB PO SCH (08:57)
[2020-06-05] MEDS: DULoxetine HCL 60 MG CAPSULE.DR PO SCH ×2 (08:57→15:46)
[2020-06-05] MEDS: SODIUM CHLORIDE 5% OPHTH DROPS 15 ML BTL LEFT EYE SCH ×2 (08:58→20:53)
[2020-06-05] MEDS: LORazepam 0.5 MG TAB PO SCH ×2 (08:58→20:53)
[2020-06-05] MEDS: ASPIRIN 81 MG PO SCH (08:59)
[2020-06-05] MEDS: DEXAMETHASONE SOD PHOSPHATE 10 MG/ML 1 ML VIAL IV SCH (08:59)
[2020-06-05] MEDS: ENOXAPARIN 40 MG/0.4 ML SYRINGE SQ SCH (08:59)
[2020-06-05] MEDS: KETOTIFEN 0.025% OPHTH DROPS 5 ML BTL BOTH EYES SCH ×2 (08:59→20:52)
[2020-06-05] MEDS: SODIUM CHLORIDE 0.9% 1,000 ML IV SCH ×2 (08:59→22:04)
[2020-06-05] MEDS: ARTIFICIAL TEARS-HYPROMELLOSE DROPS 15 ML BTL RIGHT EYE SCH ×3 (08:59→20:53)
--- NOTE | 2020-06-05 09:46 | P.PN ---
Subjective Progress Note Date: 06/05/20 Principal diagnosis: Acute hypoxic respiratory failure secondary to acute covid 19 pneumonia. 55-year-old female with history of Down syndrome, admitted yesterday with mostly a few days' history of fever, shortness of breath. And abnormal chest x-ray showing a left lower lobe infiltrate. The patient herself is a very poor historian, she lives at a retirement. And based on the clinical information from the chart, she was seen 3 days ago at [facility], and she was s pecifically seen by the admitting physician/Dr. Shaw,, and he treated the patient with Ceftin for abnormal chest x-ray showing infiltrate in the left lower lobe. I am not certain whether the patient was truly diagnosed with covid 19 infection at the time or not, but supposedly she had a EC done and she was discharged before the results came back. This time the patient was apparently sicker and feeling worse, her montgomery virus screening was positive, chest x-ray showed mostly low lung volumes and hypoventilatory changes with increasing bibasilar atelectasis opacities. Patient was admitted and this consult was initiated. Not much information could be obtained from the patient herself. P atient was started at this time on REM. And she is now on the Covid 19 cocktail. Progress note dated 06/02/2020. 55-year-old female with history of Down's syndrome. She apparently was admitted with a diagnosis of fever, shortness of breath, and COVID 19 pneumonia. She was seen by my partner yesterday. Chest x-ray was abnormal. She apparently was seen 3 days prior to the admission here, at [facility]. Currently, the patient is on saline at 75 mL an hour, and nasal cannula at 6 L. Her saturations are 95%. She does not appear to be in any distress. The patient was started on REM. In addition, the patient received a normal vitamins. In addition, the patient is receiving Decadron and Lovenox. Sodium 140, potassium 4.3, chlorides 103, CO2 29, anion gap 9, BUN 11, creatinine 0.6. Chest x-ray from May 31 is reviewed. Reevaluated today on 06/03/2020, patient remains on 5 L nasal cannula, O2 saturations 94%. Patient has Down syndrome, she is not a great historian, but she seems to be quite comfortable, and not in distress. No labs were drawn today. But looking at her previous inflammatory markers, her LDH was 1460 and her C-reactive protein was 141. Chest x-ray on admission showed bibasilar consolidations/bibasilar opacities. Patient has been receiving Decadron and Lovenox. And she also received REM. Along with vitamins. Patient was reevaluated today on 06/04/2020, remains on 5 L nasal cannula, O2 saturation is 93%, patient seems to be very comfortable, and in no distress. No labs were drawn today. Patient was reevaluated today on 06/05/2020, she is about the same, she is now on 4 L nasal cannula and maintaining adequate saturations. Patient is not a good historian, she is nonverbal, but she seems to be doing well and steadily improving. Does not seem to be in any distress. Her d-dimer today is 1.54. Objective - Vital Signs Vital signs: Vital Signs Temp 97.8 F 06/05/20 08:00 Pulse 72 06/05/20 08:00 Resp 18 06/05/20 08:00 BP 111/74 06/05/20 08:00 Pulse Ox 90 L 06/05/20 09:11 Intake & Output 06/04/20 06/05/20 06/05/20 18:59 06:59 18:59 Intake Total 400 Balance 400 Weight 79 kg Intake: Oral 400 Other: Voiding Method Diaper Diaper Diaper Incontinent Incontinent Incontinent # Voids 2 2 - Exam Physical Exam: Revealed 55-year-old female, with mental delay and Down syndrome. On 4 L nasal cannula, comfortable, relatively asymptomatic. Not a good historian. Head: Atraumatic, normocephalic. She does have what the neck and short stature HEENT:[Neck is supple.] [No neck masses.] [No thyromegaly.] [No JVD.] Chest: Metrical chest expansion, crackles at the bases Cardiac Exam: [Normal S1 and S2, no S3 gallop, no murmur.] Abdomen: [Soft, nontender, no megaly, no rebound, no guarding, normal bowel sounds.] Extremities: [No clubbing, no edema, no cyanosis.] Neurological Exam: Awake, unable to assess the neurological status. Patient has Down syndrome. Skin: No rashes. - Labs CBC & Chem 7: 05/31/20 09:16 06/02/20 05:50 Labs: Abnormal Lab Results - Last 24 Hours (Table) 06/04/20 06/04/20 06/04/20 Range/Units 11:28 17:11 20:07 D-Dimer (<0.60) mg/L FEU POC Glucose (mg/dL) 108 H 125 H 136 H (75-99) mg/dL 06/05/20 06/05/20 Range/Units 07:02 07:35 D-Dimer 1.54 H (<0.60) mg/L FEU POC Glucose (mg/dL) 114 H (75-99) mg/dL Microbiology - Last 24 Hours (Table) 05/31/20 09:28 Blood Culture - Preliminary Blood No Growth after 96 hours 05/31/20 09:28 Blood Culture - Preliminary Blood No Growth after 96 hours Assessment and Plan Assessment: Impression: Acute hypoxic respiratory failure secondary to acute covid 19 pneumonia. History of Down syndrome. Type 2 diabetes. Hypothyroidism. History of schizophrenia. Recommendation: Continue present supportive care measures. Continue oxygen titration. Continue the Covid 19 cocktail. Continue REM. Continue Decadron. Continue Lovenox. Continue vitamin D. Continue aspirin. Consider discharge planning after the full treatment of REM. However the patient will likely need to be placed in a rehab facility or half-way. Or possibly adult foster longterm. Cleared from our perspective for discharge planning. We will continue to follow. Time with Patient: Less than 30
[2020-06-05] MEDS: REMDESIVIR 100 MG in SODIUM CHLORIDE 0.9% 250 ML IVPB SCH (11:43)
[2020-06-05 12:03] LABS: Glucose,Whole Blood 128 mg/dL (75-99)
[2020-06-05] MEDS: CHOLECALCIFEROL 10 MCG (400 IU) TABLET PO SCH (15:46)
[2020-06-05 17:31] LABS: Glucose,Whole Blood 125 mg/dL (75-99)
[2020-06-05 20:19] LABS: Glucose,Whole Blood 177 mg/dL (75-99)
[2020-06-05] MEDS: CLOTRIMAZOLE/BETAMETH 1-0.05% CREAM 45 GM TUBE TOPICAL SCH (20:52)
[2020-06-05] MEDS: KETOCONAZOLE 2% SHAMPOO 1 APPLIC/ML TOPICAL SCH (20:52)
[2020-06-05] MEDS: OLANZapine 7.5 MG TAB PO SCH (20:53)
--- NOTE | 2020-06-05 22:49 | P.PN ---
Progress Note - Text Progress Note Date: 06/05/20 55-year-old pleasant female with known history of Down syndrome was brought in here has a patient was having some shortness of breath but presently not hypoxic saturating well on room air. Patient does have infiltrate in the left lower lung barrera. Patient had multiple bowel movements and the intermediate is unable to handle the patient because of which patient was brought to ER. Patient was seen to 3 days ago at [facility]. I was asked to admit the patient. But patient's family that his sister wanted to take her back to intermediate as she doesn't do well with hospitalization because of that reason considering that she had an infiltrate in the left lower lung barrera patient was discharged on Ceftin. There was no evidence of cord at that time patient was mainly complaining of left hip pain imaging was within normal limits. Patient denied any sustained. Kind of pain at this time patient is being given a monoclonal antibody infusion patient will be monitored overnight. Patient was having these bowel movements most probably because of the antibiotic because of which I'll hold antibiotic, if patient is clinically doing well after evaluation with physical therapy and occupational therapy patient Today: Saw the patient this morning. Sitting upon a chair. Awake. Tired. No t eating much. Review of systems: Attempted for constitutional, cardiovascular, GI, pulmonary. relevant finding as above Active Medications Acetaminophen (Acetaminophen Tab 325 Mg Tab) 650 mg PO Q4HR PRN PRN Reason: Fever and/ or Pain Last Admin: 06/01/20 11:33 Dose: 650 mg Documented by: Albuterol Sulfate (Albuterol Hfa Inhaler) 2 puff INHALATION RT-Q6H PRN PRN Reason: Shortness Of Breath Last Admin: 06/05/20 20:23 Dose: 2 puff Documented by: Artificial Tears (Artificial Tears-Hypromellose Drops 15 Ml Btl) 1 drops RIGHT EYE TID [facility] Last Admin: 06/05/20 20:53 Dose: 1 drops Documented by: Aspirin (Aspirin 81 Mg) 81 mg PO DAILY [facility] Last Admin: 06/05/20 08:59 Dose: 81 mg Documented by: Betamethasone/Clotrimazole (Clotrimazole/Betameth 1-0.05% Cream 45 Gm Tube) 1 applic TOPICAL HS [facility] Last Admin: 06/05/20 20:52 Dose: 1 applic Documented by: Cholecalciferol (Cholecalciferol 10 Mcg (400 Iu) Tablet) 10 mcg PO DAILY@1600 [facility] Last Admin: 06/05/20 15:46 Dose: 10 mcg Documented by: Cyanocobalamin (Cyanocobalamin 500 Mcg Tab) 1,000 mcg PO DAILY@0800 [facility] Last Admin: 06/05/20 08:57 Dose: 1,000 mcg Documented by: Dexamethasone Sodium Phosphate (Dexamethasone Sod Phosphate 10 Mg/Ml 1 Ml Vial) 6 mg IV DAILY [facility] Last Admin: 06/05/20 08:59 Dose: 6 mg Documented by: Duloxetine HCl (Duloxetine Hcl 60 Mg Capsule.Dr) 60 mg PO BID@0800,1600 [facility] Last Admin: 06/05/20 15:46 Dose: 60 mg Documented by: Enoxaparin Sodium (Enoxaparin 40 Mg/0.4 Ml Syringe) 40 mg SQ DAILY [facility] Last Admin: 06/05/20 08:59 Dose: 40 mg Documented by: Sodium Chloride (Saline 0.9%) 1,000 mls @ 75 mls/hr IV .[id number] [facility] Last Admin: 06/05/20 22:04 Dose: 75 mls/hr Documented by: Ketoconazole (Ketoconazole 2% Shampoo 1 Applic/Ml) 1 applic TOPICAL HS [facility] Last Admin: 06/05/20 20:52 Dose: 1 applic Documented by: Ketotifen Fumarate (Ketotifen 0.025% Ophth Drops 5 Ml Btl) 1 drops BOTH EYES BID [facility] Last Admin: 06/05/20 20:52 Dose: 1 drops Documented by: Levothyroxine Sodium (Levothyroxine 25 Mcg Tab) 25 mcg PO DAILY@0800 [facility] Last Admin: 06/05/20 08:57 Dose: 25 mcg Documented by: Lorazepam (Lorazepam 0.5 Mg Tab) 0.5 mg PO BID@0800,2100 [facility] Last Admin: 06/05/20 20:53 Dose: 0.5 mg Documented by: Memantine (Memantine 10 Mg Tab) 10 mg PO BID@0800,2100 [facility] Last Admin: 06/05/20 20:53 Dose: 10 mg Documented by: Mupirocin (Mupirocin 2% Oint 22 Gm Tube) 1 applic TOPICAL TID PRN PRN Reason: Rash Olanzapine (Olanzapine 7.5 Mg Tab) 7.5 mg PO HS@2099 [facility] Last Admin: 06/05/20 20:53 Dose: 7.5 mg Documented by: Olanzapine (Olanzapine Odt 5 Mg Tab) 5 mg PO DAILY PRN PRN Reason: ESCALATING BEHAVIOR Pantoprazole Sodium (Pantoprazole 40 Mg Tablet) 40 mg PO DAILY@0800 [facility] Last Admin: 06/05/20 08:57 Dose: 40 mg Documented by: Simethicone (Simethicone 80 Mg Chewable) 120 mg PO DAILY PRN PRN Reason: GAS Sodium Chloride (Sodium Chloride 5% Ophth Drops 15 Ml Btl) 1 drops LEFT EYE BID@0800,2100 [facility] Last Admin: 06/05/20 20:53 Dose: 1 drops Documented by: On examination: VITAL SIGNS: 97.9, 80, 18, 120/81, 90% on 4 L GENERAL APPEARANCE: Sitting up in a chair, awake, tired HEENT: Normal external appearance of nose and ear. Oral cavity normal NEUROLOGIC: No facial asymmetry. Morning labs RESPIRATORY: Respiratory effort increased, PSYCHIATRY: Awake answering questions Rest of exam as per pulmonary nursing INVESTIGATIONS, reviewed in the clinical context: June 05: D-dimer 1.5 for CRP 29.5. Accu-Cheks 128, 125 Accu-Cheks noted Assessment and plan: Acute Covid 19 pneumonia . Patient on Ventolin, vitamin D3, IV Decadron, subcu Lovenox, IV Remdesivir Acute hypoxic respiratory failure secondary to pneumonia, slow to respond Currently on 4 L us FiO2 -Fecal incontinence: Supportive care -Acute medical debility Generalized deconditioning: Physical and occupational therapy evaluation -Sleep apnea -Hypothyroidism Continue with Synthroid -Schizophrenia Continue with Zyprexa, Ativan, Cymbalta -Down syndrome -DVT prophylaxis with Lovenox -Metabolic encephalopathy. Patient other drowsy. Will DC the Ativan. Also DC Namenda. Continue with current medication treatment plan. Follow with pulmonary
[2020-06-06 07:47] LABS: Glucose,Whole Blood 92 mg/dL (75-99)
[2020-06-06] MEDS: ASPIRIN 81 MG PO SCH (08:14)
[2020-06-06] MEDS: DULoxetine HCL 60 MG CAPSULE.DR PO SCH ×2 (08:14→17:12)
[2020-06-06] MEDS: LEVOTHYROXINE 25 MCG TAB PO SCH (08:14)
[2020-06-06] MEDS: CYANOCOBALAMIN 500 MCG TAB PO SCH (08:14)
[2020-06-06] MEDS: PANTOPRAZOLE 40 MG TABLET PO SCH (08:14)
[2020-06-06] MEDS: DEXAMETHASONE SOD PHOSPHATE 10 MG/ML 1 ML VIAL IV SCH (08:15)
[2020-06-06] MEDS: ENOXAPARIN 40 MG/0.4 ML SYRINGE SQ SCH (08:15)
[2020-06-06] MEDS: ALBUTEROL HFA INHALER INHALATION PRN ×3 (08:53→20:13)
[2020-06-06] MEDS: ARTIFICIAL TEARS-HYPROMELLOSE DROPS 15 ML BTL RIGHT EYE SCH ×3 (09:23→20:05)
[2020-06-06] MEDS: SODIUM CHLORIDE 5% OPHTH DROPS 15 ML BTL LEFT EYE SCH ×2 (09:24→20:05)
[2020-06-06] MEDS: KETOTIFEN 0.025% OPHTH DROPS 5 ML BTL BOTH EYES SCH ×2 (09:26→20:05)
--- NOTE | 2020-06-06 10:28 | P.PN ---
Subjective Progress Note Date: 06/06/20 Principal diagnosis: Acute hypoxic respiratory failure secondary to acute covid 19 pneumonia. 55-year-old female with history of Down syndrome, admitted yesterday with mostly a few days' history of fever, shortness of breath. And abnormal chest x-ray showing a left lower lobe infiltrate. The patient herself is a very poor historian, [facility] And based on the clinical information from the chart, she was seen 3 days ago at [facility], and she was s pecifically seen by the admitting physician/Dr. Shaw,, and he treated the patient with Ceftin for abnormal chest x-ray showing infiltrate in the left lower lobe. I am not certain whether the patient was truly diagnosed with covid 19 infection at the time or not, but supposedly she had a EC done and she was discharged before the results came back. This time the patient was apparently sicker and feeling worse, her [place] virus screening was positive, chest x-ray showed mostly low lung volumes and hypoventilatory changes with increasing bibasilar atelectasis opacities. Patient was admitted and this consult was initiated. Not much information could be obtained from the patient herself. P atient was started at this time on REM. And she is now on the Covid 19 cocktail. Progress note dated 06/02/2020. 55-year-old female with history of Down's syndrome. She apparently was admitted with a diagnosis of fever, shortness of breath, and COVID 19 pneumonia. She was seen by my partner yesterday. Chest x-ray was abnormal. She apparently was seen 3 days prior to the admission here, at [facility]. Currently, the patient is on saline at 75 mL an hour, and nasal cannula at 6 L. Her saturations are 95%. She does not appear to be in any distress. The patient was started on REM. In addition, the patient received a normal vitamins. In addition, the patient is receiving Decadron and Lovenox. Sodium 140, potassium 4.3, chlorides 103, CO2 29, anion gap 9, BUN 11, creatinine 0.6. Chest x-ray from May 31 is reviewed. Reevaluated today on 06/03/2020, patient remains on 5 L nasal cannula, O2 saturations 94%. Patient has Down syndrome, she is not a great historian, but she seems to be quite comfortable, and not in distress. No labs were drawn today. But looking at her previous inflammatory markers, her LDH was 1460 and her C-reactive protein was 141. Chest x-ray on admission showed bibasilar consolidations/bibasilar opacities. Patient has been receiving Decadron and Lovenox. And she also received REM. Along with vitamins. Patient was reevaluated today on 06/04/2020, remains on 5 L nasal cannula, O2 saturation is 93%, patient seems to be very comfortable, and in no distress. No labs were drawn today. Patient was reevaluated today on 06/05/2020, she is about the same, she is now on 4 L nasal cannula and maintaining adequate saturations. Patient is not a good historian, she is nonverbal, but she seems to be doing well and steadily improving. Does not seem to be in any distress. Her d-dimer today is 1.54. Patient was reevaluated today on 06/06/2020, she is now on 4 L nasal cannula, and she is saturating about 92%. Patient is nonverbal and she is not in any distress. Her d-dimer is 1.54. Blood sugar is 177 C-reactive protein is 29.5. Objective - Vital Signs Vital signs: Vital Signs Temp 97.5 F L 06/06/20 07:41 Pulse 68 06/06/20 07:41 Resp 16 06/06/20 07:41 BP 139/58 06/06/20 07:41 Pulse Ox 92 L 06/06/20 07:41 Intake & Output 06/05/20 06/06/20 06/06/20 18:59 06:59 18:59 Intake Total 120 Balance 120 Intake: Oral 120 Other: Voiding Method Diaper Diaper Incontinent Incontinent # Voids 2 2 - Exam Physical Exam: Revealed 55-year-old female, with mental delay and Down syndrome. On 4 L nasal cannula, comfortable, in no distress Head: Atraumatic, normocephalic. She does have what the neck and short stature HEENT:[Neck is supple.] [No neck masses.] [No thyromegaly.] [No JVD.] Chest: Metrical chest expansion, crackles at the bases Cardiac Exam: [Normal S1 and S2, no S3 gallop, no murmur.] Abdomen: [Soft, nontender, no megaly, no rebound, no guarding, normal bowel sounds.] Extremities: [No clubbing, no edema, no cyanosis.] Neurological Exam: Awake, unable to assess the neurological status. Patient has Down syndrome. Skin: No rashes. - Labs CBC & Chem 7: 05/31/20 09:16 06/02/20 05:50 Labs: Abnormal Lab Results - Last 24 Hours (Table) 06/05/20 06/05/20 06/05/20 Range/Units 07:35 12:01 17:30 POC Glucose (mg/dL) 128 H 125 H (75-99) mg/dL C-Reactive Protein 29.5 H (<10.0) mg/L 06/05/20 Range/Units 20:18 POC Glucose (mg/dL) 177 H (75-99) mg/dL C-Reactive Protein (<10.0) mg/L Microbiology - Last 24 Hours (Table) 05/31/20 09:28 Blood Culture - Preliminary Blood No Growth after 120 hours 05/31/20 09:28 Blood Culture - Preliminary Blood No Growth after 120 hours Assessment and Plan Assessment: Impression: Acute hypoxic respiratory failure secondary to acute covid 19 pneumonia. History of Down syndrome. Type 2 diabetes. Hypothyroidism. History of schizophrenia. Recommendation: Continue present supportive care measures. Continue oxygen titration. Continue the Covid 19 cocktail. Continue REM. Continue Decadron. Continue Lovenox. Continue vitamin D. Continue aspirin. Consider discharge planning in the next 24 hours. Time with Patient: Less than 30
[2020-06-06 12:04] LABS: Glucose,Whole Blood 83 mg/dL (75-99)
[2020-06-06] MEDS: SODIUM CHLORIDE 0.9% 1,000 ML IV SCH (13:11)
[2020-06-06] MEDS: CHOLECALCIFEROL 10 MCG (400 IU) TABLET PO SCH (17:12)
[2020-06-06 17:26] LABS: Glucose,Whole Blood 146 mg/dL (75-99)
[2020-06-06] MEDS: OLANZapine 7.5 MG TAB PO SCH (20:04)
[2020-06-06] MEDS: KETOCONAZOLE 2% SHAMPOO 1 APPLIC/ML TOPICAL SCH (20:06)
[2020-06-06] MEDS: CLOTRIMAZOLE/BETAMETH 1-0.05% CREAM 45 GM TUBE TOPICAL SCH (20:06)
[2020-06-06 20:49] LABS: Glucose,Whole Blood 118 mg/dL (75-99)
--- NOTE | 2020-06-06 23:17 | P.PN ---
Progress Note - Text Progress Note Date: 06/06/20 55-year-old pleasant female with known history of Down syndrome was brought in here has a patient was having some shortness of breath but presently not hypoxic saturating well on room air. Patient does have infiltrate in the left lower lung barrera. Patient had multiple bowel movements and the retirement is unable to handle the patient because of which patient was brought to ER. Patient was seen to 3 days ago at [facility]. I was asked to admit the patient. But patient's family that his sister wanted to take her back to retirement as she doesn't do well with hospitalization because of that reason considering that she had an infiltrate in the left lower lung barrera patient was discharged on Ceftin. There was no evidence of cord at that time patient was mainly complaining of left hip pain imaging was within normal limits. Patient denied any sustained. Kind of pain at this time patient is being given a monoclonal antibody infusion patient will be monitored overnight. Patient was having these bowel movements most probably because of the antibiotic because of which I'll hold antibiotic, if patient is clinically doing well after evaluation with physical therapy and occupational therapy patient . Because of patient being drowsy and sleepy. Ativan discontinued. Namenda discontinued. Today: Some improvement in oral intake. With more awake today. Discussed with the nurse to cut back on FiO2. Review of systems: Attempted for constitutional, cardiovascular, GI, pulmonary. relevant finding as above Active Medications Acetaminophen (Acetaminophen Tab 325 Mg Tab) 650 mg PO Q4HR PRN PRN Reason: Fever and/ or Pain Last Admin: 06/01/20 11:33 Dose: 650 mg Documented by: Albuterol Sulfate (Albuterol Hfa Inhaler) 2 puff INHALATION RT-Q6H PRN PRN Reason: Shortness Of Breath Last Admin: 06/06/20 20:13 Dose: 2 puff Documented by: Artificial Tears (Artificial Tears-Hypromellose Drops 15 Ml Btl) 1 drops RIGHT EYE TID [facility] Last Admin: 06/06/20 20:05 Dose: 1 drops Documented by: Aspirin (Aspirin 81 Mg) 81 mg PO DAILY [facility] Last Admin: 06/06/20 08:14 Dose: 81 mg Documented by: Betamethasone/Clotrimazole (Clotrimazole/Betameth 1-0.05% Cream 45 Gm Tube) 1 applic TOPICAL HS [facility] Last Admin: 06/06/20 20:06 Dose: 1 applic Documented by: Cholecalciferol (Cholecalciferol 10 Mcg (400 Iu) Tablet) 10 mcg PO DAILY@1600 [facility] Last Admin: 06/06/20 17:12 Dose: 10 mcg Documented by: Cyanocobalamin (Cyanocobalamin 500 Mcg Tab) 1,000 mcg PO DAILY@0800 [facility] Last Admin: 06/06/20 08:14 Dose: 1,000 mcg Documented by: Dexamethasone Sodium Phosphate (Dexamethasone Sod Phosphate 10 Mg/Ml 1 Ml Vial) 6 mg IV DAILY [facility] Last Admin: 06/06/20 08:15 Dose: 6 mg Documented by: Duloxetine HCl (Duloxetine Hcl 60 Mg Capsule.Dr) 60 mg PO BID@0800,1600 [facility] Last Admin: 06/06/20 17:12 Dose: 60 mg Documented by: Enoxaparin Sodium (Enoxaparin 40 Mg/0.4 Ml Syringe) 40 mg SQ DAILY [facility] Last Admin: 06/06/20 08:15 Dose: 40 mg Documented by: Sodium Chloride (Saline 0.9%) 1,000 mls @ 75 mls/hr IV .[id number] [facility] Last Admin: 06/06/20 13:11 Dose: Not Given Documented by: Ketoconazole (Ketoconazole 2% Shampoo 1 Applic/Ml) 1 applic TOPICAL HS [facility] Last Admin: 06/06/20 20:06 Dose: 1 applic Documented by: Ketotifen Fumarate (Ketotifen 0.025% Ophth Drops 5 Ml Btl) 1 drops BOTH EYES BID [facility] Last Admin: 06/06/20 20:05 Dose: 1 drops Documented by: Levothyroxine Sodium (Levothyroxine 25 Mcg Tab) 25 mcg PO DAILY@0800 [facility] Last Admin: 06/06/20 08:14 Dose: 25 mcg Documented by: Mupirocin (Mupirocin 2% Oint 22 Gm Tube) 1 applic TOPICAL TID PRN PRN Reason: Rash Olanzapine (Olanzapine 7.5 Mg Tab) 7.5 mg PO HS@2100 [facility] Last Admin: 06/06/20 20:04 Dose: 7.5 mg Documented by: Olanzapine (Olanzapine Odt 5 Mg Tab) 5 mg PO DAILY PRN PRN Reason: ESCALATING BEHAVIOR Pantoprazole Sodium (Pantoprazole 40 Mg Tablet) 40 mg PO DAILY@0800 [facility] Last Admin: 06/06/20 08:14 Dose: 40 mg Documented by: Simethicone (Simethicone 80 Mg Chewable) 120 mg PO DAILY PRN PRN Reason: GAS Sodium Chloride (Sodium Chloride 5% Ophth Drops 15 Ml Btl) 1 drops LEFT EYE BID@0800,2100 [facility] Last Admin: 06/06/20 20:05 Dose: 1 drops Documented by: On examination: VITAL SIGNS: 97.5, 87, 20, 89 with 67, 94% on 4 L GENERAL APPEARANCE: Declining in bed, sleepy HEENT: Normal external appearance of nose and ear. Oral cavity normal NEUROLOGIC: No facial asymmetry. Morning labs RESPIRATORY: Respiratory effort increased, PSYCHIATRY: Awake answering questions Rest of exam as per pulmonary nursing INVESTIGATIONS, reviewed in the clinical context: June 05: D-dimer 1.5 for CRP 29.5. Accu-Cheks 128, 125 Accu-Cheks noted Assessment and plan: Acute Covid 19 pneumonia . Patient on Ventolin, vitamin D3, IV Decadron, subcu Lovenox, IV Remdesivir Acute hypoxic respiratory failure secondary to pneumonia, slow to respond Currently on 4 L nasal cannula -Fecal incontinence: Supportive care -Acute medical debility Generalized deconditioning: Physical and occupational therapy evaluation -Sleep apnea -Hypothyroidism Continue with Synthroid -Schizophrenia Continue with Zyprexa, Ativan, Cymbalta -Down syndrome -DVT prophylaxis with Lovenox -Metabolic encephalopathy. Patient other drowsy. Will DC the Ativan. Also DC Namenda. Discussed with the nurse. Encourage oral intake. Watch another 24 hours. Hopefully discharge tomorrow.
[2020-06-07] MEDS: SODIUM CHLORIDE 0.9% 1,000 ML IV SCH ×2 (01:58→15:32)
[2020-06-07 06:59] LABS: African American GFR (CKD) >90 (>60 ml/min/1.73 sqM); Anion Gap 5 mmol/L; Blood Urea Nitrogen 16 mg/dL (7-17); C Reactive Protein 19.1 mg/L (<10.0); Calcium 7.9 mg/dL (8.4-10.2); Carbon Dioxide 36 mmol/L (22-30); Chloride 97 mmol/L (98-107); Glucose 95 mg/dL (74-99); Non-African American GFR(CKD) >90 (>60 ml/min/1.73 sqM); Sodium 138 mmol/L (137-145)
[2020-06-07 08:52] LABS: Glucose,Whole Blood 75 mg/dL (75-99)
[2020-06-07] MEDS: ALBUTEROL HFA INHALER INHALATION PRN (09:02)
[2020-06-07] MEDS: PANTOPRAZOLE 40 MG TABLET PO SCH (09:14)
[2020-06-07] MEDS: DEXAMETHASONE SOD PHOSPHATE 10 MG/ML 1 ML VIAL IV SCH (09:14)
[2020-06-07] MEDS: LEVOTHYROXINE 25 MCG TAB PO SCH (09:14)
[2020-06-07] MEDS: CYANOCOBALAMIN 500 MCG TAB PO SCH (09:14)
[2020-06-07] MEDS: DULoxetine HCL 60 MG CAPSULE.DR PO SCH ×2 (09:14→16:43)
[2020-06-07] MEDS: ASPIRIN 81 MG PO SCH (09:14)
[2020-06-07] MEDS: SODIUM CHLORIDE 5% OPHTH DROPS 15 ML BTL LEFT EYE SCH (09:15)
[2020-06-07] MEDS: ARTIFICIAL TEARS-HYPROMELLOSE DROPS 15 ML BTL RIGHT EYE SCH ×2 (09:15→16:43)
[2020-06-07] MEDS: KETOTIFEN 0.025% OPHTH DROPS 5 ML BTL BOTH EYES SCH (09:15)
[2020-06-07] MEDS: ENOXAPARIN 40 MG/0.4 ML SYRINGE SQ SCH (09:15)
--- NOTE | 2020-06-07 12:13 | P.PN ---
Subjective Progress Note Date: 06/07/20 Principal diagnosis: Acute hypoxic respiratory failure secondary to acute covid 19 pneumonia. 55-year-old female with history of Down syndrome, admitted yesterday with mostly a few days' history of fever, shortness of breath. And abnormal chest x-ray showing a left lower lobe infiltrate. The patient herself is a very poor historian, she lives at a halfway. And based on the clinical information from the chart, she was seen 3 days ago at [facility], and she was s pecifically seen by the admitting physician/Dr. Shaw,, and he treated the patient with Ceftin for abnormal chest x-ray showing infiltrate in the left lower lobe. I am not certain whether the patient was truly diagnosed with covid 19 infection at the time or not, but supposedly she had a EC done and she was discharged before the results came back. This time the patient was apparently sicker and feeling worse, her [place] virus screening was positive, chest x-ray showed mostly low lung volumes and hypoventilatory changes with increasing bibasilar atelectasis opacities. Patient was admitted and this consult was initiated. Not much information could be obtained from the patient herself. P atient was started at this time on REM. And she is now on the Covid 19 cocktail. Progress note dated 06/02/2020. 55-year-old female with history of Down's syndrome. She apparently was admitted with a diagnosis of fever, shortness of breath, and COVID 19 pneumonia. She was seen by my partner yesterday. Chest x-ray was abnormal. She apparently was seen 3 days prior to the admission here, at [facility]. Currently, the patient is on saline at 75 mL an hour, and nasal cannula at 6 L. Her saturations are 95%. She does not appear to be in any distress. The patient was started on REM. In addition, the patient received a normal vitamins. In addition, the patient is receiving Decadron and Lovenox. Sodium 140, potassium 4.3, chlorides 103, CO2 29, anion gap 9, BUN 11, creatinine 0.6. Chest x-ray from May 31 is reviewed. Reevaluated today on 06/03/2020, patient remains on 5 L nasal cannula, O2 saturations 94%. Patient has Down syndrome, she is not a great historian, but she seems to be quite comfortable, and not in distress. No labs were drawn today. But looking at her previous inflammatory markers, her LDH was 1460 and her C-reactive protein was 141. Chest x-ray on admission showed bibasilar consolidations/bibasilar opacities. Patient has been receiving Decadron and Lovenox. And she also received REM. Along with vitamins. Patient was reevaluated today on 06/04/2020, remains on 5 L nasal cannula, O2 saturation is 93%, patient seems to be very comfortable, and in no distress. No labs were drawn today. Patient was reevaluated today on 06/05/2020, she is about the same, she is now on 4 L nasal cannula and maintaining adequate saturations. Patient is not a good historian, she is nonverbal, but she seems to be doing well and steadily improving. Does not seem to be in any distress. Her d-dimer today is 1.54. Patient was reevaluated today on 06/06/2020, she is now on 4 L nasal cannula, and she is saturating about 92%. Patient is nonverbal and she is not in any distress. Her d-dimer is 1.54. Blood sugar is 177 C-reactive protein is 29.5. Reevaluated today on 06/07/2020, patient is doing well, in no distress, remains on 4 L nasal cannula and her O2 sats is 90%. No significant change has been noted since admission. Obviously the patient is not showing any signs of decline in spite of her Covid 19 pneumonia. Objective - Vital Signs Vital signs: Vital Signs Temp 99.2 F 06/07/20 08:00 Pulse 91 06/07/20 08:00 Resp 20 06/07/20 08:00 BP 118/56 06/07/20 08:00 Pulse Ox 90 L 06/07/20 08:00 Intake & Output 06/06/20 06/07/20 06/07/20 18:59 06:59 18:59 Intake Total 120 Output Total 500 Balance 120 -500 Intake: Oral 120 Output: Urine 500 Other: Voiding Method Diaper Diaper Incontinent Incontinent # Voids 1 2 2 - Exam Physical Exam: Revealed 55-year-old female, with mental delay and Down syndrome. On 4 L nasal cannula, comfortable, in no distress Head: Atraumatic, normocephalic. She does have what the neck and short stature HEENT:[Neck is supple.] [No neck masses.] [No thyromegaly.] [No JVD.] Chest: Metrical chest expansion, crackles at the bases Cardiac Exam: [Normal S1 and S2, no S3 gallop, no murmur.] Abdomen: [Soft, nontender, no megaly, no rebound, no guarding, normal bowel sounds.] Extremities: [No clubbing, no edema, no cyanosis.] Neurological Exam: Awake, unable to assess the neurological status. Patient has Down syndrome. Skin: No rashes. - Labs CBC & Chem 7: 05/31/20 09:16 06/07/20 05:21 Labs: Abnormal Lab Results - Last 24 Hours (Table) 06/06/20 06/06/20 06/07/20 Range/Units 17:19 20:48 05:21 D-Dimer 0.94 H (<0.60) mg/L FEU Chloride (98-107) mmol/L Carbon Dioxide (22-30) mmol/L POC Glucose (mg/dL) 146 H 118 H (75-99) mg/dL Calcium (8.4-10.2) mg/dL C-Reactive Protein (<10.0) mg/L 06/07/20 Range/Units 05:21 D-Dimer (<0.60) mg/L FEU Chloride 97 L (98-107) mmol/L Carbon Dioxide 36 H (22-30) mmol/L POC Glucose (mg/dL) (75-99) mg/dL Calcium 7.9 L (8.4-10.2) mg/dL C-Reactive Protein 19.1 H (<10.0) mg/L Microbiology - Last 24 Hours (Table) 05/31/20 09:28 Blood Culture - Final Blood No Growth after 144 hours 05/31/20 09:28 Blood Culture - Final Blood No Growth after 144 hours Assessment and Plan Assessment: Impression: Acute hypoxic respiratory failure secondary to acute covid 19 pneumonia. History of Down syndrome. Type 2 diabetes. Hypothyroidism. History of schizophrenia. Recommendation: Continue present supportive care measures. Continue oxygen titration. Continue the Covid 19 cocktail. Continue REM. Continue Decadron. Continue Lovenox. Continue vitamin D. Continue aspirin. We will clear the patient for discharge home today or tomorrow on oxygen per Time with Patient: Less than 30
[2020-06-07 12:24] LABS: Glucose,Whole Blood 68 mg/dL (75-99)
[2020-06-07 12:36] LABS: Glucose,Whole Blood 79 mg/dL (75-99)
[2020-06-07 12:48] VITALS: BP 95/63; PULSE 75; RESP 24; TEMP 99.3
--- NOTE | 2020-06-07 16:07 | P.DS ---
Providers Date of admission: 06/03/20 07:37 Expected date of discharge: 06/07/20 Attending physician: Geovanny Gant Consults: 05/31/20 11:59 Consult Physician Urgent Consulting Provider: Kate Elias Consult Reason/Comments: COVID pneumonia Do you want consulting provider notified?: Yes Primary care physician: [facility] [place] [facility] [place] Course: 55-year-old pleasant female with known history of Down syndrome was brought in here has a patient was having some shortness of breath but presently not hypoxic saturating well on room air. Patient does have infiltrate in the left lower lung barrera. Patient had multiple bowel movements and the [facility]dc is unable to handle the patient because of which patient was brought to ER. Patient was seen to 3 days ago at [facility]. I was asked to admit the patient. But patient's family that his sister wanted to take her back to [facility]dc as she doesn't do well with hospitalization because of that reason considering that she had an infiltrate in the left lower lung barrera patient was discharged on Ceftin. There was no evidence of cord at that time patient was mainly complaining of left hip pain imaging was within normal limits. Patient denied any sustained. Kind of pain at this time patient is being given a monoclonal antibody infusion patient will be monitored overnight. Patient was having these bowel movements most probably because of the antibiotic because of which I'll hold antibiotic, if patient is clinically doing well after evaluation with physical therapy and occupational therapy patient . Because of patient being drowsy and sleepy. Ativan discontinued. Namenda discontinued. Today: More awake. Sitting up in a chair. Eating better. Because of being lethargic dose of Zyprexa at night cutback to 5 mg. 92% on 4 L. Consultation: Dr. Elias partners from pulmonary On examination: VITAL SIGNS: 99.2, 91, 20, 118/56, 92% on 4 L GENERAL APPEARANCE: Sitting upon a chair, more awake but tired HEENT: Normal external appearance of nose and ear. Oral cavity normal NEUROLOGIC: No facial asymmetry. Morning labs RESPIRATORY: Respiratory effort increased, PSYCHIATRY: Awake answering questions Rest of exam as per pulmonary nursing INVESTIGATIONS, reviewed in the clinical context: June 07: D-dimer 0.94 CRP 19.1 June 05: D-dimer 1.5 for CRP 29.5. Accu-Cheks 128, 125 Accu-Cheks noted Assessment and plan: Acute Covid 19 pneumonia . Patient on Ventolin, vitamin D3, IV Decadron, subcu Lovenox, IV Remdesivir. We will add xarelto for DC Acute hypoxic respiratory failure secondary to pneumonia, Currently on 4 L nasal cannula -Fecal incontinence: Supportive care -Acute medical debility Generalized deconditioning: Physical and occupational therapy evaluation -Sleep apnea -Hypothyroidism Continue with Synthroid -Schizophrenia Continue with Zyprexa, Ativan-discontinued, Cymbalta. Does of Zyprexa cut back to 5 mg daily at bedtime. -Down syndrome -DVT prophylaxis with Lovenox -Metabolic encephalopathy. Patient other drowsy. Will DC the Ativan. Also DC Namenda. Cutback dose of Zyprexa. Disposition: [facility] Plan - Discharge Summary Discharge Rx Participant: Yes New Discharge Prescriptions: New Zinc Sulfate [Orazinc] 220 mg PO DAILY #1 capsule Rivaroxaban [Xarelto] 2.5 mg PO DAILY #30 tablet Ascorbic Acid [Vitamin C] 1,000 mg PO DAILY #1 tablet dexAMETHasone [Dexamethasone] 6 mg PO DAILY #9 tablet Continue Omeprazole 20 mg PO DAILY@0800 Levothyroxine Sodium [Synthroid] 25 mcg PO DAILY@0800 DULoxetine HCL [Cymbalta] 60 mg PO BID@0800,1600 Olopatadine HCl [Pazeo] 1 drop BOTH EYES DAILY@1600 Sodium Chloride 5% Ophth Soln [Nga 128] 1 drops LEFT EYE BID@0800,2100 OLANZapine ODT [ZyPREXA Zydis] 5 mg PO DAILY PRN PRN Reason: ESCALATING BEHAVIOR Dbumc-U-Upvzwcseutjnd [Beano] 300 unit PO BID@0800,1600 Simethicone 125mg Chew 125 mg PO DAILY PRN PRN Reason: GAS Cyanocobalamin (Vitamin B-12) [Vitamin B-12] 1,000 mcg PO DAILY@0800 Ketoconazole 2% Shampoo [Nizoral] 1 applic TOPICAL HS Albuterol Nebulized [Ventolin Nebulized] 2.5 mg INHALATION RT-Q6H PRN PRN Reason: Shortness Of Breath Carboxymethylcellulose Sodium [Refresh Tears] 1 drop RIGHT EYE TID Cholecalciferol [Vitamin D3 (10 Mcg = 400 Iu)] 10 mcg PO DAILY@1600 Clotrimazole/Betameth Cream [Lotrisone] 1 applic TOPICAL HS Mupirocin 2% Oint [Bactroban 2% Oint] 1 applic TOPICAL TID PRN PRN Reason: Rash Discontinued Memantine [Namenda] 10 mg PO BID@0800,2099 Cefuroxime Axetil [Ceftin] 500 mg PO BID LORazepam [Ativan] 0.5 mg PO BID@0800,2100 No Action OLANZapine [ZyPREXA] 7.5 mg PO HS@2100 Discharge Medication List Levothyroxine Sodium [Synthroid] 25 mcg PO DAILY@0800 08/13/14 [History] Omeprazole 20 mg PO DAILY@0800 08/13/14 [History] DULoxetine HCL [Cymbalta] 60 mg PO BID@0800,1600 08/20/15 [History] Olopatadine HCl [Pazeo] 1 drop BOTH EYES DAILY@1600 05/24/17 [History] Sodium Chloride 5% Ophth Soln [Nga 128] 1 drops LEFT EYE BID@0800,2100 06/07/17 [History] Nwkrw-T-Nzosvsknkyzdd [Beano] 300 unit PO BID@0800,1600 01/08/18 [History] OLANZapine ODT [ZyPREXA Zydis] 5 mg PO DAILY PRN 01/08/18 [History] OLANZapine [ZyPREXA] 7.5 mg PO HS@209901/08/18 [History] Cyanocobalamin (Vitamin B-12) [Vitamin B-12] 1,000 mcg PO DAILY@0800 04/02/19 [History] Simethicone 125mg Chew 125 mg PO DAILY PRN 04/02/19 [History] Albuterol Nebulized [Ventolin Nebulized] 2.5 mg INHALATION RT-Q6H PRN 05/31/20 [History] Carboxymethylcellulose Sodium [Refresh Tears] 1 drop RIGHT EYE TID 05/31/20 [History] Cholecalciferol [Vitamin D3 (10 Mcg = 400 Iu)] 10 mcg PO DAILY@1600 05/31/20 [History] Clotrimazole/Betameth Cream [Lotrisone] 1 applic TOPICAL HS 05/31/20 [History] Ketoconazole 2% Shampoo [Nizoral] 1 applic TOPICAL HS 05/31/20 [History] Mupirocin 2% Oint [Bactroban 2% Oint] 1 applic TOPICAL TID PRN 05/31/20 [History] Ascorbic Acid [Vitamin C] 1,000 mg PO DAILY #1 tablet 06/07/20 [Rx] Rivaroxaban [Xarelto] 2.5 mg PO DAILY #30 tablet 06/07/20 [Rx] Zinc Sulfate [Orazinc] 220 mg PO DAILY #1 capsule 06/07/20 [Rx] dexAMETHasone [Dexamethasone] 6 mg PO DAILY #9 tablet 06/07/20 [Rx] Follow up Appointment(s)/Referral(s): Tee Costa MD [STAFF PHYSICIAN] - 1 Week [facility], [NON-STAFF] - As Needed Luis Antonio Lantigua DO [Primary Care Provider] - 1-2 days Activity/Diet/Wound Care/Special Instructions: Longterm would like paper scripts at pa
[2020-06-07] MEDS: CHOLECALCIFEROL 10 MCG (400 IU) TABLET PO SCH (16:43)
== END 2020-06-07 18:55 | disposition home or self-care (01) | DRG 177 ==
LOC: EC 08:49 → 6NMEDSUR 12:20 → 4SSUR 12:37 → 1SOBS 22:04 → 6NMEDSUR 06-01 14:22 → 1SOBS 06-01 15:00 → 6NMEDSUR 06-01 15:40 → OBSVTOIN 06-03 07:37
PROVIDERS: ADMIT Hospitalist; ATTEND Hospitalist
PROC: XW033E5 Introduction of Remdesivir Anti-infective into Peripheral Vein, Percutaneous Approach, New Technology Group 5 (ICD-10-PCS; principal; 2020-06-01)
PROC: 3E0330M Introduction of Antineoplastic, Monoclonal Antibody, into Peripheral Vein, Percutaneous Approach (ICD-10-PCS; 2020-06-01)
PROC: 5A0935A Assistance with Respiratory Ventilation, Less than 24 Consecutive Hours, High Flow/Velocity Cannula (ICD-10-PCS; 2020-06-07)
DX: U07.1 COVID-19 (principal); J12.82 Pneumonia due to coronavirus disease 2019; J96.01 Acute respiratory failure with hypoxia; G93.41 Metabolic encephalopathy; J98.11 Atelectasis; Q90.9 Down syndrome, unspecified; Z79.890 Hormone replacement therapy; F20.9 Schizophrenia, unspecified; R15.9 Full incontinence of feces; E03.9 Hypothyroidism, unspecified; G47.30 Sleep apnea, unspecified; E11.9 Type 2 diabetes mellitus without complications; Z87.440 Personal history of urinary (tract) infections; F03.90 Unspecified dementia, unspecified severity, without behavioral disturbance, psychotic disturbance, mood disturbance, and anxiety; F41.9 Anxiety disorder, unspecified; F79 Unspecified intellectual disabilities; Z99.3 Dependence on wheelchair
CPT/HCPCS: 36410; 36415; 71045; 76937; 80048; 80053; 81003; 83605; 83615; 84145; 85025; 85379; 85610; 85730; 86140; 87040; 87635; 93005; 94640; 94760; 96365; 96366; 96374; 99291

== ENCOUNTER 2020-12-18 20:41 | Emergency (ER) | payer MEDICARE, OTHER ==
[2020-12-18 21:00] VITALS: RESP 20; TEMP 97.9
--- NOTE | 2020-12-18 21:54 | ED ---
Fall HPI - General Chief Complaint: Fall Stated Complaint: Fall Time Seen by Provider: 12/18/20 21:18 Source: patient, RN notes reviewed, old records reviewed Mode of arrival: EMS Limitations: altered mental status, physical limitation - History of Present Illness Initial Comments: This is a 55-year-old female to the ER to evaluate. Patient presents today for evaluation of fall fall from extended care facility abrasion there concern for head injury after evaluation of fall they were concerned or patient's oxygenation apparently is having oxygen displayed in the 60s. EMS reports normal oxygenation in transfer. Began patient's poor story no nausea with prior history of time obtained from EMS chart and prior records MD Complaint: fall -: hour(s) Fall From: standing When Fall Occurred: 1 hour [employer] Fall Witnessed: no, yes, by living facility staff Place Fall Occurred: home, senior living/SNF Loss of Consciousness: none Prolonged Down Time?: no Symptoms Prior to Fall: none Location: head Severity: mild Severity scale (1-10): 1 Context: tripped/slipped Associated Symptoms: denies - Related Data Home Medications Medication Instructions Recorded Confirmed Levothyroxine Sodium [Synthroid] 25 mcg PO DAILY@0800 08/13/14 05/31/20 Omeprazole 20 mg PO DAILY@0800 08/13/14 05/31/20 DULoxetine HCL [Cymbalta] 60 mg PO BID@0800,1600 08/19/05/31/20 Olopatadine HCl [Pazeo] 1 drop BOTH EYES DAILY@1600 05/24/17 05/31/20 Sodium Chloride 5% Ophth Soln 1 drops LEFT EYE BID@0800,2100 06/07/17 05/31/20 [Nga 128] Uvxka-J-Lzqkjgteuofyx [Beano] 300 unit PO BID@0800,1600 01/08/18 05/31/20 OLANZapine ODT [ZyPREXA Zydis] 5 mg PO DAILY PRN 01/08/18 05/31/20 Cyanocobalamin (Vitamin B-12) 1,000 mcg PO DAILY@0800 04/02/19 05/31/20 [Vitamin B-12] Simethicone 125mg Chew 125 mg PO DAILY PRN 04/02/19 05/31/20 Albuterol Nebulized [Ventolin 2.5 mg INHALATION RT-Q6H PRN 05/31/20 05/31/20 Nebulized] Carboxymethylcellulose Sodium 1 drop RIGHT EYE TID 05/31/20 05/31/20 [Refresh Tears] Cholecalciferol [Vitamin D3 (10 10 mcg PO DAILY@1600 05/31/20 05/31/20 Mcg = 400 Iu)] Clotrimazole/Betameth Cream 1 applic TOPICAL HS 05/31/20 05/31/20 [Lotrisone] Ketoconazole 2% Shampoo [Nizoral] 1 applic TOPICAL HS 05/31/20 05/31/20 Mupirocin 2% Oint [Bactroban 2% 1 applic TOPICAL TID PRN 05/31/20 05/31/20 Oint] Previous Rx's Medication Instructions Recorded Ascorbic Acid [Vitamin C] 1,000 mg PO DAILY #1 tablet 06/07/20 OLANZapine [ZyPREXA] 5 mg PO HS #1 tablet 06/07/20 Rivaroxaban [Xarelto] 2.5 mg PO DAILY #30 tablet 06/07/20 Zinc Sulfate [Orazinc] 220 mg PO DAILY #1 capsule 06/07/20 dexAMETHasone 6 mg PO DAILY #9 tablet 06/07/20 Allergies Allergy/AdvReac Type Severity Reaction Status Date / Time latex AdvReac sensitive Verified 12/18/20 23:02 skin Review of Systems ROS Statement: Those systems with pertinent positive or pertinent negative responses have been documented in the HPI. ROS Other: All systems not noted in ROS Statement are negative. Past Medical History Past Medical History: Dementia, Diabetes Mellitus, Pneumonia, Sleep Apnea/CPAP/BIPAP, Thyroid Disorder Additional Past Medical History / Comment(s): UTI,ulcers and gallbladder not working properly",Down Syndrome, enlarged heart, wears O2 during night-2 liters nasal canula for sleep apnea, left foot deformity with special shoes, urinary tract infection History of Any Multi-Drug Resistant Organisms: None Reported Past Surgical History: Cholecystectomy Additional Past Surgical History / Comment(s): nasal surgery, wilberto cataract surgery,growth removed left ankle Past Anesthesia/Blood Transfusion Reactions: No Reported Reaction Past Psychological History: Anxiety, Schizophrenia Smoking Status: Unknown if ever smoked Past Alcohol Use History: None Reported Past Drug Use History: None Reported - Past Family History Father Family Medical History: Cancer Additional Family Medical History / Comment(s): skin Mother Additional Family Medical History / Comment(s): pulmonary fibrosis Brother(s) Additional Family Medical History / Comment(s): lung fibrosis General Exam General appearance: alert, in no apparent distress Head exam: Present: atraumatic, normocephalic, normal inspection Eye exam: Present: normal appearance, PERRL, EOMI. Absent: scleral icterus, conjunctival injection, periorbital swelling ENT exam: Present: normal exam, mucous membranes moist Neck exam: Present: normal inspection. Absent: tenderness, meningismus, lymphadenopathy Respiratory exam: Present: normal lung sounds bilaterally. Absent: respiratory distress, wheezes, rales, rhonchi, stridor Cardiovascular Exam: Present: regular rate, normal rhythm, normal heart sounds. Absent: systolic murmur, diastolic murmur, rubs, gallop, clicks GI/Abdominal exam: Present: soft, normal bowel sounds. Absent: distended, tenderness, guarding, rebound, rigid Extremities exam: Present: normal inspection, full ROM, normal capillary refill. Absent: tenderness, pedal edema, joint swelling, calf tenderness Back exam: Present: normal inspection Neurological exam: Present: alert, oriented X3, CN II-XII intact Psychiatric exam: Present: normal affect, normal mood Skin exam: Present: warm, dry, intact, normal color. Absent: rash Course Vital Signs 12/18/20 20:49 Temperature 97.9 F Pulse Rate 93 Respiratory 20 Rate Blood Pressure 136/72 O2 Sat by Pulse 91 L Oximetry - Reevaluation(s) Reevaluation #1: 12/18/20 23:04 Medical record is reviewed Reevaluation #2: 12/18/20 23:05 Patient has no respiratory distress here in the ER, normal pulse ox Reevaluation #3: 12/18/20 23:05 Patient can be discharged home, family informed results Medical Decision Making - Medical Decision Making 55 female who does have a fall with abrasion to 4, no injury noted CT scans negative patient can be discharged back to extended care facility - Radiology Data Radiology results: report reviewed (CT brain C-spine negative for acute disease CXR and Pelvis XR negative for acute disaese), image reviewed Disposition Clinical Impression: Fall, Abrasion of forehead Disposition: HOME SELF-CARE Condition: Good Instructions (If sedation given, give patient instructions): Fall Prevention for Older Adults (ED) Is patient prescribed a controlled substance at d/c from ED?: No Referrals: Tee Costa MD [Primary Care Provider] - 1-2 days
--- NOTE | 2020-12-18 22:51 | CT ---
EXAMINATION TYPE: CT brain poornima tate con DATE OF EXAM: 12/18/2020 COMPARISON: None HISTORY: fall CT DLP: 1647.5 mGycm Automated exposure control for dose reduction was used. Images of the brain and cervical spine without contrast. There is cerebral atrophy. There is no mass effect nor midline shift. There is no sign of intracrania l hemorrhage. There is limited pneumatization of the mastoid sinuses. Cervical vertebra have normal alignment. There is hypertrophic moderate spur formation anteriorly thr oughout the cervical spine from C3 to C7. There is no compression fracture. Facet joints are intact. There is multilevel hypertrophic facet arthropathy. There is moderate spurring at the skull base. The re is no evidence of a cervical spine fracture. IMPRESSION: Cerebral atrophy with enlargement of the ventricles. No acute intracranial abnormality. Multilevel moderate spondylotic changes in the cervical spine. No fracture.
--- NOTE | 2020-12-18 22:53 | XR ---
EXAMINATION TYPE: XR chest 1V DATE OF EXAM: 12/18/2020 COMPARISON: May 31, 2020 HISTORY: Weakness TECHNIQUE: Single view FINDINGS: There is some coarsening interstitial markings in the lower lung barrera. There is no obviou s heart failure. Costophrenic angles are fairly clear. There are no hilar masses. Bony thorax is inta ct. IMPRESSION: There is significant clearing of the pulmonary congestion and pulmonary edema compared to old exam. No obvious heart failure.
--- NOTE | 2020-12-18 22:54 | XR ---
EXAMINATION TYPE: XR pelvis AP view DATE OF EXAM: 12/18/2020 COMPARISON: NONE HISTORY: Pain TECHNIQUE: Single view FINDINGS: Pelvic ring is intact. Proximal femurs and hip joints are intact. There is no sign of hip d ysplasia. Sacroiliac joints are intact. IMPRESSION: Negative exam. No fracture.
[2020-12-19 00:52] VITALS: BP 122/85; PULSE 86
== END 2020-12-19 00:52 | disposition home or self-care (01) ==
LOC: EC 20:41
DX: S00.81XA Abrasion of other part of head, initial encounter (principal); E11.9 Type 2 diabetes mellitus without complications; E07.9 Disorder of thyroid, unspecified; Z91.040 Latex allergy status; Z79.890 Hormone replacement therapy; W01.0XXA Fall on same level from slipping, tripping and stumbling without subsequent striking against object, initial encounter; Y92.129 Unspecified place in nursing home as the place of occurrence of the external cause
CPT/HCPCS: 70450; 71045; 72125; 72170; 99285